=== PATIENT | male | born 1975 | race Caucasian/White ===

== ENCOUNTER 2022-01-02 08:43 | Outpatient (CLI) | payer OTHER, SELFPAY ==
[2022-01-02 13:59] LABS: Chloride* 104 mmol/L (96-114); Potassium* 4.1 mmol/L (3.6-5.1); Sodium* 141 mmol/L (135-149)
[2022-01-02 14:02] LABS: Blood Urea Nitrogen* 12 mg/dL (5-24); Carbon Dioxide* 34 mmol/L (20-32); Cholesterol* 176 mg/dL (90-199); Creatinine* 0.5 mg/dL (0.5-1.5); Estimated Glomerular Filt Rate 127 ml/min; Glucose* 96 mg/dL (60-115)
[2022-01-02 14:03] LABS: Calcium* 9.3 mg/dL (8.4-10.6); HDL Cholesterol* 53 mg/dL (>=40); LDL Cholesterol Calculated 107 mg/dL (<100); Triglycerides* 82 mg/dL (40-149)
== END 2022-01-02 08:44 | disposition home or self-care (01) ==
PROVIDERS: PCP Family Medicine; Visit Provider Family Medicine
DX: Z00.00 Encounter for general adult medical examination without abnormal findings (principal); I10 Essential (primary) hypertension; Z13.6 Encounter for screening for cardiovascular disorders; E66.9 Obesity, unspecified; E55.9 Vitamin D deficiency, unspecified
CPT/HCPCS: 80048; 80061

== ENCOUNTER 2022-04-03 11:20 | Outpatient (CLI) | payer OTHER, SELFPAY | END 2022-04-03 11:21 | disposition home or self-care (01) | PROVIDERS: PCP Family Medicine; Visit Provider Family Medicine | DX: R10.9 Unspecified abdominal pain (principal); R31.9 Hematuria, unspecified | CPT/HCPCS: 87086 ==

== ENCOUNTER 2022-04-03 12:23 | Inpatient (IN) | payer OTHER, SELFPAY ==
[2022-04-03] VITALS (26 sets, daily range): BP systolic 117–158; BP diastolic 78–88; PULSE 73–100; RESP 16–18; TEMP 36.7–36.9; O2SAT 90–98; BMI 46.7; BMI 46.8
[2022-04-03] MEDS: 0.9 % SODIUM CHLORIDE 1000 ml 1,000 ML IV ×2 (13:38→16:12)
[2022-04-03] MEDS: fentaNYL 100 MCG/2 ML inj 50 MCG IVP (13:39)
[2022-04-03] MEDS: ONDANSETRON 2 MG/ML inj 4 MG IVP (13:39)
[2022-04-03 13:50] LABS: Albumin* 3.8 g/dL (3.3-5.0); Chloride* 103 mmol/L (96-114)
--- NOTE | 2022-04-03 13:50 | ED.NURSE ---
Pt O2 sats did drop after fentanyl admin - 85% on RA. Pt was also lying flat and has a hx of BLAKE. Placed on 2L O2 via NC.
[2022-04-03 13:51] LABS: Sodium* 141 mmol/L (135-149)
[2022-04-03 13:53] LABS: Carbon Dioxide* 32 mmol/L (20-32); Creatinine* 0.6 mg/dL (0.5-1.5); Est. Creatinine Clearance* 148.83; Estimated Glomerular Filt Rate 121 ml/min
[2022-04-03 13:54] LABS: Alanine Aminotransferase* 47 U/L (4-50); Alkaline Phosphatase* 60 U/L (40-150); Aspartate Amino Transferase* 30 U/L (12-35); Bilirubin Direct* 0.2 mg/dL (0.0-0.5); Blood Urea Nitrogen* 14 mg/dL (5-24); Calcium* 8.1 mg/dL (8.4-10.6); Glucose* 127 mg/dL (60-115); Total Protein* 6.6 g/dL (6.0-8.3)
--- NOTE | 2022-04-03 14:01 | ED.NURSE ---
Critical lab received: potassium is 2.6. aware.
--- NOTE | 2022-04-03 14:03 | ED_ITS ---
HPI - Abdominal Pain General Chief Complaint: Abdominal Pain Stated Complaint: Abdominal pain Time Seen by Provider: 04/03/22 12:53 History of Present Illness HPI narrative: 46-year-old man here with complaint of abdominal pain. Sharp crampy. Started feeling bloated 2 days ago. Subsequently passed some bloody clot in urine. Had increasing abdominal pain then seen at the [facility] with CT imaging that was remarkable only for diffuse irregular multinodular enlargement of both adrenal glands -indeterminate. Urinalysis at that time looks to have been negative for blood. Total bilirubin was elevated with direct component. Total bilirubin was 1.6. Transaminases were normal. Was recommended for further nonemergent imaging evaluation for this adrenal issue. Yesterday evening did have a temperature to 100.2. Vomited once yesterday late night this rn x ray and then again in clinic doctor's office. Further imaging was done in the form of an abdominal x-ray suggesting partial small bowel obstruction. Sent here for repeat imaging. White count was not elevated. Passing less gas than usual but is passing gas. Today did have a watery stool. Otherwise unsatisfying bowel movement 2 days ago. Notes normally has daily bowel movements. Has never had any abdominal surgeries. Arrives in a good deal of abdominal pain. Is nauseated. Also 2 days ago potassium was 3.1. Related Data Home Medications Medication Instructions Recorded Confirmed bupropion HCl 150 mg tablet,12 hr 150 mg PO BID 01/02/22 04/03/22 sustained-release gabapentin 300 mg capsule 300 mg PO TID 01/02/22 04/03/22 lisinopril 20 1 tab PO DAILY 01/02/22 04/03/22 mg-hydrochlorothiazide 25 mg tablet meloxicam 15 mg tablet 15 mg PO DAILY PRN 01/02/22 04/04/22 metformin 500 mg tablet,extended 1,000 mg PO DAILY 01/02/22 04/04/22 release 24 hr tramadol 50 mg tablet 50 mg PO Q6H PRN 01/02/22 04/03/22 esomeprazole magnesium 20 mg 20 mg PO DAILY 04/04/22 04/04/22 capsule,delayed release pantoprazole 40 mg tablet,delayed 40 mg PO DAILY 04/04/22 04/04/22 release Previous Rx's Medication Instructions Recorded metoclopramide HCl 5 mg tablet 5 mg PO DAILY #10 tabs 04/06/22 (Reglan) Allergies Allergy/AdvReac Type Severity Reaction Status Date / Time No Known Allergies Allergy Unknown Verified 04/03/22 12:35 Review of Systems Status of ROS Reports: 6 or more systems reviewed and unremarkable except as noted in History and below [facility] Medical History (Updated 04/11/22 @ 00:01 by ) Chronic low back pain Gastroesophageal reflux disease Onychomycosis Osteoarthritis of right hip Vitamin D deficiency Surgical History History of arthroscopy of left knee S/P hip arthroscopy Status post nasal septoplasty Status post tonsillectomy and adenoidectomy Status post uvulopalatopharyngoplasty Family History Other Diabetes Social History Narrative: He lives in [place] with his , Francis, and his 10-year-old daughter. He works for the [employer] in [place]. He does not smoke. He drinks 2 or 3 beers about once a week. He does not use recreational drugs. Smoking Status: Never smoker Do you use any of these nicotine containing products: None Second hand tobacco smoke exposure: No How often do you have a drink containing alcohol: 2-4 times a month Alcohol type: beer How many standard drinks containing alcohol do you have on a typical day: 1 or 2 AUDIT-C Alcohol total score: 2 Non-prescribed substance use: denies use service: Yes Exam Narrative: Exam Narrative: Pleasant. Speaking easily. Breathing easily. Lungs appear to be clear. Oropharynx is sticky. Symmetrical. Cranial nerves 2-12 to be intact. Moving all extremities without difficulty. There is no edema and is well-perfused peripherally and core. Heart is in an elevated rate in a regular rhythm. Abdomen is distended and tympanitic and tense across the upper half of his abdomen. Bowel sounds are normal. There are no peritoneal signs. Pain is not particularly more in the right upper quadrant. Const: Vital Signs, click to edit/add: Vital Signs - 24 hr 04/03/22 12:27 04/03/22 13:28 04/03/22 13:50 Temperature 98.4 F Pulse Rate Pulse Rate [Pulse Oximeter] 97 Respiratory Rate 16 Blood Pressure Blood Pressure [Ri ght Upper Arm] 127/85 Pulse Oximetry 92 90 95 Oxygen Delivery Me thod Room Air Nasal Cannula Oxygen Flow Rate 2 04/03/22 15:13 04/03/22 15:15 04/03/22 15:30 Temperature Pulse Rate 73 74 75 Pulse Rate [Pulse Oximeter] Respiratory Rate Blood Pressure Blood Pressure [Ri ght Upper Arm] Pulse Oximetry 94 94 96 Oxygen Delivery Me thod Oxygen Flow Rate 04/03/22 15:45 04/03/22 16:00 04/03/22 16:02 Temperature Pulse Rate 74 75 77 Pulse Rate [Pulse Oximeter] Respiratory Rate Blood Pressure 149/88 H Blood Pressure [Ri ght Upper Arm] Pulse Oximetry 96 97 96 Oxygen Delivery Me thod Oxygen Flow Rate 04/03/22 16:15 04/03/22 16:30 04/03/22 16:45 Temperature Pulse Rate 75 74 78 Pulse Rate [Pulse Oximeter] Respiratory Rate Blood Pressure Blood Pressure [Ri ght Upper Arm] Pulse Oximetry 93 97 95 Oxygen Delivery Me thod Oxygen Flow Rate 04/03/22 17:00 04/03/22 17:15 04/03/22 17:30 Temperature Pulse Rate 81 87 86 Pulse Rate [Pulse Oximeter] Respiratory Rate Blood Pressure Blood Pressure [Ri ght Upper Arm] Pulse Oximetry 97 96 93 Oxygen Delivery Me thod Oxygen Flow Rate 04/03/22 17:45 04/03/22 18:00 04/03/22 18:15 Temperature Pulse Rate 85 84 86 Pulse Rate [Pulse Oximeter] Respiratory Rate Blood Pressure Blood Pressure [Ri ght Upper Arm] Pulse Oximetry 96 96 96 Oxygen Delivery Me thod Oxygen Flow Rate 04/03/22 18:30 04/03/22 18:43 04/03/22 18:45 Temperature Pulse Rate 86 88 87 Pulse Rate [Pulse Oximeter] Respiratory Rate Blood Pressure 153/79 H Blood Pressure [Ri ght Upper Arm] Pulse Oximetry 98 97 96 Oxygen Delivery Me thod Oxygen Flow Rate 04/03/22 19:00 04/03/22 19:16 Temperature Pulse Rate 100 Pulse Rate [Pulse Oximeter] 88 Respiratory Rate 18 Blood Pressure Blood Pressure [Ri ght Upper Arm] 158/81 H Pulse Oximetry 98 97 Oxygen Delivery Me thod Nasal Cannula Oxygen Flow Rate 2 Documenting provider has reviewed patient's vital signs: yes Course Course Hospital Course: Very pleasant 46-year-old male with history of diabetes, presented to the hospital with abdominal pain, nausea, vomiting. Subsequently diagnosed with SBO, transition point right lower quadrant. General surgery consulted. No previous history of SBO, no abdominal surgeries. Interestingly, patient had to wedge himself through a small door way a few days prior to admission; had a bruise on left abdomen from this. Unclear if this incident was related to SBO. NG tube placed and small-bowel follow-through performed with reassuring results. Patient was able to slowly advance his diet throughout hospital stay, stable for discharge on 04/06. Given no obvious source for obstruction, consider gastroparesis as contributing factor. Patient prescribed prn Reglan upon discharge with close outpatient follow-up and routine colonoscopy screening. Other notable findings during stay that require PCP follow-up: 1. Incidental finding of enlarged adrenal glands bilaterally, outpatient MRI recommended 2. Hematuria prior to admission, resolved. Outpatient follow-up recommended Vital Signs Vital signs: Initial Vital Signs Temperature 98.4 F 04/03/22 12:27 Temperature Source Temporal Artery Scan 04/03/22 12:27 Pulse Rate 97 04/03/22 12:27 Pulse Rhythm 04/03/22 12:27 Pulse Strength 3+ Normal 04/03/22 12:27 Respiratory Rate 16 04/03/22 12:27 Blood Pressure 127/85 04/03/22 12:27 Blood Pressure Mean 99 04/03/22 12:27 Blood Pressure Position Sitting 04/03/22 12:27 Pulse Oximetry 92 04/03/22 12:27 Oxygen Delivery Method 04/03/22 12:27 Vital Signs Temperature 98.4 F 04/03/22 12:27 Pulse Rate 97 04/03/22 12:27 Respiratory Rate 16 04/03/22 12:27 Blood Pressure 127/85 04/03/22 12:27 Pulse Oximetry 92 04/03/22 12:27 Oxygen Delivery Method 04/03/22 12:27 Temperature 98.1 F 04/06/22 10:49 Pulse Rate 100 04/06/22 10:49 Respiratory Rate 18 04/06/22 10:49 Blood Pressure 153/79 H 04/06/22 10:49 Pulse Oximetry 94 04/06/22 07:00 Oxygen Delivery Method 04/06/22 07:00 Oxygen Flow Rate 1 04/05/22 03:00 MDM - Abdominal Pain MDM Narrative Medical decision making narrative: I did review x-rays from this morning as well as CT [facility] and [facility]. X-rays today do show dilated loops of small bowel. IV is established receives a L normal saline and 50 mcg of fentanyl. Does have history of sleep apnea. Did desat following this dosing. On reassessment though is markedly improved seems more relaxed and comfortable. Nausea has resolved as well-did receive Zofran. Potassium has dropped further to 2.6 from 3.1 2 days ago. Magnesium levels normal. There are perhaps some medications that might contribute to hypokalemia though not at this rapidity. This might be related also to the vomiting. CRP is elevated. I think this is more of partial/small-bowel obstruction/ileus. Pain has been controlled. Unclear whether not we have surely controlled nausea and ability to manage oral liquids. I am anticipating conversation with General surgery for further recommendations. Have attempted to hydrate. Has required a few doses of pain medication and antiemetic. Has not been willing to tolerate oral intake. I have not reimaged at this time. I discussed with hospitalist for admission for hydration and bowel rest. Unclear diagnosis admittedly at this time. Hypokalemia think is incidental and not convinced related to bowel issues. Hospitalist requested upon admission we have repeated CT imaging of abdomen and pelvis with IV contrast. Pending formal over-read here. I have reviewed these images. Diffusely dilated loops of small bowel are present. Moderately distended stomach. Medical Records Attestation: I reviewed the patient's medical records. Lab Data Attestation: I reviewed the patient's lab results. Labs: Lab Results 04/03/22 04/03/22 04/03/22 Range/Units 13:28 13:28 13:28 Sodium 141 (135-149) mmol/L Potassium 2.6 L* (3.6-5.1) mmol/L Chloride 103 (96-114) mmol/L Carbon Dioxide 32 (20-32) mmol/L BUN 14 (5-24) mg/dL Creatinine 0.6 (0.5-1.5) mg/dL Estimated Creat Clear 148.83 Estimated GFR 121 ml/min Glucose 127 H (60-115) mg/dL Lactate (0.5-1.9) mmol/L Calcium 8.1 L (8.4-10.6) mg/dL Magnesium 2.3 (1.5-2.6) mg/dL Total Bilirubin 1.0 (0.1-1.5) mg/dL Direct Bilirubin 0.2 (0.0-0.5) mg/dL AST 30 (12-35) U/L ALT 47 (4-50) U/L Alkaline Phosphatase 60 (40-150) U/L C-Reactive Protein 5.0 H (0.5-1.0) mg/dL Total Protein 6.6 (6.0-8.3) g/dL Albumin 3.8 (3.3-5.0) g/dL SARS-CoV-2 (PCR) Negative SARS-CoV-2 (Negative) 04/03/22 Range/Units 19:24 Sodium (135-149) mmol/L Potassium (3.6-5.1) mmol/L Chloride (96-114) mmol/L Carbon Dioxide (20-32) mmol/L BUN (5-24) mg/dL Creatinine (0.5-1.5) mg/dL Estimated Creat Clear Estimated GFR ml/min Glucose (60-115) mg/dL Lactate 0.6 (0.5-1.9) mmol/L Calcium (8.4-10.6) mg/dL Magnesium (1.5-2.6) mg/dL Total Bilirubin (0.1-1.5) mg/dL Direct Bilirubin (0.0-0.5) mg/dL AST (12-35) U/L ALT (4-50) U/L Alkaline Phosphatase (40-150) U/L C-Reactive Protein (0.5-1.0) mg/dL Total Protein (6.0-8.3) g/dL Albumin (3.3-5.0) g/dL SARS-CoV-2 (PCR) (Negative) Discharge Plan Discharge Clinical Impression: Bowel obstruction, Abdominal pain, Hypokalemia Patient Disposition: Admitted As Inpatient Condition: Stable Activity Level: Activity as Tolerated Discharge Diet: Regular
[2022-04-03 14:05] LABS: Potassium* 2.6 mmol/L (3.6-5.1)
[2022-04-03 14:17] LABS: SARS PCR* Negative SARS-CoV-2 (Negative)
[2022-04-03 14:19] LABS: Magnesium* 2.3 mg/dL (1.5-2.6)
[2022-04-03] MEDS: POTASSIUM CHLORIDE 10 MEQ/100 ML PIGGYBACK 100 MEQ IVPB ×5 (15:01→23:50)
--- NOTE | 2022-04-03 15:35 | ED.NURSE ---
Heads up to house sup.
[2022-04-03] MEDS: PROMETHAZINE 25 MG/ML INJ 12.5 MG IVP (16:10)
[2022-04-03] MEDS: KETOROLAC 30 MG/ML inj IVP (17:06)
[2022-04-03] MEDS: diphenhydrAMINE 50 MG/ML inj 25 MG IVP (18:40)
[2022-04-03] MEDS: METOCLOPRAMIDE HCL 10 MG in 0.9 % SODIUM CHLORIDE 100 ml 100 ML 306 MG IVPB (18:41)
--- NOTE | 2022-04-03 19:04 | CRLHL7_ITS ---
For Patients: As a result of the 21st Century Cures Act, medical imaging exams and procedure reports are released immediately into your electronic medical record. You may view this report before your referring provider. If you have questions, please contact your health care provider. Indication: Increasing abdominal pain, blood in urine, concern for small bowel obstruction Technique: CT abdomen and pelvis with Isovue 370, 148 cc IV Please note that all CT scans at this facility use dose modulation, iterative reconstruction, and/or weight-based dosing when appropriate to reduce radiation dose to as low as reasonably achievable. Comparison: None Findings: Bibasilar atelectasis. Normal heart size. No pericardial effusion. Normal liver size and contour. A low-attenuation left hepatic lobe lesion which is too small to characterize. No definitely suspicious hepatic lesions. The hepatic veins and the portal veins appear patent. Gallbladder unremarkable. No biliary dilatation. The adrenal glands are markedly thickened and nodular bilaterally, but particularly the left adrenal gland (series 2, image [id number]). Bilateral peripelvic renal cysts. No hydronephrosis. No suspicious renal lesions. Symmetric enhancement of the kidneys. The spleen and pancreas are unremarkable. Stomach and duodenum are distended although otherwise unremarkable. Normal course and caliber of the abdominal aorta and the IVC. The aortic side branches in the renal veins appear patent. No retroperitoneal, mesenteric, pelvic or inguinal lymphadenopathy. The prostate and bladder are unremarkable within the limitations of this non tailored examination. The colon is relatively decompressed although it does contain some air and stool. The appendix appears normal. No bowel wall thickening. There are numerous loops of dilated small bowel, particularly within the left kleber abdomen. There is somewhat slow smooth tapering of the more distal small bowel in the right kleber abdomen. A candidate transition point would be (series 2, image 109) the right lower quadrant. No pneumatosis. Trace free fluid within the mesentery. No omental or retroperitoneal nodularity. No significant abdominal wall hernia. No acute or aggressive osseous abnormality. Impression: 1. Small-bowel obstruction with transition point in the right lower quadrant. 2. Markedly enlarged and multinodular adrenal glands. Recommend dedicated MRI for further evaluation. Please note that all CT scans at this facility use dose modulation, iterative reconstruction, and/or weight-based dosing when appropriate to reduce radiation dose to as low as reasonably achievable. Dictated by Virgilio Segal MD @ 04/03/2022 8:13:47 PM (Electronically Signed)
[2022-04-03] MEDS: fentaNYL 100 MCG/2 ML inj 25 MCG IVP (19:13)
--- NOTE | 2022-04-03 19:20 | P.IMHP_ITS ---
Hospitalist- H&P: HPI History of Present Illness Date Seen: 04/03/22 Chief complaint: Abdominal pain Narrative: Avery Horne is a 46 year old male admitted through the emergency department with 2 days of abdominal pain. Two days ago, Sunday morning, the patient had onset of hematuria. In the afternoon he started having fever and chills and abdominal pain. He felt quite poorly and went to the [facility] where he was evaluated. He had a noncontrast abdominal CT which was unremarkable except for multinodular enlargement of the adrenal glands and in his kidneys he had bilateral peripelvic renal cysts. No evidence of bowel obstruction at that time. It was recommended that he have a non emergent evaluation of his adrenal glands with CT or MRI. He reports they diagnosed him with having passed a kidney stone as there was no hydronephrosis or kidney stone present on that exam. Laboratory studies were unremarkable at that time. He had 3 red cells per high-power field on his urinalysis. Yesterday he did not feel as ill as he was on Sunday but still had some abdom inal discomfort. He had a loss of appetite and did not eat much yesterday. He awoke at 1:30 a.m. today with increased abdominal pain and then he vomited. He had a small amount of nonbloody diarrhea after that. He has had a small amount of urine today that has been nonbloody. He has been unable to keep anything down today. He reports no previous history of abdominal problems. No previous abdominal surgeries. He was exposed to his daughter last week who had a self-limited gastroenteritis. She had vomiting and diarrhea. Review of Systems Narrative: Prior to the last 2 days he reports he was generally feeling well. He was dealing with his chronic low back and right hip pain. He does have a bruise on his abdomen which he reports came from trying to get in the door of his work and the doorknob pushing it is his abdomen because the door could not be open due to snow blocking the door. This happened 4 days ago and he did not have much abdominal pain associated with it. [facility] Medical History (Updated 04/03/22 @ 19:35 by Rodríguez Recio MD) Chronic low back pain Diabetes 1.5, managed as type 2 Gastroesophageal reflux disease Hypertension Obesity Obstructive sleep apnea treated with continuous positive airway pressure (CPAP) Onychomycosis Osteoarthritis of right hip Vitamin D deficiency Surgical History History of arthroscopy of left knee S/P hip arthroscopy Status post nasal septoplasty Status post tonsillectomy and adenoidectomy Status post uvulopalatopharyngoplasty Family History Other Diabetes Social History (Updated 04/03/22 @ 19:29 by Rodríguez Recio MD) Narrative: He lives in [place] with his , Francis, and his 10-year-old daughter. He works for the [employer] in [place]. He does not smoke. He drinks 2 or 3 beers about once a week. He does not use recreational drugs. Smoking Status: Never smoker Do you use any of these nicotine containing products: None Second hand tobacco smoke exposure: No How often do you have a drink containing alcohol: monthly or less How many standard drinks containing alcohol do you have on a typical day: 1 or 2 AUDIT-C Alcohol total score: 1 Non-prescribed substance use: denies use service: Yes Meds Home Medications and Allergies Home Medications Medication Instructions Recorded Confirmed Type bupropion HCl 150 mg tablet,12 hr 150 mg PO BID 01/02/22 04/03/22 History sustained-release gabapentin 300 mg capsule 300 mg PO TID 01/02/22 04/03/22 History lisinopril 20 1 tab PO DAILY 01/02/22 04/03/22 History mg-hydrochlorothiazide 25 mg tablet meloxicam 15 mg tablet 15 mg PO .Daily as needed PRN 01/02/22 04/03/22 History metformin 500 mg tablet,extended 1,000 mg PO QDAY 01/02/22 04/03/22 History release 24 hr tramadol 50 mg tablet 50 mg PO Q6H PRN 01/02/22 04/03/22 History Home Medication Comments: He reports that he takes a baby aspirin a day. He also reports taking famotidine 40 mg daily. Allergies Allergy/AdvReac Type Severity Reaction Status Date / Time No Known Allergies Allergy Unknown Verified 04/03/22 12:35 Exam Narrative: Exam Narrative: He is alert and appears in mild discomfort lying on the gurney. He is oriented to his circumstances. Is pleasant and cooperative. Head is without trauma. Eyes are normal. Sclerae nonicteric. Oropharynx with small airway. Dry mucous membranes. Neck is supple without mass or adenopathy. Respirations are clear to auscultation. Good air exchange all lung osuna. No wheezing rales rhonchi. Cardiovascular: S1, S2, regular rate and rhythm. No murmur gallop or rub. Abdomen: Bowel sounds are diminished. A rare high-pitched bowel sound is present. Abdomen is distended and protuberant. He has mild diffuse tenderness. External genitalia normal. Extremities with intact pulses and sensation. He moves all 4 extremities well. Good capillary refill. No significant edema. No rash Const: Vital Signs, click to edit/add: Vital Signs - 24 hr 04/03/22 12:27 04/03/22 13:28 04/03/22 13:50 Temperature 98.4 F Pulse Rate Pulse Rate [Pulse Oximeter] 97 Respiratory Rate 16 Blood Pressure Blood Pressure [Ri ght Upper Arm] 127/85 Pulse Oximetry 92 90 95 Oxygen Delivery Me thod Room Air Nasal Cannula Oxygen Flow Rate 2 04/03/22 15:13 04/03/22 15:15 04/03/22 15:30 Temperature Pulse Rate 73 74 75 Pulse Rate [Pulse Oximeter] Respiratory Rate Blood Pressure Blood Pressure [Ri ght Upper Arm] Pulse Oximetry 94 94 96 Oxygen Delivery Me thod Oxygen Flow Rate 04/03/22 15:45 04/03/22 16:00 04/03/22 16:02 Temperature Pulse Rate 74 75 77 Pulse Rate [Pulse Oximeter] Respiratory Rate Blood Pressure 149/88 H Blood Pressure [Ri ght Upper Arm] Pulse Oximetry 96 97 96 Oxygen Delivery Me thod Oxygen Flow Rate 04/03/22 16:15 04/03/22 16:30 04/03/22 16:45 Temperature Pulse Rate 75 74 78 Pulse Rate [Pulse Oximeter] Respiratory Rate Blood Pressure Blood Pressure [Ri ght Upper Arm] Pulse Oximetry 93 97 95 Oxygen Delivery Me thod Oxygen Flow Rate 04/03/22 17:00 04/03/22 17:15 04/03/22 17:30 Temperature Pulse Rate 81 87 86 Pulse Rate [Pulse Oximeter] Respiratory Rate Blood Pressure Blood Pressure [Ri ght Upper Arm] Pulse Oximetry 97 96 93 Oxygen Delivery Me thod Oxygen Flow Rate 04/03/22 17:45 04/03/22 18:00 04/03/22 18:15 Temperature Pulse Rate 85 84 86 Pulse Rate [Pulse Oximeter] Respiratory Rate Blood Pressure Blood Pressure [Ri ght Upper Arm] Pulse Oximetry 96 96 96 Oxygen Delivery Me thod Oxygen Flow Rate 04/03/22 18:30 04/03/22 18:43 04/03/22 18:45 Temperature Pulse Rate 86 88 87 Pulse Rate [Pulse Oximeter] Respiratory Rate Blood Pressure 153/79 H Blood Pressure [Ri ght Upper Arm] Pulse Oximetry 98 97 96 Oxygen Delivery Me thod Oxygen Flow Rate 04/03/22 19:00 04/03/22 19:16 Temperature Pulse Rate 100 Pulse Rate [Pulse Oximeter] 88 Respiratory Rate 18 Blood Pressure Blood Pressure [Ri ght Upper Arm] 158/81 H Pulse Oximetry 98 97 Oxygen Delivery Me thod Nasal Cannula Oxygen Flow Rate 2 Hospitalist - H&P: Result Labs Labs: [facility] 04/03/22 13:28 Sodium 141 Potassium 2.6 L* Chloride 103 Carbon Dioxide 32 BUN 14 Creatinine 0.6 Glucose 127 H Calcium 8.1 L Liver Function 04/03/22 Range/Units 13:28 Total Bilirubin 1.0 (0.1-1.5) mg/dL Direct Bilirubin 0.2 (0.0-0.5) mg/dL AST 30 (12-35) U/L ALT 47 (4-50) U/L Alkaline Phosphatase 60 (40-150) U/L Albumin 3.8 (3.3-5.0) g/dL Assessment and Plan Assessment and plan (1) Ileus: Problem comment: Patient appears to have an ileus for unclear reasons. Additional evaluation is warranted. Obtain CT of the abdomen with contrast. Supportive care. Surgical consult. NPO for now. IV fluids. Status: Acute (2) Adrenal abnormality: Problem comment: Outpatient follow-up imaging. Status: Acute (3) Hematuria: Problem comment: Present 2 days ago now resolved. Significance uncertain. Status: Acute (4) Hypokalemia: Problem comment: Likely due to poor oral intake and vomiting. Replace and follow. Status: Acute Plan Patient be hospitalized for ongoing evaluation and management of his apparent abdominal ileus. Total time spent today is 80 minutes, 50 minutes in coordination of care and discussing with patient other providers ongoing evaluation management of abdominal pain and ileus
[2022-04-03 19:28] LABS: Lactate* 0.6 mmol/L (0.5-1.9)
[2022-04-03] MEDS: LACTATED RINGERS 1000 ML 1,000 ML 150 ML IV (22:08)
--- NOTE | 2022-04-03 22:48 | CRLHL7_ITS ---
For Patients: As a result of the Century Cures Act, medical imaging exams and procedure reports are released immediately into your electronic medical record. You may view this report before your referring provider. If you have questions, please contact your health care provider. INDICATION: NG tube placement. TECHNIQUE: Chest 1 view(s) COMPARISON: Chest radiograph dated 07/02/2018. FINDINGS/IMPRESSION: Limited study secondary to underpenetration. Image time stamped 11:45 p.m. shows the nasogastric tube coursing into the abdomen, tip likely projects over the stomach. However, on the 2nd image time stamped at 11:47 p.m., the tip of the nasogastric tube is not confidently identified. Repeat abdominal radiograph is recommended. Heart size is upper limits of normal. Streaky opacities in the lung bases, likely reflective of atelectasis. Dictated by Muna Cummings MD @ 04/04/2022 12:03:26 AM (Electronically Signed)
--- NOTE | 2022-04-03 23:07 | PC.NURSE ---
Shift [id number]- Patient arrives to floor at approximately 2000. He is up ad rajendra. He initially states pain and nausea are well-controlled. These increase tonight prior to NG placement. Once NG in place, patient states relief from both. 1L out within 15 minutes of placement. IV infiltrated while potassium running. New IV initiated.
[2022-04-04] MEDS: POTASSIUM CHLORIDE 10 MEQ/100 ML PIGGYBACK 100 MEQ IVPB ×4 (00:50→04:34)
[2022-04-04 03:00] VITALS: BP 125/77; PULSE 91; RESP 18; TEMP 36.6; O2SAT 92
[2022-04-04] MEDS: LACTATED RINGERS 1000 ML 1,000 ML 150 ML IV ×3 (04:37→18:18)
--- NOTE | 2022-04-04 06:20 | PC.NURSE ---
Shift note: NG is patent and draining, pt tolerating placement with no complains, Gastroccult pH 3. Denies pain, bowel sounds hypoactive. Pt ambulates independently, with no c/o nausea
[2022-04-04 07:07] LABS: Lactate* 0.7 mmol/L (0.5-1.9)
[2022-04-04 07:08] LABS: Basophils Absolute Auto 0.02 K/uL (0.00-0.30); Basophils Percent Auto 0.3 % (0.0-3.0); Eosinophils Absolute Auto 0.02 K/uL (0.00-0.50); Eosinophils Percent Auto 0.3 % (0.0-7.0); Hematocrit 40.4 % (37.0-53.0); Hemoglobin* 13.5 gm/dL (13.5-17.5); Immature Granulocytes Abs Auto 0.02 K/uL (0.00-0.30); Immature Granulocytes Pct Auto 0.3 %; Lymphocytes Percent Auto 16.4 % (20-44); Mean Corpuscular HGB Conc 33 gm/dL (32-36); Mean Corpuscular Hemoglobin 29 pg (26-34); Mean Corpuscular Volume 86 fL (80-100); Monocytes Percent Auto 11.2 % (0.0-11.0); Neutrophils Absolute Auto 4.92 K/uL (1.7-7.0); Neutrophils Percent Auto 71.5 % (42.0-72.0); Platelet Count* 216 K/uL (140-440); RDW Coefficient of Variation % 13.2 % (11.5-15.5); White Blood Count* 6.88 K/uL (4.50-11.00)
[2022-04-04 07:20] LABS: Slide Review Reflex No
[2022-04-04 07:28] LABS: Chloride* 107 mmol/L (96-114)
[2022-04-04 07:29] LABS: Potassium* 3.1 mmol/L (3.6-5.1); Sodium* 143 mmol/L (135-149)
[2022-04-04 07:31] LABS: Creatinine* 0.5 mg/dL (0.5-1.5); Estimated Glomerular Filt Rate 127 ml/min
[2022-04-04 07:32] LABS: Blood Urea Nitrogen* 14 mg/dL (5-24); Carbon Dioxide* 33 mmol/L (20-32)
[2022-04-04 07:33] LABS: Calcium* 7.6 mg/dL (8.4-10.6); Glucose* 107 mg/dL (60-115)
[2022-04-04 07:35] LABS: C Reactive Protein* 4.2 mg/dL (0.5-1.0)
--- NOTE | 2022-04-04 07:37 | P.IMPN_ITS ---
Progress Note: A&P Assessment and plan (1) Bowel obstruction: Problem details: - transition point right lower quadrant - currently NPO with NG tube in place - upper GI with small bowel follow through today - appreciate input from General Surgery team - no history of bowel obstructions in the past, no previous abdominal surgeries - colonoscopy approximately 10 years ago, per patient (diverticulosis, no other findings) Status: Acute (2) Adrenal abnormality: Problem details: - per admission CT scan: Markedly enlarged and multinodular adrenal glands. Recommend dedicated MRI for further evaluation - patient aware of findings, recommend outpatient follow-up imaging Status: Acute (3) Hematuria: Problem details: - noted 2 days prior to admission, resolved. Unclear significance, outpatient f/u Status: Acute (4) Hypokalemia: Problem details: - Likely due to poor oral intake and vomiting (no history of this on chart review) - Replace and follow. Status: Acute (5) Diabetes 1.5, managed as type 2: Problem details: - Dx 2021, [id number] - Accu-Cheks and SSI Status: Chronic Plan - per above - Lovenox for ppx Subjective Date Seen: 04/04/22 Interval history: No acute events overnight. Patient feels better this morning, no concerns for hospitalist team. He is tolerating NG-tube. Exam Narrative: Exam Narrative: GEN: Alert and oriented, nontoxic in appearance HEENT: EOMIs bilaterally, no scleral icterus CV: RRR, No concerning murmurs, rubs, or gallops R: LCTA bilaterally without concerning wheezing, air movement adequate Abdomen: Soft without significant distention, tolerates palpation. Hypoactive bowel sounds Ext: wwp, no concerning edema Skin: No concerning skin lesions or rashes on exposed skin Neuro: No focal deficits, no resting tremor Psych: Appropriate Const: Vital Signs, click to edit/add: Vital Signs - 24 hr 04/03/22 12:27 04/03/22 13:28 04/03/22 13:50 Temperature 98.4 F Pulse Rate Pulse Rate [Pulse Oximeter] 97 Respiratory Rate 16 Blood Pressure Blood Pressure [Le ft Arm] Blood Pressure [Ri ght Upper Arm] 127/85 Pulse Oximetry 92 90 95 Oxygen Delivery Me thod Room Air Nasal Cannula Oxygen Flow Rate 2 04/03/22 15:13 04/03/22 15:15 04/03/22 15:30 Temperature Pulse Rate 73 74 75 Pulse Rate [Pulse Oximeter] Respiratory Rate Blood Pressure Blood Pressure [Le ft Arm] Blood Pressure [Ri ght Upper Arm] Pulse Oximetry 94 94 96 Oxygen Delivery Me thod Oxygen Flow Rate 04/03/22 15:45 04/03/22 16:00 04/03/22 16:02 Temperature Pulse Rate 74 75 77 Pulse Rate [Pulse Oximeter] Respiratory Rate Blood Pressure 149/88 H Blood Pressure [Le ft Arm] Blood Pressure [Ri ght Upper Arm] Pulse Oximetry 96 97 96 Oxygen Delivery Me thod Oxygen Flow Rate 04/03/22 16:15 04/03/22 16:30 04/03/22 16:45 Temperature Pulse Rate 75 74 78 Pulse Rate [Pulse Oximeter] Respiratory Rate Blood Pressure Blood Pressure [Le ft Arm] Blood Pressure [Ri ght Upper Arm] Pulse Oximetry 93 97 95 Oxygen Delivery Me thod Oxygen Flow Rate 04/03/22 17:00 04/03/22 17:15 04/03/22 17:30 Temperature Pulse Rate 81 87 86 Pulse Rate [Pulse Oximeter] Respiratory Rate Blood Pressure Blood Pressure [Le ft Arm] Blood Pressure [Ri ght Upper Arm] Pulse Oximetry 97 96 93 Oxygen Delivery Me thod Oxygen Flow Rate 04/03/22 17:45 04/03/22 18:00 04/03/22 18:15 Temperature Pulse Rate 85 84 86 Pulse Rate [Pulse Oximeter] Respiratory Rate Blood Pressure Blood Pressure [Le ft Arm] Blood Pressure [Ri ght Upper Arm] Pulse Oximetry 96 96 96 Oxygen Delivery Me thod Oxygen Flow Rate 04/03/22 18:30 04/03/22 18:43 04/03/22 18:45 Temperature Pulse Rate 86 88 87 Pulse Rate [Pulse Oximeter] Respiratory Rate Blood Pressure 153/79 H Blood Pressure [Le ft Arm] Blood Pressure [Ri ght Upper Arm] Pulse Oximetry 98 97 96 Oxygen Delivery Me thod Oxygen Flow Rate 04/03/22 19:00 04/03/22 19:16 04/03/22 20:18 Temperature Pulse Rate 100 Pulse Rate [Pulse Oximeter] 88 80 Respiratory Rate 18 18 Blood Pressure Blood Pressure [Le ft Arm] 137/80 Blood Pressure [Ri ght Upper Arm] 158/81 H Pulse Oximetry 98 97 90 Oxygen Delivery Me thod Nasal Cannula Room Air Oxygen Flow Rate 2 04/03/22 20:31 04/03/22 23:00 04/03/22 23:00 Temperature 98.3 F 98.1 F Pulse Rate Pulse Rate [Pulse Oximeter] 79 79 Respiratory Rate 18 18 Blood Pressure Blood Pressure [Le ft Arm] 117/78 Blood Pressure [Ri ght Upper Arm] Pulse Oximetry 92 Oxygen Delivery Me thod Nasal Cannula Oxygen Flow Rate 1 04/04/22 03:00 Temperature 98 F Pulse Rate Pulse Rate [Pulse Oximeter] 91 Respiratory Rate 18 Blood Pressure Blood Pressure [Le ft Arm] 125/77 Blood Pressure [Ri ght Upper Arm] Pulse Oximetry 92 Oxygen Delivery Me thod Nasal Cannula Oxygen Flow Rate 1 Labs Labs: Laboratory Results - last 24 hr 04/03/22 04/03/22 04/03/22 13:28 13:28 13:28 WBC RBC Hgb Hct MCV MCH MCHC RDW Coeff of Radu Plt Count Neut % (Auto) Lymph % (Auto) [place] % (Auto) Eos % (Auto) Baso % (Auto) Neut # (Auto) Lymph # (Auto) [place] # (Auto) Eos # (Auto) Baso # (Auto) Sodium 141 Potassium 2.6 L* Chloride 103 Carbon Dioxide 32 BUN 14 Creatinine 0.6 Estimated Creat Clear 148.83 Estimated GFR 121 Glucose 127 H Lactate Calcium 8.1 L Magnesium 2.3 Total Bilirubin 1.0 Direct Bilirubin 0.2 AST 30 ALT 47 Alkaline Phosphatase 60 C-Reactive Protein 5.0 H Total Protein 6.6 Albumin 3.8 SARS-CoV-2 (PCR) Negative SARS-CoV-2 04/03/22 04/04/22 04/04/22 19:24 06:36 06:36 WBC 6.88 RBC 4.70 Hgb 13.5 Hct 40.4 MCV 86 MCH 29 MCHC 33 RDW Coeff of Radu 13.2 Plt Count 216 Neut % (Auto) 71.5 Lymph % (Auto) 16.4 L [place] % (Auto) 11.2 H Eos % (Auto) 0.3 Baso % (Auto) 0.3 Neut # (Auto) 4.92 Lymph # (Auto) 1.10 [place] # (Auto) 0.80 Eos # (Auto) 0.02 Baso # (Auto) 0.02 Sodium Potassium Chloride Carbon Dioxide BUN Creatinine Estimated Creat Clear Estimated GFR Glucose Lactate 0.6 0.7 Calcium Magnesium Total Bilirubin Direct Bilirubin AST ALT Alkaline Phosphatase C-Reactive Protein Total Protein Albumin SARS-CoV-2 (PCR)
[2022-04-04 08:00] VITALS: BP 139/82; PULSE 83; RESP 16; TEMP 36.7; O2SAT 91
[2022-04-04] MEDS: PANTOPRAZOLE SODIUM 40 MG INJ IVP (09:21)
[2022-04-04] MEDS: SODIUM CHLORIDE 0.9 % (FLUSH) 10 ML SYRINGE 5 ML IVF (09:22)
--- NOTE | 2022-04-04 09:30 | CRLHL7_ITS ---
For Patients: As a result of the Century Cures Act, medical imaging exams and procedure reports are released immediately into your electronic medical record. You may view this report before your referring provider. If you have questions, please contact your health care provider. INDICATION: Small-bowel obstruction. Gastrografin challenge. TECHNIQUE: Limited small-bowel follow-through. FINDINGS: 200 cc of water-soluble Gastrografin administered orally. Imaging performed at 1 hour and 2 hours. FINDINGS: Enteric tube with its tip in the distal stomach. Dilated small bowel loops. At 1 hour contrast is in the mid ileum. At 2 hours contrast opacifies the terminal ileum and also is in the right hemicolon. Incidental note is made of contrast in the genitourinary tract from yesterday`s contrast-enhanced CT. IMPRESSION: Mildly dilated small bowel loops. No ashley obstruction. Contrast is seen in the right hemicolon and terminal ileum within 2 hours. Today`s study indicates a resolving small bowel obstruction particularly when compared to yesterday`s CT. Dictated by Félix Story MD @ 04/04/2022 11:16:54 AM (Electronically Signed)
[2022-04-04 11:00] VITALS: BP 147/81; PULSE 81; RESP 16; TEMP 36.9; O2SAT 94
[2022-04-04] MEDS: POTASSIUM CHLORIDE 10 MEQ/100 ML PIGGYBACK 60 MEQ IVPB ×4 (12:01→16:55)
[2022-04-04 15:00] VITALS: BP 153/86; PULSE 82; RESP 16; TEMP 36.8; O2SAT 95
--- NOTE | 2022-04-04 15:18 | P.GSCN_ITS ---
History of Present Illness Consult details Date Seen: 04/04/22 Consult date: 04/04/22 Narrative: 46-year-old male was admitted to the hospital with small-bowel obstruction and I was asked by Dr. Recio to see him in consultation. Patient states that last Sunday he went to emergency room because of hematuria. Patient went to [place] and was thought to have kidney stones. He stated that he had pain in the right side of his back when the doctor tapped on that side. At that same time he did feel bloated in epigastrium but did not describe that as pain. Sunday night he woke up to go to work and did not feel well. He vomited. Continued to have several other episodes of vomiting on Sunday. He also started to have more epigastric abdominal pain and bloating. Patient continued to pass gas since Sunday. He had a small loose ?diarrhea? stool yesterday. Patient states that his daughter had gastrointestinal illness and was seen in clinic 1 week ago for that. I reviewed patient's laboratory and imaging findings. In the emergency room patient was found to have hypokalemia with potassium of 2.6. His WBC was normal with slight left shift. His CRP was elevated at 5. His liver function tests were normal. An abdominal CT was obtained that showed dilated loops of bowel with a possible transition point in the right lower quadrant as read by Radiology. I reviewed the CT scan personally. Patient was admitted to the hospital for observation. An NG tube was placed that relieved patient's bloating and helped with his symptoms. Patient continues to pass gas. Review of Systems Narrative: General: no fevers HENT: no problems swallowing CV: no shortness of breath Resp: no cough GI: See above Skin: no new rashes Musculoskeletal: + chronic back issues Neuro: no muscle weakness Psyche: no depression, no anxiety PFSH PFSH Medical History Gastroesophageal reflux disease Onychomycosis Osteoarthritis of right hip Surgical History History of arthroscopy of left knee S/P hip arthroscopy Status post nasal septoplasty Status post tonsillectomy and adenoidectomy Status post uvulopalatopharyngoplasty Family History Other Diabetes Social History Narrative: He lives in [place] with his , Francis, and his 10-year-old daughter. He works for the [employer] in [place]. He does not smoke. He drinks 2 or 3 beers about once a week. He does not use recreational drugs. Smoking Status: Never smoker Do you use any of these nicotine containing products: None Second hand tobacco smoke exposure: No How often do you have a drink containing alcohol: 2-4 times a month Alcohol type: beer How many standard drinks containing alcohol do you have on a typical day: 1 or 2 AUDIT-C Alcohol total score: 2 Non-prescribed substance use: denies use service: Yes Meds Home Medications and Allergies Home Medications Medication Instructions Recorded Confirmed Type bupropion HCl 150 mg tablet,12 hr 150 mg PO BID 01/02/22 04/03/22 History sustained-release gabapentin 300 mg capsule 300 mg PO TID 01/02/22 04/03/22 History lisinopril 20 1 tab PO DAILY 01/02/22 04/03/22 History mg-hydrochlorothiazide 25 mg tablet meloxicam 15 mg tablet 15 mg PO DAILY PRN 01/02/22 04/04/22 History metformin 500 mg tablet,extended 1,000 mg PO DAILY 01/02/22 04/04/22 History release 24 hr tramadol 50 mg tablet 50 mg PO Q6H PRN 01/02/22 04/03/22 History esomeprazole magnesium 20 mg 20 mg PO DAILY 04/04/22 04/04/22 History capsule,delayed release pantoprazole 40 mg tablet,delayed 40 mg PO DAILY 04/04/22 04/04/22 History release Allergies Allergy/AdvReac Type Severity Reaction Status Date / Time No Known Allergies Allergy Unknown Verified 04/03/22 12:35 Exam Narrative: Exam Narrative: General appearance: Alert, cooperative, and in no distress Pulmonary: Chest symmetric, lungs clear bilaterally Cardiovascular Heart: Regular rate and rhythm, S1, S2, no murmurs/rubs/gallops Gastrointestinal Abdominal: soft, not distended, not tender to percussion, minimally tender to palpation in epigastrium. Skin: Normal skin color, texture, and turgor. No rashes or lesions. Psychiatric: Alert, cooperative, normal affect. Const: Vital Signs, click to edit/add: Vital Signs - 24 hr 04/03/22 15:30 04/03/22 15:45 04/03/22 16:00 Temperature Pulse Rate 75 74 75 Pulse Rate [Pulse Oximeter] Respiratory Rate Blood Pressure Blood Pressure [Le ft Arm] Blood Pressure [Ri ght Arm] Blood Pressure [Ri ght Upper Arm] Pulse Oximetry 96 96 97 Oxygen Delivery Me thod Oxygen Flow Rate 04/03/22 16:02 04/03/22 16:15 04/03/22 16:30 Temperature Pulse Rate 77 75 74 Pulse Rate [Pulse Oximeter] Respiratory Rate Blood Pressure 149/88 H Blood Pressure [Le ft Arm] Blood Pressure [Ri ght Arm] Blood Pressure [Ri ght Upper Arm] Pulse Oximetry 96 93 97 Oxygen Delivery Me thod Oxygen Flow Rate 04/03/22 16:45 04/03/22 17:00 04/03/22 17:15 Temperature Pulse Rate 78 81 87 Pulse Rate [Pulse Oximeter] Respiratory Rate Blood Pressure Blood Pressure [Le ft Arm] Blood Pressure [Ri ght Arm] Blood Pressure [Ri ght Upper Arm] Pulse Oximetry 95 97 96 Oxygen Delivery Me thod Oxygen Flow Rate 04/03/22 17:30 04/03/22 17:45 04/03/22 18:00 Temperature Pulse Rate 86 85 84 Pulse Rate [Pulse Oximeter] Respiratory Rate Blood Pressure Blood Pressure [Le ft Arm] Blood Pressure [Ri ght Arm] Blood Pressure [Ri ght Upper Arm] Pulse Oximetry 93 96 96 Oxygen Delivery Me thod Oxygen Flow Rate 04/03/22 18:15 04/03/22 18:30 04/03/22 18:43 Temperature Pulse Rate 86 86 88 Pulse Rate [Pulse Oximeter] Respiratory Rate Blood Pressure 153/79 H Blood Pressure [Le ft Arm] Blood Pressure [Ri ght Arm] Blood Pressure [Ri ght Upper Arm] Pulse Oximetry 96 98 97 Oxygen Delivery Me thod Oxygen Flow Rate 04/03/22 18:45 04/03/22 19:00 04/03/22 19:16 Temperature Pulse Rate 87 100 Pulse Rate [Pulse Oximeter] 88 Respiratory Rate 18 Blood Pressure Blood Pressure [Le ft Arm] Blood Pressure [Ri ght Arm] Blood Pressure [Ri ght Upper Arm] 158/81 H Pulse Oximetry 96 98 97 Oxygen Delivery Me thod Nasal Cannula Oxygen Flow Rate 2 04/03/22 20:18 04/03/22 20:31 04/03/22 23:00 Temperature 98.3 F Pulse Rate Pulse Rate [Pulse Oximeter] 80 79 Respiratory Rate 18 18 Blood Pressure Blood Pressure [Le ft Arm] 137/80 Blood Pressure [Ri ght Arm] Blood Pressure [Ri ght Upper Arm] Pulse Oximetry 90 Oxygen Delivery Me thod Room Air Oxygen Flow Rate 04/03/22 23:00 04/04/22 03:00 04/04/22 08:00 Temperature 98.1 F 98 F 98.1 F Pulse Rate Pulse Rate [Pulse Oximeter] 79 91 83 Respiratory Rate 18 18 16 Blood Pressure Blood Pressure [Le ft Arm] 117/78 125/77 139/82 Blood Pressure [Ri ght Arm] Blood Pressure [Ri ght Upper Arm] Pulse Oximetry 92 92 91 Oxygen Delivery Me thod Nasal Cannula Nasal Cannula Nasal Cannula Oxygen Flow Rate 1 1 1 04/04/22 11:00 Temperature 98.5 F Pulse Rate Pulse Rate [Pulse Oximeter] 81 Respiratory Rate 16 Blood Pressure Blood Pressure [Le ft Arm] Blood Pressure [Ri ght Arm] 147/81 H Blood Pressure [Ri ght Upper Arm] Pulse Oximetry 94 Oxygen Delivery Me thod Nasal Cannula Oxygen Flow Rate 1 Results Labs Labs: Abnormal lab results 04/04/22 04/04/22 Range/Units 06:36 06:36 Lymph % (Auto) 16.4 L (20-44) % [place] % (Auto) 11.2 H (0.0-11.0) % Potassium 3.1 L (3.6-5.1) mmol/L Carbon Dioxide 33 H (20-32) mmol/L Calcium 7.6 L (8.4-10.6) mg/dL C-Reactive Protein 4.2 H (0.5-1.0) mg/dL Diabetes panel 04/04/22 Range/Units 06:36 Sodium 143 (135-149) mmol/L Potassium 3.1 L (3.6-5.1) mmol/L Chloride 107 (96-114) mmol/L Carbon Dioxide 33 H (20-32) mmol/L BUN 14 (5-24) mg/dL Creatinine 0.5 (0.5-1.5) mg/dL Glucose 107 (60-115) mg/dL Calcium 7.6 L (8.4-10.6) mg/dL Calcium panel 04/04/22 Range/Units 06:36 Calcium 7.6 L (8.4-10.6) mg/dL Pituitary panel 04/04/22 Range/Units 06:36 Sodium 143 (135-149) mmol/L Potassium 3.1 L (3.6-5.1) mmol/L Chloride 107 (96-114) mmol/L Carbon Dioxide 33 H (20-32) mmol/L BUN 14 (5-24) mg/dL Creatinine 0.5 (0.5-1.5) mg/dL Glucose 107 (60-115) mg/dL Calcium 7.6 L (8.4-10.6) mg/dL Adrenal panel 04/04/22 Range/Units 06:36 Sodium 143 (135-149) mmol/L Potassium 3.1 L (3.6-5.1) mmol/L Chloride 107 (96-114) mmol/L Carbon Dioxide 33 H (20-32) mmol/L BUN 14 (5-24) mg/dL Creatinine 0.5 (0.5-1.5) mg/dL Glucose 107 (60-115) mg/dL Calcium 7.6 L (8.4-10.6) mg/dL All other labs normal. Assessment and Plan Assessment and plan (1) Bowel obstruction: Problem comment: - transition point right lower quadrant - currently NPO with NG tube in place - upper GI with small bowel follow through today - appreciate input from General Surgery team - no history of bowel obstructions in the past, no previous abdominal surgeries - colonoscopy approximately 10 years ago, per patient (diverticulosis, no other findings) Status: Acute Plan 46-year-old male admitted to the hospital with partial small bowel obstruction versus gastroenteritis. I discussed with the patient his laboratory and imaging findings as well as my clinical findings. Patient had a CT showing dilated loops of bowel concerning for possible obstruction. The CT read also stated that there is possibly a transition point in the right lower quadrant. I discussed with the patient the common causes of small-bowel obstruction including intra-abdominal adhesions and neoplasm. Patient had no prior abdominal surgeries. Patient had upper GI with small-bowel follow-through today that showed emptying of the contrast into the right colon in 2 hours. There were no intraluminal defects noted and no transition point noted. At this time my clinical suspicion for a neoplasm of the small bowel is very low. I think that patient's symptoms could be due to gastroenteritis. He has improved with NG tube and had 4 bowel movements since morning. I would recommend a trial of clear liquid diet. If patient tolerates clears, advance diet as tolerated. Patient also had bilaterally enlarged adrenal glands. This could be further evaluated with MRI as an outpatient.
--- NOTE | 2022-04-04 17:49 | PC.NURSE ---
Pt is alert and oriented, pleasant and cooperative. Pt is ind w/ cares, voiding into hat into toilet without difficulty, has had multiple liquid BMs this afternoon. Pt denies pain, denies nausea. Calm and relaxed, engaging in conversation. VSS, on RA to 1L of O2, pt uses CPAP at BL and was napping intermit this shift so remained on 1L for much for of the shift to maintain >90%. NG tube in L nare has been clamped since 0830am this AM, pt has been tolerating. Pt had SBFT study completed today, pt advanced to clear liquid diet this evening and thus far tolerating without issue. LR continues at 150ml/hr. Pt received four 10mEq bags of K+ for a K+ of 3.1, recheck in AM. Family at bedside on and off this shift, pleasant and supportive. Pt has call light within reach, uses appropriately.
[2022-04-04 19:00] VITALS: BP 134/64; PULSE 77; RESP 16; TEMP 36.8; O2SAT 95
[2022-04-04] MEDS: ENOXAPARIN 40 MG/0.4 ML INJ SUBCUT (21:17)
[2022-04-04 23:00] VITALS: BP 133/68; PULSE 77; RESP 16; TEMP 36.6; O2SAT 94
[2022-04-05] MEDS: LACTATED RINGERS 1000 ML 1,000 ML 150 ML IV (00:42)
[2022-04-05 03:00] VITALS: BP 135/78; PULSE 66; RESP 16; TEMP 36.6; O2SAT 95
--- NOTE | 2022-04-05 06:26 | PC.NURSE ---
Shift note: Pt has been doing very well tonight. Denied pain, SOB, Cough, N/V. Maintained on 1L of oxygen through NC. Ambulate independently in room. NG tube in left nare to about 63cm. Tolerating clear liquid diet well. Pt had 5x liquid BM yesterday according to pt.
[2022-04-05 07:10] LABS: Basophils Absolute Auto 0.03 K/uL (0.00-0.30); Basophils Percent Auto 0.6 % (0.0-3.0); Eosinophils Absolute Auto 0.12 K/uL (0.00-0.50); Eosinophils Percent Auto 2.4 % (0.0-7.0); Hematocrit 39.9 % (37.0-53.0); Hemoglobin* 13.2 gm/dL (13.5-17.5); Immature Granulocytes Abs Auto 0.03 K/uL (0.00-0.30); Immature Granulocytes Pct Auto 0.6 %; Lymphocytes Absolute Auto 1.41 K/uL (0.90-2.90); Lymphocytes Percent Auto 28.3 % (20-44); Mean Corpuscular HGB Conc 33 gm/dL (32-36); Mean Corpuscular Hemoglobin 29 pg (26-34); Mean Corpuscular Volume 86 fL (80-100); Monocytes Percent Auto 11.2 % (0.0-11.0); Neutrophils Absolute Auto 2.84 K/uL (1.7-7.0); Neutrophils Percent Auto 56.9 % (42.0-72.0); Platelet Count* 222 K/uL (140-440); Red Blood Count 4.62 m/uL (4.30-5.90); White Blood Count* 4.99 K/uL (4.50-11.00)
[2022-04-05 07:13] LABS: Slide Review Reflex No
[2022-04-05 07:29] LABS: Albumin* 3.3 g/dL (3.3-5.0); Chloride* 105 mmol/L (96-114)
[2022-04-05 07:30] LABS: Potassium* 3.2 mmol/L (3.6-5.1); Sodium* 141 mmol/L (135-149)
[2022-04-05 07:32] LABS: Alanine Aminotransferase* 38 U/L (4-50); Alkaline Phosphatase* 42 U/L (40-150); Aspartate Amino Transferase* 25 U/L (12-35); Bilirubin Total* 0.9 mg/dL (0.1-1.5); Blood Urea Nitrogen* 9 mg/dL (5-24); Carbon Dioxide* 33 mmol/L (20-32); Creatinine* 0.5 mg/dL (0.5-1.5); Estimated Glomerular Filt Rate 127 ml/min; Total Protein* 5.8 g/dL (6.0-8.3)
[2022-04-05 07:33] LABS: Calcium* 7.9 mg/dL (8.4-10.6); Glucose* 86 mg/dL (60-115)
[2022-04-05 07:35] LABS: C Reactive Protein* 3.9 mg/dL (0.5-1.0)
[2022-04-05 07:40] VITALS: BP 168/90; PULSE 90; RESP 20; TEMP 36.8; O2SAT 92
--- NOTE | 2022-04-05 08:58 | PM.GSPN ---
Subjective Subjective Date Seen: 04/05/22 Interval history: Patient is doing better today. His NG tube was removed yesterday. He tolerated clears. He continues to pass gas and had multiple bowel movements. His abdominal bloating is present but minimal. He denies any nausea vomiting. Exam Narrative: Exam Narrative: Abdomen is soft, not distended, minimal discomfort to palpation in epigastrium but nowhere else. This is slightly improved from yesterday. Const: Vital Signs, click to edit/add: Vital Signs - 24 hr 04/04/22 11:00 04/04/22 15:00 04/04/22 15:00 Temperature 98.5 F 98.2 F Pulse Rate [Pulse Oximeter] 81 82 82 Respiratory Rate 16 16 16 Blood Pressure [Ri ght Arm] 147/81 H 153/86 H Pulse Oximetry 94 95 Oxygen Delivery Me thod Nasal Cannula Room Air Oxygen Flow Rate 1 04/04/22 19:00 04/04/22 23:00 04/05/22 03:00 Temperature 98.2 F 97.9 F 98 F Pulse Rate [Pulse Oximeter] 77 77 66 Respiratory Rate 16 16 16 Blood Pressure [Ri ght Arm] 134/64 133/68 135/78 Pulse Oximetry 95 94 95 Oxygen Delivery Me thod Nasal Cannula Nasal Cannula Nasal Cannula Oxygen Flow Rate 1 1 1 Progress Note: A&P Assessment and plan (1) Abdominal pain: Status: Acute Plan 46-year-old male admitted to the hospital with possible partial small-bowel obstruction versus gastroenteritis. Patient is improving with conservative management. I would recommend advancing his diet as tolerated. Patient will need to have an outpatient follow-up with MRI for his adrenal glands. I discussed with the patient and his that they should continue eating high potassium foods to restore his potassium.
[2022-04-05] MEDS: POTASSIUM BICARB 25 MEQ EFFERVESCENT TAB PO ×3 (09:19→14:31)
[2022-04-05] MEDS: lisinopriL 20 MG TABLET PO (09:19)
[2022-04-05] MEDS: PANTOPRAZOLE SODIUM 40 MG INJ IVP (09:20)
[2022-04-05] MEDS: SODIUM CHLORIDE 0.9 % (FLUSH) 10 ML SYRINGE 5 ML IVF ×2 (09:20→20:47)
[2022-04-05 11:45] VITALS: BP 172/102; PULSE 75; RESP 18; TEMP 36.8; O2SAT 93
[2022-04-05 15:00] VITALS: BP 129/66; PULSE 76; RESP 20; TEMP 36.6; O2SAT 92
--- NOTE | 2022-04-05 15:18 | CRLHL7_ITS ---
For Patients: As a result of the Century Cures Act, medical imaging exams and procedure reports are released immediately into your electronic medical record. You may view this report before your referring provider. If you have questions, please contact your health care provider. Indication: Follow-up bowel obstruction. Technique: Abdomen 4 view. Comparison: April 04, 2022. Findings/Impression: Bowel: Few mildly prominent loops of small bowel in the central abdomen, similar to mildly decreased since prior study. Enteric contrast is seen in the colon and rectum which would argue against high-grade bowel obstruction. Soft tissues: No sign of free air. No sign of soft tissue mass. No suspicious calcifications. Bones: Unremarkable for age. Dictated by Rell Massey MD @ 04/05/2022 5:29:39 PM (Electronically Signed)
--- NOTE | 2022-04-05 15:18 | P.IMPN_ITS ---
Progress Note: A&P Assessment and plan (1) Bowel obstruction: Problem details: - no history of bowel obstructions in the past, no previous abdominal surgeries - colonoscopy approximately 10 years ago, per patient (diverticulosis, no other findings) - transition point right lower quadrant on admission CT - small bowel f/u on 04/04 reassuring, formal radiology read below - d/c NG today, advance to full liquid diet IMPRESSION: Mildly dilated small bowel loops. No ashley obstruction. Contrast is seen in the right hemicolon and terminal ileum within 2 hours. Today's study indicates a resolving small bowel obstruction particularly when compared to yesterday's CT. Status: Acute (2) Hypokalemia: Problem details: - Likely due to poor oral intake and vomiting (no history of this on chart re view) - Replace and follow Status: Acute (3) Hypertension: Problem details: - restarted home Lisinopril 04/05, holding HCTZ given hypokalemia Status: Chronic (4) Diabetes 1.5, managed as type 2: Problem details: - Dx 2021, [id number] - Accu-Cheks and SSI Status: Chronic (5) Adrenal abnormality: Problem details: - per admission CT scan: Markedly enlarged and multinodular adrenal glands. Recommend dedicated MRI for further evaluation - patient aware of findings, recommend outpatient follow-up imaging Status: Acute Plan - anticipated discharge home this afternoon, given removal of NG and diet advancement; unfortunately, patient began having more bloating in the late afternoon. No nausea or vomiting noted - Will repeat abdominal x-ray, slow down p.o. intake, continue hospitalization, reassess in the morning - will need to replace NG tube with any recurrent nausea or vomiting - updated at bedside - Lovenox for prophylaxis Subjective Date Seen: 04/05/22 Interval history: No acute events overnight. NG tube was clamped all night and patient tolerated clear liquids. Passing liquid stool. Exam Narrative: Exam Narrative: GEN: Alert and oriented, nontoxic in appearance HEENT: EOMIs bilaterally, no scleral icterus CV: RRR, No concerning murmurs, rubs, or gallops R: LCTA bilaterally without concerning wheezing, rales, or rhonchi Ab: Soft, mild distension but improved from yesterday, bowel sounds throughout, no tenderness to palpation Ext: wwp, no concerning edema Skin: No concerning skin lesions or rashes on exposed skin Neuro: No focal deficits Psych: Appropriate Const: Vital Signs, click to edit/add: Vital Signs - 24 hr 04/04/22 19:00 04/04/22 23:00 04/05/22 03:00 Temperature 98.2 F 97.9 F 98 F Pulse Rate [Pulse Oximeter] 77 77 66 Respiratory Rate 16 16 16 Blood Pressure [Le ft Arm] Blood Pressure [Ri ght Arm] 134/64 133/68 135/78 Pulse Oximetry 95 94 95 Oxygen Delivery Me thod Nasal Cannula Nasal Cannula Nasal Cannula Oxygen Flow Rate 1 1 1 04/05/22 07:40 04/05/22 11:45 Temperature 98.2 F 98.2 F Pulse Rate [Pulse Oximeter] 90 75 Respiratory Rate 20 18 Blood Pressure [Le ft Arm] 168/90 H 172/102 H Blood Pressure [Ri ght Arm] Pulse Oximetry 92 93 Oxygen Delivery Me thod Room Air Room Air Oxygen Flow Rate Labs Labs: Laboratory Results - last 24 hr 04/05/22 04/05/22 06:34 06:34 WBC 4.99 RBC 4.62 Hgb 13.2 L Hct 39.9 MCV 86 MCH 29 MCHC 33 RDW Coeff of Radu 13.0 Plt Count 222 Neut % (Auto) 56.9 Lymph % (Auto) 28.3 [place] % (Auto) 11.2 H Eos % (Auto) 2.4 Baso % (Auto) 0.6 Neut # (Auto) 2.84 Lymph # (Auto) 1.41 [place] # (Auto) 0.60 Eos # (Auto) 0.12 Baso # (Auto) 0.03 Sodium 141 Potassium 3.2 L Chloride 105 Carbon Dioxide 33 H BUN 9 Creatinine 0.5 Estimated Creat Clear 178.60 Estimated GFR 127 Glucose 86 Calcium 7.9 L Total Bilirubin 0.9 AST 25 ALT 38 Alkaline Phosphatase 42 C-Reactive Protein 3.9 H Total Protein 5.8 L Albumin 3.3
--- NOTE | 2022-04-05 15:56 | P.IMCN_ITS ---
Date of Consult Consult date: 04/05/22 Primary Care Provider: Jacob Zhang MD Consult Narrative Narrative: (Incorrect patient. I did not conduct a consultation on this patient today.) [facility] Medical History (Updated 04/05/22 @ 15:24 by Sari Oliver MD) Chronic low back pain Gastroesophageal reflux disease Onychomycosis Osteoarthritis of right hip Vitamin D deficiency Surgical History History of arthroscopy of left knee S/P hip arthroscopy Status post nasal septoplasty Status post tonsillectomy and adenoidectomy Status post uvulopalatopharyngoplasty Family History Other Diabetes Social History Narrative: He lives in [place] with his , Francis, and his 10-year-old daughter. He works for the [employer] in [place]. He does not smoke. He drinks 2 or 3 beers about once a week. He does not use recreational drugs. Smoking Status: Never smoker Do you use any of these nicotine containing products: None Second hand tobacco smoke exposure: No How often do you have a drink containing alcohol: 2-4 times a month Alcohol type: beer How many standard drinks containing alcohol do you have on a typical day: 1 or 2 AUDIT-C Alcohol total score: 2 Non-prescribed substance use: denies use service: Yes Meds Home Medications and Allergies Home Medications Medication Instructions Recorded Confirmed Type bupropion HCl 150 mg tablet,12 hr 150 mg PO BID 01/02/22 04/03/22 History sustained-release gabapentin 300 mg capsule 300 mg PO TID 01/02/22 04/03/22 History lisinopril 20 1 tab PO DAILY 01/02/22 04/03/22 History mg-hydrochlorothiazide 25 mg tablet meloxicam 15 mg tablet 15 mg PO DAILY PRN 01/02/22 04/04/22 History metformin 500 mg tablet,extended 1,000 mg PO DAILY 01/02/22 04/04/22 History release 24 hr tramadol 50 mg tablet 50 mg PO Q6H PRN 01/02/22 04/03/22 History esomeprazole magnesium 20 mg 20 mg PO DAILY 04/04/22 04/04/22 History capsule,delayed release pantoprazole 40 mg tablet,delayed 40 mg PO DAILY 04/04/22 04/04/22 History release Allergies Allergy/AdvReac Type Severity Reaction Status Date / Time No Known Allergies Allergy Unknown Verified 04/03/22 12:35 Exam Const: Vital Signs, click to edit/add: Vital Signs - 24 hr 04/04/22 19:00 04/04/22 23:00 04/05/22 03:00 Temperature 98.2 F 97.9 F 98 F Pulse Rate [Pulse Oximeter] 77 77 66 Respiratory Rate 16 16 16 Blood Pressure [Le ft Arm] Blood Pressure [Ri ght Arm] 134/64 133/68 135/78 Pulse Oximetry 95 94 95 Oxygen Delivery Me thod Nasal Cannula Nasal Cannula Nasal Cannula Oxygen Flow Rate 1 1 1 04/05/22 07:40 04/05/22 11:45 04/05/22 15:00 Temperature 98.2 F 98.2 F 97.9 F Pulse Rate [Pulse Oximeter] 90 75 76 Respiratory Rate 20 18 20 Blood Pressure [Le ft Arm] 168/90 H 172/102 H 129/66 Blood Pressure [Ri ght Arm] Pulse Oximetry 92 93 92 Oxygen Delivery Me thod Room Air Room Air Room Air Oxygen Flow Rate Labs Labs: Short CBC 04/05/22 Range/Units 06:34 WBC 4.99 (4.50-11.00) K/uL Hgb 13.2 L (13.5-17.5) gm/dL Hct 39.9 (37.0-53.0) % Plt Count 222 (140-440) K/uL BMP 04/05/22 06:34 Sodium 141 Potassium 3.2 L Chloride 105 Carbon Dioxide 33 H BUN 9 Creatinine 0.5 Glucose 86 Calcium 7.9 L Liver Function 04/05/22 Range/Units 06:34 Total Bilirubin 0.9 (0.1-1.5) mg/dL AST 25 (12-35) U/L ALT 38 (4-50) U/L Alkaline Phosphatase 42 (40-150) U/L Albumin 3.3 (3.3-5.0) g/dL
--- NOTE | 2022-04-05 19:23 | PC.NURSE ---
Pt up independently, walking halls throughout day. Bowels hypoactive, passing gas. NG tube fulled, fluids DC'd. Pt states abdominal distention has gone down some. On full liquid diet, ice cream for lunch and then clears remainder of the day.
[2022-04-05 20:05] VITALS: BP 143/83; PULSE 74; RESP 18; TEMP 36.7; O2SAT 93
[2022-04-05] MEDS: ENOXAPARIN 40 MG/0.4 ML INJ SUBCUT (20:46)
--- NOTE | 2022-04-05 23:25 | PC.NURSE ---
Shift [id number]- Patient denies pain or nausea. He is up walking independently. He states this is the best his stomach has felt in a while.
[2022-04-06] VITALS: PULSE 74; RESP 18
[2022-04-06 00:03] VITALS: BP 112/78; PULSE 81; RESP 18; TEMP 36.8; O2SAT 94
[2022-04-06 03:04] VITALS: BP 162/106; RESP 18; TEMP 36.7; O2SAT 97
--- NOTE | 2022-04-06 05:45 | PC.NURSE ---
19-07: Pt rested well, ambulated halls twice, passing flatulance, denies any pain/nausea/distention this whole shift, tolerating liquids, bp elevated w/o symptoms other vss on ra.
[2022-04-06 07:00] VITALS: BP 148/79; PULSE 79; RESP 18; TEMP 36.7; O2SAT 94
[2022-04-06 07:05] LABS: Basophils Absolute Auto 0.02 K/uL (0.00-0.30); Basophils Percent Auto 0.4 % (0.0-3.0); Eosinophils Absolute Auto 0.12 K/uL (0.00-0.50); Eosinophils Percent Auto 2.4 % (0.0-7.0); Hematocrit 40.2 % (37.0-53.0); Hemoglobin* 13.8 gm/dL (13.5-17.5); Immature Granulocytes Abs Auto 0.08 K/uL (0.00-0.30); Immature Granulocytes Pct Auto 1.6 %; Lymphocytes Absolute Auto 1.54 K/uL (0.90-2.90); Lymphocytes Percent Auto 30.5 % (20-44); Mean Corpuscular HGB Conc 34 gm/dL (32-36); Mean Corpuscular Hemoglobin 29 pg (26-34); Mean Corpuscular Volume 84 fL (80-100); Monocytes Percent Auto 8.3 % (0.0-11.0); Neutrophils Absolute Auto 2.87 K/uL (1.7-7.0); Neutrophils Percent Auto 56.8 % (42.0-72.0); Platelet Count* 244 K/uL (140-440); RDW Coefficient of Variation % 12.6 % (11.5-15.5); Red Blood Count 4.81 m/uL (4.30-5.90); White Blood Count* 5.05 K/uL (4.50-11.00)
[2022-04-06 07:07] LABS: Slide Review Reflex No
[2022-04-06 07:18] LABS: Chloride* 104 mmol/L (96-114); Potassium* 3.3 mmol/L (3.6-5.1); Sodium* 138 mmol/L (135-149)
[2022-04-06 07:20] LABS: Creatinine* 0.4 mg/dL (0.5-1.5); Est. Creatinine Clearance* 223.25; Estimated Glomerular Filt Rate 136 ml/min
[2022-04-06 07:21] LABS: Blood Urea Nitrogen* 5 mg/dL (5-24); Carbon Dioxide* 26 mmol/L (20-32); Glucose* 92 mg/dL (60-115)
[2022-04-06 07:22] LABS: Calcium* 8.2 mg/dL (8.4-10.6)
[2022-04-06 07:24] LABS: C Reactive Protein* 2.2 mg/dL (0.5-1.0)
[2022-04-06] MEDS: PANTOPRAZOLE SODIUM 40 MG INJ IVP (09:09)
[2022-04-06] MEDS: SODIUM CHLORIDE 0.9 % (FLUSH) 10 ML SYRINGE 5 ML IVF (09:09)
[2022-04-06] MEDS: lisinopriL 20 MG TABLET PO (09:09)
[2022-04-06] MEDS: POTASSIUM CHLORIDE 10 MEQ CAPSULE ER 20 MEQ PO (09:16)
--- NOTE | 2022-04-06 10:47 | PM.DS1 ---
DS: Providers Provider Date Seen: 04/06/22 Date of admission: 04/03/22 21:39 Primary care physician: Jacob Zhang MD Admitting Clinician: Rodríguez Recio MD Attending Physician on discharge: Rodríguez Recio MD DS: Diagnosis Discharge Diagnosis (1) Bowel obstruction: Status: Acute Problem details: - no history of bowel obstructions in the past, no previous abdominal surgeries - colonoscopy approximately 10 years ago, per patient (diverticulosis, no other findings) - transition point right lower quadrant on admission CT - small bowel f/u on 04/04 reassuring, ? Gastroparesis contributing to symptoms - patient was able to advance diet and discharged home on hospital day 2 (2) Hypokalemia: Status: Acute Problem details: - Likely due to poor oral intake and vomiting (no history of this on chart review) - improved throughout stay, expect continued normalization with p.o. intake (3) Hematuria: Status: Acute Problem details: - noted 2 days prior to admission, resolved. Unclear significance, outpatient f/u (4) Adrenal abnormality: Status: Acute Problem details: - per admission CT scan: Markedly enlarged and multinodular adrenal glands. Recommend dedicated MRI for further evaluation - patient aware of findings, recommend outpatient follow-up imaging (5) Diabetes 1.5, managed as type 2: Status: Chronic Problem details: - Dx 2021, [id number] - Accu-Cheks and SSI (6) Hypertension: Status: Chronic Problem details: - restarted home Lisinopril 04/05, held HCTZ given hypokalemia - upon discharge, restarting both hydrochlorothiazide and lisinopril as patient is tolerating po intake (7) Obstructive sleep apnea treated with continuous positive airway pressure (CPAP): Status: Chronic DS: Summary Hospital Course Hospital Course: Very pleasant 46-year-old male with history of diabetes, presented to the hospital with abdominal pain, nausea, vomiting. Subsequently diagnosed with SBO, transition point right lower quadrant. General surgery consulted. No previous history of SBO, no abdominal surgeries. Interestingly, patient had to wedge himself through a small door way a few days prior to admission; had a bruise on left abdomen from this. Unclear if this incident was related to SBO. NG tube placed and small-bowel follow-through performed with reassuring results. Patient was able to slowly advance his diet throughout hospital stay, stable for discharge on 04/06. Given no obvious source for obstruction, consider gastroparesis as contributing factor. Patient prescribed prn Reglan upon discharge with close outpatient follow-up and routine colonoscopy screening. Other notable findings during stay that require PCP follow-up: 1. Incidental finding of enlarged adrenal glands bilaterally, outpatient MRI recommended 2. Hematuria prior to admission, resolved. Outpatient follow-up recommended Status at Discharge Functional status at discharge: independent ambulation Overall status at discharge: patient is back to baseline Time Spent with Patient Time attestation: Total time spent providing and/or coordinating discharge services: Time spent: Greater than 30 minutes Specific discharge activities: Care coordination, patient Education, medication reconciliation Exam Narrative: Exam Narrative: GEN: Alert and oriented, speaking in full sentences HEENT: EOMIs bilaterally, no scleral icterus CV: RRR, No concerning murmurs, rubs, or gallops R: LCTA bilaterally without concerning wheezing, rales, or rhonchi Abdomen: Protuberant, bowel sounds present throughout, no concerning distension or tenderness to palpation Ext: wwp, no concerning edema Skin: No concerning skin lesions or rashes on exposed skin Neuro: No focal deficits, no resting tremor, gait normal Psych: Appropriate Const: Vital Signs, click to edit/add: Vital Signs - 24 hr 04/05/22 11:45 04/05/22 15:00 04/05/22 20:05 Temperature 98.2 F 97.9 F 98.1 F Pulse Rate [Pulse Oximeter] 75 76 74 Respiratory Rate 18 20 18 Blood Pressure [Le ft Arm] 172/102 H 129/66 Blood Pressure [Ri ght Arm] 143/83 H Pulse Oximetry 93 92 93 Oxygen Delivery Me thod Room Air Room Air Room Air 04/06/22 00:00 04/06/22 00:03 04/06/22 03:04 Temperature 98.2 F 98.1 F Pulse Rate [Pulse Oximeter] 74 81 Respiratory Rate 18 18 18 Blood Pressure [Le ft Arm] Blood Pressure [Ri ght Arm] 112/78 162/106 H Pulse Oximetry 94 97 Oxygen Delivery Me thod Room Air Room Air 04/06/22 07:00 04/06/22 07:00 Temperature 98.1 F Pulse Rate [Pulse Oximeter] 79 79 Respiratory Rate 18 18 Blood Pressure [Le ft Arm] Blood Pressure [Ri ght Arm] 148/79 H Pulse Oximetry 94 Oxygen Delivery Me thod Room Air DS: Data Data Completed and Pending Labs on day of discharge: Labs from last 24 hours 04/06/22 04/06/22 06:42 06:42 WBC 5.05 RBC 4.81 Hgb 13.8 Hct 40.2 MCV 84 MCH 29 MCHC 34 RDW Coeff of Radu 12.6 Plt Count 244 Neut % (Auto) 56.8 Lymph % (Auto) 30.5 [place] % (Auto) 8.3 Eos % (Auto) 2.4 Baso % (Auto) 0.4 Neut # (Auto) 2.87 Lymph # (Auto) 1.54 [place] # (Auto) 0.40 Eos # (Auto) 0.12 Baso # (Auto) 0.02 Sodium 138 Potassium 3.3 L Chloride 104 Carbon Dioxide 26 BUN 5 Creatinine 0.4 L Estimated Creat Clear 223.25 Estimated GFR 136 Glucose 92 Calcium 8.2 L C-Reactive Protein 2.2 H Preliminary micro results at discharge 04/03/22 19:24 Blood Culture - Preliminary Blood NO GROWTH AFTER 48 HOURS Discharge Plan Discharge Disposition: Home, Self-Care Date of Admission: 04/03/22 21:39 Attending Provider on Discharge: Sari Oliver Consulting Providers: Helga Johnson Primary Care Provider: Jacob Zhang Condition: Stable Anticipated Discharge Date/Time: 04/06/22 11:00 Discharge Medications: New metoclopramide HCl [Reglan] 5 mg tablet 5 mg PO DAILY Qty: 10 0RF Rx Instructions: 1 tab up to Q8H prn nausea Continued lisinopril-hydrochlorothiazide 20-25 mg tablet 1 tab PO DAILY gabapentin 300 mg capsule 300 mg PO TID bupropion HCl 150 mg tablet sustained-release 12 hr 150 mg PO BID metformin 500 mg tablet extended release 24 hr 1,000 mg PO DAILY tramadol 50 mg tablet 50 mg PO Q6H PRN meloxicam 15 mg tablet 15 mg PO DAILY PRN pantoprazole 40 mg tablet,delayed release (DR/EC) 40 mg PO DAILY esomeprazole magnesium 20 mg capsule,delayed release(DR/EC) 20 mg PO DAILY Discharge Orders: Discharge Order (Routine); Ordered 04/06/22 Ordered By: Sari Oliver Patient Education: Metoclopramide (By mouth), Bowel Obstruction (DC) Additional Instructions: Continue bland diet for the next few days. If your nausea or bloating returns, you can try the new medication (Reglan, sent to [facility]) - but need to return to emergency room if you have vomiting. See Dr. Zhang in follow-up and to discuss an MRI of your adrenal glands. Activity Level: Activity as Tolerated Discharge Diet: Regular Follow Up Appointments: Jacob Zhang MD [Primary Care Provider] - 04/14/22 2:15 am (7-10 days for hospital discharge follow-up) Forms: [employer] Info Instructions
[2022-04-06 10:49] VITALS: BP 153/79; PULSE 100; RESP 18; TEMP 36.7
--- NOTE | 2022-04-06 12:05 | PC.NURSE ---
Discharge: Pt. alert and oriented x4, Denies N, V, SOB. Pt. tolerating a reg diet. Bowel sounds active, pt. voiding and passing gas well. Pt. ambulates independently in room and hallway, tolerated activity well. Pt. Discharged today at 1155, ambulated to spouse waiting in car. Pt's IV removed from left forearm intact. Pt.'s belonging sheet signed and Discharge instructions sheet signed. Pt. verbalized understanding of discharge instructions and no further questions needed.
== END 2022-04-06 11:55 | disposition home or self-care (01) | DRG 389 ==
LOC: ED 13:16 → MEDSURG 19:45
PROVIDERS: Family Medicine; Admitting Provider Family Medicine; Emergency Provider Family Medicine; PCP Family Medicine; Visit Provider Family Medicine
DX: K56.600 Partial intestinal obstruction, unspecified as to cause (principal); Z68.42 Body mass index [BMI] 45.0-49.9, adult; E87.6 Hypokalemia; E13.9 Other specified diabetes mellitus without complications; G47.33 Obstructive sleep apnea (adult) (pediatric); Z99.89 Dependence on other enabling machines and devices; I10 Essential (primary) hypertension; E27.8 Other specified disorders of adrenal gland; K21.9 Gastro-esophageal reflux disease without esophagitis; E66.9 Obesity, unspecified; R31.9 Hematuria, unspecified; M54.50 Low back pain, unspecified; G89.29 Other chronic pain; Z79.84 Long term (current) use of oral hypoglycemic drugs
CPT/HCPCS: 36415; 71045; 74018; 74177; 80048; 80053; 80076; 82962; 83605; 83735; 84132; 85025; 86140; 87040; 87635; 94761; 99284; 99285; A9270; C9113; J1200; J1650; J1885; J2405; J2550; J2765; J3010; J3480; J7030; J7120; Q9967

== ENCOUNTER 2022-04-27 13:58 | Outpatient (CLI) | payer OTHER, SELFPAY ==
--- NOTE | 2022-04-27 14:30 | CRLHL7_ITS ---
For Patients: As a result of the Cures Act, medical imaging exams and procedure reports are released immediately into your electronic medical record. You may view this report before your referring provider. If you have questions, please contact your health care provider. INDICATION: Adrenal gland abnormality TECHNIQUE: Multiplanar multisequence MRI the abdomen without and with 15 cc Dotarem IV contrast. COMPARISON: CT 04/03/2022 FINDINGS: Liver: Small cyst in the left hepatic lobe. No suspicious mass. Mild hepatic steatosis. Gallbladder/biliary tree: Unremarkable. No gallstones. No biliary dilatation. Spleen: Unremarkable. Pancreas: Unremarkable. Normal T1 signal and enhancement. No ductal dilation. Adrenal glands: Nodular enlargement of bilateral adrenal glands which demonstrate loss of signal on out of phase imaging compatible with lipid rich adenomas. Kidneys: Bilateral parapelvic cysts. No hydronephrosis. No suspicious lesions. Bowel: Colonic diverticulosis without evidence of acute diverticulitis. No obstruction. Lymph nodes: No lymphadenopathy. Vasculature: Unremarkable. Lower chest: Unremarkable. Bones and soft tissues: Unremarkable. No suspicious lesions. IMPRESSION: 1. Nodular enlargement of bilateral adrenal glands compatible with lipid rich adenomas. No suspicious lesions. Dictated by Ayush Ashby MD @ 05/02/2022 11:15:54 AM (Electronically Signed)
== END 2022-04-27 13:59 | disposition home or self-care (01) ==
LOC: MRI 13:59
PROVIDERS: PCP Family Medicine; Visit Provider Family Medicine
DX: E27.9 Disorder of adrenal gland, unspecified (principal); R59.0 Localized enlarged lymph nodes
CPT/HCPCS: 74183; A9575

== ENCOUNTER 2022-05-22 12:00 | Outpatient (CLI) | payer OTHER, SELFPAY | END 2022-05-22 12:01 | disposition home or self-care (01) | LOC: OP CLINIC 12:01 | PROVIDERS: PCP Family Medicine; Visit Provider Surgery | DX: Z12.11 Encounter for screening for malignant neoplasm of colon (principal); Z83.71 Family history of colonic polyps | CPT/HCPCS: 45378; J2250; J3010 ==

== ENCOUNTER 2023-01-02 11:38 | Observation (INO) | payer OTHER, SELFPAY ==
[2023-01-02 11:51] VITALS: BP 142/89; PULSE 92; RESP 18; TEMP 36.8; O2SAT 93; BMI 45.6
--- NOTE | 2023-01-02 14:05 | ED_ITS ---
HPI - Abdominal Pain General Time Seen by Provider: 14:06 <Isis Nettles Last Filed: 01/02/23 16:30> Date Seen: 01/02/23 <Isis Mina Filed: 01/02/23 16:30> Chief Complaint: Abdominal Pain <Isis Nettles Last Filed: 01/02/23 16:30> Stated Complaint: Abdominal pain, bloating <Isis Nettles Last Filed: 01/02/23 16:30> Time Seen by Provider: 01/02/23 13:52 <Isis Nettles Last Filed: 01/02/23 16:30> Source: patient <Isis Mina Filed: 01/02/23 16:30> Mode of arrival: ambulatory <Isis Mina Filed: 01/02/23 16:30> Limitations: no limitations <Isis Mina Filed: 01/02/23 16:30> History of Present Illness HPI narrative: Patient presents with ongoing diffuse abdominal pain beginning last evening at 1:00 AM with associated nausea and 3 episodes of emesis. Prior to the pain onset, patients abdomen began to feel firm and bloated around 5:00 PM. He describes his abdomen as feeling like a balloon. Last bowel movement was yesterday afternoon and patient has not been passing gas. Patient describes the pain as waxing and waning and notes it increases from a 6/10 to an 8/10. Patient states the pain feels similar to when he was evaluated last March and they did a full workup with colonoscopy and endoscopy and did not find any significant findings. Patient has mild relief lying on his right side and denies any aggravating factors. He is unable to eat or drink anything at this time due to his nausea. Denies any previous abdominal surgeries. Pertinent past medical history of GERD, hypertension, and DM. Of note, is at home with upper respiratory infection. No recent travel. Patient admits to drinking socially on the weekends. Denies any tobacco use. No known history of Crohn's or ulcerative colitis. No allergies. <Isis Mina Filed: 01/02/23 16:30> Related Data Home Medications: Home Medications Medication Instructions Recorded Confirmed bupropion HCl 150 mg tablet,12 hr 150 mg PO BID 01/02/22 01/02/23 sustained-release gabapentin 300 mg capsule 300 mg PO TID 01/02/22 01/02/23 meloxicam 15 mg tablet 15 mg PO DAILY PRN 01/02/22 01/02/23 metformin 500 mg tablet,extended 1,000 mg PO DAILY 01/02/22 04/04/22 release 24 hr tramadol 50 mg tablet 50 mg PO Q6H PRN 01/02/22 01/02/23 esomeprazole magnesium 20 mg 20 mg PO DAILY 04/04/22 04/04/22 capsule,delayed release pantoprazole 40 mg tablet,delayed 40 mg PO DAILY 04/04/22 01/02/23 release amlodipine 5 mg tablet 5 mg PO DAILY 01/02/23 01/02/23 rosuvastatin 20 mg tablet 20 mg PO DAILY 01/02/23 01/02/23 Previous Rx's Medication Instructions Recorded metoclopramide HCl 5 mg tablet 5 mg PO DAILY #10 tabs 04/06/22 (Reglan) lisinopril 40 mg tablet 40 mg PO QDAY #90 tabs 04/18/22 <[facility] [employer] Filed: 01/02/23 16:30> Allergies/Adverse Reactions: Allergies Allergy/AdvReac Type Severity Reaction Status Date / Time No Known Allergies Allergy Unknown Verified 04/03/22 12:35 <[facility] Filed: 01/02/23 16:30> Review of Systems Status of ROS Reports: 10 or more systems reviewed and unremarkable except as noted in History and below <[facility] Filed: 01/02/23 16:30> Const Denies: fever, chills or fatigue <[facility] Filed: 01/02/23 16:30> ENMT Denies: throat pain, throat swelling or difficulty swallowing <[facility] Filed: 01/02/23 16:30> Cardio Reports: edema (B/L ); Denies: chest pain, palpitations, shortness of breath with exertion or shortness of breath when lying down <[facility] Filed: 01/02/23 16:30> Resp Denies: shortness of breath <[facility] [employer] Filed: 01/02/23 16:30> GI Reports: abdominal pain, nausea, vomiting (3 episodes) and bloating; Denies: heartburn, diarrhea, constipation, belching, excessive passing of gas, difficulty swallowing, change in bowel habits, painful bowel movements or blood in stool <Isis Gall - Last Filed: 01/02/23 16:30> Denies: painful urination, urinary frequency, urinary urgency or blood in urine <Isis Gall - Last Filed: 01/02/23 16:30> Integ/Breast Denies: rash <Isis Gall - Last Filed: 01/02/23 16:30> Neuro Denies: headache <Isis Gall - Last Filed: 01/02/23 16:30> Endo Denies: fatigue <Isis Gall - Last Filed: 01/02/23 16:30> Allergy/Immuno Denies: throat swelling <Isis Gall - Last Filed: 01/02/23 16:30> [facility] Medical History: Medical History (Updated 01/02/23 @ 18:32 by Ayush Higginbotham DO) Abdominal pain ?R10.9 - Unspecified abdominal pain (ICD-10) Onychomycosis ?B35.1 - Tinea unguium (ICD-10) <Isis Gall - Last Filed: 01/02/23 16:30> Surgical History: Surgical History S/P hip arthroscopy ?Z98.890 - Other specified postprocedural states (ICD-10) Status post uvulopalatopharyngoplasty ?Z98.890 - Other specified postprocedural states (ICD-10) Status post tonsillectomy and adenoidectomy ?Z90.89 - Acquired absence of other organs (ICD-10) Status post nasal septoplasty ?Z98.890 - Other specified postprocedural states (ICD-10) History of arthroscopy of left knee ?Z98.890 - Other specified postprocedural states (ICD-10) <Isis Gall - Last Filed: 01/02/23 16:30> Family History: Family History Other Diabetes <Isis Gall - Last Filed: 01/02/23 16:30> Social History: Social History Narrative: He lives in [place] with his , Francis, and his 10-year-old daughter. He works for the [employer] in [place]. He does not smoke. He drinks 2 or 3 beers about once a week. He does not use recreational drugs. Smoking Status: Never smoker Do you use any of these nicotine containing products: None Second hand tobacco smoke exposure: No How often do you have a drink containing alcohol: 2-4 times a month Alcohol type: beer How many standard drinks containing alcohol do you have on a typical day: 1 or 2 AUDIT-C Alcohol total score: 2 Non-prescribed substance use: denies use service: Yes <Isis Griffin - Last Filed: 01/02/23 16:30> Exam Const: Vital Signs, click to edit/add: Vital Signs - 24 hr 01/02/23 11:51 01/02/23 17:03 Temperature 98.3 F Pulse Rate 79 Pulse Rate [Right Pulse Oximeter] 92 Respiratory Rate 18 16 Blood Pressure 136/85 Blood Pressure [Ri ght Upper Arm] 142/89 H Pulse Oximetry 93 94 Oxygen Delivery Me thod Room Air <Isis Griffin - Last Filed: 01/02/23 16:30> Vital Signs, click to edit/add: Vital Signs - 24 hr 01/02/23 11:51 01/02/23 17:03 Temperature 98.3 F Pulse Rate 79 Pulse Rate [Right Pulse Oximeter] 92 Respiratory Rate 18 16 Blood Pressure 136/85 Blood Pressure [Ri ght Upper Arm] 142/89 H Pulse Oximetry 93 94 Oxygen Delivery Me thod Room Air <Ayush Higginbotham DO - Last Filed: 01/02/23 18:46> Documenting provider has reviewed patient's vital signs: yes <Isis Nettles Last Filed: 01/02/23 16:30> Common normals: no apparent distress, oriented x3, no limitations, alert and well nourished <Isis Griffin - Last Filed: 01/02/23 16:30> Nutritional appearance: obese <Isis Griffin - Last Filed: 01/02/23 16:30> HENMT: Common normals: normocephalic, head/scalp atraumatic, hearing grossly normal bilaterally, external ears normal, external nose normal, nasal mucous membranes and turbinates normal, moist oral mucous membranes, oropharynx normal, dentition normal and gingiva normal <[facility] Filed: 01/02/23 16:30> Head and scalp: normocephalic and atraumatic <[facility] Filed: 01/02/23 16:30> Nose: external nose normal and nasal mucous membranes and turbinates normal <[facility] Filed: 01/02/23 16:30> External ear: external ears normal <[facility] Filed: 01/02/23 16:30> Eye: Common normals: PERRL, EOMs intact bilaterally, conjunctivae normal and no scleral icterus <[facility] Filed: 01/02/23 16:30> Conjunctiva: conjunctiva(e) normal <[facility] Filed: 01/02/23 16:30> Pupil: PERRL <[facility] Filed: 01/02/23 16:30> Neck & C-Spine: Common normals: full ROM, no lymphadenopathy, supple, no JVD, thyroid normal and no carotid bruits <[facility] Filed: 01/02/23 16:30> Thyroid: thyroid normal <[facility] Filed: 01/02/23 16:30> Lymph: Lymphatic: no lymphadenopathy noted <[facility] Filed: 01/02/23 16:30> Chest: Common normals: inspection of chest normal and palpation of chest normal <[facility] Filed: 01/02/23 16:30> Resp: Common normals: normal respiratory effort, no retractions, no use of accessory muscles, clear to auscultation bilaterally and percussion normal <[facility] Filed: 01/02/23 16:30> Auscultation: clear to auscultation bilaterally <[facility] Filed: 01/02/23 16:30> Percussion: percussion normal <[facility] Filed: 01/02/23 16:30> Cardio: Common normals: no JVD, regular rate, regular rhythm, S1 normal heart sound, S2 normal heart sound, no gallops, no clicks, no murmurs, no rub and peripheral pulses 2+ throughout <[facility] - Last Filed: 01/02/23 16:30> Rate: regular rate <[facility] - Last Filed: 01/02/23 16:30> Rhythm: regular rhythm <[facility] - Last Filed: 01/02/23 16:30> Heart sounds: S1 normal and S2 normal <[facility] - Last Filed: 01/02/23 16:30> Peripheral pulses: pulses 2+ throughout <[facility] - Last Filed: 01/02/23 16:30> GI: Common normals: soft to palpation <[facility] - Last Filed: 01/02/23 16:30> Inspection: normal to inspection and abdominal distension <[facility] - Last Filed: 01/02/23 16:30> Auscultation: normoactive bowel sounds <[facility] - Last Filed: 01/02/23 16:30> Palpation: soft and firm; non-tender, no guarding, not rigid, no hepatosplenomegaly and no hernia <[facility] - Last Filed: 01/02/23 16:30> : Common normals: no CVA tenderness <[facility] - Last Filed: 01/02/23 16:30> Bladder/kidney exam: no CVA tenderness <[facility] - Filed: 01/02/23 16:30> Back & Pelvis: Common normals: no CVA tenderness <[facility] - Last Filed: 01/02/23 16:30> Extremity: Common normals: normal to inspection, full ROM and normal capillary refill <[facility] - Last Filed: 01/02/23 16:30> General: edema (2+ pitting B/L lower extremities) <[facility] - Last Filed: 01/02/23 16:30> Neuro: Common normals: oriented x3 <[facility] - Last Filed: 01/02/23 16:30> Sensorium/orientation: alert <[facility] - Last Filed: 01/02/23 16:30> Skin: Common normals: no rashes or lesions noted <Isis Griffin - Last Filed: 01/02/23 16:30> General skin exam: no rashes or lesions noted <Isis Griffin - Last Filed: 01/02/23 16:30> Course Reevaluation(s) Time of Reevaluation #1: 14:00 <Isis Griffin - Last Filed: 01/02/23 16:30> Reevaluation #1: Patient seen and evaluated by LINDA Campos. <Isis Griffin - Last Filed: 01/02/23 16:30> Vital Signs Vital signs: Initial Vital Signs Temperature 98.3 F 01/02/23 11:51 Temperature Source Temporal Artery Scan 01/02/23 11:51 Pulse Rate 92 01/02/23 11:51 Respiratory Rate 18 01/02/23 11:51 Blood Pressure 142/89 H 01/02/23 11:51 Blood Pressure Mean 106 H 01/02/23 11:51 Blood Pressure Position Sitting 01/02/23 11:51 Pulse Oximetry 93 01/02/23 11:51 Oxygen Delivery Method Room Air 01/02/23 11:51 Vital Signs Temperature 98.3 F 01/02/23 11:51 Pulse Rate 92 01/02/23 11:51 Respiratory Rate 18 01/02/23 11:51 Blood Pressure 142/89 H 01/02/23 11:51 Pulse Oximetry 93 01/02/23 11:51 Oxygen Delivery Method Room Air 01/02/23 11:51 Temperature 98.3 F 01/02/23 11:51 Pulse Rate 79 01/02/23 17:03 Respiratory Rate 16 01/02/23 17:03 Blood Pressure 136/85 01/02/23 17:03 Pulse Oximetry 94 01/02/23 17:03 Oxygen Delivery Method Room Air 01/02/23 11:51 <Isis Griffin - Last Filed: 01/02/23 16:30> Initial Vital Signs Temperature 98.3 F 01/02/23 11:51 Temperature Source Temporal Artery Scan 01/02/23 11:51 Pulse Rate 92 01/02/23 11:51 Respiratory Rate 18 01/02/23 11:51 Blood Pressure 142/89 H 01/02/23 11:51 Blood Pressure Mean 106 H 01/02/23 11:51 Blood Pressure Position Sitting 01/02/23 11:51 Pulse Oximetry 93 01/02/23 11:51 Oxygen Delivery Method Room Air 01/02/23 11:51 Vital Signs Temperature 98.3 F 01/02/23 11:51 Pulse Rate 92 01/02/23 11:51 Respiratory Rate 18 01/02/23 11:51 Blood Pressure 142/89 H 01/02/23 11:51 Pulse Oximetry 93 01/02/23 11:51 Oxygen Delivery Method Room Air 01/02/23 11:51 Temperature 98.3 F 01/02/23 11:51 Pulse Rate 79 01/02/23 17:03 Respiratory Rate 16 01/02/23 17:03 Blood Pressure 136/85 01/02/23 17:03 Pulse Oximetry 94 01/02/23 17:03 Oxygen Delivery Method Room Air 01/02/23 11:51 <Ayush Higginbotham DO - Last Filed: 01/02/23 18:46> Medications Administered Medications: Discontinued Medications Generic Name Dose Route Start Last Admin Trade Name Freq PRN Reason Stop Dose Admin Lactated Ringer's 1,000 mls @ 1,000 mls/hr 01/02/23 14:19 01/02/23 16:50 Lactated Ringers 1000 Ml IV 01/02/23 15:18 Infused .Q1H ONE Infusion Ketorolac Tromethamine 15 mg 01/02/23 14:19 01/02/23 14:37 Ketorolac 15 Mg/Ml Inj IVP 01/02/23 14:20 15 mg ONCE ONE Administration Ondansetron HCl 4 mg 01/02/23 14:19 01/02/23 14:37 Ondansetron 2 Mg/Ml Inj IVP 01/02/23 14:20 4 mg ONCE ONE Administration <Isis Griffin - Last Filed: 01/02/23 16:30> Discontinued Medications Generic Name Dose Route Start Last Admin Trade Name Freq PRN Reason Stop Dose Admin Lactated Ringer's 1,000 mls @ 1,000 mls/hr 01/02/23 14:19 01/02/23 16:50 Lactated Ringers 1000 Ml IV 01/02/23 15:18 Infused .Q1H ONE Infusion Ketorolac Tromethamine 15 mg 01/02/23 14:19 01/02/23 14:37 Ketorolac 15 Mg/Ml Inj IVP 01/02/23 14:20 15 mg ONCE ONE Administration Ondansetron HCl 4 mg 01/02/23 14:19 01/02/23 14:37 Ondansetron 2 Mg/Ml Inj IVP 01/02/23 14:20 4 mg ONCE ONE Administration <Ayush Higginbotham, DO - Last Filed: 01/02/23 18:46> MDM - Abdominal Pain MDM Narrative Medical decision making narrative: Patient is a 47-year-old male with a pertinent past medical history of GERD, hypertension, and diabetes mellitus, who presents today with ongoing waxing and waning diffuse abdominal pain beginning last night at 1:00 a.m. with associated nausea and 3 episodes of emesis. Prior to his onset of pain, patient was feeling bloated. Patient has not taken anything for his pain due to a decreased appetite. His pain feels similar to an episode of abdominal pain last March where he was fully worked up with a colonoscopy and endoscopy, with no significant findings. No previous abdominal surgeries. Denies any constipation, hematuria, hematuria, or hematochezia. On exam, patient is afebrile, obese, and in no acute distress. Patient is hypertensive with a blood pressure 142/89 all other vital signs are stable. Heart and lung physical exam were unremarkable. Patient has very mild abdominal tenderness to palpation in all four quadrants with no rebound tenderness or guarding. Negative Garcia's, negative McBurney's, negative Rovsing's. No hepatosplenomegaly palpated, but patient has a large body habitus limiting this exam. Normoactive bowel sounds and patient's last bowel movement was last night at 8:00 p.m. but will obtain CT abdomen to rule that out along with other differentials including constipation, appendicitis, pancreatitis, diverticulitis, or nephrolithiasis, cholecystitis, gastritis. It is possible the patient's abdominal pain is an exacerbation of his GERD. Daughter is sick at home with an upper respiratory infection, it is possible the patient's symptoms are due to gastroenteritis caused by a virus. Will obtain CMP, Lipase, UA, and CBC to rule out anemia, electrolyte abnormalities, or any urinary tract infections. Ordered a troponin to rule out any cardiac events. IV placed and patient started on 1L of lactated Ringers, given Zofran and Ketorolac for nausea and pain relief. CBC remarkable for elevated neutrophils and low lymphocytes, suspicious for an infection, otherwise within normal limits. Normal lipase, low suspicion for pancreatitis at this time. Mildly elevated total bilirubin. Troponin negative, low suspicion for myocardial infarction. CT abdomen shows moderate air-filled loops consistent with a small bowel obstruction. <Isis Griffin - Last Filed: 01/02/23 16:30> Patient is a 47-year-old male with a pertinent past medical history of GERD, hypertension, and diabetes mellitus, who presents today with ongoing waxing and waning diffuse abdominal pain beginning last night at 1:00 a.m. with associated nausea and 3 episodes of emesis. Prior to his onset of pain, patient was feeling bloated. Patient has not taken anything for his pain due to a decreased appetite. His pain feels similar to an episode of abdominal pain last March where he was fully worked up with a colonoscopy and endoscopy, with no significant findings. No previous abdominal surgeries. Denies any consti pation, hematuria, hematuria, or hematochezia. On exam, patient is afebrile, obese, and in no acute distress. Patient is hypertensive with a blood pressure 142/89 all other vital signs are stable. Heart and lung physical exam were unremarkable. Patient has very mild abdominal tenderness to palpation in all four quadrants with no rebound tenderness or guarding. Negative Garcia's, negative McBurney's, negative Rovsing's. No hepatosplenomegaly palpated, but patient has a large body habitus limiting this exam. Normoactive bowel sounds and patient's last bowel movement was last night at 8:00 p.m. but will obtain CT abdomen to rule that out along with other differentials including constipation, appendicitis, pancreatitis, diverticulitis, or nephrolithiasis, cholecystitis, gastritis. It is possible the patient's abdominal pain is an exacerbation of his GERD. Daughter is sick at home with an upper respiratory infection, it is possible the patient's symptoms are due to gastroenteritis caused by a virus. Will obtain CMP, Lipase, UA, and CBC to rule out anemia, electrolyte abnormalities, or any urinary tract infections. Ordered a troponin to rule out any cardiac events. IV placed and patient started on 1L of lactated Ringers, given Zofran and Ketorolac for nausea and pain relief. CBC remarkable for elevated neutrophils and low lymphocytes, suspicious for an infection, otherwise within normal limits. Normal lipase, low suspicion for pancreatitis at this time. Mildly elevated total bilirubin. Troponin negative, low suspicion for myocardial infarction. CT abdomen shows moderate air-filled loops consistent with a small bowel obstruction. I spoke to Dr. Dickinson about this insert is agreeable this could be an SBO. He did have a history of it. Patient will be admitted to the hospitalist service. <Ayush Higginbotham DO - Last Filed: 01/02/23 18:46> Differential Diagnosis Differential diagnosis: Likely abdominal pain, acute appendicitis, calculus of kidney, constipation, diverticulitis, gastroenteritis, pancreatitis and small bowel obstruction <Isis Griffin - Last Filed: 01/02/23 16:30> Medical Records Attestation: I reviewed the patient's medical records. <Isisfercho Griffin - Last Filed: 01/02/23 16:30> Lab Data Attestation: I reviewed the patient's lab results. <Isisfercho Griffin - Last Filed: 01/02/23 16:30> Labs: Lab Results 01/02/23 01/02/23 Range/Units 14:30 15:30 WBC 10.66 (4.50-11.00) K/uL RBC 5.60 (4.30-5.90) m/uL Hgb 15.9 (13.5-17.5) gm/dL Hct 47.4 (37.0-53.0) % MCV 85 (80-100) fL MCH 28 (26-34) pg MCHC 34 (32-36) gm/dL RDW Coeff of Radu 12.8 (11.5-15.5) % Plt Count 272 (140-440) K/uL Neut % (Auto) 75.9 H (42.0-72.0) % Lymph % (Auto) 16.8 L (20-44) % [place] % (Auto) 6.1 (0.0-11.0) % Eos % (Auto) 0.8 (0.0-7.0) % Baso % (Auto) 0.1 (0.0-3.0) % Neut # (Auto) 8.10 H (1.7-7.0) K/uL Lymph # (Auto) 1.80 (0.90-2.90) K/uL [place] # (Auto) 0.70 (0.00-0.90) K/UL Eos # (Auto) 0.08 (0.00-0.50) K/uL Baso # (Auto) 0.01 (0.00-0.30) K/uL Abs Immat Gran (auto) 0.03 (0.00-0.30) K/uL Imm/Tot Granulo (auto) 0.3 % Sodium 141 (135-149) mmol/L Potassium 3.5 L (3.6-5.1) mmol/L Chloride 103 (96-114) mmol/L Carbon Dioxide 29 (20-32) mmol/L Anion Gap 9 (7-15) mEq/L BUN 11 (5-24) mg/dL Creatinine 0.5 (0.5-1.5) mg/dL Estimated Creat Clear 176.70 Estimated GFR 127 ml/min Glucose 103 (60-115) mg/dL Calcium 9.3 (8.4-10.6) mg/dL Total Bilirubin 1.7 H (0.1-1.5) mg/dL AST 31 (12-35) U/L ALT 40 (4-50) U/L Alkaline Phosphatase 58 (40-150) U/L Troponin I < 0.01 L (0.01-0.04) ng/mL Total Protein 7.5 (6.0-8.3) g/dL Albumin 4.7 (3.3-5.0) g/dL Lipase 30 (23-300) U/L Urine Color Yellow (Yellow) Urine Appearance Clear (Clear) Urine pH 6.0 (5.0-8.5) Ur Specific [place] 1.015 (1.000-1.030) Urine Protein Negative (Negative) Urine Glucose (UA) Negative (Negative) Urine Ketones 2+ A (Negative) Urine Blood Negative (Negative) Urine Nitrite Negative (Negative) Urine Bilirubin Negative (Negative) Urine Urobilinogen 0.2 (0.2-1.0) Ur Leukocyte Esterase Negative (Negative) Urine RBC 0-2 (0-2) Urine WBC 0-2 (0-5) Ur Squamous Epith Cells Few (None-Few) Urine Bacteria Few A (None) Urine Mucus Moderate A (None) <Isis Griffin - Last Filed: 01/02/23 16:30> Lab Results 01/02/23 01/02/23 Range/Units 14:30 15:30 WBC 10.66 (4.50-11.00) K/uL RBC 5.60 (4.30-5.90) m/uL Hgb 15.9 (13.5-17.5) gm/dL Hct 47.4 (37.0-53.0) % MCV 85 (80-100) fL MCH 28 (26-34) pg MCHC 34 (32-36) gm/dL RDW Coeff of Radu 12.8 (11.5-15.5) % Plt Count 272 (140-440) K/uL Neut % (Auto) 75.9 H (42.0-72.0) % Lymph % (Auto) 16.8 L (20-44) % [place] % (Auto) 6.1 (0.0-11.0) % Eos % (Auto) 0.8 (0.0-7.0) % Baso % (Auto) 0.1 (0.0-3.0) % Neut # (Auto) 8.10 H (1.7-7.0) K/uL Lymph # (Auto) 1.80 (0.90-2.90) K/uL [place] # (Auto) 0.70 (0.00-0.90) K/UL Eos # (Auto) 0.08 (0.00-0.50) K/uL Baso # (Auto) 0.01 (0.00-0.30) K/uL Abs Immat Gran (auto) 0.03 (0.00-0.30) K/uL Imm/Tot Granulo (auto) 0.3 % Sodium 141 (135-149) mmol/L Potassium 3.5 L (3.6-5.1) mmol/L Chloride 103 (96-114) mmol/L Carbon Dioxide 29 (20-32) mmol/L Anion Gap 9 (7-15) mEq/L BUN 11 (5-24) mg/dL Creatinine 0.5 (0.5-1.5) mg/dL Estimated Creat Clear 176.70 Estimated GFR 127 ml/min Glucose 103 (60-115) mg/dL Calcium 9.3 (8.4-10.6) mg/dL Total Bilirubin 1.7 H (0.1-1.5) mg/dL AST 31 (12-35) U/L ALT 40 (4-50) U/L Alkaline Phosphatase 58 (40-150) U/L Troponin I < 0.01 L (0.01-0.04) ng/mL Total Protein 7.5 (6.0-8.3) g/dL Albumin 4.7 (3.3-5.0) g/dL Lipase 30 (23-300) U/L Urine Color Yellow (Yellow) Urine Appearance Clear (Clear) Urine pH 6.0 (5.0-8.5) Ur Specific [place] 1.015 (1.000-1.030) Urine Protein Negative (Negative) Urine Glucose (UA) Negative (Negative) Urine Ketones 2+ A (Negative) Urine Blood Negative (Negative) Urine Nitrite Negative (Negative) Urine Bilirubin Negative (Negative) Urine Urobilinogen 0.2 (0.2-1.0) Ur Leukocyte Esterase Negative (Negative) Urine RBC 0-2 (0-2) Urine WBC 0-2 (0-5) Ur Squamous Epith Cells Few (None-Few) Urine Bacteria Few A (None) Urine Mucus Moderate A (None) <DO Yoon Hernandez Last Filed: 01/02/23 18:46> Imaging Data CT scan abdomen pelvis: Radiologist's impression: Moderately dilated air-filled loops of bowel throughout the abdomen, with air-fluid levels. Suspected transition point seen within the right lower quadrant. Findings concerning for developing small bowel obstruction. Please note that all CT scans at this facility use dose modulation, iterative reconstruction, and/or weight-based dosing when appropriate to reduce radiation dose to as low as reasonably achievable. Dictated by Geo Kennedy MD @ 01/02/2023 3:57:15 PM <DO Yoon Hernandez Last Filed: 01/02/23 18:46> Discharge Plan Discharge Clinical Impression: SBO (small bowel obstruction) <Isis Mina Filed: 01/02/23 16:30> Patient Disposition: Admitted As Observation <Isis Mina Filed: 01/02/23 16:30> Condition: Stable <Isis Mina Filed: 01/02/23 16:30>
--- NOTE | 2023-01-02 14:19 | CRLHL7_ITS ---
For Patients: As a result of the Century Cures Act, medical imaging exams and procedure reports are released immediately into your electronic medical record. You may view this report before your referring provider. If you have questions, please contact your health care provider. INDICATION: DIFFUSE ABD PAIN TECHNIQUE: CT abdomen and pelvis with 147 cc Isovue 370 IV contrast. COMPARISON: CT abdomen pelvis April 03, 2022. MRI adrenal gland 05/02/2022. FINDINGS: The liver is normal in size, shape and attenuation. Gallbladder and biliary tree are normal. The and pancreas are within normal limits. Bilateral parapelvic renal cysts are again noted. No hydronephrosis. Decompressed bladder. Markedly enlarged multi nodular adrenal glands are again noted. These appears a characterized on adrenal MRI as lipid rich adenomas. Moderately dilated air-filled loops of bowel throughout the abdomen, with air-fluid levels. Suspected transition point seen within the right lower quadrant series 2, image 110. Findings concerning for developing small bowel obstruction. No evidence of pneumatosis or portal venous gas. No significant free fluid and no free air. Pelvic organs are unremarkable. The lower chest is unremarkable. Mild multilevel degenerative spondylosis without acute fracture or aggressive osseous lesion. IMPRESSION: Moderately dilated air-filled loops of bowel throughout the abdomen, with air-fluid levels. Suspected transition point seen within the right lower quadrant. Findings concerning for developing small bowel obstruction. Please note that all CT scans at this facility use dose modulation, iterative reconstruction, and/or weight-based dosing when appropriate to reduce radiation dose to as low as reasonably achievable. Dictated by Geo Kennedy MD @ 01/02/2023 3:57:15 PM (Electronically Signed)
[2023-01-02] MEDS: KETOROLAC 15 MG/ML inj IVP (14:37)
[2023-01-02] MEDS: ONDANSETRON 2 MG/ML inj 4 MG IVP (14:37)
[2023-01-02] MEDS: LACTATED RINGERS 1000 ML 1,000 ML IV (14:38)
[2023-01-02 14:45] LABS: Basophils Absolute Auto 0.01 K/uL (0.00-0.30); Basophils Percent Auto 0.1 % (0.0-3.0); Eosinophils Absolute Auto 0.08 K/uL (0.00-0.50); Eosinophils Percent Auto 0.8 % (0.0-7.0); Hematocrit 47.4 % (37.0-53.0); Hemoglobin* 15.9 gm/dL (13.5-17.5); Immature Granulocytes Abs Auto 0.03 K/uL (0.00-0.30); Immature Granulocytes Pct Auto 0.3 %; Lymphocytes Percent Auto 16.8 % (20-44); Mean Corpuscular HGB Conc 34 gm/dL (32-36); Mean Corpuscular Hemoglobin 28 pg (26-34); Mean Corpuscular Volume 85 fL (80-100); Monocytes Percent Auto 6.1 % (0.0-11.0); Neutrophils Percent Auto 75.9 % (42.0-72.0); Platelet Count* 272 K/uL (140-440); RDW Coefficient of Variation % 12.8 % (11.5-15.5); White Blood Count* 10.66 K/uL (4.50-11.00)
[2023-01-02 14:46] LABS: Slide Review Reflex No
[2023-01-02 15:00] LABS: Albumin* 4.7 g/dL (3.3-5.0)
[2023-01-02 15:01] LABS: Chloride* 103 mmol/L (96-114); Potassium* 3.5 mmol/L (3.6-5.1); Sodium* 141 mmol/L (135-149)
[2023-01-02 15:03] LABS: Alkaline Phosphatase* 58 U/L (40-150); Anion Gap 9 mEq/L (7-15); Aspartate Amino Transferase* 31 U/L (12-35); Bilirubin Total* 1.7 mg/dL (0.1-1.5); Blood Urea Nitrogen* 11 mg/dL (5-24); Carbon Dioxide* 29 mmol/L (20-32); Creatinine* 0.5 mg/dL (0.5-1.5); Estimated Glomerular Filt Rate 127 ml/min; Total Protein* 7.5 g/dL (6.0-8.3)
[2023-01-02 15:04] LABS: Alanine Aminotransferase* 40 U/L (4-50); Calcium* 9.3 mg/dL (8.4-10.6); Glucose* 103 mg/dL (60-115); Lipase* 30 U/L (23-300)
[2023-01-02 15:23] LABS: Troponin I* < 0.01 ng/mL (0.01-0.04)
[2023-01-02 15:42] LABS: Appearance Urine Clear (Clear); Bilirubin Urine Negative (Negative); Blood Urine Negative (Negative); Color Urine Yellow (Yellow); Glucose Urine Negative (Negative); Ketones Urine 2+ (Negative); Leukocyte Esterase Urine Negative (Negative); Nitrite Urine Negative (Negative); Protein Urine Negative (Negative); Specific Gravity Urine 1.015 (1.000-1.030); Urobilinogen Urine 0.2 (0.2-1.0)
[2023-01-02 15:57] LABS: Bacteria Urine Few; Mucus Urine Moderate; RBC Urine 0-2 (0-2); Squamous Epithelial Cell Urine Few (None-Few); WBC Urine 0-2 (0-5)
[2023-01-02 17:03] VITALS: BP 136/85; PULSE 79; RESP 16; O2SAT 94
--- NOTE | 2023-01-02 17:16 | ED.NURSE ---
patient is waiting and up to the bathroom via ambulatory. rates pain at 4-5/10 scale.
--- NOTE | 2023-01-02 18:15 | PM.GSCN ---
History of Present Illness Consult details Date Seen: 01/02/23 Consult date: 01/02/23 Narrative: The patient is a 47 year-old male Who presented to the emergency department today with abdominal pain and vomiting. The pain began abruptly at 1:00 a.m. and was in his epigastrium. It was constant. He had nausea and 3 episodes of emesis. He states that his abdomen Was firm and distended but since coming to the ER he has had 2 large watery bowel movements. His significant other states that his abdominal distention appears much better. He did have a bowel movement yesterday Which was normal. his discomfort is now it is 3 but previously it was 8/10. He states that this feels similar to when he was seen last March. No previous abdominal surgeries. He was admitted back in March of this year with what appeared to be a small bowel obstruction. This was after being treated for kidney stones. He was having bloating and epigastric discomfort as well as vomiting. Throughout this he had loose stools. He was seen by Dr. Johnson and was also noted to be hypokalemic. CT scan showed dilated loops of bowel with possible transition point in the right lower quadrant. An NG tube was placed and the patient was admitted to the hospital. He had a Gastrografin challenge which showed contrast going to the colon. Throughout this he was continuing to pass gas and having bowel movements. He was discharged home and underwent upper GI endoscopy and colonoscopy in May. He was found have esophagitis and gastritis. Colonoscopy was normal. He also underwent an abdomen MRI for enlarged adrenal glands. This did not show any other pathology. [facility] Medical History (Updated 01/02/23 @ 18:32 by Ayush Higginbotham DO) Abdominal pain ?R10.9 - Unspecified abdominal pain (ICD-10) Onychomycosis ?B35.1 - Tinea unguium (ICD-10) Surgical History S/P hip arthroscopy ?Z98.890 - Other specified postprocedural states (ICD-10) Status post uvulopalatopharyngoplasty ?Z98.890 - Other specified postprocedural states (ICD-10) Status post tonsillectomy and adenoidectomy ?Z90.89 - Acquired absence of other organs (ICD-10) Status post nasal septoplasty ?Z98.890 - Other specified postprocedural states (ICD-10) History of arthroscopy of left knee ?Z98.890 - Other specified postprocedural states (ICD-10) Family History Other Diabetes Social History Narrative: He lives in [place] with his , Francis, and his 10-year-old daughter. He works for the [employer] in [place]. He does not smoke. He drinks 2 or 3 beers about once a week. He does not use recreational drugs. Smoking Status: Never smoker Do you use any of these nicotine containing products: None Second hand tobacco smoke exposure: No How often do you have a drink containing alcohol: 2-4 times a month Alcohol type: beer How many standard drinks containing alcohol do you have on a typical day: 1 or 2 AUDIT-C Alcohol total score: 2 Non-prescribed substance use: denies use service: Yes Meds Home Medications and Allergies Home Medications Medication Instructions Recorded Confirmed Type bupropion HCl 150 mg tablet,12 hr 150 mg PO BID 01/02/22 01/02/23 History sustained-release gabapentin 300 mg capsule 300 mg PO TID 01/02/22 01/02/23 History meloxicam 15 mg tablet 15 mg PO DAILY PRN 01/02/22 01/02/23 History metformin 500 mg tablet,extended 1,000 mg PO DAILY 01/02/22 04/04/22 History release 24 hr tramadol 50 mg tablet 50 mg PO Q6H PRN 01/02/22 01/02/23 History esomeprazole magnesium 20 mg 20 mg PO DAILY 04/04/22 04/04/22 History capsule,delayed release pantoprazole 40 mg tablet,delayed 40 mg PO DAILY 04/04/22 01/02/23 History release amlodipine 5 mg tablet 5 mg PO DAILY 01/02/23 01/02/23 History rosuvastatin 20 mg tablet 20 mg PO DAILY 01/02/23 01/02/23 History Allergies Allergy/AdvReac Type Severity Reaction Status Date / Time No Known Allergies Allergy Unknown Verified 04/03/22 12:35 Exam Narrative: Exam Narrative: General appearance: Alert, cooperative, and in no distress Eyes: PERRLA, eye lids clear, and sclera white HENT Head: Normocephalic Ears: External ears normal Pulmonary: Breathing nonlabored on room air Cardiovascular Heart: Regular rate Extremities: warm and well perfused Gastrointestinal Abdominal: protuberant. No scars. Nontender to palpation Diffusely. Musculoskeletal: Extremities: Upper: Both upper extremities have normal joint range of motion and intact strength. Lower: Both lower extremities have normal joint range of motion and intact strength. Skin: Normal skin color, texture, and turgor. Neurologic: No focal deficits Psychiatric: Alert, oriented, cooperative, normal affect. Const: Vital Signs, click to edit/add: Vital Signs - 24 hr 01/02/23 11:51 01/02/23 17:03 Temperature 98.3 F Pulse Rate 79 Pulse Rate [Right Pulse Oximeter] 92 Respiratory Rate 18 16 Blood Pressure 136/85 Blood Pressure [Ri ght Upper Arm] 142/89 H Pulse Oximetry 93 94 Oxygen Delivery Me thod Room Air Results Labs Labs: Abnormal lab results 01/02/23 01/02/23 Range/Units 14:30 15:30 Neut % (Auto) 75.9 H (42.0-72.0) % Lymph % (Auto) 16.8 L (20-44) % Neut # (Auto) 8.10 H (1.7-7.0) K/uL Potassium 3.5 L (3.6-5.1) mmol/L Total Bilirubin 1.7 H (0.1-1.5) mg/dL Troponin I < 0.01 L (0.01-0.04) ng/mL Urine Ketones 2+ A (Negative) Urine Bacteria Few A (None) Urine Mucus Moderate A (None) Diabetes panel 01/02/23 Range/Units 14:30 Sodium 141 (135-149) mmol/L Potassium 3.5 L (3.6-5.1) mmol/L Chloride 103 (96-114) mmol/L Carbon Dioxide 29 (20-32) mmol/L BUN 11 (5-24) mg/dL Creatinine 0.5 (0.5-1.5) mg/dL Glucose 103 (60-115) mg/dL Calcium 9.3 (8.4-10.6) mg/dL AST 31 (12-35) U/L ALT 40 (4-50) U/L Alkaline Phosphatase 58 (40-150) U/L Total Protein 7.5 (6.0-8.3) g/dL Albumin 4.7 (3.3-5.0) g/dL Calcium panel 01/02/23 Range/Units 14:30 Calcium 9.3 (8.4-10.6) mg/dL Albumin 4.7 (3.3-5.0) g/dL Pituitary panel 01/02/23 Range/Units 14:30 Sodium 141 (135-149) mmol/L Potassium 3.5 L (3.6-5.1) mmol/L Chloride 103 (96-114) mmol/L Carbon Dioxide 29 (20-32) mmol/L BUN 11 (5-24) mg/dL Creatinine 0.5 (0.5-1.5) mg/dL Glucose 103 (60-115) mg/dL Calcium 9.3 (8.4-10.6) mg/dL Adrenal panel 01/02/23 Range/Units 14:30 Sodium 141 (135-149) mmol/L Potassium 3.5 L (3.6-5.1) mmol/L Chloride 103 (96-114) mmol/L Carbon Dioxide 29 (20-32) mmol/L BUN 11 (5-24) mg/dL Creatinine 0.5 (0.5-1.5) mg/dL Glucose 103 (60-115) mg/dL Calcium 9.3 (8.4-10.6) mg/dL Total Bilirubin 1.7 H (0.1-1.5) mg/dL AST 31 (12-35) U/L ALT 40 (4-50) U/L Alkaline Phosphatase 58 (40-150) U/L Total Protein 7.5 (6.0-8.3) g/dL Albumin 4.7 (3.3-5.0) g/dL Labs are remarkable for white count of 10.6 with a slight left shift. He is mildly hypokalemic with a potassium of 3.5. He has an indirect hyperbilirubinemia. Imaging Abdomen CT scan report/results: report reviewed and image reviewed Additional studies: MRI of the abdomen from 04/27/2022: IMPRESSION: 1. Nodular enlargement of bilateral adrenal glands compatible with lipid rich adenomas. No suspicious lesions. Dictated by Ayush Ashby MD @ 05/02/2022 11:15:[address] of the abdomen pelvis done 01/02/2023: IMPRESSION: Moderately dilated air-filled loops of bowel throughout the abdomen, with air-fluid levels. Suspected transition point seen within the right lower quadrant. Findings concerning for developing small bowel obstruction. Please note that all CT scans at this facility use dose modulation, iterative reconstruction, and/or weight-based dosing when appropriate to reduce radiation dose to as low as reasonably achievable. Dictated by Geo Kennedy MD @ 01/02/2023 3:57:[address] scan of the abdomen pelvis from 04/03/2022: Impression: 1. Small-bowel obstruction with transition point in the right lower quadrant. 2. Markedly enlarged and multinodular adrenal glands. Recommend dedicated MRI for further evaluation. Please note that all CT scans at this facility use dose modulation, iterative reconstruction, and/or weight-based dosing when appropriate to reduce radiation dose to as low as reasonably achievable. Dictated by Virgilio Segal MD @ 04/03/2022 8:13:47 PM Assessment and Plan Assessment and plan (1) Diabetes 1.5, managed as type 2: Problem comment: - Dx 2021, [id number] - Accu-Cheks and SSI Status: Chronic (2) Hypertension: Problem comment: - restarted home Lisinopril 04/05, held HCTZ given hypokalemia - upon discharge, restarting both hydrochlorothiazide and lisinopril as patient is tolerating po intake Status: Chronic (3) Obstructive sleep apnea treated with continuous positive airway pressure (CPAP): Status: Chronic (4) Gastroesophageal reflux disease: Status: Chronic (5) Obesity: Status: Chronic (6) Hypokalemia: Problem comment: - Likely due to poor oral intake and vomiting (no history of this on chart review) - improved throughout stay, expect continued normalization with p.o. intake Status: Resolved (7) Bowel obstruction: Problem comment: - no history of bowel obstructions in the past, no previous abdominal surgeries - colonoscopy approximately 10 years ago, per patient (diverticulosis, no other findings) - transition point right lower quadrant on admission CT - small bowel f/u on 04/04 reassuring, ? Gastroparesis contributing to symptoms - patient was able to advance diet and discharged home on hospital day 2 Status: Resolved Plan The patient is a 47-year-old male with abdominal pain and CT findings concerning for small bowel obstruction though clinically this appears to have resolved. He has no history of prior abdominal surgeries and this is his 2nd possible bowel obstruction in the last year. He has even had an MRI of his abdomen which fails to show a mass. Most likely cause is still adhesions possibly congenital or from prior inflammation versus gastroenteritis. We will plan on observation this evening though consideration must be had for exploration given that this is his 2nd episode. He is high risk for wound complication given his medical comorbidities and therefore I would like to avoid surgery if possible, though if this is truly his second SBO would benefit from laparoscopy. -if emesis worsens, will need NG tube - will discuss with radiologist in the morning whether not small-bowel follow-through would be helpful.
--- NOTE | 2023-01-02 18:33 | ED.NURSE ---
given report to Alyx Aleman to resume care on M/S via wc. plan to admit to room 261.
[2023-01-02 19:00] VITALS: BP 153/97; PULSE 80; RESP 18; TEMP 36.7; O2SAT 95; BMI 44.6
--- NOTE | 2023-01-02 19:30 | P.IMHP_ITS ---
Hospitalist- H&P: HPI History of Present Illness Time Seen by Provider: 19:30 Date Seen: 01/02/23 Chief complaint: Abdominal pain, bloating Narrative: Avery Horne is a 47 year old male with no h/o abdominal surgery who was in his usual state of health when he ate dinner last night around 6pm. He felt bloated afterward. Woke up at 1:30 with mid abdominal pain and nausea. Had emesis twice. He still feels bloated and with abdominal pain. Denies fever or chills. Denies hematemasis or melena/hematechezia. In the last hour and a half he is started to feel less bloated and is having diarrhea. He has no history of abdominal surgery he recalls being in the hospital for a few days at the age of 5 but he has no idea why and he knows he did not have surgery during that time. His father does not know why you was in the hospital at the age of 5 and his mother is . He had a partial small-bowel obstruction within the past year and afterward had an EGD and colonoscopy with no findings to explain why he had it. Review of Systems Status of ROS: Reports: 10 or more systems reviewed and unremarkable except as noted in History and below [facility] Medical History (Updated 01/02/23 @ 21:12 by Marni Rayo MD) Adrenal abnormality ?E27.9 - Disorder of adrenal gland, unspecified (ICD-10) Hypertension ?I10 - Essential (primary) hypertension (ICD-10) Diabetes 1.5, managed as type 2 ?E13.9 - Other specified diabetes mellitus without complications (ICD-10) Onychomycosis ?B35.1 - Tinea unguium (ICD-10) Surgical History S/P hip arthroscopy ?Z98.890 - Other specified postprocedural states (ICD-10) Status post uvulopalatopharyngoplasty ?Z98.890 - Other specified postprocedural states (ICD-10) Status post tonsillectomy and adenoidectomy ?Z90.89 - Acquired absence of other organs (ICD-10) Status post nasal septoplasty ?Z98.890 - Other specified postprocedural states (ICD-10) History of arthroscopy of left knee ?Z98.890 - Other specified postprocedural states (ICD-10) Family History Other Diabetes Social History (Updated 01/02/23 @ 21:04 by Marni Rayo MD) Narrative: He lives in [place] with his , Francis, and his 10-year-old daughter. He works for the [employer] in [place]. 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 He does not smoke. He drinks 2 or 3 beers about once a week. He does not use recreational drugs. What is your current living situation?: I presently have a place to live Problems where you live: no known problems Problems where you live details: N/A In the past 12 months, utilities in danger of being shut off: no In past 12 months, lack of transportation kept you from medical appts, meetings, work, or getting things needed for daily living: no In the past 12 mos, have been you worried that your food would run out before you had money to buy more?: never true In the past 12 mos, the food you bought just didn't last and you didn't have money to buy more?: never true Highest level of school completed/degree received: Bachelor's degree Smoking Status: Never smoker Do you use any of these nicotine containing products: None Second hand tobacco smoke exposure: No How often do you have a drink containing alcohol: 2-3 times a week Alcohol type: beer How many standard drinks containing alcohol do you have on a typical day: 1 or 2 AUDIT-C Alcohol total score: 3 Non-prescribed substance use: denies use Caffeine: Yes How often does anyone, including family, friends and others, physically hurt you : never How often does anyone, including family, friends and others, insult or talk down to you: never How often does anyone, including family, friends and others, threaten you with harm: never How often does anyone, including family, friends and others, scream or curse at you: never service: Yes Meds Home Medications and Allergies Home Medications Medication Instructions Recorded Confirmed Type bupropion HCl 150 mg tablet,12 hr 150 mg PO BID 01/02/22 01/02/23 History sustained-release gabapentin 300 mg capsule 300 mg PO TID 01/02/22 01/02/23 History meloxicam 15 mg tablet 15 mg PO DAILY 01/02/22 01/02/23 History tramadol 50 mg tablet 50 mg PO Q6H PRN 01/02/22 01/02/23 History amlodipine 5 mg tablet 5 mg PO DAILY 01/02/23 01/02/23 History rabeprazole 20 mg tablet,delayed 20 mg PO DAILY 01/02/23 01/02/23 History release rosuvastatin 20 mg tablet 20 mg PO DAILY 01/02/23 01/02/23 History semaglutide 0.25 mg or 0.5 mg (2 0.5 mg subcut QWEEK 01/02/23 01/02/23 History mg/3 mL) subcutaneous pen injector (Ozempic) Allergies Allergy/AdvReac Type Severity Reaction Status Date / Time No Known Allergies Allergy Unknown Verified 04/03/22 12:35 Exam Narrative: Exam Narrative: General: No acute distress. Awake alert oriented x3. Obese. HEENT: Normocephalic atraumatic, pupils equally round and reactive to light and accommodation. Oropharynx clear. Mucous membranes are moist. No JVD. Cardiovascular: Regular rate and rhythm. No murmurs, gallops, or rubs. Chest: No increased work of breathing. Clear to auscultation bilaterally. No crackles or wheezes. Abdomen: Bowel sounds hypoactive. Soft, mildly distended, mildly tender to palpation in the right upper quadrant, Garcia sign is negative. No hepatosplenomegaly or masses. Extremities: No edema, no cyanosis or clubbing. Skin: No jaundice, no pallor, no rashes. Const: Vital Signs, click to edit/add: Vital Signs - 24 hr 01/02/23 11:51 01/02/23 17:03 Temperature 98.3 F Pulse Rate 79 Pulse Rate [Right Pulse Oximeter] 92 Respiratory Rate 18 16 Blood Pressure 136/85 Blood Pressure [Ri ght Upper Arm] 142/89 H Pulse Oximetry 93 94 Oxygen Delivery Me thod Room Air Hospitalist - H&P: Result Labs Labs: Short CBC 01/02/23 Range/Units 14:30 WBC 10.66 (4.50-11.00) K/uL Hgb 15.9 (13.5-17.5) gm/dL Hct 47.4 (37.0-53.0) % Plt Count 272 (140-440) K/uL BMP 01/02/23 14:30 Sodium 141 Potassium 3.5 L Chloride 103 Carbon Dioxide 29 BUN 11 Creatinine 0.5 Glucose 103 Calcium 9.3 Cardiac Enzymes 01/02/23 Range/Units 14:30 Troponin I < 0.01 L (0.01-0.04) ng/mL Liver Function 01/02/23 Range/Units 14:30 Total Bilirubin 1.7 H (0.1-1.5) mg/dL AST 31 (12-35) U/L ALT 40 (4-50) U/L Alkaline Phosphatase 58 (40-150) U/L Albumin 4.7 (3.3-5.0) g/dL Urine 01/02/23 Range/Units 15:30 Urine Color Yellow (Yellow) Urine Appearance Clear (Clear) Urine pH 6.0 (5.0-8.5) Ur Specific [place] 1.015 (1.000-1.030) Urine Protein Negative (Negative) Urine Glucose (UA) Negative (Negative) Ordering Physician: Ayush Higginbotham D.O. Date of Service: 01/02/23 Procedure(s): CT abdomen pelvis w con Accession Number(s): [id number] cc: Ayush Higginbotham D.O.; Jacob Zhang M.D.~ For Patients: As a result of the Century Cures Act, medical imaging exams and procedure reports are released immediately into your electronic medical record. You may view this report before your referring provider. If you have questions, please contact your health care provider. INDICATION: DIFFUSE ABD PAIN TECHNIQUE: CT abdomen and pelvis with 147 cc Isovue 370 IV contrast. COMPARISON: CT abdomen pelvis April 03, 2022. MRI adrenal gland 05/02/2022. FINDINGS: The liver is normal in size, shape and attenuation. Gallbladder and biliary tree are normal. The and pancreas are within normal limits. Bilateral parapelvic renal cysts are again noted. No hydronephrosis. Decompressed bladder. Markedly enlarged multi nodular adrenal glands are again noted. These appears a characterized on adrenal MRI as lipid rich adenomas. Moderately dilated air-filled loops of bowel throughout the abdomen, with air-fluid levels. Suspected transition point seen within the right lower quadrant series 2, image 110. Findings concerning for developing small bowel obstruction. No evidence of pneumatosis or portal venous gas. No significant free fluid and no free air. Pelvic organs are unremarkable. The lower chest is unremarkable. Mild multilevel degenerative spondylosis without acute fracture or aggressive osseous lesion. IMPRESSION: Moderately dilated air-filled loops of bowel throughout the abdomen, with air-fluid levels. Suspected transition point seen within the right lower quadrant. Findings concerning for developing small bowel obstruction. Please note that all CT scans at this facility use dose modulation, iterative reconstruction, and/or weight-based dosing when appropriate to reduce radiation dose to as low as reasonably achievable. Dictated by Geo Kennedy MD @ 01/02/2023 3:57:15 PM (Electronically Signed) Assessment and Plan Assessment and plan (1) SBO (small bowel obstruction): Problem comment: - no previous abdominal surgeries - Partial SBO Mar of this year. Colonoscopy in May was unremarkable and EGD in July found gastritis. - appreciate general surgery recommendations. Will keep patient NPO and on IV fluids overnight. Monitor blood glucose and if needed will add D5. Status: Acute (2) Diabetes 1.5, managed as type 2: Problem comment: - Dx 2021, [id number] - as above while NPO. Status: Chronic (3) Hypertension: Problem comment: Continue home medications Status: Chronic (4) Obstructive sleep apnea treated with continuous positive airway pressure (CPAP): Status: Chronic (5) Obesity: Status: Chronic
[2023-01-02] MEDS: buPROPion HCL SR 150 MG TAB PO (21:48)
[2023-01-02] MEDS: SODIUM CHLORIDE 0.9 % (FLUSH) 10 ML SYRINGE 5 ML IVF (21:48)
[2023-01-02] MEDS: GABAPENTIN 300 MG CAPSULE PO (21:48)
[2023-01-02] MEDS: lisinopriL 20 MG TABLET 40 MG PO (21:51)
[2023-01-02] MEDS: LACTATED RINGERS 1000 ML 1,000 ML 125 ML IV (21:52)
[2023-01-02 23:00] VITALS: BP 122/65; PULSE 61; PULSE 80; RESP 16; RESP 18; TEMP 36.4; O2SAT 92; O2SAT 95
[2023-01-03 03:00] VITALS: BP 102/71; PULSE 69; RESP 18; TEMP 36.5; O2SAT 96
[2023-01-03] MEDS: LACTATED RINGERS 1000 ML 1,000 ML 125 ML IV (05:40)
--- NOTE | 2023-01-03 05:55 | PC.NURSE ---
Patient A&O, afebrile & VSS overnight. Up ad rajendra independently in his room. Reported x2 loose bowel movements & passing gas. Denies any N/V. Denies any abdominal tenderness on palpation. Bowel sounds active in upper quads and hypo in lower quads. Maintained on RA overnight. No PRN's given. LR infusing @ 125 mL/hr out of left AC. NPO overnight in preparation for small bowel follow through test today. Blood sugars: 99 > 85 > 89; no insulin given.
[2023-01-03 06:36] LABS: Basophils Absolute Auto 0.03 K/uL (0.00-0.30); Basophils Percent Auto 0.5 % (0.0-3.0); Eosinophils Absolute Auto 0.14 K/uL (0.00-0.50); Eosinophils Percent Auto 2.4 % (0.0-7.0); Hemoglobin* 13.9 gm/dL (13.5-17.5); Immature Granulocytes Abs Auto 0.04 K/uL (0.00-0.30); Immature Granulocytes Pct Auto 0.7 %; Lymphocytes Absolute Auto 1.49 K/uL (0.90-2.90); Lymphocytes Percent Auto 25.6 % (20-44); Mean Corpuscular HGB Conc 33 gm/dL (32-36); Mean Corpuscular Hemoglobin 29 pg (26-34); Mean Corpuscular Volume 87 fL (80-100); Monocytes Percent Auto 6.5 % (0.0-11.0); Neutrophils Absolute Auto 3.74 K/uL (1.7-7.0); Neutrophils Percent Auto 64.3 % (42.0-72.0); Platelet Count* 214 K/uL (140-440); Red Blood Count 4.85 m/uL (4.30-5.90); White Blood Count* 5.82 K/uL (4.50-11.00)
[2023-01-03 06:59] LABS: Chloride* 104 mmol/L (96-114); Sodium* 143 mmol/L (135-149)
[2023-01-03 07:00] LABS: Potassium* 3.5 mmol/L (3.6-5.1)
[2023-01-03 07:02] LABS: Creatinine* 0.6 mg/dL (0.5-1.5); Est. Creatinine Clearance* 147.25; Estimated Glomerular Filt Rate 120 ml/min
[2023-01-03 07:03] LABS: Anion Gap 7 mEq/L (7-15); Blood Urea Nitrogen* 12 mg/dL (5-24); Calcium* 8.6 mg/dL (8.4-10.6); Carbon Dioxide* 32 mmol/L (20-32); Glucose* 95 mg/dL (60-115)
[2023-01-03 07:06] LABS: Slide Review Reflex No
[2023-01-03 07:30] VITALS: BP 142/94; PULSE 66; RESP 16; RESP 18; TEMP 36.8; O2SAT 96
--- NOTE | 2023-01-03 08:00 | CRLHL7_ITS ---
For Patients: As a result of the Century Cures Act, medical imaging exams and procedure reports are released immediately into your electronic medical record. You may view this report before your referring provider. If you have questions, please contact your health care provider. INDICATION: Follow up small bowel obstruction. The patient has not had a history of surgery to the abdomen or pelvis. Questionable focal thickening of the small bowel loop in the right lower quadrant and or a transition point within a right lower quadrant small bowel loop suggestive on CT January 02, 2023. TECHNIQUE : Water-soluble small-bowel follow-through. COMPARISON : Correlation is made with yesterday`s abdominal pelvic CT January 02, 2023. FINDINGS: Resolution of the previously described small bowel obstruction. No gastric dilatation. There are no dilated small bowel loops today. Normal small bowel transit time of 45-60 minutes at most. Spot images the right lower quadrant demonstrated normal appearing terminal ileum. Small bowel motility was identified at real-time fluoroscopic imaging. No transition point identified. These findings were discussed briefly with the patient. 56 seconds fluoroscopy time utilized. IMPRESSION: 1. Resolution of the previously described small bowel obstruction. 2. Normal-appearing terminal ileum. 3. Normal small bowel transit time. Dictated by Félix Story MD @ 01/03/2023 11:58:48 AM (Electronically Signed)
[2023-01-03] MEDS: GABAPENTIN 300 MG CAPSULE PO (08:37)
[2023-01-03] MEDS: OMEPRAZOLE 20 MG CAPSULE DR PO (08:38)
[2023-01-03] MEDS: AMLODIPINE 5 MG TABLET PO (08:38)
[2023-01-03] MEDS: buPROPion HCL SR 150 MG TAB PO (08:38)
--- NOTE | 2023-01-03 10:34 | P.IMPN_ITS ---
Progress Note: A&P Assessment and plan (1) SBO (small bowel obstruction): Problem details: - no previous abdominal surgeries - Partial SBO March 2022; Colonoscopy May 2022 unremarkable and EGD July 2022 + for gastritis - notably on Ozempic, initiated summer, possibly contributing to symptoms - appreciate general surgery recommendations, SBFU today, may be able to advance diet pending results Status: Acute (2) Diabetes 1.5, managed as type 2: Problem details: - Dx 2021, [id number] - BG 80s-90s Status: Chronic (3) Hypertension: Problem details: - age appropriate control, continue home medications Status: Chronic (4) Obstructive sleep apnea treated with continuous positive airway pressure (CPAP): Status: Chronic (5) Obesity: Status: Chronic Plan - per above - possible diet advancement pending results of SBFU Subjective Date Seen: 01/03/23 Interval history: Avery is feeling better today. He had 2 episodes of diarrhea after admission, no flatus or stool this morning. VSS, labs reassuring with the exception of mild hypokalemia. Stomach feels softer and he has less pain. He has tolerated sips of water with his pills. Has a SBFU scheduled today. Exam Narrative: Exam Narrative: GEN: Alert and oriented, nontoxic in appearance HEENT: EOMIs bilaterally, no scleral icterus CV: RRR, No concerning murmurs R: LCTA bilaterally without concerning wheezing, rales, or rhonchi Abdomen: Soft, mild distension, tolerates palpation. Hypoactive bowel sounds noted Ext: wwp, no concerning edema Skin: No concerning skin lesions or rashes on exposed skin Neuro: Nonfocal Psych: Appropriate Const: Vital Signs, click to edit/add: Vital Signs - 24 hr 01/02/23 11:51 01/02/23 17:03 01/02/23 19:00 Temperature 98.3 F 98.1 F Pulse Rate 79 Pulse Rate [Left P ulse Oximeter] 80 Pulse Rate [Right Pulse Oximeter] 92 Respiratory Rate 18 16 18 Blood Pressure 136/85 Blood Pressure [Ri ght Arm] 153/97 H Blood Pressure [Ri ght Upper Arm] 142/89 H Pulse Oximetry 93 94 95 Oxygen Delivery Me thod Room Air Room Air 01/02/23 19:00 01/02/23 23:00 01/02/23 23:00 Temperature Pulse Rate Pulse Rate [Left P ulse Oximeter] 80 Pulse Rate [Right Pulse Oximeter] Respiratory Rate 18 18 18 Blood Pressure Blood Pressure [Ri ght Arm] Blood Pressure [Ri ght Upper Arm] Pulse Oximetry 95 95 Oxygen Delivery Me thod Room Air Room Air 01/02/23 23:00 01/03/23 03:00 Temperature 97.6 F 97.7 F Pulse Rate Pulse Rate [Left P ulse Oximeter] 61 69 Pulse Rate [Right Pulse Oximeter] Respiratory Rate 16 18 Blood Pressure Blood Pressure [Ri ght Arm] 122/65 102/71 Blood Pressure [Ri ght Upper Arm] Pulse Oximetry 92 96 Oxygen Delivery Me thod Room Air Room Air Labs Labs: Laboratory Results - last 24 hr 01/02/23 01/02/23 01/03/23 14:30 15:30 05:33 WBC 10.66 5.82 RBC 5.60 4.85 Hgb 15.9 13.9 Hct 47.4 42.0 MCV 85 87 MCH 28 29 MCHC 34 33 RDW Coeff of Radu 12.8 13.0 Plt Count 272 214 Neut % (Auto) 75.9 H 64.3 Lymph % (Auto) 16.8 L 25.6 Angelina % (Auto) 6.1 6.5 Eos % (Auto) 0.8 2.4 Baso % (Auto) 0.1 0.5 Neut # (Auto) 8.10 H 3.74 Lymph # (Auto) 1.80 1.49 [place] # (Auto) 0.70 0.40 Eos # (Auto) 0.08 0.14 Baso # (Auto) 0.01 0.03 Abs Immat Gran (auto) 0.03 0.04 Imm/Tot Granulo (auto) 0.3 0.7 Sodium 141 143 Potassium 3.5 L 3.5 L Chloride 103 104 Carbon Dioxide 29 32 Anion Gap 9 7 BUN 11 12 Creatinine 0.5 0.6 Estimated Creat Clear 176.70 147.25 Estimated GFR 127 120 Glucose 103 95 Calcium 9.3 8.6 Total Bilirubin 1.7 H AST 31 ALT 40 Alkaline Phosphatase 58 Troponin I < 0.01 L Total Protein 7.5 Albumin 4.7 Lipase 30 Urine Color Yellow Urine Appearance Clear Urine pH 6.0 Ur Specific [place] 1.015 Urine Protein Negative Urine Glucose (UA) Negative Urine Ketones 2+ A Urine Blood Negative Urine Nitrite Negative Urine Bilirubin Negative Urine Urobilinogen 0.2 Ur Leukocyte Esterase Negative Urine RBC 0-2 Urine WBC 0-2 Ur Squamous Epith Cells Few Urine Bacteria Few A Urine Mucus Moderate A
[2023-01-03 11:00] VITALS: BP 117/98; PULSE 73; RESP 16; TEMP 36.7; O2SAT 97
[2023-01-03] MEDS: POTASSIUM CHLORIDE 10 MEQ CAPSULE ER 40 MEQ PO (11:29)
--- NOTE | 2023-01-03 13:27 | PM.GSPN ---
Subjective Subjective Date Seen: 01/03/23 Interval history: Small-bowel follow-through scheduled today. This showed no sign of obstruction and appropriate transit through the small bowel into the colon. The patient has no further pain. He tolerated clear liquids. Exam Narrative: Exam Narrative: General: No acute distress Abdomen: soft, nontender. Const: Vital Signs, click to edit/add: Vital Signs - 24 hr 01/02/23 17:03 01/02/23 19:00 01/02/23 19:00 Temperature 98.1 F Pulse Rate 79 Pulse Rate [Left P ulse Oximeter] 80 Respiratory Rate 16 18 18 Blood Pressure 136/85 Blood Pressure [Ri ght Arm] 153/97 H Pulse Oximetry 94 95 95 Oxygen Delivery Me thod Room Air Room Air 01/02/23 23:00 01/02/23 23:00 01/02/23 23:00 Temperature 97.6 F Pulse Rate Pulse Rate [Left P ulse Oximeter] 80 61 Respiratory Rate 18 18 16 Blood Pressure Blood Pressure [Ri ght Arm] 122/65 Pulse Oximetry 95 92 Oxygen Delivery Me thod Room Air Room Air 01/03/23 03:00 01/03/23 07:30 01/03/23 07:30 Temperature 97.7 F 98.2 F Pulse Rate Pulse Rate [Left P ulse Oximeter] 69 66 Respiratory Rate 18 16 18 Blood Pressure Blood Pressure [Ri ght Arm] 102/71 142/94 H Pulse Oximetry 96 96 96 Oxygen Delivery Me thod Room Air Room Air Room Air Labs/Imaging Imaging Imaging: Small-bowel follow-through done today: IMPRESSION: 1. Resolution of the previously described small bowel obstruction. 2. Normal-appearing terminal ileum. 3. Normal small bowel transit time. Dictated by Félix Story MD @ 01/03/2023 11:58:48 AM Progress Note: A&P Assessment and plan (1) Diabetes 1.5, managed as type 2: Problem details: - Dx 2021, [id number] - BG 80s-90s Status: Chronic (2) SBO (small bowel obstruction): Problem details: - no previous abdominal surgeries - Partial SBO March 2022; Colonoscopy May 2022 unremarkable and EGD July 2022 + for gastritis - notably on Ozempic, initiated summer, possibly contributing to symptoms - appreciate general surgery recommendations, SBFU today, may be able to advance diet pending results Status: Acute (3) Abdominal pain: Status: Acute (4) Obstructive sleep apnea treated with continuous positive airway pressure (CPAP): Status: Chronic (5) Obesity: Status: Chronic Plan the patient is a 47-year-old male who was admitted with possible small bowel obstruction, which would be his 2nd de Maryam small bowel obstruction which has resolved. I reviewed his imaging carefully with the radiologist today. There are no masses noted though If there was a small intraluminal tumor that was acting as a lead point, that could cause obstruction, though 1 would expect that to be visible after 10 months. Certainly people who have not had surgery can still have benign intra-abdominal adhesions either from prior inflammatory processes or even from which could cause obstruction. Discussed with the patient that now that he is improved I think he should discharge home and follow up with me in clinic. At that time we can discuss the benefits of laparoscopic exploration as well as risks of surgery. Of note, he is also on Ozempic which certainly can cause nausea vomiting and D laid GI transit, however his 1st episode in March occurred prior to him starting that medication to the seems less likely. Regardless, we will plan for him to follow up with me and we will have discussion of elective exploration
--- NOTE | 2023-01-03 13:49 | PM.DS1 ---
DS: Providers Provider Date Seen: 01/03/23 Date of admission: 01/02/23 18:35 Primary care physician: Jacob Zhang MD Admitting Clinician: Marni Rayo MD Consults: Dr. Dickinson of General Surgery Attending Physician on discharge: Sari Oliver MD Date of Discharge: 01/03/23 DS: Diagnosis Discharge Diagnosis (1) SBO (small bowel obstruction): Status: Acute Problem details: - Partial SBO vs ileus March 2022; Colonoscopy May 2022 unremarkable and EGD July 2022 + for gastritis - no previous abdominal surgeries - notably on Ozempic, initiated summer, possibly contributing to symptoms (will f/u with PCP to discuss [facility] plan for this) - General surgery followed during stay - reassuring SBFU on hospital day 1 with resolution of symptoms, patient felt comfortable discharging home with PCP/General Surgery f/u (2) Diabetes 1.5, managed as type 2: Status: Chronic Problem details: - Dx 2021, [id number] - BG 80s-90s during stay (3) Abdominal pain: Status: Acute Problem details: - resolved hospital day 1 DS: Summary Hospital Course Hospital Course: 47 yo male presented to the hospital with abdominal pain; ED imaging concerning for SBO. Notable findings above. Improved on hospital day 1, reassuring small bowel follow through. Discharged home with PCP and General Surgery f/u. Status at Discharge Functional status at discharge: independent ambulation Overall status at discharge: patient is progressing back to baseline Time Spent with Patient Time attestation: Total time spent providing and/or coordinating discharge services: Time spent: Greater than 30 minutes Specific discharge activities: Discussion of plan of care with General Surgery, patient education Exam Narrative: Exam Narrative: GEN: Alert and oriented, nontoxic in appearance HEENT: EOMIs bilaterally, no scleral icterus CV: RRR, No concerning murmurs R: LCTA bilaterally without concerning wheezing, rales, or rhonchi Abdomen: Soft, mild distension, tolerates palpation. Hypoactive bowel sounds noted throughout Ext: wwp, no concerning edema Skin: No concerning skin lesions or rashes on exposed skin Neuro: Nonfocal Psych: Appropriate Const: Vital Signs, click to edit/add: Vital Signs - 24 hr 01/02/23 17:03 01/02/23 19:00 01/02/23 19:00 Temperature 98.1 F Pulse Rate 79 Pulse Rate [Left P ulse Oximeter] 80 Respiratory Rate 16 18 18 Blood Pressure 136/85 Blood Pressure [Ri ght Arm] 153/97 H Pulse Oximetry 94 95 95 Oxygen Delivery Me thod Room Air Room Air 01/02/23 23:00 01/02/23 23:00 01/02/23 23:00 Temperature 97.6 F Pulse Rate Pulse Rate [Left P ulse Oximeter] 80 61 Respiratory Rate 18 18 16 Blood Pressure Blood Pressure [Ri ght Arm] 122/65 Pulse Oximetry 95 92 Oxygen Delivery Me thod Room Air Room Air 01/03/23 03:00 01/03/23 07:30 01/03/23 07:30 Temperature 97.7 F 98.2 F Pulse Rate Pulse Rate [Left P ulse Oximeter] 69 66 Respiratory Rate 18 16 18 Blood Pressure Blood Pressure [Ri ght Arm] 102/71 142/94 H Pulse Oximetry 96 96 96 Oxygen Delivery Me thod Room Air Room Air Room Air DS: Data Data Completed and Pending Completed studies during hospitalization: Procedures Drainage of Stomach with Drainage Device, Via Natural or Artificial Opening (04/03/22) Labs on day of discharge: Labs from last 24 hours 01/03/23 01/02/23 01/02/23 05:33 15:30 14:30 WBC 5.82 10.66 RBC 4.85 5.60 Hgb 13.9 15.9 Hct 42.0 47.4 MCV 87 85 MCH 29 28 MCHC 33 34 RDW Coeff of Radu 13.0 12.8 Plt Count 214 272 Neut % (Auto) 64.3 75.9 H Lymph % (Auto) 25.6 16.8 L [place] % (Auto) 6.5 6.1 Eos % (Auto) 2.4 0.8 Baso % (Auto) 0.5 0.1 Neut # (Auto) 3.74 8.10 H Lymph # (Auto) 1.49 1.80 [place] # (Auto) 0.40 0.70 Eos # (Auto) 0.14 0.08 Baso # (Auto) 0.03 0.01 Abs Immat Gran (auto) 0.04 0.03 Imm/Tot Granulo (auto) 0.7 0.3 Sodium 143 141 Potassium 3.5 L 3.5 L Chloride 104 103 Carbon Dioxide 32 29 Anion Gap 7 9 BUN 12 11 Creatinine 0.6 0.5 Estimated Creat Clear 147.25 176.70 Estimated GFR 120 127 Glucose 95 103 Calcium 8.6 9.3 Total Bilirubin 1.7 H AST 31 ALT 40 Alkaline Phosphatase 58 Troponin I < 0.01 L Total Protein 7.5 Albumin 4.7 Lipase 30 Urine Color Yellow Urine Appearance Clear Urine pH 6.0 Ur Specific [place] 1.015 Urine Protein Negative Urine Glucose (UA) Negative Urine Ketones 2+ A Urine Blood Negative Urine Nitrite Negative Urine Bilirubin Negative Urine Urobilinogen 0.2 Ur Leukocyte Esterase Negative Urine RBC 0-2 Urine WBC 0-2 Ur Squamous Epith Cells Few Urine Bacteria Few A Urine Mucus Moderate A Preliminary micro results at discharge 01/02/23 Unknown Urine Culture - Preliminary Urine,Clean Catch No growth. Discharge Plan Discharge Disposition: Home, Self-Care Date of Admission: 01/02/23 18:35 Attending Provider on Discharge: Sari Oliver Consulting Providers: Claudia Dickinson Primary Care Provider: Jacob Zhang Condition: Stable Anticipated Discharge Date/Time: 01/03/23 13:44 Discharge Medications: Continued gabapentin 300 mg capsule 300 mg PO TID bupropion HCl 150 mg tablet sustained-release 12 hr 150 mg PO BID tramadol 50 mg tablet 50 mg PO Q6H PRN meloxicam 15 mg tablet 15 mg PO DAILY rosuvastatin 20 mg tablet 20 mg PO DAILY amlodipine 5 mg tablet 5 mg PO DAILY rabeprazole 20 mg tablet,delayed release (DR/EC) 20 mg PO DAILY lisinopril 40 mg tablet 40 mg PO QDAY Qty: 90 3RF Held Ozempic 0.25 mg or 0.5 mg (2 mg/3 mL) pen injector 0.5 mg subcut QWEEK Hold Instructions: Resume on 01/14/23. hold until f/u with Dr. Zhang to discuss side effects/risks Discharge Orders: Discharge Order (Routine); Ordered 01/03/23 Ordered By: Sari Oliver Additional Instructions: Hold Ozempic until f/u with Dr. Zhang. [place] diet until gut feels 100% back to normal. Activity Level: Activity as Tolerated Discharge Diet: Low Fiber Diet Detail: advance as tolerated Follow Up Appointments: Claudia Dickinson MD [Staff Physician] - (3-4 jennifer weeks for hospital d/c followup) Jacob Zhang MD [Primary Care Provider] - (7-10 days for hospital d/c followup) Forms: MyHealth Info Instructions
--- NOTE | 2023-01-03 15:36 | PC.NURSE ---
BG levels 93 and 90 for this patient on day shift, no SS insulin required. NPO for bowel follow through and meds given with small sip of H20. Potassium 40 mEq PO new order administered for potassium level of 3.[address] Oliver. IV to SL after exam completed and pt advanced to CL diet w/o increased abdominal pain. Surgical consult with Alok. SL discontinued. Pt verbalized understanding of d/c diagnosis, home meds, f/up appts and sx to report urgently to MD. Ambulatory d/c at 1532 pm with personal belongings and family member as transportation.
== END 2023-01-03 15:32 | disposition home or self-care (01) ==
LOC: ED 18:32 → MEDSURG 18:36
PROVIDERS: Admitting Provider Family Medicine; Emergency Provider Student in an Organized Health Care Education/Training Program; PCP Family Medicine; Visit Provider Family Medicine
DX: K56.609 Unspecified intestinal obstruction, unspecified as to partial versus complete obstruction (principal); D72.828 Other elevated white blood cell count; E80.7 Disorder of bilirubin metabolism, unspecified; D72.810 Lymphocytopenia; E87.6 Hypokalemia; E27.9 Disorder of adrenal gland, unspecified; K21.9 Gastro-esophageal reflux disease without esophagitis; I10 Essential (primary) hypertension; E13.9 Other specified diabetes mellitus without complications; G47.33 Obstructive sleep apnea (adult) (pediatric); R60.0 Localized edema; E66.9 Obesity, unspecified; Z68.41 Body mass index [BMI] 40.0-44.9, adult; R10.9 Unspecified abdominal pain; Z99.89 Dependence on other enabling machines and devices; R11.10 Vomiting, unspecified; R14.0 Abdominal distension (gaseous); R11.0 Nausea; Z87.19 Personal history of other diseases of the digestive system; Z98.890 Other specified postprocedural states; Z90.89 Acquired absence of other organs; Z87.442 Personal history of urinary calculi
CPT/HCPCS: 36415; 74177; 74250; 80048; 80053; 81001; 82962; 83690; 84484; 85025; 87086; 96361; 96374; 96375; 99283; 99285; A9270; G0378; J1885; J2405; J7120; Q9967; S0106

== ENCOUNTER 2023-01-30 09:19 | Outpatient (CLI) | payer OTHER, SELFPAY | END 2023-01-30 09:20 | disposition home or self-care (01) | LOC: NFLDREF 09:22 | PROVIDERS: PCP Family Medicine; Visit Provider Surgery | DX: R11.10 Vomiting, unspecified (principal) | CPT/HCPCS: 80048 ==

== ENCOUNTER 2023-01-30 11:46 | Inpatient (IN) | payer OTHER, SELFPAY ==
--- NOTE | 2023-01-30 10:00 | CRLHL7_ITS ---
For Patients: As a result of the Century Cures Act, medical imaging exams and procedure reports are released immediately into your electronic medical record. You may view this report before your referring provider. If you have questions, please contact your health care provider. INDICATION: Vomiting TECHNIQUE: CT abdomen and pelvis acquired with 143 cc Isovue 370 IV contrast. COMPARISON: CT abdomen/pelvis on January 02, 2023 FINDINGS: Lower chest: Unremarkable. Liver: Unremarkable. Normal in size and attenuation. No suspicious masses. Stable left hepatic cyst. Gallbladder and bile ducts: Unremarkable. No stones or inflammation. No biliary dilatation. Pancreas: Unremarkable. No mass or inflammation. Spleen: Unremarkable. Normal in size. No masses. Adrenal glands: Enlarged multi nodular adrenal glands are again noted. Kidneys: Bilateral parapelvic renal cysts are again noted. No suspicious masses, stones, or hydronephrosis. GI tract: There is redemonstration of moderately dilated air and fluid-filled loops of bowel within the abdomen with abrupt focal narrowing in caliber seen in the lower abdomen just to the left of midline (series number 2, image [id number]). Vasculature: Abdominal aorta is normal in caliber. Mesenteric arteries are patent. Lymph nodes: No lymphadenopathy. Peritoneum/Abdominal Wall: Unremarkable. No sign of mass or infiltration. No free air or significant free fluid. Pelvis: Unremarkable. Bones: Mild multilevel degenerative spondylosis without acute fracture or aggressive osseous lesion. IMPRESSION: Redemonstration of moderately dilated air-filled loops of bowel throughout the abdomen, with air-fluid levels and abrupt focal narrowing in bowel caliber seen in the lower abdomen just to the left of midline (series number 2, image [id number]), which may represent a transition point causing a partial small bowel obstruction. Please note that all CT scans at this facility use dose modulation, iterative reconstruction, and/or weight-based dosing when appropriate to reduce radiation dose to as low as reasonably achievable. Dictated by Alejandro Cabral MD @ 01/30/2023 12:00:50 PM (Electronically Signed)
--- NOTE | 2023-01-30 11:50 | W.PM.H&PU ---
History & Physical Update History & Physical Update H&P Reviewed and patient assessed: No changes noted
[2023-01-30 11:56] VITALS: BP 142/108; PULSE 74; RESP 16; TEMP 36.4; O2SAT 94; BMI 43.8
[2023-01-30 12:06] VITALS: RESP 16; O2SAT 94
--- NOTE | 2023-01-30 12:20 | PM.IMHP1 ---
Hospitalist- H&P: HPI History of Present Illness Date Seen: 01/30/23 Chief complaint: R11.10 - Vomiting, unspecified Narrative: ADMISSION HISTORY AND PHYSICAL - HOSPITALIST Chief Complaint: Vomiting, abdominal pain HPI: 47-year-old with a medical history significant for morbid obesity, BLAKE, type 2 diabetic, anxiety/depression, chronic pain (gabapentin, not chronic opioids. Hip and back) who presents to the general surgery clinic with abdominal distension, crampy pain, vomiting. He said his symptoms began abruptly this morning. He had a normal day yesterday. This is his 3rd lifetime occurrence since March of 2022 with the similar symptoms. Both times he has been admitted to the [facility] for small bowel obstruction management. He has no history of abdominal surgery. He has no recent fever or travel. He has had no sick contacts. He takes Ozempic for his type 2 diabetes. Last dose was yesterday, 01/29/2023. His appointment this morning in general surgery clinic was, ironically, for elective laparoscopy secondary to these 2 previous occurrences of de Maryam small-bowel obstructions. Dr. Dickinson, general surgery, ask the hospital medicine team to admit in preparation for a abdominal laparoscopy and likely laparotomy secondary to his acute onset of his 3rd small-bowel obstruction. We will Co managed with general surgery especially given his history of type 2 diabetes, chronic pain, morbid obesity, BLAKE. CODE STATUS: FULL CODE EMERGENCY CONTACT PLAN: Primary Contact? Michelle Horne? ?Rel to [facility]? [phone]?Home Phone? I've updated the PFSH, medications and allergies in the Expanse tabs. INVESTIGATIONS: LABS/MICRO/ECG/IMAGING HYPERTENSIVE UPON ARRIVAL TO THE FLOOR. On room air satting 96%. Afebrile. Normal pulse. CBC reflects a normal white blood cell count, normal hemoglobin, normal platelet count. Mild hypokalemia noted on his BMP. Normal renal function. Last A1c was 5.8 in April of [address]22. CT abdomen pelvis done this morning: Redemonstration of moderately dilated air-filled loops of bowel throughout the abdomen, with air-fluid levels and abrupt focal narrowing in bowel caliber seen in the lower abdomen just to the left of midline (series number 2, image [id number]), which may represent a transition point causing a partial small bowel obstruction. REVIEW OF SYSTEMS: 12-point ROS completed with patient and negative unless otherwise stated in HPI or below. PHYSICAL EXAM: CONSTITUTIONAL: Conversive, good historian. A/O. Knows setting and context. Looks fairly comfortable. VITAL SIGNS: see record. HEENT: Normocephalic, atraumatic. PERRL, EOMI, conjunctivae pink, no scleral icterus. Ears and nose externally normal. Pharynx normal. NECK: No JVD. No carotid bruit, no thyromegaly, no adenopathy. CHEST: Clear to auscultation bilaterally HEART: S1 and S2 normal. No harsh murmurs. Edema trace. ABDOMEN: Obese, bowel sounds x4 quadrants, generally tender. MUSCULOSKELETAL: No gross joint deformity or swelling. NEURO: Cranial nerves intact. Grossly intact. No asymmetric findings. SKIN: No rashes, petechiae, concerning changes PSYCHIATRIC: Euthymic. ADMIT TO MEDSURG - likely headed to the OR tomorrow, 01/31/2023 FLOOR CARE DVT: SCDs, Lovenox after surgery GI: IV PPI, NG tube, continue PPI while not eating. Time spent: Today I spent 75 minutes seeing the patient, discussing the patient with ER staff, reviewing Expanse and EPIC notes/diagnostics, discussing the care plan with our care time that includes social work, PT/OT, pharmacy, RT, senior care and documenting my impressions and plan in the medical record. [facility] Medical History (Updated 01/30/23 @ 12:36 by Swetha Aguayo MD) Hyperlipidemia ?E78.5 - Hyperlipidemia, unspecified (ICD-10) Gastroesophageal reflux disease ?K21.9 - Gastro-esophageal reflux disease without esophagitis (ICD-10) Chronic low back pain ?M54.50 - Low back pain, unspecified (ICD-10) ?G89.29 - Other chronic pain (ICD-10) Morbid obesity ?E66.01 - Morbid (severe) obesity due to excess calories (ICD-10) History of small bowel obstruction ?Z87.19 - Personal history of other diseases of the digestive system (ICD-10) Adrenal abnormality ?E27.9 - Disorder of adrenal gland, unspecified (ICD-10) Osteoarthritis of right hip ?M16.11 - Unilateral primary osteoarthritis, right hip (ICD-10) Diabetes 1.5, managed as type 2 ?E13.9 - Other specified diabetes mellitus without complications (ICD-10) Vitamin D deficiency ?E55.9 - Vitamin D deficiency, unspecified (ICD-10) Obstructive sleep apnea treated with continuous positive airway pressure (CPAP) ?G47.33 - Obstructive sleep apnea (adult) (pediatric) (ICD-10) ?Z99.89 - Dependence on other enabling machines and devices (ICD-10) Hypertension ?I10 - Essential (primary) hypertension (ICD-10) Abdominal pain ?R10.9 - Unspecified abdominal pain (ICD-10) Onychomycosis ?B35.1 - Tinea unguium (ICD-10) Surgical History S/P hip arthroscopy ?Z98.890 - Other specified postprocedural states (ICD-10) Status post uvulopalatopharyngoplasty ?Z98.890 - Other specified postprocedural states (ICD-10) Status post tonsillectomy and adenoidectomy ?Z90.89 - Acquired absence of other organs (ICD-10) Status post nasal septoplasty ?Z98.890 - Other specified postprocedural states (ICD-10) History of arthroscopy of left knee ?Z98.890 - Other specified postprocedural states (ICD-10) Family History Other Diabetes Social History Narrative: He lives in [place] with his , Francis, and his 10-year-old daughter. He works for the [employer] in [place]. 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 He does not smoke. He drinks 2 or 3 beers about once a week. He does not use recreational drugs. What is your current living situation?: I presently have a place to live Problems where you live: no known problems Problems where you live details: N/A In the past 12 months, utilities in danger of being shut off: no In past 12 months, lack of transportation kept you from medical appts, meetings, work, or getting things needed for daily living: no In the past 12 mos, have been you worried that your food would run out before you had money to buy more?: never true In the past 12 mos, the food you bought just didn't last and you didn't have money to buy more?: never true Highest level of school completed/degree received: Bachelor's degree Smoking Status: Never smoker Do you use any of these nicotine containing products: None Second hand tobacco smoke exposure: No How often do you have a drink containing alcohol: 2-3 times a week Alcohol type: beer How many standard drinks containing alcohol do you have on a typical day: 1 or 2 AUDIT-C Alcohol total score: 3 Non-prescribed substance use: denies use Caffeine: Yes How often does anyone, including family, friends and others, physically hurt you: never How often does anyone, including family, friends and others, insult or talk down to you: never How often does anyone, including family, friends and others, threaten you with harm: never How often does anyone, including family, friends and others, scream or curse at you: never service: Yes Meds Home Medications and Allergies Home Medications Medication Instructions Recorded Confirmed Type bupropion HCl 150 mg tablet,12 hr 150 mg PO BID 01/02/22 01/30/23 History sustained-release gabapentin 300 mg capsule 300 mg PO TID 01/02/22 01/30/23 History meloxicam 15 mg tablet 15 mg PO DAILY 01/02/22 01/30/23 History tramadol 50 mg tablet 50 mg PO Q6H PRN 01/02/22 01/30/23 History amlodipine 5 mg tablet 5 mg PO DAILY 01/02/23 01/30/23 History rabeprazole 20 mg tablet,delayed 20 mg PO DAILY 01/02/23 01/30/23 History release rosuvastatin 20 mg tablet 20 mg PO DAILY 01/02/23 01/30/23 History semaglutide 0.25 mg or 0.5 mg (2 0.5 mg subcut QWEEK 01/02/23 01/30/23 History mg/3 mL) subcutaneous pen injector (Ozempic) Allergies Allergy/AdvReac Type Severity Reaction Status Date / Time No Known Allergies Allergy Unknown Verified 01/30/23 09:08 Assessment and Plan Assessment and plan (1) Small bowel obstruction: Problem comment: -3rd de Maryam presentation this year. May be likely to congenital malrotation. -general surgery is planning laparoscopy/laparotomy 01/31 -NG tube for decompression -fluids, antiemetics, pain meds, anxiolytics p.r.n. -Accu-Cheks and sliding scale p.r.n. Status: Acute (2) Diabetes 1.5, managed as type 2: Problem comment: - Dx 2021. Previously on metformin. -started Ozempic in August of 2022. A1c pending, previously very well managed. -Accu-Cheks and sliding scale insulin in the perioperative timeframe. Status: Acute (3) Obstructive sleep apnea treated with continuous positive airway pressure (CPAP): Problem comment: Home CPAP use. will bring this in later today. Status: Acute (4) Anxiety and depression: Problem comment: -hold p.o. meds currently. Will restart Wellbutrin, when taking p.o.. Status: Acute (5) Hypertension: Problem comment: IV metoprolol scheduled with hold parameters while he is NPO and hypertensive. Status: Acute (6) Morbid obesity: Status: Acute (7) Hyperlipidemia: Problem comment: -we will continue Crestor once taking p.o. Status: Acute (8) Chronic low back pain: Problem comment: -can restart gabapentin, meloxicam, tramadol once he is taking p.o. Status: Acute (9) Gastroesophageal reflux disease: Problem comment: -IV PPI ordered. Restart oral PPI when taking p.o.. Status: Acute
[2023-01-30] MEDS: LORazepam 0.5 MG TABLET PO ×2 (12:33→21:52)
[2023-01-30] MEDS: LACTATED RINGERS 1000 ML 1,000 ML IV (12:37)
[2023-01-30] MEDS: METOPROLOL TARTRATE 1 MG/ML inj 5 MG IVP ×2 (12:37→18:07)
[2023-01-30] MEDS: PANTOPRAZOLE SODIUM 40 MG INJ IVP (12:37)
--- NOTE | 2023-01-30 12:47 | CRLHL7_ITS ---
For Patients: As a result of the Century Cures Act, medical imaging exams and procedure reports are released immediately into your electronic medical record. You may view this report before your referring provider. If you have questions, please contact your health care provider. Indication: Check NG placement Comparison: None available. Technique: Single AP view chest Findings: There is demonstration of a nasogastric tube with the tip likely within the mid esophagus, recommend continued advancement into the gastric lumen. There is no focal consolidation, effusion, or pneumothorax. The cardiac silhouette is mildly prominent. The bony thorax is grossly intact. Impression: Nasogastric tube within the mid esophagus, recommend advancement to the gastric lumen. Dictated by Anirudh Dave MD @ 01/30/2023 2:24:44 PM (Electronically Signed)
[2023-01-30 13:08] LABS: Albumin* 4.6 g/dL (3.3-5.0)
[2023-01-30 13:11] LABS: Alkaline Phosphatase* 62 U/L (40-150); Aspartate Amino Transferase* 26 U/L (12-35); Bilirubin Total* 1.2 mg/dL (0.1-1.5); Lipase* 32 U/L (23-300); Total Protein* 7.1 g/dL (6.0-8.3)
[2023-01-30 13:12] LABS: Alanine Aminotransferase* 42 U/L (4-50)
[2023-01-30 13:26] LABS: Hemoglobin A1C* 5.1 % (0-5.6)
[2023-01-30 13:28] LABS: Troponin I* < 0.01 ng/mL (0.01-0.04)
[2023-01-30] MEDS: POTASSIUM CHLORIDE 10 MEQ/100 ML PIGGYBACK 100 MEQ IVPB ×2 (13:50→15:13)
[2023-01-30 14:12] LABS: C Reactive Protein* 1.2 mg/dL (0.5-1.0)
[2023-01-30 15:00] VITALS: BP 156/108; PULSE 76; RESP 16; TEMP 36.8; O2SAT 95
[2023-01-30] MEDS: LACTATED RINGERS 1000 ML 1,000 ML 125 ML IV (17:11)
--- NOTE | 2023-01-30 17:50 | PC.NURSE ---
Pt alert and oriented. Pt up independent in room. Pt had complaints of pain ranging from 1-2. Pt pleasant and cooperative. NG placed shortly after admission and is marked at 49. Pt is NPO.?Dr. Dickinson consulting and Pt to go to surgery 01/31/23. ?
[2023-01-30 18:05] VITALS: BP 164/101; PULSE 77; RESP 18; TEMP 36.9; O2SAT 94
[2023-01-30] MEDS: SODIUM CHLORIDE 0.9 % (FLUSH) 10 ML SYRINGE 5 ML IVF (20:26)
[2023-01-30 20:39] VITALS: BP 162/97; PULSE 70; RESP 18; TEMP 36.6; O2SAT 93
[2023-01-30 22:40] VITALS: BP 154/97; PULSE 78; RESP 18; TEMP 36.8; O2SAT 92
[2023-01-31] VITALS (22 sets, daily range): BP systolic 92–158; BP diastolic 57–105; PULSE 63–81; RESP 12–16; TEMP 36.1–37.3; O2SAT 91–96
[2023-01-31] MEDS: METOPROLOL TARTRATE 1 MG/ML inj 5 MG IVP ×2 (00:28→05:55)
[2023-01-31] MEDS: LACTATED RINGERS 1000 ML 1,000 ML 125 ML IV ×4 (00:28→22:48)
[2023-01-31 06:57] LABS: HCO3 VBG 27 mmol/L (21-28); PCO2 VBG 41 mmHG (40-50); pH VBG 7.433 (7.32-7.43)
--- NOTE | 2023-01-31 07:02 | PC.NURSE ---
: pleasant and cooperative. Indep, Calls appropriately to disconnect NG from suction.?750mL brown NG output this shift. No c/o abd pain or nausea. Bowel tones active. Pt states he hasn?t been passing gas.
[2023-01-31 07:33] LABS: INR 1.05 (0.91-1.10); Prothrombin Time 14.4 Seconds
[2023-01-31 07:43] LABS: Chloride* 104 mmol/L (96-114); Potassium* 3.3 mmol/L (3.6-5.1); Sodium* 138 mmol/L (135-149)
[2023-01-31 07:46] LABS: Creatinine* 0.4 mg/dL (0.5-1.5); Est. Creatinine Clearance* 220.88; Estimated Glomerular Filt Rate 135 ml/min
[2023-01-31 07:47] LABS: Anion Gap 9 mEq/L (7-15); Blood Urea Nitrogen* 8 mg/dL (5-24); Calcium* 8.6 mg/dL (8.4-10.6); Carbon Dioxide* 25 mmol/L (20-32); Glucose* 86 mg/dL (60-115); Magnesium* 1.8 mg/dL (1.5-2.6)
[2023-01-31 07:49] LABS: C Reactive Protein* 1.4 mg/dL (0.5-1.0)
--- NOTE | 2023-01-31 09:05 | CRLHL7_ITS ---
For Patients: As a result of the Century Cures Act, medical imaging exams and procedure reports are released immediately into your electronic medical record. You may view this report before your referring provider. If you have questions, please contact your health care provider. Indication: Evaluate NG tube Technique: Abdomen one view Comparison: 01/30/2023 IMPRESSION: NG tube is in the stomach. The side hole is at the GE junction. Dictated by Alexander Davis MD @ 01/31/2023 10:59:58 AM (Electronically Signed)
[2023-01-31] MEDS: LORazepam 0.5 MG TABLET PO (09:11)
[2023-01-31] MEDS: SODIUM CHLORIDE 0.9 % (FLUSH) 10 ML SYRINGE 5 ML IVF (09:13)
[2023-01-31] MEDS: POTASSIUM CHLORIDE 10 MEQ/100 ML PIGGYBACK 100 MEQ IVPB (09:15)
--- NOTE | 2023-01-31 11:33 | PM.IMPN1 ---
Progress Note: A&P Assessment and plan (1) Small bowel obstruction: Problem details: -3rd de Maryam presentation this year. May be likely to congenital malrotation. -general surgery is planning laparoscopy/laparotomy 01/31 -NG tube for decompression -fluids, antiemetics, pain meds, anxiolytics p.r.n. -Accu-Cheks and sliding scale p.r.n. Status: Acute (2) Diabetes 1.5, managed as type 2: Problem details: - Dx 2021. Previously on metformin. -started Ozempic in August of 2022. A1c 5.1 -Accu-Cheks and sliding scale insulin in the perioperative timeframe. Status: Acute (3) Obstructive sleep apnea treated with continuous positive airway pressure (CPAP): Problem details: Home CPAP use. will bring this in later today. Status: Acute (4) Anxiety and depression: Problem details: -hold p.o. meds currently. Will restart Wellbutrin, when taking p.o.. Status: Acute (5) Hypertension: Problem details: IV metoprolol scheduled with hold parameters while he is NPO and hypertensive. Status: Acute (6) Morbid obesity: Status: Acute (7) Hyperlipidemia: Problem details: -we will continue Crestor once taking p.o. Status: Acute (8) Chronic low back pain: Problem details: -can restart gabapentin, meloxicam, tramadol once he is taking p.o. Status: Acute (9) Gastroesophageal reflux disease: Problem details: -IV PPI ordered. Restart oral PPI when taking p.o.. Status: Acute Subjective Date Seen: 01/31/23 Interval history: Daily Progress Note - Hospital Medicine #: 2 CC: SBO - headed to the OR today OVERNIGHT UPDATES FROM STAFF & MED, LAB, IMAGING UPDATES Patient did well overnight. NG tube draining, mild to moderate discomfort. Not passing flatus. Pain is much improved. Vitals reviewed, continues to be hypertensive but less so Blood glucose less than 100 INR 1 PH normal, no CO2 retention Hypokalemia, still low despite IV repletion. 3.3 this morning. Normal renal function. Magnesium normal. CRP 1.2-1.4 EKG and chest x-ray reviewed Objective: Vitals: see above Abdomen: less tender. less distended. Lungs: Clear. Cardiac: S1S2. Disposition/Potential discharge - Likely to return to previous living situation. Today I spent 50minutes seeing the patient, reviewing Expanse and EPIC notes/diagnostics, discussing the care plan with our care time that includes social work, PT/OT, pharmacy, RT, long term and documenting my impressions and plan in the medical record. Exam Const: Vital Signs, click to edit/add: Vital Signs - 24 hr 01/30/23 11:56 01/30/23 12:06 01/30/23 15:00 Temperature 97.6 F 98.2 F Pulse Rate [Pulse Oximeter] 74 76 Respiratory Rate 16 16 16 Blood Pressure [Le ft Arm] 142/108 H 156/108 H Blood Pressure [Ri ght Arm] Pulse Oximetry 94 94 95 Oxygen Delivery Me thod Room Air Room Air Room Air 01/30/23 18:05 01/30/23 20:39 01/30/23 22:40 Temperature 98.4 F 98 F 98.3 F Pulse Rate [Pulse Oximeter] 77 70 78 Respiratory Rate 18 18 18 Blood Pressure [Le ft Arm] 164/101 H 162/97 H 154/97 H Blood Pressure [Ri ght Arm] Pulse Oximetry 94 93 92 Oxygen Delivery Me thod Room Air Room Air Room Air 01/31/23 03:25 01/31/23 08:36 Temperature 97.7 F 99.1 F Pulse Rate [Pulse Oximeter] 71 79 Respiratory Rate 16 16 Blood Pressure [Le ft Arm] 153/97 H Blood Pressure [Ri ght Arm] 158/105 H Pulse Oximetry 92 94 Oxygen Delivery Me thod Room Air Room Air Labs Labs: Laboratory Results - last 24 hr 01/30/23 01/30/23 01/31/23 12:36 13:42 06:02 INR 1.05 VBG pH 7.433 H VBG pCO2 41 VBG pO2 70.0 H VBG HCO3 27 Sodium 138 Potassium 3.3 L Chloride 104 Carbon Dioxide 25 Anion Gap 9 BUN 8 Creatinine 0.4 L Estimated Creat Clear 220.88 Estimated GFR 135 Glucose 86 Hemoglobin A1c 5.1 Calcium 8.6 Magnesium 1.8 Total Bilirubin 1.2 Direct Bilirubin 0.0 AST 26 ALT 42 Alkaline Phosphatase 62 Troponin I < 0.01 L C-Reactive Protein 1.2 H 1.4 H Total Protein 7.1 Albumin 4.6 Lipase 32 Lab Acknowledgement Test Added
[2023-01-31] MEDS: PIPERACILLIN/TAZOBACTAM 3.375 GM INJ IVPB (11:49)
[2023-01-31] MEDS: LACTATED RINGERS 1000 ML 1,000 ML 100 ML IV (12:00)
--- NOTE | 2023-01-31 13:24 | P.GSOP_ITS ---
Operative Note Date of procedure: 01/31/23 Pre-op diagnosis: Recurrent de Maryam small bowel obstruction Post-op diagnosis: Same Type of Procedure: Exploratory laparoscopy converted to laparotomy Indications: The patient is a 47-year-old male who back in March of last year presented to the hospital with what appeared to be a small bowel obstruction. This resolved with NG decompression and Gastrografin challenge. As an outpatient he underwent upper endoscopy as well as colonoscopy. This showed only gastritis. Unfortunately it recurred again approximately 1 month ago. Again this resolved with conservative management after approximately 1 day. He underwent a small- bowel follow-through which did not show any sign of obstruction or narrowing. He was discharged home with instructions to follow-up in clinic. On his scheduled follow-up to discuss elective laparoscopic exploration, he presented with the same symptoms, again nausea vomiting and upper abdominal pain. CT scan showed dilated loops of proximal small bowel with a transition point in the right lower quadrant. This is similar to prior studies. Because of this, it was felt he should undergo exploration. I also reviewed images with the radiologist again. It appeared as though his duodenum may not cross midline and therefore there was some concern for partial malrotation as a cause. The patient was given an NG tube to decompress his GI tract and plans were made for laparoscopy, possible laparotomy and bowel resection Procedure Description: After discussing the risks and benefits of the procedure, the patient signed informed consent.? The operative site was marked and the patient was brought to the operating room and placed on the operating table in supine position.? Care was taken to pad the patient's pressure points.?? The patient was then intubated by anesthesia.?? The operative site was then prepped and draped in the usual sterile fashion.? A time-out was then performed. Enter into the abdomen was gained via Visiport technique in the left upper quadrant. The abdomen was then insufflated and surveyed for signs of injury. There were none. Additional ports were placed just above the umbilicus as well as in the left lower quadrant. The patient was placed in Trendelenburg with right side up. I moved the small bowel into the mid abdomen and identified the terminal ileum at its junction with the cecum. I then, using soft graspers began to run the small bowel proximally. The distal small bowel appeared to be somewhat adherent in the pelvis, however I was able to grasp and pull this into view. There were no adhesions noted on it. There did not appear to be any adhesion in the pelvis. I then ran the small bowel proximally all the way to the ligament of Treitz. The ligament Treitz did appear to be left of midline in the usual location. Noted was a large amount of creeping fat on the small bowel throughout its length. There was no sign of inflammation on the mesentery. No other sign of mesenteric congestion suggesting obstruction. There was a segment of dilated ileum which was approximately 50 cm proximal to the ileocecal valve. There was an abrupt transition here to more narrowed bowel. This was mildly dilated and there was another transition noted approximately 20 cm proximal. This was palpated and appeared to be soft. The mesentery and bowel all appeared healthy without any sign of recent obstruction. The appendix was visualized. This appeared normal. I did not visualize any adhesions between the bowel and the abdominal wall, between the omentum and the abdominal wall, or in the pelvis. There were no interloop adhesions. Feeling confident that there were no additional adhesions and that the bowel was freed from external causes of obstruction, I then elected to make a small incision to palpate the area of bowel which appeared narrowed. An incision was made just above and including the umbilicus. Dissection was taken down into the subcutaneous fat using cautery. The fascia was incised and the peritoneal cavity was entered. A GelPort was placed. I then grasped the small bowel and ran the proximally as well as distally. Again there did not appear to be any signs of adhesion or injection indicating recent obstruction. I encountered the area of dilatation with proximal and distal narrowing that was noted laparoscopically. This area the bowel was soft. There was no intraluminal stricture. There were no nodules. At the more narrowed-appearing area, the lumen was widely patent, it was just more contracted down then the dilated portion. This was evident both proximally and distally to the dilated area. This seemed consistent with localized volvulus or closed loop obstruction, though again there was no injection or erythema of the bowel wall itself. Having explored the small bowel thoroughly to ensure no adhesions between the bowel or between the omentum and the bowel and the abdominal wall and that there were no palpable nodules or masses causing obstruction, I then elected to close. The midline incision was closed with looped 0 Maxon in a running fashion. The skin was then closed with 3-0 Vicryl dermal suture and 4-0 Monocryl running subcuticular suture. The port sites were then closed with 4-0 Monocryl suture. Sterile dressings were then applied. ? The patient was then woken and transported to the recovery area in stable condition. ? The patient tolerated the procedure well. Findings: No obvious adhesions noted in the abdomen. Loop of dilated small bowel that is currently on obstructed, which may have represented internal hernia. Creeping fat noted on the majority of the small bowel Anesthesia: GETA Surgeon: Claudia Dickinson MD Estimated blood loss (mL): 5 Condition: stable Disposition: PACU
--- NOTE | 2023-01-31 13:24 | SUR.OPER ---
NG removed post procedure per vice president consulting services
--- NOTE | 2023-01-31 13:30 | SUR.OPER ---
TAP blocks completed post procedure
--- NOTE | 2023-01-31 13:52 | W.PM.NB ---
Nerve Block Nerve Block Time Seen by Provider: 13:40 Date Seen: 01/31/23 Type of block requested by surgeon for post-operative analgesia: TAP Side: bilateral Time out performed: Yes Verification of patient name: Yes Verification of date of : Yes Site marking: site marked Name of person performing procedure: Ankit Continuous monitoring Was continuous monitoring of O2 sat, B/P, indigo vat tender cloth, recorded every 15 minutes?: Yes Procedure Checklist: sterile prep, needles and gloves Ultrasound guided. Images saved: Yes Medications given in 5ml increments after negative aspiration: Marcaine %: 0.25 mL: 30 Needle gauge: 20 and Exparel mL: 10 Patient tolerated procedure well: Yes Additional comments: Needle noted between internal oblique and transversus abdominus. Local spread visualized Block Charges Block Charge (with Pro Fee): TAP Bilateral Use of Ultrasound Machine for Block: Yes- US Guidance/pain block
--- NOTE | 2023-01-31 13:53 | W.ANESCHARGE ---
Anesthesia Charges Start Date/Time Anesthesia Start Date: 01/31/23 Anesthesia Start Time: 11:41 Stop Date/Time Anesthesia Stop Date: 01/31/23 Anesthesia Stop Time: 13:50
--- NOTE | 2023-01-31 13:53 | W.ANESCHARGE ---
Anesthesia Charges Start Date/Time Anesthesia Start Date: 01/31/23 Anesthesia Start Time: 11:41 Stop Date/Time Anesthesia Stop Date: 01/31/23 Anesthesia Stop Time: 13:50
[2023-01-31] MEDS: ENOXAPARIN 40 MG/0.4 ML INJ SUBCUT (17:11)
[2023-01-31] MEDS: HYDROmorphone 0.5 mg/0.5 ml inj IVP ×2 (17:12→21:42)
--- NOTE | 2023-01-31 19:47 | PC.NURSE ---
Shift note [id number]: Pt alert & oriented x 4 upon assessment though requests to sleep since returning from surgery at approximately 1430. Abdominal pain since surgery has been treated with PRN Dilaudid. Dressings to abdomen noted to be C/D/I upon inspection. Pt declined supper when approached by staff. SCDs and bilateral PAM stockings worn. VSS and pt afebrile since returning from surgery. LS clear to all lobes bilaterally & bowel sounds active x 4. Pt has been denying nausea when asked. IV LR running per current order in place.
[2023-02-01] MEDS: HYDROmorphone 0.5 mg/0.5 ml inj IVP ×5 (02:31→21:55)
[2023-02-01 03:00] VITALS: BP 126/83; PULSE 88; RESP 20; TEMP 36.6; O2SAT 93
[2023-02-01 06:40] LABS: Hematocrit 40.3 % (37.0-53.0); Hemoglobin* 13.5 gm/dL (13.5-17.5); Mean Corpuscular HGB Conc 34 gm/dL (32-36); Mean Corpuscular Hemoglobin 29 pg (26-34); Mean Corpuscular Volume 87 fL (80-100); Platelet Count* 240 K/uL (140-440); Red Blood Count 4.65 m/uL (4.30-5.90); White Blood Count* 10.77 K/uL (4.50-11.00)
[2023-02-01 06:58] LABS: Slide Review Reflex No
[2023-02-01] MEDS: LACTATED RINGERS 1000 ML 1,000 ML 125 ML IV ×2 (06:58→16:48)
[2023-02-01 07:00] VITALS: BP 126/77; PULSE 89; RESP 20; TEMP 36.6; O2SAT 90
[2023-02-01 07:13] LABS: Chloride* 104 mmol/L (96-114)
[2023-02-01 07:14] LABS: Potassium* 3.4 mmol/L (3.6-5.1); Sodium* 138 mmol/L (135-149)
--- NOTE | 2023-02-01 07:14 | PC.NURSE ---
End of shift [id number] - Pt fatigued, oriented, and cooperative during shift. Up to bathroom with standby assistance. Continent of bowel, tolerating clear liquids. Pt reported increased pain with movement in abdomen rated as 7/10. Medication given per MAR with verbalized improvement. RN notified during handoff that pt preferred to sleep during shift for surgical recovery. VSS, afebrile, pt tolerating 1.5L of O2 to maintain saturation at 90% and above per MD order.?Pt observed to sleep, appears to be resting comfortably at end of shift.
[2023-02-01 07:16] LABS: Creatinine* 0.6 mg/dL (0.5-1.5); Est. Creatinine Clearance* 147.25; Estimated Glomerular Filt Rate 120 ml/min
[2023-02-01 07:17] LABS: Anion Gap 7 mEq/L (7-15); Blood Urea Nitrogen* 11 mg/dL (5-24); Calcium* 8.4 mg/dL (8.4-10.6); Carbon Dioxide* 27 mmol/L (20-32); Glucose* 93 mg/dL (60-115)
[2023-02-01] MEDS: HYDROCODONE-ACETAMIN 5-325 MG 1 TAB PO ×3 (09:00→19:45)
[2023-02-01] MEDS: SODIUM CHLORIDE 0.9 % (FLUSH) 10 ML SYRINGE 5 ML IVF (09:04)
[2023-02-01 11:00] VITALS: BP 131/78; PULSE 93; RESP 20; TEMP 36.6; O2SAT 93
--- NOTE | 2023-02-01 11:06 | PM.IMPN1 ---
Progress Note: A&P Assessment and plan (1) Small bowel obstruction: Problem details: -3rd de Maryam presentation this year. -laparotomy, 01/31/2023. Likely adhesion causing -NG out, tolerating clears, ambulate, awaiting bowel function Status: Acute (2) Diabetes 1.5, managed as type 2: Problem details: - Dx 2021. Previously on metformin. -started Ozempic in August of 2022. A1c 5.1 -Accu-Cheks and sliding scale insulin in the perioperative timeframe. Status: Acute (3) Obstructive sleep apnea treated with continuous positive airway pressure (CPAP): Problem details: Home CPAP use. will bring this in later today. Status: Acute (4) Anxiety and depression: Problem details: -hold p.o. meds currently. Will restart Wellbutrin, when taking p.o.. Status: Acute (5) Hypertension: Problem details: IV metoprolol scheduled with hold parameters while he is NPO and hypertensive. Status: Acute (6) Morbid obesity: Status: Acute (7) Hyperlipidemia: Problem details: -we will continue Crestor once taking p.o. Status: Acute (8) Chronic low back pain: Problem details: -can restart gabapentin, meloxicam, tramadol once he is taking p.o. Status: Acute (9) Gastroesophageal reflux disease: Problem details: -IV PPI ordered. Restart oral PPI when taking p.o.. Status: Acute Subjective Date Seen: 02/01/23 Interval history: Daily Progress Note - Hospital Medicine Day #: 2 Post OP Day# 1 Exploratory laparoscopy converted to laparotomy CC: SBO OVERNIGHT UPDATES FROM STAFF & MED, LAB, IMAGING UPDATES Patient slept well. pain well managed. tolerating clears. NG out. no flatus yet. Vitals reviewed - BP normal WBC normal. Hgb down to 13.5 from 15.1 potassium 3.4 Objective: Vitals: see above Abdomen: appropriately tender. good bowel sounds. Lungs: Clear. Cardiac: S1S2. Disposition/Potential discharge - Likely to return to previous living situation. Today I spent 50minutes seeing the patient, reviewing Expanse and EPIC notes/diagnostics, discussing the care plan with our care time that includes social work, PT/OT, pharmacy, RT, long term and documenting my impressions and plan in the medical record. Exam Const: Vital Signs, click to edit/add: Vital Signs - 24 hr 01/31/23 13:50 01/31/23 13:55 01/31/23 14:00 Temperature 97.5 F L Pulse Rate 66 65 66 Pulse Rate [Pulse Oximeter] Respiratory Rate 12 12 12 Blood Pressure 105/62 102/63 103/63 Blood Pressure [Ri ght Arm] Pulse Oximetry 91 91 92 Oxygen Delivery Me thod Nasal Cannula Nasal Cannula Nasal Cannula Oxygen Flow Rate 5 5 5 01/31/23 14:05 01/31/23 14:10 01/31/23 14:15 Temperature Pulse Rate 69 63 72 Pulse Rate [Pulse Oximeter] Respiratory Rate 12 12 12 Blood Pressure 101/61 97/66 92/61 Blood Pressure [Ri ght Arm] Pulse Oximetry 94 95 93 Oxygen Delivery Me thod Nasal Cannula Nasal Cannula Nasal Cannula Oxygen Flow Rate 4 4 4 01/31/23 14:20 01/31/23 14:30 01/31/23 14:45 Temperature 97.4 F L 97.1 F L 97.1 F L Pulse Rate 69 75 Pulse Rate [Pulse Oximeter] 66 Respiratory Rate 12 16 16 Blood Pressure 93/57 L Blood Pressure [Ri ght Arm] 95/61 99/60 Pulse Oximetry 96 96 Oxygen Delivery Me thod Nasal Cannula Nasal Cannula Nasal Cannula Oxygen Flow Rate 3 3 3 01/31/23 15:00 01/31/23 15:00 01/31/23 15:00 Temperature 97.1 F L 97.1 F L Pulse Rate Pulse Rate [Pulse Oximeter] 68 68 77 Respiratory Rate 16 16 16 Blood Pressure Blood Pressure [Ri ght Arm] 108/65 108/65 Pulse Oximetry 95 95 Oxygen Delivery Me thod Nasal Cannula Nasal Cannula Oxygen Flow Rate 2 2 01/31/23 15:15 01/31/23 15:30 01/31/23 15:31 Temperature 97.0 F L 97.0 F L 97.0 F L Pulse Rate Pulse Rate [Pulse Oximeter] 69 69 69 Respiratory Rate 16 16 16 Blood Pressure Blood Pressure [Ri ght Arm] 103/69 116/71 103/69 Pulse Oximetry 93 95 93 Oxygen Delivery Me thod Nasal Cannula Nasal Cannula Nasal Cannula Oxygen Flow Rate 2 2 2 01/31/23 16:00 01/31/23 16:30 01/31/23 17:30 Temperature 97.0 F L 98.0 F 98.0 F Pulse Rate Pulse Rate [Pulse Oximeter] 77 75 75 Respiratory Rate 16 16 16 Blood Pressure Blood Pressure [[facility]] 108/71 108/74 124/71 Pulse Oximetry 93 92 92 Oxygen Delivery Me thod Nasal Cannula Nasal Cannula Nasal Cannula Oxygen Flow Rate 2 2 2 01/31/23 18:30 01/31/23 19:30 01/31/23 22:00 Temperature 97.8 F 98.6 F 98.2 F Pulse Rate Pulse Rate [Pulse Oximeter] 77 81 Respiratory Rate 16 16 Blood Pressure Blood Pressure [[facility]] 117/73 115/70 111/75 Pulse Oximetry 94 96 Oxygen Delivery Me thod Nasal Cannula Nasal Cannula Nasal Cannula Oxygen Flow Rate 2 2 2 02/01/23 03:00 02/01/23 07:00 02/01/23 07:00 Temperature 97.9 F 97.8 F Pulse Rate Pulse Rate [Pulse Oximeter] 88 89 89 Respiratory Rate 20 20 20 Blood Pressure Blood Pressure [[facility]] 126/83 126/77 Pulse Oximetry 93 90 Oxygen Delivery Me thod Nasal Cannula Nasal Cannula Oxygen Flow Rate 1 1 Labs Labs: Laboratory Results - last 24 hr 02/01/23 05:48 WBC 10.77 RBC 4.65 Hgb 13.5 Hct 40.3 MCV 87 MCH 29 MCHC 34 Plt Count 240 Sodium 138 Potassium 3.4 L Chloride 104 Carbon Dioxide 27 Anion Gap 7 BUN 11 Creatinine 0.6 Estimated Creat Clear 147.25 Estimated GFR 120 Glucose 93 Calcium 8.4
[2023-02-01] MEDS: ENOXAPARIN 40 MG/0.4 ML INJ SUBCUT (15:09)
[2023-02-01 15:15] VITALS: BP 142/88; PULSE 73; RESP 16; TEMP 36.8; O2SAT 94
--- NOTE | 2023-02-01 15:46 | PC.NURSE ---
patient alert and oriented. tolerating clear liquid. passing gas towards end of shift. PRN dilauded and norco administered w/relief. patient encouraged to ambulate hallways. lap sites and midline incision c/D/I
--- NOTE | 2023-02-01 16:16 | PM.GSPN ---
Subjective Subjective Date Seen: 02/01/23 Interval history: Patient is doing well postoperatively. He does have abdominal pain but that is controlled with pain medication. It is mostly located around the incision. Patient denies any nausea vomiting. He tolerated some clears. He is not passing gas. He ambulated. He urinated. Exam Narrative: Exam Narrative: Abdomen: Obese, nondistended, not tender to palpation in the right or left mid abdomen, no peritoneal signs per Const: Vital Signs, click to edit/add: Vital Signs - 24 hr 01/31/23 16:30 01/31/23 17:30 01/31/23 18:30 Temperature 98.0 F 98.0 F 97.8 F Pulse Rate [Pulse Oximeter] 75 75 77 Respiratory Rate 16 16 16 Blood Pressure [Ri ght Arm] 108/74 124/71 117/73 Pulse Oximetry 92 92 94 Oxygen Delivery Me thod Nasal Cannula Nasal Cannula Nasal Cannula Oxygen Flow Rate 2 2 2 01/31/23 19:30 01/31/23 22:00 02/01/23 03:00 Temperature 98.6 F 98.2 F 97.9 F Pulse Rate [Pulse Oximeter] 81 88 Respiratory Rate 16 20 Blood Pressure [Ri ght Arm] 115/70 111/75 126/83 Pulse Oximetry 96 93 Oxygen Delivery Me thod Nasal Cannula Nasal Cannula Nasal Cannula Oxygen Flow Rate 2 2 1 02/01/23 07:00 02/01/23 07:00 02/01/23 11:00 Temperature 97.8 F 97.9 F Pulse Rate [Pulse Oximeter] 89 89 93 Respiratory Rate 20 20 20 Blood Pressure [Ri ght Arm] 126/77 131/78 Pulse Oximetry 90 93 Oxygen Delivery Me thod Nasal Cannula Room Air Oxygen Flow Rate 1 02/01/23 15:15 02/01/23 15:15 Temperature 98.2 F Pulse Rate [Pulse Oximeter] 73 73 Respiratory Rate 16 16 Blood Pressure [Ri ght Arm] 142/88 H Pulse Oximetry 94 Oxygen Delivery Me thod Room Air Oxygen Flow Rate Progress Note: A&P Assessment and plan (1) S/P exploratory laparotomy: Status: Acute Plan 47-year-old male s/p exploratory laparotomy POD 1. Patient is recovering well from his surgery yesterday. Will continue with clear liquid diet until he starts passing gas.
[2023-02-01 19:00] VITALS: BP 154/105; PULSE 77; RESP 16; TEMP 36.8; O2SAT 95
--- NOTE | 2023-02-01 19:18 | PC.NURSE ---
End of Shift: Patient pleasant and cooperative. Patient vitally stable, lungs clear, BS WNL, IV running LR at 75. Patient rates pain at most 5-6/10, 2 tabs of norco and 0.5 of dilauded given once. Patient up walking the halls. Patient reported passing gas. Patient tolerating clear liquid diet. Patient midline incision and lap sites x2, C/D/I.
[2023-02-01] MEDS: SENNOSIDES/DOCUSATE TABLET 1 TAB PO (19:45)
[2023-02-02] MEDS: HYDROmorphone 0.5 mg/0.5 ml inj IVP ×4 (02:04→22:05)
[2023-02-02] MEDS: SODIUM CHLORIDE 0.9 % (FLUSH) 10 ML SYRINGE 5 ML IVF ×2 (02:04→22:06)
[2023-02-02 03:00] VITALS: BP 140/85; PULSE 77; RESP 18; TEMP 36.6; O2SAT 95
[2023-02-02] MEDS: LACTATED RINGERS 1000 ML 1,000 ML 125 ML IV ×3 (05:38→18:20)
[2023-02-02 06:51] LABS: Chloride* 104 mmol/L (96-114)
[2023-02-02 06:52] LABS: Potassium* 3.4 mmol/L (3.6-5.1); Sodium* 136 mmol/L (135-149)
[2023-02-02 06:54] LABS: Carbon Dioxide* 29 mmol/L (20-32); Creatinine* 0.5 mg/dL (0.5-1.5); Estimated Glomerular Filt Rate 127 ml/min
[2023-02-02 06:55] LABS: Anion Gap 3 mEq/L (7-15); Blood Urea Nitrogen* 6 mg/dL (5-24); Calcium* 8.5 mg/dL (8.4-10.6); Glucose* 97 mg/dL (60-115)
--- NOTE | 2023-02-02 07:55 | PC.NURSE ---
End of shift - Pt alert, oriented, cooperative. VSS, afebrile, tolerating RA. Pt up walking in halls and up independently in room to bathroom. Pt reported pain as 5-6/10 with movement, medication with interventions per MAR with verbalized improvement. Pt tolerating clear diet, fluids. Pt reported passing flatus 02/01/2023, no report of BM. Pt observed to sleep, appears to be resting comfortably at end of shift.
[2023-02-02] MEDS: HYDROCODONE-ACETAMIN 5-325 MG 1 TAB PO ×3 (08:55→22:04)
[2023-02-02 09:01] VITALS: BP 177/109; PULSE 83; RESP 18; TEMP 36.9; O2SAT 93
--- NOTE | 2023-02-02 10:39 | PM.GSPN ---
Subjective Subjective Date Seen: 02/02/23 Interval history: Avery is doing well today. No concerns. Passing some gas. No nausea. Tolerating clears. Pain is controlled. Exam Narrative: Exam Narrative: General: No acute distress Respiratory: Breathing is nonlabored Abdomen: Protuberant. He does have ecchymosis at the inferior left aspect of his midline incision. Otherwise no erythema. Appropriately tender for the postop state. Hypoactive bowel sounds Const: Vital Signs, click to edit/add: Vital Signs - 24 hr 02/01/23 11:00 02/01/23 15:15 02/01/23 15:15 Temperature 97.9 F 98.2 F Pulse Rate [Pulse Oximeter] 93 73 73 Respiratory Rate 20 16 16 Blood Pressure [Ri ght Arm] 131/78 142/88 H Pulse Oximetry 93 94 Oxygen Delivery Me thod Room Air Room Air Oxygen Flow Rate 02/01/23 19:00 02/02/23 03:00 02/02/23 09:01 Temperature 98.2 F 98 F 98.4 F Pulse Rate [Pulse Oximeter] 77 77 83 Respiratory Rate 16 18 18 Blood Pressure [Ri ght Arm] 154/105 H 140/85 H 177/109 H Pulse Oximetry 95 95 93 Oxygen Delivery Me thod Nasal Cannula Room Air Room Air Oxygen Flow Rate 1 Labs/Imaging Labs Labs: Potassium today is 3.4 P Progress Note: A&P Assessment and plan (1) S/P exploratory laparotomy: Status: Acute (2) Diabetes 1.5, managed as type 2: Problem details: - Dx 2021. Previously on metformin. -started Ozempic in August of 2022. A1c 5.1 -Accu-Cheks and sliding scale insulin in the perioperative timeframe. Status: Acute (3) Obstructive sleep apnea treated with continuous positive airway pressure (CPAP): Problem details: Home CPAP use. will bring this in later today. Status: Acute (4) Hypertension: Problem details: IV metoprolol scheduled with hold parameters while he is NPO and hypertensive. Status: Acute (5) Small bowel obstruction: Problem details: -3rd de Maryam presentation this year. -laparotomy, 01/31/2023. Likely adhesion causing -NG out, tolerating clears, ambulate, awaiting bowel function Status: Acute Plan The patient is a 47-year-old male who is status post exploratory laparoscopy converted to laparotomy for bowel obstruction. He is doing well. Would hold off on advancing his diet for now since his bowel sounds are hypoactive. -clear liquid diet for now -potassium ordered for potassium of 3.4 -encourage IS and ambulation -for continue Lovenox for DVT prophylaxis
[2023-02-02 11:00] VITALS: BP 150/94; PULSE 75; RESP 18; TEMP 36.8; O2SAT 93
[2023-02-02] MEDS: POTASSIUM BICARB 25 MEQ EFFERVESCENT TAB PO (12:48)
[2023-02-02 15:00] VITALS: BP 185/80; PULSE 73; RESP 18; TEMP 36.6; O2SAT 94
--- NOTE | 2023-02-02 15:57 | PM.IMPN1 ---
Progress Note: A&P Assessment and plan (1) S/P exploratory laparotomy: Problem details: Recovering well Status: Acute (2) Diabetes 1.5, managed as type 2: Problem details: - Dx 2021. Previously on metformin. -started Ozempic in August of 2022. A1c 5.1 -Accu-Cheks and sliding scale insulin in the perioperative timeframe. Status: Acute (3) Obstructive sleep apnea treated with continuous positive airway pressure (CPAP): Problem details: Home CPAP use. will bring this in later today. Status: Acute (4) Hypertension: Problem details: IV metoprolol scheduled with hold parameters while he is NPO and hypertensive. Status: Acute (5) Small bowel obstruction: Problem details: -laparotomy, 01/31/2023. uncertain cause of bowel obstruction. Conservative approach for now Status: Acute (6) Hypokalemia: Problem details: replace Status: Resolved Plan continue in hospital pending return of antegrade bowel function and advancing diet. Time Spent With Patient Total time spent: total time spent today is 25 minutes, 15 minutes in coordination of care and discussing with patient and other providers management of small bowel obstruction Subjective Date Seen: 02/02/23 Interval history: 47-year-old male seen day 2 following laparoscopic surgery for small-bowel obstruction. Surgery performed by Dr. Dickinson. No definite site of an obstruction was identified. Patient is taking in clear liquids. He is passing gas but has not had a bowel movement. Overall feeling better today. Exam Narrative: Exam Narrative: He is alert and appears in no distress. Respirations are clear to auscultation. Cardiovascular: S1, S2, regular rate and rhythm abdomen: Bowel sounds are present abdomen is soft. He has mild mid abdominal tenderness. Moderate bruising around the umbilicus and below. No significant erythema or drainage from his surgical wounds. Const: Vital Signs, click to edit/add: Vital Signs - 24 hr 02/01/23 19:00 02/02/23 03:00 02/02/23 09:01 Temperature 98.2 F 98 F 98.4 F Pulse Rate [Pulse Oximeter] 77 77 83 Respiratory Rate 16 18 18 Blood Pressure [Ri ght Arm] 154/105 H 140/85 H 177/109 H Pulse Oximetry 95 95 93 Oxygen Delivery Me thod Nasal Cannula Room Air Room Air Oxygen Flow Rate 1 02/02/23 11:00 Temperature 98.2 F Pulse Rate [Pulse Oximeter] 75 Respiratory Rate 18 Blood Pressure [Ri ght Arm] 150/94 H Pulse Oximetry 93 Oxygen Delivery Me thod Room Air Oxygen Flow Rate Documenting provider has reviewed patient's vital signs: yes Labs Labs: Laboratory Results - last 24 hr 02/02/23 06:28 Sodium 136 Potassium 3.4 L Chloride 104 Carbon Dioxide 29 Anion Gap 3 L BUN 6 Creatinine 0.5 Estimated Creat Clear 176.70 Estimated GFR 127 Glucose 97 Calcium 8.5
[2023-02-02] MEDS: ENOXAPARIN 40 MG/0.4 ML INJ SUBCUT (16:08)
--- NOTE | 2023-02-02 19:02 | PC.NURSE ---
shift note: pt up in [facility] amb x6. Pt medicated for 6/ abd pain x2 with relief. Pt abd is distended but soft. bruising at lt side & below incision site on abd. vertical midline incision to abd Open to air with no drainage. lap site x2 intact & open to air. BS active x4. pt denies nausea. pt tolerating clrs. pt passing flatus. IV patent. pt showered. No BM
[2023-02-02 21:40] VITALS: BP 156/98; PULSE 80; RESP 18; TEMP 36.6; O2SAT 94
[2023-02-03] MEDS: LACTATED RINGERS 1000 ML 1,000 ML 125 ML IV (01:36)
[2023-02-03 04:46] VITALS: BP 169/99; PULSE 78; TEMP 36.4; O2SAT 91
--- NOTE | 2023-02-03 05:39 | PC.NURSE ---
[id number] Pt slept all night, did not require any pain medications during night. no BM, continues to pass gas, hypoactive bowel sounds. tolerating clears, no N/V during the night. bruising noted to lower abdomen. lap sites and incision intact, no drainage.
[2023-02-03 05:44] LABS: Chloride* 104 mmol/L (96-114); Potassium* 3.4 mmol/L (3.6-5.1); Sodium* 139 mmol/L (135-149)
[2023-02-03 05:46] LABS: Creatinine* 0.4 mg/dL (0.5-1.5); Est. Creatinine Clearance* 220.88; Estimated Glomerular Filt Rate 135 ml/min
[2023-02-03 05:47] LABS: Anion Gap 5 mEq/L (7-15); Blood Urea Nitrogen* 4 mg/dL (5-24); Calcium* 8.6 mg/dL (8.4-10.6); Carbon Dioxide* 30 mmol/L (20-32); Glucose* 88 mg/dL (60-115)
--- NOTE | 2023-02-03 06:38 | PM.GSPN ---
Subjective Subjective Date Seen: 02/03/23 Interval history: Patient was admitted to the hospital with small-bowel obstruction. Patient had no previous history of intra-abdominal surgery and had multiple recurrent episodes of small-bowel obstruction. He was taken to the operating room for exploratory laparotomy. No definite cause of his small-bowel obstruction was seen. Patient recovered well postoperatively. He was tolerating diet, ambulating, urinating. His pain was controlled with oral pain medication. Exam Narrative: Exam Narrative: Abdomen is soft, obese, surgical incisions are covered with Steri-Strips, just inferior and to the left of his midline incision there is a brown appearing patch of skin that is consistent with ecchymosis. There are no signs of expanding hematoma. Patient's abdomen is tender to palpation superior to his midline incision but not tender anywhere else. There are no peritoneal signs. Const: Vital Signs, click to edit/add: Vital Signs - 24 hr 02/02/23 09:01 02/02/23 11:00 02/02/23 15:00 Temperature 98.4 F 98.2 F 98 F Pulse Rate [Pulse Oximeter] 83 75 73 Respiratory Rate 18 18 18 Blood Pressure [Ri ght Arm] 177/109 H 150/94 H 185/80 H Pulse Oximetry 93 93 94 Oxygen Delivery Me thod Room Air Room Air Room Air 02/02/23 15:00 02/02/23 21:40 02/03/23 04:46 Temperature 97.8 F 97.5 F L Pulse Rate [Pulse Oximeter] 73 80 78 Respiratory Rate 18 18 Blood Pressure [Ri ght Arm] 156/98 H 169/99 H Pulse Oximetry 94 91 Oxygen Delivery Me thod Room Air Room Air Progress Note: A&P Assessment and plan (1) S/P exploratory laparotomy: Problem details: Recovering well Status: Acute
[2023-02-03 08:36] VITALS: BP 162/90; PULSE 82; RESP 18; TEMP 36.5; O2SAT 95
[2023-02-03 11:00] VITALS: BP 167/102; PULSE 72; RESP 18; TEMP 36.5; O2SAT 96
[2023-02-03] MEDS: HYDROCODONE-ACETAMIN 5-325 MG 1 TAB PO (11:24)
[2023-02-03 15:00] VITALS: BP 152/95; PULSE 76; RESP 18; TEMP 36.8; O2SAT 94
[2023-02-03] MEDS: ENOXAPARIN 40 MG/0.4 ML INJ SUBCUT (16:35)
--- NOTE | 2023-02-03 18:38 | PC.NURSE ---
shift note: IV dc'd intact. reviewed dc instructions and copies sent with pt. belongings sent with pt.
--- NOTE | 2023-02-12 12:06 | PM.DS1 ---
DS: Providers Provider Date Seen: 02/03/23 Date of admission: 01/30/23 11:46 Primary care physician: Jacob Zhang MD Admitting Clinician: Swetha Aguayo MD Attending Physician on discharge: Helga Johnson MD Date of Discharge: 02/03/23 DS: Diagnosis Discharge Diagnosis (1) S/P exploratory laparotomy: Status: Acute Problem details: Recovering well DS: Summary Hospital Course Hospital Course: 47-year-old male was admitted to the hospital with recurrent small-bowel obstruction. Patient underwent exploratory laparotomy with no clear evidence of the cause for his small-bowel obstruction. Postoperatively, patient was slowly advanced to regular diet and tolerated well. Patient was discharged home on p.o. pain medication. Time Spent with Patient Time attestation: Total time spent providing and/or coordinating discharge services: DS: Data Data Completed and Pending Completed studies during hospitalization: Procedures Drainage of Stomach with Drainage Device, Via Natural or Artificial Opening (01/30/23) Inspection of Peritoneal Cavity, Open Approach (01/30/23) Introduction of Other Gas into Respiratory Tract, Via Natural or Artificial Opening (01/30/23) Discharge Plan Discharge Disposition: Home, Self-Care Date of Admission: 01/30/23 11:46 Consulting Providers: Claudia Dickinson; Helga Johnson; Rodríguez Recio Primary Care Provider: Jacob Zhang Condition: Improved Anticipated Discharge Date/Time: 02/03/23 18:36 Discharge Medications: New hydrocodone-acetaminophen 5-325 mg Tablet 1 - 2 tab PO Q6H PRN (Reason: Pain) Qty: 20 0RF Continued gabapentin 300 mg capsule 300 mg PO TID bupropion HCl 150 mg tablet sustained-release 12 hr 150 mg PO BID tramadol 50 mg tablet 50 mg PO Q6H PRN meloxicam 15 mg tablet 15 mg PO DAILY rosuvastatin [Crestor] 5 mg tablet 5 mg PO DAILY lisinopril 40 mg tablet 40 mg PO DAILY amlodipine 5 mg tablet 5 mg PO DAILY Ozempic 0.25 mg or 0.5 mg (2 mg/3 mL) pen injector 0.5 mg subcut QWEEK Hold Instructions: Resume on 01/14/23. hold until f/u with Dr. Zhang to discuss side effects/risks rabeprazole 20 mg tablet,delayed release (DR/EC) 20 mg PO DAILY Discharge Orders: Discharge Order (Routine); Ordered 02/03/23 Ordered By: Helga Johnson Patient Education: Hydrocodone/Acetaminophen (By mouth), Bowel Obstruction (DC), Exploratory Laparoscopy (DC) Additional Instructions: Pain control: You were prescribed a pain medication. This medication contains acetaminophen (Tylenol). If you are taking your prescribed pain pills 4 times daily, do not take additional acetaminophen. Do not take your home tramadol at the same time as the prescribed pain medication. As your pain improves, you can try taking acetaminophen instead of the prescribed pain pill. It is ok to take Ibuprofen or Naproxen (per directions on packaging). This medication helps with inflammation and swelling. Take an [id number] stool softener while you are taking prescribed pain medications to help alleviate constipation. I recommend Senna and/or Colace. Take as directed on package. If you have not had a bowel movement in 3 days, try taking Miralax as directed on the package. All of these are available over the counter. Follow-up Follow up with Dr. Dickinson in 2-3 weeks Please call if you are experiencing severe pain, nausea, vomiting, difficulty urinating, fever or have not had bowel movement in 4 days after surgery. Activity Level: No strenuous activity Activity Detail: No lifting more than 20 lb for 4 weeks Discharge Diet: Diabetic Follow Up Appointments: Claudia Dickinson MD [Staff Physician] - 02/20/23 9:15 am ([facility] for follow-up.) Jacob Zhang MD [Primary Care Provider] - Forms: [employer] Info Instructions
== END 2023-02-03 18:45 | disposition home or self-care (01) | DRG 357 ==
LOC: MEDSURG 11:47
PROVIDERS: Family Medicine; Admitting Provider Family Medicine; PCP Family Medicine; Visit Provider Surgery
PROC: 0DTH4ZZ Resection of Cecum, Percutaneous Endoscopic Approach (ICD-10-PCS; CPT 44204; principal; 2023-01-31 10:50)
DX: K56.609 Unspecified intestinal obstruction, unspecified as to partial versus complete obstruction (principal); Z68.41 Body mass index [BMI] 40.0-44.9, adult; Z79.85 Long-term (current) use of injectable non-insulin antidiabetic drugs; G89.18 Other acute postprocedural pain; F41.8 Other specified anxiety disorders; Z53.31 Laparoscopic surgical procedure converted to open procedure; E66.01 Morbid (severe) obesity due to excess calories
CPT/HCPCS: 00790; 00840; 36415; 64488; 71045; 74018; 74177; 76942; 80048; 80076; 82803; 82962; 83036; 83690; 83735; 84484; 85027; 85610; 86140; A9270; C9113; C9290; J0330; J0665; J1100; J1170; J1630; J1650; J1885; J2405; J2543; J2704; J3010; J3475; J3480; J3490; J7120; Q9967

== ENCOUNTER 2023-02-19 14:30 | Outpatient (CLI) | payer OTHER, SELFPAY ==
--- OUTSIDE RECORDS SUMMARY | 2023-02-19 14:41 | XMS_ITS | Encounter Summary ---
Author Name [facility] Organization [facility] Address [address] [place] [address] Support Name Relationship Address Phone KELYTREVER LITO Next of Kin [address] [place] [address] [place] Emergency Contact [address] [address] Selected Encounter This section includes the information on record at [place] for the Encounter. Date/Time Encounter Type Encounter Description Reason Provider Source Apr 01, 2022 05:34 PM EMERGENCY DEPT VISIT [facility] EMERGENCY DEPT ICD-10-CM R31.0 Gross hematuria MADIHA ALBERTO E Encounter Template Text not used by [place] Assessments - Encounter Diagnoses This section includes the primary and secondary diagnoses documented for the Encounter. Date/Time Primary/Secondary Diagnosis Diagnosis Name Provider Source Apr 01, 2022 09:50 PM PRIMARY Gross hematuria MADIHA ALBERTO [facility] Plan of Treatment: Future Appointments (+ 6 months) and Future Tests (+/- 45 days) The Plan of Treatment section includes future care activities for the patient from all [place] treatmentfacilities. This section includes future appointments and future orders which are active, pending or scheduled. Future Appointments This section includes appointments that were scheduled to occur 6 months from the date of the Encounter, up to a maximum of 20 appointments. The data comes from all [place] treatment facilities. Appointment Date/Time Appointment Type Appointme nt Facility Name Jul 27, 2022 07:00 AM AMBULATORY - NONE [facility] Jul 27, 2022 08:00 AM AMBULATORY - MEDIC[facility] Sep 07, 2022 08:15 AM [facility] - NONE [place] [facility] Lab Results: +/- 30 days of the encounter This section includes the Chemistry and Hematology Lab Results on record with [place] for the patient. Radiology Reports and Pathology Reports are provided separately, in subsequent sections. Lab Results This section contains the Chemistry/Hematology Results that were resulted 30 days before or 30 daysafter the date of the Encounter. Date/Time Source Result Type Result - Unit Interpretation Reference Range Comment Apr 01, 2022 05:45 PM [facility] EXTRA BLUE TUBE Specimen Type: PLASMA No comment entered. Ordering Provider: HARI ALBERTO Report Released Date/Time: Apr 01, 2022 06:36 PM Reporting Lab: [facility] [id number] Performing Lab: [facility] [id number] EXTRA BLUE TUBE RECEIVED Apr 01, 2022 05:45 PM [facility] COMPREHENSIVE METABOLIC PANEL+MG Specimen Type: PLASMA No comment entered. Ordering Provider: HARI ALBERTO Report Released Date/Time: Apr 01, 2022 06:06 PM Reporting Lab: [facility] [id number] Performing Lab: [facility] [id number] CREATININE 0.6 L 0.7-1.2 UREA NITROGEN 13 8-26 GLUCOSE 102 H 70-100 SODIUM 141 136-145 POTASSIUM 3.1 L 3.5-5.1 CHLORIDE 102 98-107 CO2 30 H 22-29 CALCIUM 9.2 8.4-10.2 PROTEIN,TOTAL 7.1 6.0-8.3 ALBUMIN 4.3 3.5-5.2 BILIRUBIN, TOTAL 1.6 H 0.2-1.2 MAGNESIUM 1.8 1.6-2.6 ANION GAP 9 5-15 ALKALINE PHOSPHATASE 60 40-150 ALT/SGPT 40 <55 AST/SGOT 24 <34 CREAT EGFR(CKD-EPI) >90 >60 DIR. BILIRUBIN 0.5 <0.5 Apr 01, 2022 05:45 PM [facility] CBC & DIFF Specimen Type: BLOOD Comment: Automated Differential Performed Ordering Provider: HARI ALBERTO Report Released Date/Time: Apr 01, 2022 06:06 PM Reporting Lab: [facility] [id number] Performing Lab: [facility] [phone] WBC 8.91 4.0-11.0 RBC 5.39 4.6-6.2 HGB 15.5 13.5-17.9 HCT 45.9 41-54 MCV 85.2 80-100 MCH 28.8 27-33 MCHC 33.8 32.0-37.5 PLT 235 150-400 MPV 10.4 7.4-10.4 NEUT 84.9 LYMPHS 8.0 MONO 5.1 EOSINO 1.1 BASO 0.3 RDW 13.3 11.5-14.5 ABS LYMPH 0.71 L 1.0-4.0 ABS MONO 0.45 0.1-1.0 ABS NEUT 7.57 2.0-7.7 ABS EOS 0.10 0-0.5 ABS BASO 0.03 0-0.2 IG(META,MYELO,P RO) 0.6 ABS IMMATURE GRAN 0.05 0-0.1 Apr 01, 2022 05:45 PM [facility] EXTRA GOLD GEL TUBE Specimen Type: SERUM No comment entered. Ordering Provider: HARI ALBERTO Report Released Date/Time: Apr 01, 2022 06:36 PM Reporting Lab: [facility] [phone] Performing Lab: [facility] [phone] EXTRA GOLD GEL TUBE RECEIVED Apr 01, 2022 05:45 PM [facility] PROCALCITONIN Specimen Type: PLASMA Comment: Automated Differential Performed Ordering Provider: HARI ALBERTO Report Released Date/Time: Apr 01, 2022 07:20 PM Reporting Lab: [facility] [id number] Performing Lab: [facility] [phone] PROCALCITONIN 0.13 H <0.09 Apr 01, 2022 05:45 PM [facility] LIPASE Specimen Type: PLASMA Comment: Automated Differential Performed Ordering Provider: HARI ALBERTO Report Released Date/Time: Apr 01, 2022 07:20 PM Reporting Lab: [facility] [phone] Performing Lab: [facility] [address] LIPASE 9 <60 Apr 01, 2022 05:42 PM [facility] URINALYSIS Specimen Type: URINE No comment entered. Ordering Provider: LUIS ALBERTO ALBA Report Released Date/Time: Apr 01, 2022 05:38 PM Reporting Lab: [facility] [address] Performing Lab: [facility] [phone] URINE COLOR YELLOW SPECIFIC GRAVITY 1.030 1.003-1.03 5 URINE BILIRUBIN NEGATIVE See_ Commen t URINE KETONES NEGATIVE See_Co mmen t URINE GLUCOSE NEGATIVE See_Co mmen t URINE PROTEIN 30 See_Co mmen t URINE PH 8.0 5.0-8.0 URINE WBC/HPF <1 0-7 URINE BACTERIA NONE SEEN URINE RBC/HPF 3 0-3 APPEARANCE CLEAR SQUAMOUS EPITHELIAL 1 URINE BLOOD NEGATIVE See_Comm en t URINE NITRITE NEGATIVE See_Co mmen t LEUKOCYTE ESTERASE NEGATIVE See_Commen t Vital Signs: All taken on the encounter date This section contains inpatient and outpatient Vital Signs collected on the date of the Encounter. Date/Time Temperature Pulse Blood Pressure Respiratory Rate SP02 Pain Height Weight Body Mass Index Source Apr 01, 2022 05:35 PM 98 F 86 /min 162/89 mm[Hg] 17 /min 93 % 6 [facility] Social History: Smoking Status (Most current) and Tobacco Use (All prior to encounter date) This section includes the most current, and the historical, smoking and tobacco- related health factors from the [place] facility where the Encounter took place. Current Smoking Status This section includes the most current smoking, or tobacco-related health factor, from the [place] facility where the Encounter took place. Date/Time Current Smoking Status Comment Chace sesay Jul 07, 2021 01:30 PM VA-TOBACCO NEVER USED [facility] Tobacco Use History This section includes a history of the smoking, or tobacco-related health factors, that were collected on or before the date of the Encounter. The data comes from the [place] facility where the Encounter took place. Date/Time Smoking Status/Tobacco Use Comment Ligia oleary Jul 22, 2020 11:30 AM VA-TOBACCO NEVER USED [facility] May 13, 2018 10:59 AM VA-TOBACCO NEVER USED [facility] Sep 15, 2016 09:06 AM LIFETIME NON-TOBACCO USER [facility] Oct 20, 2015 08:49 AM LIFETIME NON-TOBACCO USER [facility] Jan 12, 2015 08:44 AM LIFETIME NON-TOBACCO USER [facility] Radiology Reports: +/- 30 days of the encounter Radiology Reports For cases when an order for radiology services may have been completed prior to the date of the Encounter, the report list includes the Radiology Reports that were completed up to 30 days before dateof the Encounter. For cases when an order for radiology services may have been completed after the date of the Encounter, the report list also includes the Radiology Reports that were completed up to30 days after date of the Encounter. The data comes from all [place] treatment facilities. Date/Time Radiology Report Provider Source Apr 01, 2022 08:00 PM US RENAL (P): MARC EDGE [id number] -[id number] M Exm Date: APR 01, 2022@20:00 Req Phys: SANDRITA ALBERTO Loc: [facility] WALK-IN (Re Img Loc: Ultrasound Imaging Service: Unknown (Case [id number] COMPLETE) US RETROPERITONEAL RENAL (US Detailed) CPT:28765 Reason for Study: right flank pain Clinical History: [place] IS NOT under investigation for COVID-19 or is COVID-19 negative right flank pain Responsible provider name and phone number to notify for critical findings if other than user placing the order and pager listed below: User placing orders pager: [phone] LAST CREATININE 0.6 L (04/01/22) Report Status: Verified Date Reported: APR 01, 2022 Date Verified: APR 01, 2022 Chief Medical Technologist E-Sig: Report: Indication: right flank pain Comparison (available for review on the [facility] NTP Volusion system at time of study interpretation): 04/01/2022 Technique: Study (including selection of protocol, image acquisition, and any postprocessing) was performed under direction and supervision of the local radiologist at the local [place] facility. Images were then submitted to the [facility] National Teleradiology Program (NTP) for interpretation. Multiple longitudinal and transverse sonographic images of the kidneys were obtained. Doppler was applied as indicated. Findings: The right kidney measures approximately 14.4 cm. 2.5 x 2.7 x 1.8 cm interpolar cyst. There is no evidence of hydronephrosis. There is no perinephric fluid seen. The left kidney measures approximately 13.4 cm. No focal renal lesion is identified. There is no evidence of hydronephrosis. There is no perinephric fluid seen. Impression: No hydronephrosis or nephrolithiasis seen in the bilateral kidneys. READING PHYSICIAN: Dustin North M.D. -[id number] 04/01/2022 19:30 [facility] National Teleradiology Program [phone] (For Medical Practitioner Use Only) Attention Patients / Veterans: If you have questions or concerns about these test results, please contact your ordering provider or primary care team. Primary Interpreting Staff: RADIOLOGY,OUTSIDE SERVICE, Staff Physician / RADIOLOGY,OUTSIDE SERVICE [facility] Apr 01, 2022 06:[address] RENAL COLIC PRO TOCOL (P): MARC EDGE [id number] -[id number] M Exm Date: APR 01, 2022@18:07 Req Phys: SANDRTIA ALBERTO Pat Loc: [facility] WALK-IN (Re Img Loc: CT IMAGING Service: Unknown (Case [id number] COMPLETE) CT (AP) ABDOMEN/PELVIS W/O CONTRA(CT Detailed) CPT:68595 Reason for Study: r flank pain // hematuria Clinical History: [place] IS NOT under investigation for COVID-19 or is COVID-19 negative Defer to radiologist for final CT protocol. Please enter pertinent clinical history on the next page. Responsible provider name and phone number to notify for critical findings if other than user placing the order and pager listed below: User placing orders pager: [phone] LAST 3: Collection DT Specimen Test Name Result Units Ref Range 07/07/2021 12:38 PLASMA CREATININE 0.7 mg/dL 0.7 - 1.2 07/22/2020 10:24 PLASMA CREATININE 0.6 L mg/dL 0.7 - 1.2 02/02/2020 08:56 PLASMA CREATININE 0.5 L mg/dL 0.7 - 1.2 07/07/2021 12:38 PLASMA CREAT EGFR(CKD-EP >90 Ref: >=60 07/22/2020 10:24 PLASMA ESTIMATED GFR(eGF >60 Ref: >=60 02/02/2020 08:56 PLASMA ESTIMATED GFR(eGF >60 Ref: >=60 Allergies: ([place] only) Patient has answered NKA To see allergies from all [place] locations click Reports tab>Remote Data>All Available Sites>Clinical Reports>Allergies. Report Status: Verified Date Reported: APR 01, 2022 Date Verified: APR 01, 2022 Chief Medical Technologist E-Sig: Report: CT (AP) ABDOMEN/PELVIS W/O CONTRAST [PRINTSET] HISTORY: R Flank Pain // Hematuria COMPARISON: None. TECHNIQUE: CT of the abdomen and pelvis with multiplanar reformats was performed at the local [place] facility. images were received by the [place] National Teleradiology Program (NTP) for interpretation. RADIATION DOSE (mGy*cm): 1185 IV CONTRAST: Not administered. FINDINGS: Evaluation of solid organs is limited in the absence of intravenous contrast. Lower Chest: Minimal bibasilar subsegmental atelectasis. No pleural effusion. Liver: Small hypodensity in the superior left hepatic lobe measuring up to 12 Hounsfield units, likely hepatic cyst. Gallbladder/Biliary Tract: Unremarkable. Distal Esophagus, Stomach and Duodenum: Unremarkable. Spleen: Splenomegaly measuring up to 15.9 cm. Pancreas: Unremarkable. Adrenal Glands: Diffuse irregular multinodular enlargement of the bilateral adrenal glands measuring between 15-25 Hounsfield units, indeterminate. Kidneys: Multiple likely prominent bilateral peripelvic renal cysts. No calcified renal stones. No hydronephrosis. Ureters: Normal in caliber. No ureterolithiasis. Urinary Bladder: No calcified bladder stones. Reproductive Organs: Unremarkable. Bowel: No evidence of bowel obstruction or inflammation. Normal appendix. Mild colonic diverticulosis without evidence of acute diverticulitis. Peritoneum/Retroperitoneum : No free air. Vessels: No significant atherosclerotic calcification. Normal caliber of the abdominal aorta. Lymph Nodes: Unremarkable. Abdominal/Pelvic Wall: Subcutaneous edema along the bilateral lateral abdominal wall superficial subcutaneous soft tissues. Bones: Mild degenerative change of the lower lumbar spine with prominent intervertebral disc space height loss and vacuum disc phenomenon. Impression: 1. No acute abnormality in the abdomen or pelvis. No calcified renal, ureteral, or bladder stones. 2. Diffuse irregular multinodular enlargement of the bilateral adrenal glands, indeterminate in density by noncontrast CT. Recommend further evaluation with nonemergent CT/MRI adrenal mass protocol. 3. Splenomegaly. READING PHYSICIAN: David Soto MD -[id number] 04/01/2022 17:12 [facility] National Teleradiology Program [phone] (For Medical Practitioner Use Only) Attention Patients / Veterans: If you have questions or concerns about these test results, please contact your ordering provider or primary care team. Primary Interpreting Staff: RADIOLOGY,OUTSIDE SERVICE, Staff Physician / RADIOLOGY,OUTSIDE SERVICE [facility] Pathology Reports: +/- 30 days of the encounter Pathology Reports For cases when an order for pathology services may have been completed prior to the date of the Encounter, the report list includes the Pathology Reports that were completed up to 30 days before dateof the Encounter. For cases when an order for pathology services may have been completed after the date of the Encounter, the report list also includes the Pathology Reports that were completed up to30 days after date of the Encounter. The data comes from all [facility] facilities. Date/Time Pathology Report Provider Source Apr 01, 2022 06:40 PM LR MICROBIOLOGY RE PORT: Reporting Lab: [facility] [CLIA# [id number]] [place] [address] Accession [UID]: [id number] [[id number]] Received: Apr 01, 2022@19:18 Collection sample: BLOOD Collection date: Apr 01, 2022 18:40 Provider: SANDRITA ALBERTO Comment on specimen: LAC, RECEIVED 2 BLOOD CULTURE BOTTLES Test(s) ordered: CULTURE & SUSCEPTIBILITY...... completed: Apr 07, 2022 * BACTERIOLOGY FINAL REPORT => Apr 07, 2022 10:09 TECH CODE: [id number] CULTURE RESULTS: NO GROWTH 5 DAYS Bacteriology Remark(s): THIS REPORT IS FINAL =--=--=--=--=--=--=--=--=--=--=--=- -=--=--=--=--=--=--=--=--=--=--=--= --=--=-- Performing Laboratory: Bacteriology Report Performed By: [facility] [CLIA# [id number]] [place] [address] [facility] Apr 01, 2022 06:40 PM LR MICROBIOLOGY RE PORT: Reporting Lab: [facility] [CLIA# [id number]] [place] [address] Accession [UID]: [id number] [[id number]] Received: Apr 01, 2022@19:18 Collection sample: BLOOD Collection date: Apr 01, 2022 18:40 Provider: SANDRITA ALBERTO Comment on specimen: RAC, RECEIVED 2 BLOOD CULTURE BOTTLES Test(s) ordered: CULTURE & SUSCEPTIBILITY...... completed: Apr 07, 2022 * BACTERIOLOGY FINAL REPORT => Apr 07, 2022 10:09 TECH CODE: [id number] CULTURE RESULTS: NO GROWTH 5 DAYS Bacteriology Remark(s): THIS REPORT IS FINAL =--=--=--=--=--=--=--=--=--=--=--=- -=--=--=--=--=--=--=--=--=--=--=--= --=--=-- Performing Laboratory: Bacteriology Report Performed By: [facility] [CLIA# [id number]] [place] [address] [facility] Apr 01, 2022 05:48 PM LR MICROBIOLOGY RE PORT: Reporting Lab: [facility] [CLIA# [id number]] [place] [address] Accession [UID]: [id number] [[id number]] Received: Apr 01, 2022@17:48 Collection sample: URINE Collection date: Apr 01, 2022 17:48 Provider: LUIS ALBERTO ALBA Comment on specimen: RECEIVED IN STERILE CUP Test(s) ordered: CULTURE & SUSCEPTIBILITY...... completed: Apr 03, 2022 * BACTERIOLOGY FINAL REPORT => Apr 03, 2022 08:20 TECH CODE: [id number] CULTURE RESULTS: LESS THAN 10,000 CFU/ML Bacteriology Remark(s): THIS REPORT IS FINAL =--=--=--=--=--=--=--=--=--=--=--=- -=--=--=--=--=--=--=--=--=--=--=--= --=--=-- Performing Laboratory: Bacteriology Report Performed By: [facility] [CLIA# [id number]] [place] [address] [facility] Encounter Notes: All associated encounter notes This section contains the clinical notes associated to the Encounter. Date/Time Encounter Note(s) Provider Source Apr 01, 2022 09:49 PM NURSING EMERGENCY DEPT NOTE: LOCAL TITLE: EMERGENCY DEPT NURSING NOTE STANDARD TITLE: NURSING EMERGENCY DEPT NOTE DATE OF NOTE: APR 01, 2022@21:49 ENTRY DATE: APR 01, 2022@21:49:56 AUTHOR: MYRTLE LOPEZ EXP COSIGNER: URGENCY: STATUS: COMPLETED Emergency Department Discharge Education Personal Protective Equipment (PPE): Patient was in mask on arrival, RN used PPE during every encounter with the patient, MD/PA/ADMINISTRATIVE COURT JUSTICE used PPE during every encounter with the patient The patient was given education on the following: Hematuria EDUCATION/TEACH BACK: [facility] discharge instructions have been reviewed with Patient AND had an opportunity to ask questions, has verbalized understanding, have received a copy of the [facility] instructions EDUCATIONAL LEVEL OF UNDERSTANDING: Patient was ready and receptive to education. BARRIERS TO LEARNING: No barriers identified Accompanied by: Self Mode of Transportation: Drive self EXIT ADDITIONAL EDUCATION GIVE: Discharged to: Home IV dcd cath tip intact. /shankar/ MYRTLE LOPEZ RN REGISTERED NURSE Signed: 04/01/2022 21:50 MYRTLE LOPEZ [facility] Apr 01, 2022 09:44 PM ACCOUNTING OF DISCLOSURES NOTE: LOCAL TITLE: STATE PRESCRIPTION DRUG MONITORING PROGRAM STANDARD TITLE: ACCOUNTING OF DISCLOSURES NOTE DATE OF NOTE: APR 01, 2022@21:44:48 ENTRY DATE: APR 01, 2022@21:44:48 AUTHOR: SANDRITA ALBERTO EXP COSIGNER: URGENCY: STATUS: COMPLETED This PDMP query was submitted by Sandrita Alberto MD. The clinical justification for this PDMP query is to review controlled substances prescribed outside of the [facility], and any additional information that may become available, as an important component of standard clinical care, and in accordance with [facility] policy. Patient information was shared with the PDMP [place]. No prescription(s) for controlled substances outside the [facility] were found in the last 90 days. /shankar/ SANDRITA ALBERTO MD [employer] Signed: 04/01/2022 21:45 SANDRITA ALBERTO [facility] Apr 01, 2022 09:36 PM EMERGENCY DEPT EDUCATION NOTE: LOCAL TITLE: EMERGENCY DEPT DISCHARGE INSTRUCTIONS STANDARD TITLE: EMERGENCY DEPT EDUCATION NOTE DATE OF NOTE: APR 01, 2022@21:36:50 ENTRY DATE: APR 01, 2022@21:36:50 AUTHOR: SANDRITA ALBERTO EXP COSIGNER: URGENCY: STATUS: COMPLETED DISCHARGE INSTRUCTIONS IMPORTANT: We examined and treated you today on an emergency basis only. This was not a substitute for, or an effort to provide, comprehensive medical care. In most cases, you must let your healthcare provider check you again. Tell your healthcare provider about any new or lasting problems. We cannot recognize and treat all injuries or illnesses in one Emergency Department visit. After you leave, you should follow the instructions below. You were treated today by Sandrita Alberto MD. Special Information This Information Is About Your Follow Up Care We recommend that you follow up with your Primary Care Team to have an appointment within the next 1 - 2 weeks. Call to arrange this appointment. If you are not feeling better and improving as discussed or if you have any questions please contact your Primary Care Provider. Future Appointments [none] This Information Is About Your Illness and Diagnosis HEMATURIA (Blood in the urine) Hematuria is blood in the urine. Blood in the urine may be visible, making your urine red or pink, or it may only be seen in the lab under a microscope. What causes hematuria? -bladder infection -kidney infection -strenuous exercise -kidney or bladder stones -tumors in the kidneys or bladder -problems with your blood that make you prone to bleeding What are the signs and symptoms of hematuria? -red urine -pink urine -You may have blood in your urine with no signs or symptoms. Hematuria may be accompanied by pain or burning with urination, pain in your back or side, fever, or nausea and vomiting. How does my health care provider know what is causing my hematuria? -urine tests -blood tests -kidney x-rays -cystoscopy (looking inside the bladder with a tiny camera on the end of a soft small tube) How will my hematuria be treated? Treatment will depend on what is causing your hematuria. -You may not need any treatment. -You may receive antibiotics if you have an infection. -You may need surgery if you have stones or a tumor. Please follow these instructions: -Keep all follow-up appointments. -Take medications ordered for you as instructed. -Watch your urine for signs of more bleeding. -Drink plenty of water (at least 8 glasses a day), unless otherwise instructed by your health care provider. -If you are taking antibiotics, keep taking them until they are gone, even if you feel fine and the hematuria clears up. Contact your health care provider as soon as possible if you have any of the following: -more blood in your urine. -pain or burning when you urinate. -pain in your back or side. -nausea or vomiting. -chills. -fever. -difficulty passing your urine. -any other problems or concerns. IMPORTANT MEDICATION INFORMATION -Your medication list includes any medications that were recently prescribed but not filled by the Pharmacy (PENDING Medicines). -Included are any known ACTIVE Medicines. Please review this list to make sure it is accurate, if this list does not match the current medications you are taking please follow-up with your Primary Care Team to have your Medication List reviewed. Pending Medications [none] Active Medications BUPROPION HCL 150MG 12HR SA TAB TAKE ONE TABLET BY MOUTH TWICE A DAY FOR MOOD GABAPENTIN 300MG CAP TAKE ONE CAPSULE BY MOUTH THREE TIMES A DAY FOR PAIN AND NUMBNESS HCTZ 25/LISINOPRIL 20MG TAB TAKE 1 TABLET BY MOUTH EVERY DAY MELOXICAM 15MG TAB TAKE ONE TABLET BY MOUTH EVERY DAY NEEDED *TAKE WITH FOOD*USED FOR PAIN RELIEF METFORMIN HCL 500MG 24HR SA TAB TAKE TWO TABLETS BY MOUTH EVERY DAY PANTOPRAZOLE NA 40MG EC TAB TAKE ONE TABLET BY MOUTH EVERY DAY FOR HEARTBURN Medications Medications in the last 90 days TRAMADOL HCL 50MG TAB TAKE ONE TABLET BY MOUTH EVERY DAY NEEDED FOR PAIN Discontinued Medications Medications discontinued in the last 90 days BUPROPION HCL 150MG 12HR SA TAB TAKE ONE TABLET BY MOUTH TWICE A DAY FOR MOOD OMEPRAZOLE 20MG EC CAP TAKE ONE CAPSULE BY MOUTH EVERY DAY ON AN EMPTY STOMACH, AT LEAST 30 MINUTES PRIOR TO A MEAL YOU ARE THE MOST IMPORTANT FACTOR IN YOUR RECOVERY. Follow the above instructions carefully. Take your medicines as prescribed. If you do not understand any of your medicines, please ask questions. If you have any outstanding tests from the emergency department, please contact your provider to review them in the next 3-5 days. If you have new symptoms, feel worse, or are not getting better as discussed, call to discuss your health questions and arrange for follow-up care, or return to the Emergency Room IF YOU ARE EXPERIENCING A MEDICAL EMERGENCY CALL 911 OR GO TO THE NEAREST EMERGENCY ROOM /es/ SANDRITA ALBERTO MD [employer] Signed: 04/01/2022 21:36 SANDRITA ALBERTO [facility] Apr 01, 2022 06:15 PM NURSING EMERGENCY DEPT NOTE: LOCAL TITLE: EMERGENCY DEPT NURSING NOTE STANDARD TITLE: NURSING EMERGENCY DEPT NOTE DATE OF NOTE: APR 01, 2022@18:15 ENTRY DATE: APR 01, 2022@18:15:06 AUTHOR: INDIO MILLER EXP COSIGNER: URGENCY: STATUS: COMPLETED Nursing Focused Assessment: CHIEF COMPLAINT: R flank pain, fever/chills, hematuria Allergies/ADR:Patient has answered NKA Additional allergies not listed: None Vital Signs * Blood Pressure: 162/89 (04/01/2022 17:35) Heart Rate: 86 (04/01/2022 17:35) Respirations: 17 (04/01/2022 17:35) Temperature: 98 F [36.7 C] (04/01/2022 17:35) Pain: 6 (04/01/2022 17:35) Weight: 318.4 lb [144.42 kg] (07/07/2021 13:19) O2 Sats: 93% (04/01/2022 17:35) Tobacco use: No Alcohol use: Yes What type of alcohol are you using: How often are you drinking alcohol: socially Any drugs besides what is prescribed or over the counter: No ABUSE/NEGLECT: No evidence of abuse/neglect REVIEW OF SYSTEM-FOCUSED ASSESSMENT Gastrointestinal: Pain: Onset: few days Duration: Quality: sharp Location: Pain with palpation: INTERVENTIONS: Patient changed into gown: Oriented to room and bed controls Call light within reach of patient or family/friend Bed in low position and locked Family/friend at bedside /shankar/ INDIO MILLER, RN, BSN REGISTERED NURSE Signed: 04/01/2022 18:28 INDIO MILLER [facility] Apr 01, 2022 05:53 PM PHYSICIAN EMERGENCY DEPT NOTE: LOCAL TITLE: EMERGENCY DEPT NOTE STANDARD TITLE: PHYSICIAN EMERGENCY DEPT NOTE DATE OF NOTE: APR 01, 2022@17:53 ENTRY DATE: APR 01, 2022@17:53:11 AUTHOR: SANDRITA ALBERTO COSIGNER: URGENCY: STATUS: COMPLETED Nurse's note reviewed as available. CC: R flank pain HPI: MARC EDGE is a 46 yo MALE presents w c/o right flank pain, chills, and hematuria for one day. He reports that the pain started suddenly and is a sharp, stabbing pain that radiates to his lower abdomen. The patient rates the pain as 8 out of 10 in severity. He also reports having chills, nausea, and general malaise. The patient has noticed blood in his urine this morning on two occasions. He also had some burning on urination. He has no prior history of kidney stones. The patient denies any recent trauma to the flank or back. ROS: in addition, Comprehensive ROS o/w negative for pertinent acute symptoms. PMH: Active problems - Computerized Problem List is the source for the followin. Hip pain 2. Hypertension 3. Gastroesophageal reflux disease 4. Chronic pain 5. Obstructive sleep apnea 6. Morbid obesity 7. Prediabetes Allergies: Patient has answered NKA Allergies, SH, medications reviewed in CPRS Active Outpatient Medications (excluding Supplies): Outpatient Medications Status 1) BUPROPION HCL 150MG 12HR SA TAB TAKE ONE TABLET BY ACTIVE MOUTH TWICE A DAY FOR MOOD 2) GABAPENTIN 300MG CAP TAKE ONE CAPSULE BY MOUTH THREE ACTIVE TIMES A DAY FOR PAIN AND NUMBNESS 3) HCTZ 25/LISINOPRIL 20MG TAB TAKE 1 TABLET BY MOUTH ACTIVE EVERY DAY 4) MELOXICAM 15MG TAB TAKE ONE TABLET BY MOUTH EVERY DAY ACTIVE NEEDED *TAKE WITH FOOD*USED FOR PAIN RELIEF 5) METFORMIN HCL 500MG 24HR SA TAB TAKE TWO TABLETS BY ACTIVE MOUTH EVERY DAY 6) PANTOPRAZOLE NA 40MG EC TAB TAKE ONE TABLET BY MOUTH ACTIVE EVERY DAY FOR HEARTBURN Exam Temp : 98 F [36.7 C] (04/01/2022 17:35) P : 86 (04/01/2022 17:35) RR : 17 (04/01/2022 17:35) B/P : 162/89 (04/01/2022 17:35) Wt : 318.4 lb [144.42 kg] (07/07/2021 13:19) Pain : 6 (04/01/2022 17:35) Pulse Ox: 93% (04/01/2022 17:35) Gen: alert, conversant, NAD Neck: Supple CV: RRR, no M/R/G Pulm: CTAB. Good symmetric air exchange. GI: S/NT/ND Back: Positive CVA tenderness. Neuro: A&O appropriate, no gross acute focal deficit Extremities: no edema, no gross deformities Relevant diagnostic studies reviewed in CPRS. ED Course/MDM/ASSESSMENT/PLAN: MARC EDGE is a 46 yo MALE presents w c/o right flank pain, chills, and hematuria for one day. Interestingly, patient's urine did not show any signs of infection or or blood. His CBC also did not show any acute findings. CMP showed mildly elevated T bili at 1.6 and mild hypokalemia at 3.1. Lipase was normal. Blood cultures were collected. CT abdomen pelvis did not show any acute findings to suggest patient's symptoms. US of the kidney showed - No hydronephrosis or nephrolithiasis seen in the bilateral kidneys. Patient remained hemodynamically stable throughout his emergency room stay. #. Hematuria -Likely secondary to passed kidney stone. -No residual stones in his kidneys. -Patients was discharged home in stable condition. -Return instructions were given to the patient -Patient to follow-up with PCP in 1 to 2 weeks. Edu: was informed of available results, impression, plan of care - verbalized understanding/agreement. /shankar/ SANDRITA ALBERTO MD [employer] Signed: 04/01/2022 21:41 Receipt Acknowledged By: * AWAITING SIGNATURE * ONEYDA DOLL ABDISAMAD M [facility] Apr 01, 2022 05:36 PM NURSING EMERGENCY DEPT TRIAGE NOTE: LOCAL TITLE: EMERGENCY DEPARTMENT NURSING TRIAGE NOTE STANDARD TITLE: NURSING EMERGENCY DEPT TRIAGE NOTE DATE OF NOTE: APR 01, 2022@17:36 ENTRY DATE: APR 01, 2022@17:36:43 AUTHOR: JORDIN RAMEY COSIGNER: URGENCY: STATUS: COMPLETED Emergency Department/Urgent Care Center Triage Patient age:46 Sex: MALE On arrival patient was: AMBULATORY Patient phone number: Allergies: Patient has answered NKA Subjective/Chief Complaint: R flank pain, hematuria Objective: Patient reports having two episodes of hematuria, chills, and now R flank pain The patient is not a fall risk. Vital Signs * Blood Pressure: 162/89 (04/01/2022 17:35) Heart Rate: 86 (04/01/2022 17:35) Respirations: 17 (04/01/2022 17:35) Temperature: 98 F [36.7 C] (04/01/2022 17:35) Pain: 6 (04/01/2022 17:35) Weight: 318.4 lb [144.42 kg] (07/07/2021 13:19) O2 Sats: 93% (04/01/2022 17:35) PAIN INTENSITY: (Patient rates the pain. 0 = no pain; 10 = worst pain) Is your pain new with this visit? (acute or chronic) Current Pain rating score: 6 (04/01/2022 17:35) Pain score at worst: 7 Pain score at best: 6 Location of pain: R flank Description of pain: sharp Duration: today Aggravating factors: none Alleviating factors: none Emergency Severity Index (FREDA) level Level 3 Current Medications: Active Outpatient Medications (including Supplies): Active Outpatient Medications Status 1) BUPROPION HCL 150MG 12HR SA TAB TAKE ONE TABLET BY ACTIVE MOUTH TWICE A DAY FOR MOOD 2) GABAPENTIN 300MG CAP TAKE ONE CAPSULE BY MOUTH THREE ACTIVE TIMES A DAY FOR PAIN AND NUMBNESS 3) HCTZ 25/LISINOPRIL 20MG TAB TAKE 1 TABLET BY MOUTH ACTIVE EVERY DAY 4) MELOXICAM 15MG TAB TAKE ONE TABLET BY MOUTH EVERY DAY ACTIVE NEEDED *TAKE WITH FOOD*USED FOR PAIN RELIEF 5) METFORMIN HCL 500MG 24HR SA TAB TAKE TWO TABLETS BY ACTIVE MOUTH EVERY DAY 6) PANTOPRAZOLE NA 40MG EC TAB TAKE ONE TABLET BY MOUTH ACTIVE EVERY DAY FOR HEARTBURN Current Problems: Hip pain ([facility] [id number]) Hypertension ([facility] [id number]) Gastroesophageal reflux disease ([facility] 235Chronic pain ([facility] [id number]) Obstructive sleep apnea ([facility] [id number]) Morbid obesity ([facility] [id number]) Prediabetes ([facility] [id number]) Identification of Seniors at Risk (ISAR):* Defer screen age Coronavirus Disease 2019 (COVID-19) Screen The patient was asked if in the last 14 days they have had new onset of any COVID-19 symptoms. They report the following: No symptoms Within the past 14 days, the patient reports no exposure to someone with a febrile/respiratory illness or someone with a known or suspected case of COVID-19 (within 6 feet for > 15 minutes). Result: Screen is negative. Result: Screen is negative. Suicide Screen: [place] Suicide Severity Rating Scale (C-SSRS) screener 1. Over the past month, have you wished you were or wished you could go to sleep and not wake up? No 2. Over the past month, have you had any actual thoughts of killing yourself? No 3. Over the past month, have you been thinking about how you might do this? Response not required due to responses to other questions. 4. Over the past month, have you had these thoughts and had some intention of acting on them? Response not required due to responses to other questions. 5. Over the past month, have you started to work out or worked out the details of how to kill yourself? Response not required due to responses to other questions. 6. If yes, at any time in the past month did you intend to carry out this plan? Response not required due to responses to other questions. 7. In your lifetime, have you ever done anything, started to do anything, or prepared to do anything to end your life (for example, collected pills, obtained a gun, gave away valuables, went to the roof but didn't jump)? No 8. If YES, was this within the past 3 months? Response not required due to responses to other questions. /shankar/ RAQUEL ArboledaN, RN REGISTERED NURSE Signed: 04/01/2022 17:38 JORDIN RAMYE [facility]
--- OUTSIDE RECORDS SUMMARY | 2023-02-19 14:41 | XMS_ITS | Encounter Summary ---
Author Name [employer] [facility] Organization [facility] Address [address] [place] [address] Support Name Relationship Address Phone KELYTREVER LITO Next of Kin [address] [address] TRE[place] ED[place] Emergency Contact [address] [address] Selected Encounter This section includes the information on record at NH for the Encounter. Date/Time Encounter Type Encounter Description Reason Provider Source Mar 24, 2022 09:39 AM Outpatient Encounter PRIMARY CARE/MEDICINE JARED LARSEN Encounter Template Text not used by NH Plan of Treatment: Future Appointments (+ 6 months) and Future Tests (+/- 45 days) The Plan of Treatment section includes future care activities for the patient from all NH treatmentfacilities. This section includes future appointments and future orders which are active, pending or scheduled. Future Appointments This section includes appointments that were scheduled to occur 6 months from the date of the Encounter, up to a maximum of 20 appointments. The data comes from all NH treatment facilities. Appointment Date/Time Appointment Type Appointme nt Facility Name Apr 01, 2022 05:34 PM AMBULATORY - MEDICINE [facility] Jul 27, 2022 07:00 AM AMBULATORY - NONE [facility] Jul 27, 2022 08:00 AM AMBULATORY - MEDICINE [facility] Sep 07, 2022 08:15 AM AMBULATORY - NONE [facility] Lab Results: +/- 30 days of the encounter This section includes the Chemistry and Hematology Lab Results on record with NH for the patient. Radiology Reports and Pathology Reports are provided separately, in subsequent sections. Lab Results This section contains the Chemistry/Hematology Results that were resulted 30 days before or 30 daysafter the date of the Encounter. Date/Time Source Result Type Result - Unit Interpretation Reference Range Comment Apr 01, 2022 05:45 PM [facility] EXTRA BLUE TUBE Specimen Type: PLASMA No comment entered. Ordering Provider: HARI CROCKETT Report Released Date/Time: Apr 01, 2022 06:36 PM Reporting Lab: [facility] [address] Performing Lab: [facility] [address] EXTRA BLUE TUBE RECEIVED Apr 01, 2022 05:45 PM [facility] EXTRA GOLD GEL TUBE Specimen Type: SERUM No comment entered. Ordering Provider: HARI CROCKETT Report Released Date/Time: Apr 01, 2022 06:36 PM Reporting Lab: [facility] [address] Performing Lab: [facility] [address] EXTRA GOLD GEL TUBE RECEIVED Apr 01, 2022 05:45 PM [facility] COMPREHENSIVE METABOLIC PANEL+MG Specimen Type: PLASMA No comment entered. Ordering Provider: HARI CROCKETT Report Released Date/Time: Apr 01, 2022 06:06 PM Reporting Lab: [facility] [address] Performing Lab: [facility] [address] CREATININE 0.6 L 0.7-1.2 UREA NITROGEN 13 [...] 0.5 <0.5 Apr 01, 2022 05:45 PM [facility] LIPASE Specimen Type: PLASMA Comment: Automated Differential Performed Ordering Provider: HARI CROCKETT Report Released Date/Time: Apr 01, 2022 07:20 PM Reporting Lab: [facility] [address] Performing Lab: [facility] [address] LIPASE 9 <60 Apr 01, 2022 05:45 PM [facility] PROCALCITONIN Specimen Type: PLASMA Comment: Automated Differential Performed Ordering Provider: HARI CROCKETT Report Released Date/Time: Apr 01, 2022 07:20 PM Reporting Lab: [facility] [address] Performing Lab: [facility] [address] PROCALCITONIN 0.13 H <0.09 Apr 01, 2022 05:45 PM [facility] CBC & DIFF Specimen Type: BLOOD Comment: Automated Differential Performed Ordering Provider: HARI CROCKETT Report Released Date/Time: Apr 01, 2022 06:06 PM Reporting Lab: [facility] [address] Performing Lab: [facility] [address] WBC 8.91 4.0-11.0 RBC 5.39 4.6-6.2 HGB [...] IMMATURE GRAN 0.05 0-0.1 Apr 01, 2022 05:42 PM [facility] URINALYSIS Specimen Type: URINE No comment entered. Ordering Provider: LUIS ALBERTO ALBA Report Released Date/Time: Apr 01, 2022 05:38 PM Reporting Lab: [facility] [address] Performing Lab: [facility] [address] [facility] [address] URINE COLOR YELLOW SPECIFIC GRAVITY 1.030 1.003-1.03 5 URINE BILIRUBIN NEGATIVE NEGATIVE URINE KETONES NEGATIVE NEGATIVE URINE GLUCOSE NEGATIVE <30 URINE PROTEIN 30 <20 URINE PH 8.0 5.0-8.0 URINE WBC/HPF <1 0-7 URINE BACTERIA NONE SEEN URINE RBC/HPF 3 0-3 APPEARANCE CLEAR SQUAMOUS EPITHELIAL 1 URINE BLOOD NEGATIVE NEGATIVE URINE NITRITE NEGATIVE NEGATIVE LEUKOCYTE ESTERASE NEGATIVE NEGATIVE Social History: Smoking Status (Most current) and Tobacco Use (All prior to encounter date) This section includes the most current, and the historical, smoking and tobacco- related health factors from the [facility] where the Encounter took place. Current Smoking Status This section includes the most current smoking, or tobacco-related health factor, from the NH facility where the Encounter took place. Date/Time Current Smoking Status Comment Facil ity Jul 07, 2021 01:30 PM VA-TOBACCO NEVER USED [facility] Tobacco Use History This section includes a history of the smoking, or tobacco-related health factors, that were collected on or before the date of the Encounter. The data comes from the NH facility where the Encounter took place. Date/Time Smoking Status/Tobacco Use Comment F acility Jul 22, 2020 11:30 AM VA-TOBACCO NEVER USED [facility] May 13, 2018 10:59 AM NH-TOBACCO NEVER USED [facility] Sep 15, 2016 09:06 AM LIFETIME NON-TOBACCO USER [facility] Oct 20, 2015 08:49 AM LIFETIME NON-TOBACCO USER [facility] Jan 12, 2015 08:44 AM LIFETIME NON-TOBACCO USER [facility] Radiology Reports: +/- 30 days of [...] the Encounter. The data comes from all [facility] facilities. Date/Time Radiology Report Provider Source Apr 01, 2022 08:00 PM US RENAL (P): MARC EDGE [id number] -1975 M Exm Date: APR 01, 2022@20:00 Req Phys: SANDRITA CROCKETT Pat Loc: [facility] EMERGENCY DEPT WALK-IN ([facility] Loc: Ultrasound Imaging Service: Unknown (Case [id number] COMPLETE) US RETROPERITONEAL RENAL (US Detailed) CPT:05097 Reason for Study: right flank pain Clinical History: [place] IS NOT under investigation for COVID-19 or is COVID-19 negative right flank pain Responsible provider name and phone number to notify for critical findings if other than user placing the order and pager listed below: User placing orders pager: [phone] LAST CREATININE 0.6 L (04/01/22) Report Status: Verified Date Reported: APR 01, 2022 Date Verified: APR 01, 2022 Deburrer Strip E-Sig: Report: Indication: right flank pain Comparison (available for review on the [facility] Jammcard system at time of study interpretation): 04/01/2022 Technique: Study (including selection of protocol, image acquisition, and any postprocessing) was performed under direction and supervision of the local radiologist at the local NH facility. Images were then submitted to the [facility] National Teleradiology Program (NTP) for [...] bilateral kidneys. READING PHYSICIAN: Dustin North M.D. -[id number] 04/01/2022 19:30 [facility] National Teleradiology Program [phone] (For Medical Practitioner Use Only) Attention Patients / Veterans: If you have questions or concerns about these test results, please contact your ordering provider or primary care team. Primary Interpreting Staff: RADIOLOGY,OUTSIDE SERVICE, Staff Physician / RADIOLOGY,OUTSIDE SERVICE [facility] Apr 01, 2022 06:[address] RENAL COLIC PRO TOCOL (P): MARC EDGE [id number] -1975 M Exm Date: APR 01, 2022@18:07 Req Phys: CROCKETTSANDRITA PRADHAN Loc: [facility] EMERGENCY DEPT WALK-IN ([facility] Loc: CT IMAGING Service: Unknown (Case [id number] COMPLETE) CT (AP) ABDOMEN/PELVIS W/O CONTRA(CT Detailed) CPT:43248 Reason for Study: r flank pain // hematuria Clinical History: IS NOT under investigation for COVID-19 or is COVID-19 negative Defer to radiologist for final CT protocol. Please enter pertinent clinical history on the next page. Responsible provider name and phone number to notify for critical findings if other than user placing the order and pager listed below: User placing orders pager: [phone] LAST 3: Collection DT Specimen Test Name [...] PLASMA ESTIMATED GFR(eGF >60 Ref: >=60 Allergies: (Hugo only) Patient has answered NKA To see allergies from all NH locations click Reports tab>Remote Data>All Available Sites>Clinical Reports>Allergies. Report Status: Verified Date Reported: APR 01, 2022 Date Verified: APR 01, 2022 Deburrer Strip E-Sig: Report: CT (AP) ABDOMEN/PELVIS W/O CONTRAST [PRINTSET] HISTORY: R Flank Pain // Hematuria COMPARISON: None. TECHNIQUE: CT of the abdomen and pelvis with multiplanar reformats was performed at the local NH facility. images were received by the [facility] National Teleradiology Program (NTP) for interpretation. RADIATION [...] 3. Splenomegaly. READING PHYSICIAN: David Soto MD -[id number] 04/01/2022 17:12 [facility] National Teleradiology Program [phone] (For Medical Practitioner Use Only) Attention Patients / Veterans: If you have questions or concerns about these test results, please contact your ordering provider or primary care team. Primary Interpreting Staff: RADIOLOGY,OUTSIDE SERVICE, Staff Physician / RADIOLOGY,OUTSIDE SERVICE [facility] Pathology Reports: +/- 30 days of [...] the Encounter. The data comes from all NH treatment facilities. Date/Time Pathology Report Provider Source Apr 01, 2022 06:40 PM LR MICROBIOLOGY RE PORT: Reporting Lab: [facility] [CLIA# [id number]] [place] [address] Accession [UID]: [id number] [[id number]] Received: Apr 01, 2022@19:18 Collection sample: BLOOD Collection date: Apr 01, 2022 18:40 Provider: SANDRITA CROCKETT Comment on specimen: LAC, RECEIVED 2 BLOOD CULTURE BOTTLES Test(s) ordered: CULTURE & SUSCEPTIBILITY...... completed: Apr 07, 2022 * BACTERIOLOGY FINAL REPORT => Apr 07, 2022 10:09 TECH CODE: [id number] CULTURE RESULTS: NO GROWTH 5 DAYS Bacteriology Remark(s): THIS REPORT IS FINAL =--=--=--=--=--=--=--=--=--=--=--=- -=--=--=--=--=--=--=--=--=--=--=--= --=--=-- Performing Laboratory: Bacteriology Report Performed By: [facility] [CLIA# [id number]] [place] [address] [facility] Apr 01, 2022 06:40 PM LR MICROBIOLOGY RE PORT: Reporting Lab: [facility] [CLIA# [id number]] [place] [address] Accession [UID]: [id number] [[id number]] Received: Apr 01, 2022@19:18 Collection sample: BLOOD Collection date: Apr 01, 2022 18:40 Provider: SANDRITA CROCKETT Comment on specimen: RAC, RECEIVED 2 BLOOD CULTURE BOTTLES Test(s) ordered: CULTURE & SUSCEPTIBILITY...... completed: Apr 07, 2022 * BACTERIOLOGY FINAL REPORT => Apr 07, 2022 10:09 TECH CODE: [id number] CULTURE RESULTS: NO GROWTH 5 DAYS Bacteriology Remark(s): THIS REPORT IS FINAL =--=--=--=--=--=--=--=--=--=--=--=- -=--=--=--=--=--=--=--=--=--=--=--= --=--=-- Performing Laboratory: Bacteriology Report Performed By: [facility] [CLIA# [id number]] [place] [address] [facility] Apr 01, 2022 05:48 PM LR MICROBIOLOGY RE PORT: Reporting Lab: [facility] [CLIA# [id number]] [place] [address] Accession [UID]: [id number] [[id number]] Received: Apr 01, 2022@17:48 Collection sample: URINE Collection date: Apr 01, 2022 17:48 Provider: LUIS ALBERTO ALBA Comment on specimen: RECEIVED IN STERILE CUP Test(s) ordered: CULTURE & SUSCEPTIBILITY...... completed: Apr 03, 2022 * BACTERIOLOGY FINAL REPORT => Apr 03, 2022 08:20 TECH CODE: [id number] CULTURE RESULTS: LESS THAN 10,000 CFU/ML Bacteriology Remark(s): THIS REPORT IS FINAL =--=--=--=--=--=--=--=--=--=--=--=- -=--=--=--=--=--=--=--=--=--=--=--= --=--=-- Performing Laboratory: Bacteriology Report Performed By: [facility] [CLIA# [id number]] [place] [address] [facility] Encounter Notes: All associated encounter notes This section contains the clinical notes associated to the Encounter. Date/Time Encounter Note(s) Provider Source Mar 24, 2022 09:39 AM PRIMARY CARE SECUR E MESSAGING: LOCAL TITLE: PRIMARY CARE SECURE MESSAGING STANDARD TITLE: PRIMARY CARE SECURE MESSAGING DATE OF NOTE: MAR 24, 2022@09:39 ENTRY DATE: MAR 24, 2022@08:39:54 AUTHOR: JARED LARSEN EXP COSIGNER: URGENCY: STATUS: COMPLETED PRIMARY CARE SECURE MESSAGING Has ADDENDA ------Original Message - Sent: 03/24/2022 07:49 AM ET From: MARC EDGE To: JOSHUA Primary [facility] Provider (Stan) Subject: Medication:Replacement of RX#[id number] Attachments: _2022___[id number].p df (232.02 KB) I was prescribed a different medication for my heart burn, Pantoprazole 40 MG, RX [id number]. Can I please have this prescribed through the NH, I have attached a picture of the label off of the prescription bottle. This medication replaces RX#[id number]. Thank you /shankar/ JARED LARSEN RN REGISTERED NURSE Signed: 03/24/2022 08:39 Receipt Acknowledged By: 03/24/2022 09:08 /shankar/ GWEN TIJERINA APRN NURSE PRACTITIONER 03/24/2022 ADDENDUM STATUS: COMPLETED Discontinued omeprazole and ordered pantoprazole. /shankar/ GWEN TIJERINA APRN NURSE PRACTITIONER Signed: 03/24/2022 09:09 JARED LARSEN [facility]
--- OUTSIDE RECORDS SUMMARY | 2023-02-19 14:41 | XMS_ITS | Continuity of Care Document ---
Author Name [facility] Organization [facility] Care Team Providers Care Shop Estimator Name Role Phone [facility] Unavailable Unavailable Problems Combined list of problems from Department of Defense and Veterans Affairs facilities. It does not include entries that were removed or entered in error. Problem Status Onset Date Problem Type Date of Resolution Comments Source Chronic pain Active Condition [facility] Diabetes mellitus Active Condition [place] [facility] Gastroesophageal reflux disease Active [facility] Hip pain Active Condition [facility] Hypertension Active Condition [facility] Morbid obesity Active Condition [facility] Obstructive sleep apnea Active Condition [facility] bursitis hip Active Condition DoD visit for: physical medical evaluation board (MEB) Active Condition DoD arthralgia pelvis / hip / femur Active Condition DoD TMJ pain Active Condition DoD Serum Enzyme Levels - ALT (SGPT) Elevated Active Condition DoD ulceration of intestine small Inactive Condition DoD hemorrhoids internal Active Condition DoD colonic diverticulosis Active Condition DoD visit for: ears / hearing exam Active Condition DoD red blood in bowel movement (hematochezia) Inactive Condition DoD bright red blood per rectum Inactive Condition DoD diarrhea Active Condition DoD vitamin D deficiency Active Condition DoD joint pain, localized in the right shoulder Active Condition DoD hypertension systemic Active Condition DoD eustachian tube dysfunction both ears Active Condition DoD Raynaud's phenomenon Active Condition DoD ringing in the ears (tinnitus) Active Condition DoD shoulder strain biceps tendon right Inactive Condition DoD postlaminectomy syndrome lumbar Active Condition DoD Dietary Counseling Pertaining To Specific Condition Active Condition DoD lumbar disc degeneration L4 - L5 Active Condition 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 Condition DoD phase of life or life circumstance problem Active Condition DoD prehypertension Active Condition DoD earache Inactive Condition DoD obesity endogenous Active Condition DoD visit for: issue medical certificate fitness Inactive Condition DoD sciatica Active Condition DoD lumbar radiculopathy L4 Active Condition DoD esophageal reflux Active Condition DoD Patient Training And Self-Care Skills Active Condition DoD fatigue Active Condition DoD pain in the thigh Active Condition DoD joint pain, localized in the hip Active Condition DoD hydrocele of male genital organs Active Condition DoD routine ophthalmological exam Inactive Condition DoD visit for: screening exam malignant neoplasm testis Inactive Condition DoD visit for: administrative purpose Inactive Condition DoD lower back pain Active Condition DoD Body Mass Index Inactive Condition DoD otitis media both ears Active Condition DoD astigmatism Active Condition DoD visit for: examination of subpopulation Active Condition DoD muscle weakness Active Condition DoD ankle strain Inactive Condition DoD eustachian tube dysfunction Active Condition DoD otitis media acute Inactive Condition Do D ankle sprain right Inactive Condition Do D joint pain, localized in the knee Active Condition DoD Patient Education Active Condition DoD Aftercare Following Surgery Of Respiratory System Inactive Condition DoD nonorganic sleep apnea obstructive Active Condition DoD Other Physical Therapy Active Condition DoD snoring Active Condition DoD intervertebral disc degeneration - lumbar Active Condition DoD Alexandrea posterior derangement syndrome Active Condition DoD Blood Pressure Isolated Elevated Active Condition DoD spinal stenosis lumbar Active Condition DoD lumbar spondylosis Active Condition DoD herniated intervertebral disc lumbar Active Condition DoD visit for: services physical Active Condition DoD lumbar radiculopathy Active Condition DoD herniated intervertebral disc Active Condition DoD numbness (hypesthesia) Active Condition DoD dermatophytosis onychomycosis toenails Active Condition discussed treatment options with patient; elects oral antifungals at this time; special request submitted through [facility] 1 for lamasil 250mg po qd for 12 weeks #84 0refills; pt instructed to avoid etoh/tylenol while using medications; will get lfts at 1 ,2,3 months DoD Laboratory Studies Active Condition R N INSTRUCTED PT TO CALL MEDICAL RECORDS FOR RELEASE OF CONSENT R/T PAPERWORK REQUEST. ALSO, RN CONSULTED W/ PCM. RN DIRECTED TO INFORM PT TO KEEP SCHEDULED APPT ON 07/17/07 AND DISCUSSED LAB RESULTS W/ PCM. FUTURE APPOINTMENTS FOR AVERY EDGE F RAJNI MELVINI/DYLLAN SORTO [id number] ROUT/5 PENDING DoD dermatophytosis tinea pedis Active Condition Pt has signifcant athlets foot as weel as a sever case of nail fungus. Labs are pending-- due to time restraints-- pt is to f/u in 3 weeks to address other concerns. [facility] Preventive Medicine Established Patient Checkup Adult 18-39 Years Active Condition Pt request semen anal as part of wifes infert workup. Pt to f/u in 3 weeks. [facility] visit for: administrative purpose Inactive Condition RN INSTRUCTED PT TO COME IN 15-MIN EARLY FOR SCHEDULED APPT AND CHECK-IN AT THE ROBOTICS TECHNICIAN. PT VERBALIZED UNDERSTANDING OF GIVEN INFO AND AGREED W/ PLAN OF CARE. PT HAS NO FURTHER RELATED CONCERN AT THIS TIME.FUTURE APPOINTMENTS FOR AVERY EDGE TYPE/DURCLINIC/ DIV PROVIDER DATE/TIME DTL CODES STATUS========= =======[facility] EVELINA FLOR GLORIA/STAR ROMERO [id number] /15 PENDING DoD Guidance: Concerns About Unsafe Sexual Practices Active Condition DoD Guidance: Concerns About Tobacco Use Inactive Condition DoD Guidance: Concerns About Alcohol Use Inactive Condition DoD obesity Active Condition DoD Patient Education Dietary Active Condition DoD sebaceous cyst Active Condition Home care reviewed. Pt to f/u in 1 week for removal of sutures. DoD shortness of breath Active Condition with burning sensation DoD visit for: occupational health / fitness exam Active Condition DoD refractive error - myopia Active Condition DoD refractive error - hypermetropia Active Condition DoD astigmatism regular Active Condition released new srx. pt ed on findings, change, adaptation. uv protection DoD lumbago Active Condition myofascial pain secondary to strain/sprain [facility] Diagnosis: ICD-10-CM I10 Essential (primary) hypertension Active Diagnosis [facility] Diagnosis: ICD-10-CM K21.9 Gastro-esophageal reflux disease without esophagitis Active Diagnosis [facility] Diagnosis: ICD-10-CM E11.9 Type 2 diabetes mellitus without complications Active Diagnosis [facility] Diagnosis: ICD-10-CM R31.0 Gross hematuria Active Diagnosis [facility] Medications Combined list of outpatient medications from Department of Defense and Veterans Affairs facilities.Medications provided include 1) outpatient medications from the last 15 months, and 2) patient-reported medications. Medication Details Route Status Patient Instructions Prescription Expires Prescription Number Last Dispense Date Ordering Provider Order Date Source ACETAMINOPH EN 500MG TAB TAKE TWO TABLETS BY MOUTH TWICE A DAY NEEDED FOR PAIN ORALLY ACTIVE 07/28/2023 [id number] BERTHA MORA 2022 [facility] AMLODIPINE BESYLATE 5MG TAB TAKE ONE TABLET BY MOUTH EVERY DAY FOR BLOOD PRESSURE ORALLY ACTIVE 09/08/2023 [id number] 3 KATE BURROWS 2022 [facility] BUPROPION HCL 150MG 12HR TAB,SA TAKE ONE TABLET BY MOUTH TWICE A DAY FOR MOOD ORALLY ACTIVE 07/28/2023 [id number] 3 BERTHA MORA 2022 [facility] BUPROPION HCL 150MG 12HR TAB,SA TAKE ONE TABLET BY MOUTH TWICE A DAY FOR MOOD ORALLY DISCONT INUED 03/25/2023 [id number] 3 SALMA TIJERINA 2022 [facility] BUPROPION HCL 150MG 12HR TAB,SA TAKE ONE TABLET BY MOUTH TWICE A DAY FOR MOOD ORALLY DISCONT INUED 07/08/2022 [id number] SARA ALEGRE 2021 [facility] GABAPENTIN 300MG CAP TAKE ONE CAPSULE BY MOUTH THREE TIMES A DAY FOR PAIN AND NUMBNESS ORALLY ACTIVE 07/28/2023 [id number] 3 BERTHA MORA 2022 [facility] GABAPENTIN 300MG CAP TAKE ONE CAPSULE BY MOUTH THREE TIMES A DAY FOR PAIN AND NUMBNESS ORALLY DISCONT INUED 06/14/2022 [id number] 2 SARA ALEGRE 2021 [facility] HYDROCHLORO THIAZIDE 25MG/LISINO PRIL 20MG TAB TAKE 1 TABLET BY MOUTH EVERY DAY ORALLY DISCONT INUED 06/14/2022 [id number] 3 SARA ALEGRE 2021 [facility] HYDROCODONE -ACETAMINOP HEN (HYDROCODON E/ACETAMINO PHEN), 5MG-325MG, TABLET, ORAL, MALLINCKROD T PH, 500 ea. BOTTLE Active [id number] 2022 [facility] LISINOPRIL 40MG TAB TAKE ONE TABLET BY MOUTH EVERY DAY FOR BLOOD PRESSURE ORALLY ACTIVE 07/28/2023 [id number] 3 MORGANBERTHA RAMOS 2022 [facility] MELOXICAM 15MG TAB TAKE ONE TABLET BY MOUTH EVERY DAY NEEDED *TAKE WITH FOOD*USE D FOR PAIN RELIEF ORALLY ACTIVE 07/28/2023 [id number] 3 MORGANBERTHA RICHARD 2022 [place] [facility] MELOXICAM 15MG TAB TAKE ONE TABLET BY MOUTH EVERY DAY NEEDED *TAKE WITH FOOD*USE D FOR PAIN RELIEF ORALLY DISCONT INUED 06/14/2022 [id number] 3 SARA ALEGRE 2021 [facility] METFORMIN HCL 500MG 24HR TAB,SA TAKE TWO TABLETS BY MOUTH EVERY DAY ORALLY DISCONT INUED 10/02/2022 [id number] 3 SARA ALEGRE 2022 [facility] METFORMIN HCL 500MG 24HR TAB,SA TAKE TWO TABLETS BY MOUTH EVERY DAY ORALLY DISCONT INUED 07/08/2022 [id number] SARA ALEGRE 2021 [facility] NON [facility] MED NOT LISTED [facility] USE MOUTH EVERY MORNING ORALLY ACTIVE DO MARCELL MCINTOSH 2022 [facility] OMEPRAZOLE 20MG CAP,EC TAKE ONE CAPSULE BY MOUTH EVERY DAY ON AN EMPTY STOMACH, AT LEAST 30 MINUTES PRIOR TO A MEAL ORALLY DISCONT INUED 06/14/2022 [id number] SARA ALEGRE 2021 [facility] PANTOPRAZOL E NA 40MG TAB,EC TAKE ONE TABLET BY MOUTH EVERY DAY FOR HEARTBUR N ORALLY DISCONT INUED 10/21/2023 [id number] DO MARCELL MCINTOSH 2022 [facility] PANTOPRAZOL E NA 40MG TAB,EC TAKE ONE TABLET BY MOUTH EVERY DAY FOR HEARTBUR N ORALLY DISCONT INUED 07/28/2023 [id number] 3 MORGAN BERTHAANTIONETTE RAMOS 2022 [facility] PANTOPRAZOL E NA 40MG TAB,EC TAKE ONE TABLET BY MOUTH EVERY DAY FOR HEARTBUR N ORALLY DISCONT INUED 03/25/2023 [id number] 3 SALMA TIJERINA 2022 [facility] RABEPRAZOLE NA 20MG TAB,EC TAKE ONE TABLET BY MOUTH EVERY DAY FOR STOMACH ACID ORALLY ACTIVE 11/10/2023 [id number] 3 DO MARCELL MCINTOSH 2022 [facility] ROSUVASTATI N CA 5MG TAB TAKE ONE TABLET BY MOUTH EVERY DAY FOR CHOLESTE ROL (STARTED 07/27/22) ORALLY ACTIVE 07/28/2023 [id number] 3 [facility] 2022 [facility] SEMAGLUTIDE 0.25MG/0.37 5ML INJ,SOLN,PE N,3ML INJECT 0.5MG UNDER THE SKIN EVERY WEEK FOR DIABETES *REPLACE S METFORMI N SUBCUT ANEOUS ACTIVE 07/28/2023 [id number] 3 [facility] 2022 [facility] SEMAGLUTIDE 0.25MG/0.37 5ML INJ,SOLN,PE N,3ML INJECT 0.25MG UNDER THE SKIN EVERY WEEK FOR 4 WEEKS, THEN INJECT 0.5MG EVERY WEEK FOR DIABETES *REPLACE S METFORMI N SUBCUT ANEOUS DISCONT INUED 07/28/2023 [id number] [facility] 2022 [facility] TRAMADOL HCL 50MG TAB TAKE ONE TABLET BY MOUTH EVERY DAY FOR PAIN ORALLY 01/27/2023 [id number] 3 BRONX BERTHA RAMOS 2022 [facility] Allergies, Adverse Reactions, Alerts Combined list of allergies from Department of Defense and Veterans Affairs facilities. It does not include entries that were removed or entered in error. Substance Category Reaction Severity Reaction type Status Date Reported Comments Source No Known Allergies Drug allergy (disorder) active 11/22/2012 DoD Immunizations Combined list of available immunizations from the Department of Defense and Veterans Affairs facilities. Immunization Series Date Given Administered By Site Reaction Lot Number CVX Code Drug Lock And Dam Operator Status Comments Source INFLUENZA, INJECTABLE, QUADRIVALENT, PRESERVATIVE FREE 2022 150 complet ed [facility] PNEUMOCOCCAL POLYSACCHARID E PPV23 2021 33 complet ed [facility] Influenza, injectable, Madin Beverly Canine Kidney, quadrivalent with preservative 1 2020 Unknown, Provider [id number] [employer] (SEQ) complet ed Influenza , injectabl e, Madin Moline Canine Kidney, quadrival ent with preservat misty DoD INFLUENZA, UNSPECIFIED FORMULATION 2020 88 complet ed [facility] COVID-19 (MODERNA), MRNA, LNP-S, PF, 100 MCG/0.5 ML DOSE 2 2020 207 complet ed [facility] TDAP 2020 115 complet ed [facility] COVID-19 (MODERNA), MRNA, LNP-S, PF, 100 MCG/0.5 ML DOSE 1 2020 207 complet ed [facility] INFLUENZA, INJECTABLE, QUADRIVALENT, PRESERVATIVE FREE 2019 150 complet ed [facility] INFLUENZA, UNSPECIFIED FORMULATION 2019 88 complet ed [facility] influenza, injectable, quadrivalent, preservative free 2019 [place], () Not Given influenza , injectabl e, quadrival ent, preservat misty free DoD INFLUENZA, INJECTABLE, QUADRIVALENT, PRESERVATIVE FREE 2017 150 complet ed [facility] Administe red by: [facility]ician (NPI=Not Provided) . Partner 83 Lot#: [id number] Mfr: [employer] [facility] INFLUENZA, INJECTABLE, MDCK, PRESERVATIVE FREE, QUADRIVALENT 2016 171 complet ed Partner: Carly . Administe red by: [facility] Clinician (NPI=Not Provided) . Partner 83 Lot#: [id number] Mfr: [employer] [facility] INFLUENZA, SEASONAL, INJECTABLE, PRESERVATIVE FREE 2015 140 complet ed [facility] TDAP 2015 115 complet ed [employer]axo quintanilla martins,324 27, [facility] INFLUENZA, SEASONAL, INJECTABLE, PRESERVATIVE FREE 2014 140 complet ed [facility] influenza, live, intranasal, quadrivalent 1 2012 [id number] [employer] (MED) complet ed influenza , live, intranasa l, quadrival ent DoD influenza virus vaccine, live, attenuated, for intranasal use 17 2011 [id number] 111 [employer] (MED) complet ed influenza virus vaccine, live, attenuate d, for intranasa l use DoD anthrax vaccine 7 2011 [id number] [employer] [place] ([facility]) complet ed anthrax vaccine DoD typhoid Vi capsular polysaccharid e vaccine 1 2011 [id number] Sanofi Pasteur (PMC) complet ed typhoid Vi capsular polysacch aride vaccine DoD tetanus toxoid, reduced diphtheria toxoid, and acellular pertu is vaccine, adsorbed 1 2011 [id number] 115 [facility] (B) complet ed tetanus toxoid, reduced diphtheri a toxoid, and acellular pertussis vaccine, adsorbed DoD Influenza, seasonal, injectable 0 2010 [id number] 141 Sanofi Pasteur (PMC) complet ed Influenza , seasonal, injectabl e DoD anthrax vaccine 6 2009 [id number] [employer] [place] ([facility]) complet ed anthrax vaccine DoD influenza virus vaccine, live, attenuated, for intranasal use 1 2009 [id number] 111 [employer] (MED) complet ed influenza virus vaccine, live, attenuate d, for intranasa l use DoD Novel influenza-H1N 1-09, injectable 1 2009 [id number] Sanofi Pasteur ([facility]MC) complet ed Novel influenza -A7N2-59, injectabl e DoD anthrax vaccine 5 2008 [id number] [employer] [place] ([facility]) complet ed anthrax vaccine DoD typhoid Vi capsular polysaccharid e vaccine 1 2008 [id number] [employer] (AVB) complet ed typhoid Vi capsular polysacch aride vaccine DoD influenza virus vaccine, live, attenuated, for intranasal use 1 2008 [id number] 111 [employer] (MED) complet ed influenza virus vaccine, live, attenuate d, for intranasa l use DoD influenza virus vaccine, split virus (incl. purified surface antigen)-reti red CODE 1 2007 [id number] [employer] (SKB) complet ed influenza virus vaccine, split virus (incl. purified surface antigen)- retired CODE DoD influenza virus vaccine, split virus (incl. purified surface antigen)-reti red CODE 1 2006 [id number] 15 Sanofi Pasteur ([facility]) complet ed influenza virus vaccine, split virus (incl. purified surface antigen)- retired CODE DoD anthrax vaccine 5 2006 [id number] [employer] [place] ([facility]) complet ed anthrax vaccine DoD influenza virus vaccine, split virus (incl. purified surface antigen)-reti red CODE 1 2005 [id number] 15 Sanofi Pasteur ([facility]) complet ed influenza virus vaccine, split virus (incl. purified surface antigen)- retired CODE DoD varicella virus vaccine 0 2005 21 () Not Given varicella virus vaccine DoD tuberculin skin test; purified protein derivative solution, intradermal 1 2005 Unknown, Provider [id number] Sanofi Pasteur ([facility]) complet ed tuberculi n skin test; purified protein derivativ e solution, intraderm al DoD typhoid vaccine, parenteral, other than acetone-kille d, dried 1 2005 [id number] Sanofi Pasteur ([facility]) complet ed typhoid vaccine, parentera l, other than acetone-k illed, dried DoD hepatitis B vaccine, adult dosage 3 2005 [id number] 43 Merck (MSD) complet ed hepatitis B vaccine, adult dosage DoD hepatitis B vaccine, adult dosage 2 2005 [id number] 43 Merck (MSD) complet ed hepatitis B vaccine, adult dosage DoD influenza virus vaccine, split virus (incl. purified surface antigen)-reti red CODE 1 2004 [id number] 15 Sanofi Pasteur ([facility]) complet ed influenza virus vaccine, split virus (incl. purified surface antigen)- retired CODE DoD influenza virus vaccine, whole virus 1 2004 Unknown, Provider [id number] 16 Sanofi Pasteur ([facility]) complet ed influenza virus vaccine, whole virus DoD anthrax vaccine 4 2004 [id number] [facility] ([facility]) complet ed anthrax vaccine DoD hepatitis B vaccine, adult dosage 1 2004 [id number] 43 Merck (MSD) complet ed hepatitis B vaccine, adult dosage DoD tuberculin skin test; purified protein derivative solution, intradermal 1 2004 Unknown, Provider [id number] Other (OT) complet ed tuberculi n skin test; purified protein derivativ e solution, intraderm al DoD influenza virus vaccine, whole virus 0 2003 [id number] 16 Sanofi Pasteur ([facility]) complet ed influenza virus vaccine, whole virus DoD anthrax vaccine 3 2003 [id number] [facility] ([facility]) complet ed anthrax vaccine DoD anthrax vaccine 2 2003 [id number] [facility] ([facility]) complet ed anthrax vaccine DoD tetanus and diphtheria toxoids, adsorbed, preservative free, for adult use (2 Lf of tetanus toxoid and 2 Lf of diphtheria toxoid) 0 2003 [id number] Sanofi Pasteur ([facility]) complet ed tetanus and diphtheri a toxoids, adsorbed, preservat misty free, for adult use (2 Lf of tetanus toxoid and 2 Lf of diphtheri a toxoid) DoD anthrax vaccine 1 2003 [id number] 24 [facility] ([facility]) complet ed anthrax vaccine DoD typhoid vaccine, parenteral, other than acetone-kille d, dried 0 2003 [id number] 41 Sanofi Pasteur ([facility]) complet ed typhoid vaccine, parentera l, other than acetone-k illed, dried DoD vaccinia (smallpox) vaccine 0 2003 [id number] 75 Paul-Ellen ([facility]) complet ed vaccinia (smallpox ) vaccine DoD influenza virus vaccine, whole virus 0 2002 [id number] 16 Sanofi Pasteur ([facility]) complet ed influenza virus vaccine, whole virus DoD influenza virus vaccine, whole virus 0 2001 [id number] 16 Sanofi Pasteur ([facility]) complet ed influenza virus vaccine, whole virus [facility] tuberculin skin test; purified protein derivative solution, intradermal 1 2001 Unknown, Provider [id number] Sanofi Pasteur ([facility]) complet ed tuberculi n skin test; purified protein derivativ e solution, intraderm al DoD typhoid Vi capsular polysaccharid e vaccine 0 2001 [id number] 101 [facility] ([facility]) complet ed typhoid Vi capsular polysacch aride vaccine DoD influenza virus vaccine, whole virus 0 2000 [id number] 16 [facility] ([facility]) complet ed influenza virus vaccine, whole virus DoD tuberculin skin test; purified protein derivative solution, intradermal 1 2000 Unknown, Provider [id number] [facility] ([facility]) complet ed tuberculi n skin test; purified protein derivativ e solution, intraderm al DoD influenza virus vaccine, whole virus 0 1999 [id number] 16 [employer] ([facility]) complet ed influenza virus vaccine, whole virus DoD meningococcal polysaccharid e vaccine (MPSV4) 0 1999 32 () complet ed meningoco ccal polysacch aride vaccine (MPSV4) DoD typhoid vaccine, parenteral, other than acetone-kille d, dried 0 1999 [id number] 41 [facility] complet ed typhoid vaccine, parentera l, other than acetone-k illed, dried DoD tuberculin skin test; purified protein derivative solution, intradermal 1 1999 Unknown, Provider 96 () complet ed tuberculi n skin test; purified protein derivativ e solution, intraderm al DoD influenza virus vaccine, whole virus 0 [id number] 16 Joset (CON) complet ed influenza virus vaccine, whole virus DoD influenza virus vaccine, whole virus 0 [id number] 16 [employer] ([facility]) complet ed influenza virus vaccine, whole virus DoD hepatitis A vaccine, adult dosage 2 1997 [id number] Merck (MSD) complet ed hepatitis A vaccine, adult dosage DoD influenza virus vaccine, whole virus 0 [id number] 16 [place] (Inactive) ([place]) complet ed influenza virus vaccine, whole virus DoD hepatitis A vaccine, adult dosage 1 [id number] [employer] (Inactive) ([place]) complet ed hepatitis A vaccine, adult dosage DoD influenza virus vaccine, whole virus 0 1994 16 () complet ed influenza virus vaccine, whole virus DoD typhoid vaccine, live, oral 0 1993 25 () complet ed typhoid vaccine, live, oral DoD yellow fever vaccine 0 1993 37 () complet ed yellow fever vaccine DoD typhoid vaccine, parenteral, other than acetone-kille d, dried 0 1993 41 () complet ed typhoid vaccine, parentera l, other than acetone-k illed, dried DoD trivalent poliovirus vaccine, live, oral 0 1993 02 () complet ed trivalent polioviru s vaccine, live, oral DoD measles, mumps and rubella virus vaccine 0 1993 03 () complet ed measles, mumps and rubella virus vaccine DoD tetanus and diphtheria toxoids, adsorbed, preservative free, for adult use (2 Lf of tetanus toxoid and 2 Lf of diphtheria toxoid) 0 1993 09 () complet ed tetanus and diphtheri a toxoids, adsorbed, preservat misty free, for adult use (2 Lf of tetanus toxoid and 2 Lf of diphtheri a toxoid) DoD meningococcal polysaccharid e vaccine (MPSV4) 0 1993 32 () complet ed meningoco ccal polysacch aride vaccine (MPSV4) DoD Results Combined list of recent chemistry, hematology and other laboratory results from Department of Defense and Veterans Affairs, ranging from 15 months to all on record, depending upon the facility. Order Name Results Value Reference Range Date Interpretation Specimen Comments Source POTASSIU M POTASSIUM [MOLES/VOL UME] IN SERUM OR PLASMA 3.6 3.5 - 5.1 07/27 Specimen Type: PLASMA No comment entered. Ordering Provider: ADY ALEGRE Report Released Date/Time: Jul 07, 2021 04:26 PM Reporting Lab: [facility] [address] Performing Lab: [facility] [address] [place] [facility] CREATINI NE(INCLU JAMES EGFR) CREATININE [MASS/VOLU ME] IN SERUM OR PLASMA 0.5 0.7 - 1.2 07/27 L Specimen Type: PLASMA No comment entered. Ordering Provider: ADY ALEGRE Report Released Date/Time: Jul 07, 2021 04:26 PM Reporting Lab: [facility] [address] Performing Lab: [facility] [address] [place] [facility] CREATINI NE(INCLU JAMES EGFR) GLOMERULAR FILTRATION RATE/1.73 SQ M.PREDICTE D [VOLUME RATE/AREA] IN SERUM, PLASMA OR BLOOD BY CREATININE -BASED FORMULA (CKD-EPI 2020) >90 07/27 Specimen Type: PLASMA No comment entered. Ordering Provider: ADY ALEGRE Report Released Date/Time: Jul 07, 2021 04:26 PM Reporting Lab: [facility] [address] Performing Lab: [facility] [address] [place] [facility] SODIUM SODIUM [MOLES/VOL UME] IN SERUM OR PLASMA 140 136 - 145 07/27 Specimen Type: PLASMA No comment entered. Ordering Provider: ADY ALEGRE Report Released Date/Time: Jul 07, 2021 04:26 PM Reporting Lab: [facility] [address] Performing Lab: [facility] [address] [place] [facility] HEMOGLOB IN A1C HEMOGLOBIN A1C/HEMOGL OBIN.TOTAL IN BLOOD 5.2 4.0 - 6.0 07/27 Specimen Type: BLOOD Comment: Values obtained from A1C measurement s can vary. For typical A1C assays, a reported value of 7.0 could actually be between 6.7 and 7.3 if measured by a reference method. A reported value of 9.0 could actually be between 8.7 and 9.3. Ref: http://www. ngsp.org/[place] Pdata.asp Ordering Provider: ADY ALEGRE Report Released Date/Time: Jul 07, 2021 04:26 PM Reporting Lab: [facility] [address] Performing Lab: [facility] [address] [place] [facility] CBC LEUKOCYTES [#/VOLUME] IN BLOOD BY AUTOMATED COUNT 7.34 4.0 - 11.0 07/27 Specimen Type: BLOOD No comment entered. Ordering Provider: ADY ALEGRE Report Released Date/Time: Jul 07, 2021 04:26 PM Reporting Lab: [facility] [address] Performing Lab: [facility] [address] [place] [facility] CBC ERYTHROCYT ES [#/VOLUME] IN BLOOD BY AUTOMATED COUNT 5.11 4.6 - 6.2 07/27 Specimen Type: BLOOD No comment entered. Ordering Provider: ADY ALEGRE Report Released Date/Time: Jul 07, 2021 04:26 PM Reporting Lab: [facility] [address] Performing Lab: [facility] [address] [place] [facility] CBC HEMOGLOBIN [MASS/VOLU ME] IN BLOOD 14.7 13.5 - 17.9 07/27 Specimen Type: BLOOD No comment entered. Ordering Provider: ADY ALEGRE Report Released Date/Time: Jul 07, 2021 04:26 PM Reporting Lab: [facility] [address] Performing Lab: [facility] [address] [place] [facility] CBC HEMATOCRIT [VOLUME FRACTION] OF BLOOD BY AUTOMATED COUNT 42.9 41 - 54 07/27 Specimen Type: BLOOD No comment entered. Ordering Provider: ADY ALEGRE Report Released Date/Time: Jul 07, 2021 04:26 PM Reporting Lab: [facility] [address] Performing Lab: [facility] [address] [place] [facility] CBC MCV [ENTITIC VOLUME] BY AUTOMATED COUNT 84.0 80 - 100 07/27 Specimen Type: BLOOD No comment entered. Ordering Provider: ADY ALEGRE Report Released Date/Time: Jul 07, 2021 04:26 PM Reporting Lab: [facility] [address] Performing Lab: [facility] [address] [place] [facility] CBC MCH [ENTITIC MASS] BY AUTOMATED COUNT 28.8 27 - 33 07/27 Specimen Type: BLOOD No comment entered. Ordering Provider: ADY ALEGRE Report Released Date/Time: Jul 07, 2021 04:26 PM Reporting Lab: [facility] [address] Performing Lab: [facility] [address] [place] [facility] CBC MCHC [MASS/VOLU ME] BY AUTOMATED COUNT 34.3 32.0 - 37.5 07/27 Specimen Type: BLOOD No comment entered. Ordering Provider: ADY ALEGRE Report Released Date/Time: Jul 07, 2021 04:26 PM Reporting Lab: [facility] [address] Performing Lab: [facility] [address] [place] [facility] CBC PLATELETS [#/VOLUME] IN BLOOD BY AUTOMATED COUNT 232 150 - 400 07/27 Specimen Type: BLOOD No comment entered. Ordering Provider: ADY ALEGRE Report Released Date/Time: Jul 07, 2021 04:26 PM Reporting Lab: [facility] [address] Performing Lab: [facility] [address] [place] [facility] CBC PLATELET MEAN VOLUME [ENTITIC VOLUME] IN BLOOD BY AUTOMATED COUNT 10.4 7.4 - 10.4 07/27 Specimen Type: BLOOD No comment entered. Ordering Provider: ADY ALEGRE Report Released Date/Time: Jul 07, 2021 04:26 PM Reporting Lab: [facility] [address] Performing Lab: [facility] [address] [place] [facility] CBC ERYTHROCYT E DISTRIBUTI ON WIDTH [RATIO] BY AUTOMATED COUNT 13.0 11.5 - 14.5 07/27 Specimen Type: BLOOD No comment entered. Ordering Provider: ADY ALEGRE Report Released Date/Time: Jul 07, 2021 04:26 PM Reporting Lab: [facility] [address] Performing Lab: [facility] [address] [place] [facility] LIPID PANEL,NO N-FASTIN G CHOLESTERO L [MASS/VOLU ME] IN SERUM OR PLASMA 161 07/27 Specimen Type: PLASMA No comment entered. Ordering Provider: ADY ALEGRE Report Released Date/Time: Jul 07, 2021 04:26 PM Reporting Lab: [facility] [address] Performing Lab: [facility] [address] [place] [facility] LIPID PANEL,NO N-FASTIN G CHOLESTERO L IN HDL [MASS/VOLU ME] IN SERUM OR PLASMA 42 07/27 Specimen Type: PLASMA No comment entered. Ordering Provider: ADY ALEGRE Report Released Date/Time: Jul 07, 2021 04:26 PM Reporting Lab: [place] [address] Performing Lab: [place] [address] [place] [facility] LIPID PANEL,NO N-FASTIN G CHOLESTERO L IN LDL [MASS/VOLU ME] IN SERUM OR PLASMA BY CALCULATIO N 100 07/27 H Specimen Type: PLASMA No comment entered. Ordering Provider: ADY ALEGRE Report Released Date/Time: Jul 07, 2021 04:26 PM Reporting Lab: [place] [address] Performing Lab: [place] [address] [place] [facility] LIPID PANEL,NO N-FASTIN G CHOLESTERO L IN VLDL [MASS/VOLU ME] IN SERUM OR PLASMA BY CALCULATIO N 19 07/27 Specimen Type: PLASMA No comment entered. Ordering Provider: ADY ALEGRE Report Released Date/Time: Jul 07, 2021 04:26 PM Reporting Lab: [facility] [address] Performing Lab: [facility] [address] [place] [facility] LIPID PANEL,NO N-FASTIN G CHOLESTERO L NON HDL [MASS/VOLU ME] IN SERUM OR PLASMA 119 07/27 Specimen Type: PLASMA No comment entered. Ordering Provider: ADY ALEGRE Report Released Date/Time: Jul 07, 2021 04:26 PM Reporting Lab: [facility] [address] Performing Lab: [facility] [address] [place] [facility] LIPID PANEL,NO N-FASTIN G TRIGLYCERI DE [MASS/VOLU ME] IN SERUM OR PLASMA 96 07/27 Specimen Type: PLASMA No comment entered. Ordering Provider: ADY ALEGRE Report Released Date/Time: Jul 07, 2021 04:26 PM Reporting Lab: [facility] [address] Performing Lab: [facility] [address] [place] [facility] EXTRA BLUE TUBE EXTRA BLUE TUBE RECEIVED 04/01 Specimen Type: PLASMA No comment entered. Ordering Provider: VIRGINIA CROCKETT Report Released Date/Time: Apr 01, 2022 06:36 PM Reporting Lab: [facility] [address] Performing Lab: [facility] [address] [place] [facility] COMPREHE NSIVE METABOLI C PANEL+MG CREATININE [MASS/VOLU ME] IN SERUM OR PLASMA 0.6 0.7 - 1.2 04/01 L Specimen Type: PLASMA No comment entered. Ordering Provider: VIRGINIA CROCKETT Report Released Date/Time: Apr 01, 2022 06:06 PM Reporting Lab: [facility] [address] Performing Lab: [facility] [address] [place] [facility] COMPREHE NSIVE METABOLI C PANEL+MG UREA NITROGEN [MASS/VOLU ME] IN SERUM OR PLASMA 13 8 - 26 04/01 Specimen Type: PLASMA No comment entered. Ordering Provider: VIRGINIA CROCKETT Report Released Date/Time: Apr 01, 2022 06:06 PM Reporting Lab: [facility] [address] Performing Lab: [facility] [address] [place] [facility] COMPREHE NSIVE METABOLI C PANEL+MG GLUCOSE [MASS/VOLU ME] IN SERUM OR PLASMA 102 70 - 100 04/01 H Specimen Type: PLASMA No comment entered. Ordering Provider: VIRGINIA CROCKETT Report Released Date/Time: Apr 01, 2022 06:06 PM Reporting Lab: [facility] [address] Performing Lab: [facility] [address] [place] [facility] COMPREHE NSIVE METABOLI C PANEL+MG SODIUM [MOLES/VOL UME] IN SERUM OR PLASMA 141 136 - 145 04/01 Specimen Type: PLASMA No comment entered. Ordering Provider: VIRGINIA CROCKETT Report Released Date/Time: Apr 01, 2022 06:06 PM Reporting Lab: [facility] [address] Performing Lab: [facility] [address] [place] [facility] COMPREHE NSIVE METABOLI C PANEL+MG POTASSIUM [MOLES/VOL UME] IN SERUM OR PLASMA 3.1 3.5 - 5.1 04/01 L Specimen Type: PLASMA No comment entered. Ordering Provider: VIRGINIA CROCKETT Report Released Date/Time: Apr 01, 2022 06:06 PM Reporting Lab: [facility] [address] Performing Lab: [facility] [address] [place] [facility] COMPREHE NSIVE METABOLI C PANEL+MG CHLORIDE [MOLES/VOL UME] IN SERUM OR PLASMA 102 98 - 107 04/01 Specimen Type: PLASMA No comment entered. Ordering Provider: VIRGINIA CROCKETT Report Released Date/Time: Apr 01, 2022 06:06 PM Reporting Lab: [facility] [address] Performing Lab: [facility] [address] [place] [facility] COMPREHE NSIVE METABOLI C PANEL+MG CARBON DIOXIDE, TOTAL [MOLES/VOL UME] IN SERUM OR PLASMA 30 22 - 29 04/01 H Specimen Type: PLASMA No comment entered. Ordering Provider: VIRGINIA CROCKETT Report Released Date/Time: Apr 01, 2022 06:06 PM Reporting Lab: [facility] [address] Performing Lab: [facility] [address] [place] [facility] COMPREHE NSIVE METABOLI C PANEL+MG CALCIUM [MASS/VOLU ME] IN SERUM OR PLASMA 9.2 8.4 - 10.2 04/01 Specimen Type: PLASMA No comment entered. Ordering Provider: VIRGINIA CROCKETT Report Released Date/Time: Apr 01, 2022 06:06 PM Reporting Lab: [facility] [address] Performing Lab: [facility] [address] [place] [facility] COMPREHE NSIVE METABOLI C PANEL+MG PROTEIN [MASS/VOLU ME] IN SERUM OR PLASMA 7.1 6.0 - 8.3 04/01 Specimen Type: PLASMA No comment entered. Ordering Provider: VIRGINIA CROCKETT Report Released Date/Time: Apr 01, 2022 06:06 PM Reporting Lab: [address] Performing Lab: [place] [address] [facility] IS [facility] COMPREHE NSIVE METABOLI C PANEL+MG ALBUMIN [MASS/VOLU ME] IN SERUM OR PLASMA 4.3 3.5 - 5.2 04/01 Specimen Type: PLASMA No comment entered. Ordering Provider: VIRGINIA CROCKETT Report Released Date/Time: Apr 01, 2022 06:06 PM Reporting Lab: [place] [address] Performing Lab: [place] [address] [facility] IS [facility] COMPREHE NSIVE METABOLI C PANEL+MG BILIRUBIN. TOTAL [MASS/VOLU ME] IN SERUM OR PLASMA 1.6 0.2 - 1.2 04/01 H Specimen Type: PLASMA No comment entered. Ordering Provider: VIRGINIA CROCKETT Report Released Date/Time: Apr 01, 2022 06:06 PM Reporting Lab: [place] [address] Performing Lab: [place] [address] [facility] IS [facility] COMPREHE NSIVE METABOLI C PANEL+MG MAGNESIUM [MASS/VOLU ME] IN SERUM OR PLASMA 1.8 1.6 - 2.6 04/01 Specimen Type: PLASMA No comment entered. Ordering Provider: VIRGINIA CROCKETT Report Released Date/Time: Apr 01, 2022 06:06 PM Reporting Lab: [facility] [address] Performing Lab: [place] [address] [facility] COMPREHE NSIVE METABOLI C PANEL+MG ANION GAP IN SERUM OR PLASMA 9 5 - 15 04/01 Specimen Type: PLASMA No comment entered. Ordering Provider: VIRGINIA CROCKETT Report Released Date/Time: Apr 01, 2022 06:06 PM Reporting Lab: [facility] [address] Performing Lab: [facility] [address] [place] [facility] COMPREHE NSIVE METABOLI C PANEL+MG ALKALINE PHOSPHATAS E [ENZYMATIC ACTIVITY/V OLUME] IN SERUM OR PLASMA 60 40 - 150 04/01 Specimen Type: PLASMA No comment entered. Ordering Provider: VIRGINIA CROCKETT Report Released Date/Time: Apr 01, 2022 06:06 PM Reporting Lab: [facility] [address] Performing Lab: [facility] [address] [place] [facility] COMPREHE NSIVE METABOLI C PANEL+MG ALANINE AMINOTRANS FERASE [ENZYMATIC ACTIVITY/V OLUME] IN SERUM OR PLASMA 40 <55 - 55 04/01 Specimen Type: PLASMA No comment entered. Ordering Provider: VIRGINIA CROCKETT Report Released Date/Time: Apr 01, 2022 06:06 PM Reporting Lab: [facility] [address] Performing Lab: [facility] [address] [place] [facility] COMPREHE NSIVE METABOLI C PANEL+MG ASPARTATE AMINOTRANS FERASE [ENZYMATIC ACTIVITY/V OLUME] IN SERUM OR PLASMA 24 <34 - 34 04/01 Specimen Type: PLASMA No comment entered. Ordering Provider: VIRGINIA CROCKETT Report Released Date/Time: Apr 01, 2022 06:06 PM Reporting Lab: [facility] [address] Performing Lab: [facility] [address] [place] [facility] COMPREHE NSIVE METABOLI C PANEL+MG GLOMERULAR FILTRATION RATE/1.73 SQ M.PREDICTE D [VOLUME RATE/AREA] IN SERUM, PLASMA OR BLOOD BY CREATININE -BASED FORMULA (CKD-EPI) >90 60 04/01 Specimen Type: PLASMA No comment entered. Ordering Provider: VIRGINIA CROCKETT Report Released Date/Time: Apr 01, 2022 06:06 PM Reporting Lab: [facility] [address] Performing Lab: [facility] [address] [place] [facility] COMPREHE NSIVE METABOLI C PANEL+MG BILIRUBIN. DIRECT [MASS/VOLU ME] IN SERUM OR PLASMA 0.5 <0.5 - 0.5 04/01 Specimen Type: PLASMA No comment entered. Ordering Provider: VIRGINIA CROCKETT Report Released Date/Time: Apr 01, 2022 06:06 PM Reporting Lab: [facility] [address] Performing Lab: [facility] [address] [facility] & DIFF LEUKOCYTES [#/VOLUME] IN BLOOD BY AUTOMATED COUNT 8.91 4.0 - 11.0 04/01 Specimen Type: BLOOD Comment: Automated Differentia l Performed Ordering Provider: VIRGINIA CROCKETT Report Released Date/Time: Apr 01, 2022 06:06 PM Reporting Lab: [facility] [address] Performing Lab: [facility] [address] [facility] CBC & DIFF ERYTHROCYT ES [#/VOLUME] IN BLOOD BY AUTOMATED COUNT 5.39 4.6 - 6.2 04/01 Specimen Type: BLOOD Comment: Automated Differentia l Performed Ordering Provider: VIRGINIA CROCKETT Report Released Date/Time: Apr 01, 2022 06:06 PM Reporting Lab: [facility] [address] Performing Lab: [facility] [address] [facility] CBC & DIFF HEMOGLOBIN [MASS/VOLU ME] IN BLOOD 15.5 13.5 - 17.9 04/01 Specimen Type: BLOOD Comment: Automated Differentia l Performed Ordering Provider: VIRGINIA CROCKETT Report Released Date/Time: Apr 01, 2022 06:06 PM Reporting Lab: [facility] [address] Performing Lab: [facility] [address] [facility] CBC & DIFF HEMATOCRIT [VOLUME FRACTION] OF BLOOD BY AUTOMATED COUNT 45.9 41 - 54 04/01 Specimen Type: BLOOD Comment: Automated Differentia l Performed Ordering Provider: VIRGINIA CROCKETT Report Released Date/Time: Apr 01, 2022 06:06 PM Reporting Lab: [facility] [address] Performing Lab: [facility] [address] [place] [facility] CBC & DIFF MCV [ENTITIC VOLUME] BY AUTOMATED COUNT 85.2 80 - 100 04/01 Specimen Type: BLOOD Comment: Automated Differentia l Performed Ordering Provider: VIRGINIA CROCKETT Report Released Date/Time: Apr 01, 2022 06:06 PM Reporting Lab: [facility] [address] Performing Lab: [facility] [address] [place] [facility] CBC & DIFF MCH [ENTITIC MASS] BY AUTOMATED COUNT 28.8 27 - 33 04/01 Specimen Type: BLOOD Comment: Automated Differentia l Performed Ordering Provider: VIRGINIA CROCKETT Report Released Date/Time: Apr 01, 2022 06:06 PM Reporting Lab: [facility] [address] Performing Lab: [facility] [address] [place] [facility] CBC & DIFF MCHC [MASS/VOLU ME] BY AUTOMATED COUNT 33.8 32.0 - 37.5 04/01 Specimen Type: BLOOD Comment: Automated Differentia l Performed Ordering Provider: VIRGINIA CROCKETT Report Released Date/Time: Apr 01, 2022 06:06 PM Reporting Lab: [facility] [address] Performing Lab: [facility] [address] [place] [facility] CBC & DIFF PLATELETS [#/VOLUME] IN BLOOD BY AUTOMATED COUNT 235 150 - 400 04/01 Specimen Type: BLOOD Comment: Automated Differentia l Performed Ordering Provider: VIRGINIA CROCKETT Report Released Date/Time: Apr 01, 2022 06:06 PM Reporting Lab: [facility] [address] Performing Lab: [facility] [address] [place] [facility] CBC & DIFF PLATELET MEAN VOLUME [ENTITIC VOLUME] IN BLOOD BY AUTOMATED COUNT 10.4 7.4 - 10.4 04/01 Specimen Type: BLOOD Comment: Automated Differentia l Performed Ordering Provider: VIRGINIA CROCKETT Report Released Date/Time: Apr 01, 2022 06:06 PM Reporting Lab: [facility] [address] Performing Lab: [facility] [address] [place] [facility] CBC & DIFF NEUTROPHIL S/100 LEUKOCYTES IN BLOOD BY MANUAL COUNT 84.9 04/01 Specimen Type: BLOOD Comment: Automated Differentia l Performed Ordering Provider: VIRGINIA CROCKETT Report Released Date/Time: Apr 01, 2022 06:06 PM Reporting Lab: [facility] [address] Performing Lab: [facility] [address] [place] [facility] CBC & DIFF LYMPHOCYTE S/100 LEUKOCYTES IN BLOOD BY MANUAL COUNT 8.0 04/01 Specimen Type: BLOOD Comment: Automated Differentia l Performed Ordering Provider: VIRGINIA CROCKETT Report Released Date/Time: Apr 01, 2022 06:06 PM Reporting Lab: [facility] [address] Performing Lab: [facility] [address] [place] [facility] CBC & DIFF MONOCYTES/ 100 LEUKOCYTES IN BLOOD BY AUTOMATED COUNT 5.1 04/01 Specimen Type: BLOOD Comment: Automated Differentia l Performed Ordering Provider: VIRGINIA CROCKETT Report Released Date/Time: Apr 01, 2022 06:06 PM Reporting Lab: [facility] [address] Performing Lab: [facility] [address] [place] [facility] CBC & DIFF EOSINOPHIL S/100 LEUKOCYTES IN BLOOD BY AUTOMATED COUNT 1.1 04/01 Specimen Type: BLOOD Comment: Automated Differentia l Performed Ordering Provider: VIRGINIA CROCKETT Report Released Date/Time: Apr 01, 2022 06:06 PM Reporting Lab: [facility] [address] Performing Lab: [facility] [address] [place] [facility] CBC & DIFF BASOPHILS/ 100 LEUKOCYTES IN BLOOD BY MANUAL COUNT 0.3 04/01 Specimen Type: BLOOD Comment: Automated Differentia l Performed Ordering Provider: VIRGINIA CROCKETT Report Released Date/Time: Apr 01, 2022 06:06 PM Reporting Lab: [facility] [address] Performing Lab: [facility] [address] [place] [facility] CBC & DIFF ERYTHROCYT E DISTRIBUTI ON WIDTH [RATIO] BY AUTOMATED COUNT 13.3 11.5 - 14.5 04/01 Specimen Type: BLOOD Comment: Automated Differentia l Performed Ordering Provider: VIRGINIA CROCKETT Report Released Date/Time: Apr 01, 2022 06:06 PM Reporting Lab: [facility] [address] Performing Lab: [facility] [address] [facility] IS [facility] CBC & DIFF LYMPHOCYTE S [#/VOLUME] IN BLOOD BY AUTOMATED COUNT 0.71 1.0 - 4.0 04/01 L Specimen Type: BLOOD Comment: Automated Differentia l Performed Ordering Provider: VIRGINIA CROCKETT Report Released Date/Time: Apr 01, 2022 06:06 PM Reporting Lab: [facility] [address] Performing Lab: [facility] [address] [facility] IS [facility] CBC & DIFF MONOCYTES [#/VOLUME] IN BLOOD BY AUTOMATED COUNT 0.45 0.1 - 1.0 04/01 Specimen Type: BLOOD Comment: Automated Differentia l Performed Ordering Provider: VIRGINIA CROCKETT Report Released Date/Time: Apr 01, 2022 06:06 PM Reporting Lab: [facility] [address] Performing Lab: [facility] [address] [place] [facility] CBC & DIFF NEUTROPHIL S [#/VOLUME] IN BLOOD BY AUTOMATED COUNT 7.57 2.0 - 7.7 04/01 Specimen Type: BLOOD Comment: Automated Differentia l Performed Ordering Provider: VIRGINIA CROCKETT Report Released Date/Time: Apr 01, 2022 06:06 PM Reporting Lab: [facility] [address] Performing Lab: [facility] [address] [facility] CBC & DIFF EOSINOPHIL S [#/VOLUME] IN BLOOD BY AUTOMATED COUNT 0.10 0 - 0.5 04/01 Specimen Type: BLOOD Comment: Automated Differentia l Performed Ordering Provider: VIRGINIA CROCKETT Report Released Date/Time: Apr 01, 2022 06:06 PM Reporting Lab: [facility] [address] Performing Lab: [facility] [address] [facility] CBC & DIFF BASOPHILS [#/VOLUME] IN BLOOD BY AUTOMATED COUNT 0.03 0 - 0.2 04/01 Specimen Type: BLOOD Comment: Automated Differentia l Performed Ordering Provider: VIRGINIA CROCKETT Report Released Date/Time: Apr 01, 2022 06:06 PM Reporting Lab: [facility] [address] Performing Lab: [facility] [address] [facility] CBC & DIFF IG(META,MY ESTEFANY,PRO) 0.6 04/01 Specimen Type: BLOOD Comment: Automated Differentia l Performed Ordering Provider: VIRGINIA CROCKETT Report Released Date/Time: Apr 01, 2022 06:06 PM Reporting Lab: [facility] [address] Performing Lab: [facility] [id number] [place] [address] CBC & DIFF IMMATURE GRANULOCYT ES [PRESENCE] IN BLOOD BY AUTOMATED COUNT 0.05 0 - 0.1 04/01 Specimen Type: BLOOD Comment: Automated Differentia l Performed Ordering Provider: VIRGINIA CROCKETT Report Released Date/Time: Apr 01, 2022 06:06 PM Reporting Lab: [facility] [address] Performing Lab: [facility] [id number] [place] [address] EXTRA GOLD GEL TUBE EXTRA GOLD GEL TUBE RECEIVED 04/01 Specimen Type: SERUM No comment entered. Ordering Provider: VIRGINIA CROCKETT Report Released Date/Time: Apr 01, 2022 06:36 PM Reporting Lab: [facility] [address] Performing Lab: [facility] [id number] [facility] Vital Signs Combined list of inpatient and outpatient Vital Signs from Department of Defense and Veterans Affairs, ranging from 12 months to all on record, depending upon the facility. Vital Sign Value Date Comments Source SYSTOLIC BLOOD PRESSURE 162 07/27/2022 07:51:31 [facility] DIASTOLIC BLOOD PRESSURE 98 07/27/2022 07:51:31 [facility] PULSE OXIMETRY 96% 07/27/2022 07:51:31 M [place] [facility] WEIGHT 307 07/27/2022 07:51:31 [facility] [place] [facility] BMI 47kg/m2 07/27/2022 07:51:31 [facility] [place] [facility] PAIN 4 07/27/2022 07:51:31 [place] [facility] HEIGHT 68 07/27/2022 07:51:31 [facility] [place] [facility] TEMPERATURE 98.2 07/27/2022 07:51:31 [place] [facility] PULSE 60 07/27/2022 07:51:31 [facility] [place] [facility] RESPIRATION 18 07/27/2022 07:51:31 [place] [facility] SYSTOLIC BLOOD PRESSURE 162 04/01/2022 17:35:42 [facility] DIASTOLIC BLOOD PRESSURE 89 04/01/2022 17:35:42 [facility] PULSE OXIMETRY 93% 04/01/2022 17:35:42 [place] [facility] PAIN 6 04/01/2022 17:35:42 [facility] [place] [facility] TEMPERATURE 98 04/01/2022 17:35:42 [place] [facility] PULSE 86 04/01/2022 17:35:42 [facility] [place] [facility] RESPIRATION 17 04/01/2022 17:35:42 [place] [facility] Encounters Combined list of: 1) Encounters from Department of Veterans Affairs facilities going back up to thelast 18 months. 2) Encounters from the Department of Defense facilities going back up to 280 months. Location Location Details Encounter Type Encounter Number Reason For Visit Attending Provider ADM Date DC Date Status Disposition Source [facility](N [facility] Element B-1) OUTPATIENT [id number] exacerb ation of lbp/sci TRISTAN Lambert T 08/18 Released w/o Limitations [facility] [facility] Element B-1) [employer] [facility]N Optometry ) OUTPATIENT [id number] routine DEMARCO PYLE 08/22 Released w/o Limitations [facility] Optomet ry) JOSÉ EDWARDSOD-P YONG[facility]EK( [facility]) OUTPATIENT [id number] NEW SPEC RX TRISTAN MARTINEZ 10/11 Released w/o Limitations [facility] [place]IOLAG[place] -PYONGT AEK([facility]) [employer]([facility] Medicine [facility]) OUTPATIENT [id number] audiogr ROSA M Guajardo 01/19 Released w/o Limitations [employer]( light Medicin e Clinic) [employer]([facility] ) OUTPATIENT [id number] LUNG CONCERN S MANJIT GOLDSTEIN 03/20 Released w/o Limitations [employer]( [facility] [place] [employer]([facility] ) OUTPATIENT [id number] Cyst removal from head OMAR PEREZ 04/11 Released w/o Limitations [employer]( [facility] [place] [employer]([facility] ) OUTPATIENT [id number] CYST REMOVAL OMAR PEREZ 04/12 Released w/o Limitations [employer]( [facility] [place] [employer]([facility] ) TELE CONSULT [id number] Tissue results OMAR PEREZ 05/16 [employer]( [facility] [place]) [employer]([facility] rition [facility]) OUTPATIENT [id number] hlp EARL KUNZ 09/12 Released w/o Limitations [employer](N utritio n Clinic) [employer]([facility]) OUTPATIENT [id number] pha FLORI DIAMOND 09/18 Released w/o Limitations [employer]( [facility] [place]) [employer]([facility] Medicine [facility]) OUTPATIENT [id number] Audiogr am KVNG MILLER 09/18 Released w/o Limitations [employer](F light Medicin e Clinic) [employer](Opt ometry Clinic) OUTPATIENT [id number] ree w/ glasses NICOLAS HOLM 10/22 Released w/o Limitations [employer](O ptometr y Clinic) [employer]([facility]) OUTPATIENT [id number] Pre deploym ent OMAR LIGHT 12/19 Released w/o Limitations [employer]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) [employer]([facility]) OUTPATIENT [id number] Post Deploym ent CARMITA FISCHER 06/20 Released w/o Limitations [employer]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) [employer]([facility] ) OUTPATIENT [id number] Fertili ty check and phenter min OMAR PEREZ 06/23 Released w/o Limitations [employer]([facility] [place]) [employer]([facility] ) TELE CONSULT [id number] lab results ANNI TRIPLETT P 06/25 [employer]( [facility] [place]) [employer]([facility] ) OUTPATIENT [id number] F/U Athlete 's foot DEANDRADEMARCO 07/16 Released w/o Limitations [employer]([facility] [place]) [employer](Nut rition Clinic) OUTPATIENT [id number] swp 2 CONSUELO CHAN P 07/16 Released w/o Limitations [employer](N utritio n Clinic) [employer](Nut rition Clinic) OUTPATIENT [id number] swp 3,4 CONSUELO CHAN P 07/30 Released w/o Limitations [employer](N utritio n Clinic) [employer]([facility] ) TELE CONSULT [id number] appt ANNI TRIPLETT P 08/11 [employer]([facility] [place]) [employer]([facility] ) OUTPATIENT [id number] BILAT LOWER EXTREMI TIES W/ ABEL MABRY 08/20 Released w/o Limitations [employer]( [facility] [place]) [employer]([facility] ) OUTPATIENT [id number] Right elbow pain ABEL NEFF R 10/13 Released w/o Limitations [employer]( [facility] [place]) [employer] OUTPATIENT [id number] inital renetta CASTELLON MEET Phyllis 10/15 Released w/o Limitations [employer](P ain Clinic) [employer]([facility] ) TELE CONSULT [id number] request ing profile DENZEL MENDOZA 10/16 [employer]( [facility] [place]) [employer](Opt ometry Clinic) OUTPATIENT [id number] Annual exam/ne w glasses NICOLAS HOLM 10/17 Released w/o Limitations [employer](O ptometr y Clinic) [employer](Rii ght Medicine Clinic) OUTPATIENT [id number] [facility] ANGELA KVNG Brenda 11/04 Released w/o Limitations [employer]( light Medicin e Clinic) [employer]([facility] [place]) OUTPATIENT [id number] RYAN MCKINNON 11/12 Released w/o Limitations [employer]( [facility] [place]) [employer] OUTPATIENT [id number] back pain TRISTAN RUTLEDGE 11/19 Released w/o Limitations [employer](P ain Clinic) [employer]([facility] ) TELE CONSULT [id number] Profile extensi on, PT request ANNI TRIPLETT 11/20 [employer]( [facility] [place] [employer]([facility] ) OUTPATIENT [id number] PROFILE DEVIN LAW 11/26 Released w/o Limitations [employer](F [facility] [place]) [employer](Phy sical Therapy) OUTPATIENT [id number] SPINAL STENOSI S 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 UGALDE 12/09 Released w/o Limitations [employer](P hysical Therapy ) [employer]) OUTPATIENT [id number] marquis renteria TRISTAN RUTLEDGE 12/17 Released w/o Limitations [employer](P ain Clinic) [employer](Phy sical Therapy) OUTPATIENT [id number] KISHOR UGALDE 12/23 Released w/o Limitations [employer](P hysical Therapy ) [employer]([facility]) OUTPATIENT [id number] NAYELI REVIEW ERICK CAMARA 12/23 Released w/o Limitations [employer]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) [employer](Phy sical Therapy) OUTPATIENT [id number] KISHOR UGALDE 01/05 Released w/o Limitations [employer](P hysical Therapy ) [employer]([facility]) OUTPATIENT [id number] NAYELI REVIEW ALYSON GRIGGS 01/14 Released w/o Limitations [employer]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) [employer]([facility] ) TELE CONSULT [id number] pain clinic has closed - enter referra l [facility] ANNI TRIPLETT 01/22 [employer]([facility] [place]) [employer]([facility] ) OUTPATIENT [id number] SNORING CONCERN MEGAN HANLEY 02/11 Released w/o Limitations [employer](F [facility] [place]) [employer](Phy sical Therapy) OUTPATIENT [id number] WALESKA SOMMER 02/17 Released w/o Limitations [employer](P hysical Therapy ) [employer]([facility]) OUTPATIENT [id number] NAYELI REVIEW ALYSON GRIGGS 02/17 Released w/o Limitations [employer]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) [employer](Phy sical Therapy) OUTPATIENT [id number] TAMMIE CARTER 02/19 Released w/o Limitations [employer](P hysical Therapy ) [employer](Phy sical Therapy) OUTPATIENT [id number] TAMMIE CARTER 02/25 Released w/o Limitations [employer](P hysical Therapy ) [employer](Phy sical Therapy) OUTPATIENT [id number] TAMMIE CARTER 02/27 Released w/o Limitations [employer](P hysical Therapy ) [employer](Phy sical Therapy) OUTPATIENT [id number] TAMMIE CARTER 03/02 Released w/o Limitations [employer](P hysical Therapy ) [employer](Phy sical Therapy) OUTPATIENT [id number] TAMMIE CARTER 03/04 Released w/o Limitations [employer](P hysical Therapy ) [employer](Phy sical Therapy) OUTPATIENT [id number] TAMMIE CARTER 03/06 Released w/o Limitations [employer](P hysical Therapy ) [employer](Phy sical Therapy) OUTPATIENT [id number] TAMMIE CARTER 03/09 Released w/o Limitations [employer](P hysical Therapy ) [employer](Phy sical Therapy) OUTPATIENT [id number] TAMMIE CARTER 03/11 Released w/o Limitations [employer](P hysical Therapy ) [employer](Phy sical Therapy) OUTPATIENT [id number] TAMMIE CARTER 03/13 Released w/o Limitations [employer](P hysical Therapy ) [employer](Phy sical Therapy) OUTPATIENT [id number] TAMMIE CARTER 03/16 Released w/o Limitations [employer](P hysical Therapy ) [employer]([facility] [place] ) TELE CONSULT [id number] ANNI Maza 03/19 [employer]([facility] [place]) [employer](Phy sical Therapy) OUTPATIENT [id number] TAMMIE CARTER 03/20 Released w/o Limitations [employer](P hysical Therapy ) [employer](Phy sical Therapy) OUTPATIENT [id number] KISHOR UGALDE 03/24 Released w/o Limitations [employer](P hysical Therapy ) [employer](Phy sical Therapy) OUTPATIENT [id number] DEBORA QUINTANILLA 03/27 Released w/o Limitations [employer](P hysical Therapy ) [employer](Phy sical Therapy) OUTPATIENT [id number] FAMILIA NOE 03/30 Released w/o Limitations [employer](P hysical Therapy ) [employer](Chi ropractic Clinic) OUTPATIENT [id number] MANAV JACKSON 03/31 Released w/o Limitations [employer](C hiropra ctic Clinic) [employer](Phy sical Therapy) OUTPATIENT [id number] WALESKA SOMMER 04/01 Released w/o Limitations [employer](P hysical Therapy ) [employer](Chi ropractic Clinic) OUTPATIENT [id number] MANAV JACSKON 04/03 Released w/o Limitations [employer](C hiropra ctic Clinic) [employer](Phy sical Therapy) OUTPATIENT [id number] ALICE PEOPLES 04/03 Released w/o Limitations [employer](P hysical Therapy ) [employer](Phy sical Therapy) OUTPATIENT [id number] JACE PENN 04/06 Released w/o Limitations [employer](P hysical Therapy ) [employer](Chi ropractic Clinic) OUTPATIENT [id number] MANAV JACKSON 04/06 Released w/o Limitations [employer](C hiropra ctic Clinic) [employer](Phy sical Therapy) OUTPATIENT [id number] ALTON WALLACE 04/08 Released w/o Limitations [employer](P hysical Therapy ) [employer](Chi ropractic Clinic) OUTPATIENT [id number] MANAV JACKSON 04/08 Released w/o Limitations [employer](C hiropra ctic Clinic) [employer](Phy sical Therapy) OUTPATIENT [id number] ALTON WALLACE 04/10 Released w/o Limitations [employer](P hysical Therapy ) [employer](Phy sical Therapy) OUTPATIENT [id number] JACE PENN 04/13 Released w/o Limitations [employer](P hysical Therapy ) [employer](Chi ropractic Clinic) OUTPATIENT [id number] MANAV JACKSON 04/13 Released w/o Limitations [employer](C hiropra ctic Clinic) [employer](Phy sical Therapy) OUTPATIENT [id number] JACE PENN 04/15 Released w/o Limitations [employer](P hysical Therapy ) [employer](Chi ropractic Clinic) OUTPATIENT [id number] MANAV JACKSON 04/15 Released w/o Limitations [employer](C hiropra ctic Clinic) [employer](Phy sical Therapy) OUTPATIENT [id number] JACE PENN 04/17 Released w/o Limitations [employer](P hysical Therapy ) [employer](Phy sical Therapy) OUTPATIENT [id number] JACE PENN 04/20 Released w/o Limitations [employer](P hysical Therapy ) [employer](Chi ropractic Clinic) OUTPATIENT [id number] MANAV JACKSON 04/20 Released w/o Limitations [employer](C hiropra ctic Clinic) [employer](Phy sical Therapy) OUTPATIENT [id number] JACE PENN 04/22 Released w/o Limitations [employer](P hysical Therapy ) [employer](Chi ropractic Clinic) OUTPATIENT [id number] MANAV JACKSON 04/22 Released w/o Limitations [employer](C hiropra ctic Clinic) [employer](Nut rition Clinic) OUTPATIENT [id number] BCIP 1 TATYANA GRAHAM 04/23 Released w/o Limitations [employer](N utritio n Clinic) [employer](Phy sical Therapy) OUTPATIENT [id number] JACE PENN 04/24 Released w/o Limitations [employer](P hysical Therapy ) [employer](Chi ropractic Clinic) OUTPATIENT [id number] MANAV JACKSON 04/24 Released w/o Limitations [employer](C hiropra ctic Clinic) [employer](Nut rition Clinic) OUTPATIENT [id number] [facility] LUNAMARKTATYANA 04/27 Released w/o Limitations [employer](N utritio n Clinic) [employer](Chi ropractic Clinic) OUTPATIENT [id number] MANAV JACKSON 04/27 Released w/o Limitations [employer](C hiropra ctic Clinic) [employer](Phy sical Therapy) OUTPATIENT [id number] ALICE PEOPLES 04/27 Released w/o Limitations [employer](P hysical Therapy ) [employer]([facility]) OUTPATIENT [id number] SLEEP APNEA OBSTRUC TIVE BYRON ASHLEY 04/27 Released w/o Limitations [employer](O torhino laryngo logy Clinic) [employer](Phy sical Therapy) OUTPATIENT [id number] JACE PENN 04/29 Released w/o Limitations [employer](P hysical Therapy ) [employer](Chi ropractic Clinic) OUTPATIENT [id number] MANAV JACKSON 04/29 Released w/o Limitations [employer](C hiropra ctic Clinic) [employer](Phy sical Therapy) OUTPATIENT [id number] JACE PENN 05/01 Released w/o Limitations [employer](P hysical Therapy ) [employer](Chi ropractic Clinic) OUTPATIENT [id number] MANAV JACKSON 05/01 Released w/o Limitations [employer](C hiropra ctic Clinic) [employer](Chi ropractic Clinic) OUTPATIENT [id number] MANAV JACKSON 05/06 Released w/o Limitations [employer](C hiropra ctic Clinic) [employer](Phy sical Therapy) OUTPATIENT [id number] KISHOR UGALDE 05/12 Released w/o Limitations [employer](P hysical Therapy ) [employer](Chi ropractic Clinic) OUTPATIENT [id number] MANAV JACKSON 05/12 Released w/o Limitations [employer](C hiropra ctic Clinic) [employer](Pre Admit Clinic) OUTPATIENT [id number] preop dos 14Apr ENT DARIAN GOLDSTEIN 05/18 Released w/o Limitations [employer](P re Admit Clinic) [employer](Chi ropractic Clinic) OUTPATIENT [id number] MANAV JACKSON 05/18 Released w/o Limitations [employer](C hiropra ctic Clinic) [employer](Chi ropractic Clinic) OUTPATIENT [id number] MANAV JACKSON 05/25 Released w/o Limitations [employer](C hiropra ctic Clinic) [employer](Nut rition Clinic) OUTPATIENT [id number] bcip/cl [address] 05/28 Released w/o Limitations [employer](N utritio n Clinic) [employer](Chi ropractic Clinic) OUTPATIENT [id number] MANAV JACKSON 06/09 Released w/o Limitations [employer](C hiropra ctic Clinic) [employer]([facility]) OUTPATIENT [id number] 3 week post op BYRON ASHLEY 06/15 Released w/o Limitations [employer](O torhino laryngo logy Clinic) [employer](Nut rition Clinic) OUTPATIENT [id number] bcip f/up TATYANA GRAHAM 06/17 Released w/o Limitations [employer](N utritio n Clinic) [employer](Chi ropractic Clinic) OUTPATIENT [id number] MANAV JACKSON 06/23 Released w/o Limitations [employer](C hiropra ctic Clinic) [employer](Chi ropractic Clinic) OUTPATIENT [id number] MANAV JACKSON Y 07/07 Released w/o Limitations [employer](C hiropra ctic Clinic) [employer](Chi ropractic Clinic) OUTPATIENT [id number] MANAV JACKSON Y 07/21 Released w/o Limitations [employer](C hiropra ctic Clinic) [employer](Nut rition Clinic) OUTPATIENT [id number] P [address] 07/27 Released w/o Limitations [employer](N utritio n Clinic) [employer]([facility]) OUTPATIENT [id number] LUDY MEZA 07/27 Released w/o Limitations [employer]([facility]) [employer](Nut rition Clinic) OUTPATIENT [id number] BCIP F/UP TATYANA GRAHAM W 08/03 Released w/o Limitations [employer](N utritio n Clinic) [employer]([facility] ) OUTPATIENT [id number] knee concern MEGAN HANLEY 08/03 Released w/o Limitations [employer]([facility]) [employer](Nut rition Clinic) OUTPATIENT [id number] bcip1 TATYANA GRAHAM W 08/20 Released w/o Limitations [employer](N utritio n Clinic) [employer](Chi ropractic Clinic) OUTPATIENT [id number] MANAV JACKSON Y 08/25 Released w/o Limitations [employer](C hiropra ctic Clinic) [employer](Nut rition Clinic) OUTPATIENT [id number] bcip2 NÉSTOR HART 08/27 Released w/o Limitations [employer](N utritio n Clinic) [employer]([facility] ) TELE CONSULT [id number] Sleep concern AMNAV DE LA GARZA 09/15 [employer]([facility] [place]) [employer]([facility] [place]) OUTPATIENT [id number] DESTINY ROSA 09/16 Released w/o Limitations [employer]([facility] [place]) [employer]([facility] ght Medicine Clinic) OUTPATIENT [id number] Audiogr am JOE MALLORY Micheal 09/17 Released w/o Limitations [employer](F light Medicin e Clinic) [employer]([facility] ) OUTPATIENT [id number] f/u sleep apnea/p cs to [place]/s /p up3 in May. ABEL NEFF 09/23 Released w/o Limitations [employer]([facility] [place] [employer]([facility] rition [facility]) OUTPATIENT [id number] BCIP F/UP CLASS ADAM [address] 09/23 Released w/o Limitations [employer](N utritio n Clinic) [employer](Chi ropractic Clinic) OUTPATIENT [id number] MANAV JACKSON 09/25 Released w/o Limitations [employer](C hiropra ctic Clinic) [employer](Sle ep [facility] [place]) OUTPATIENT [id number] Obstruc tive sleep apnea PATRICK MCDUFFIE LM 09/30 Released w/o Limitations [employer](S leep Disorde rs [place]) [employer](Chi ropractic Clinic) OUTPATIENT [id number] MANAV JACKSON 10/27 Released w/o Limitations [employer](C hiropra ctic Clinic) [employer]([facility]) OUTPATIENT [id number] sleep study results WALE LAMAS 10/27 Released w/o Limitations [employer](N eurolog y Clinic) [employer]([facility] ) OUTPATIENT [id number] overseKODY Lacy 10/27 Released w/o Limitations [employer]([facility] [place]) [employer]([facility] Health Managemen t) OUTPATIENT [id number] [place] LETI Crump L 11/06 Released w/o Limitations [employer]([facility] ent) [employer]([facility] ) TELE CONSULT [id number] F/U ER Possibl e broken ankle PRATIMA SPRING 11/10 [employer]([facility] [place]) [employer]([facility] ) TELE CONSULT [id number] Calling back PCM>ERf /uposs Broken Ankle PRATIMA SPRING 11/11 Referred for Appointment [employer]([facility] [place]) [employer]([facility] ) TELE CONSULT [id number] Req MRI Results (Ankle Concern ) ABEL NEFF R 11/17 [employer]([facility] [place]) [employer](Pod iatry) OUTPATIENT [id number] ankle pain JEANETTE TIMMONS 12/25 Released w/o Limitations [employer](P odiatry ) [employer]([facility] ) TELE CONSULT [id number] Lab orders (Req BRITTNI) PRATIMA SPRING Phyllis 12/25 Referred for Appointment [employer] [employer]([facility]) OUTPATIENT [id number] congest ABEL Antonio 01/19 Released w/o Limitations [employer]([facility]) [employer]([facility]) TELE CONSULT [id number] ACUT (Ear infecti on --Persi sts) Leaves this Wednesd ay LEANDRA MESA 02/01 [employer]([facility]) [employer]([facility]) OUTPATIENT [id number] persist ant bilater al ear pain PAULA REYES 02/02 Released w/o Limitations [employer]([facility]) [employer](War rior Operation al Med A-AD) OUTPATIENT [id number] right ankle pain DIAMOND HENDRIX 03/25 Released w/o Limitations [employer](W arrior Operati onal Med A-AD) [employer]([facility] Operation al Med [facility]) OUTPATIENT [id number] Back pain while running SYDNI FLORES 05/18 Released w/o Limitations [employer](W arrior Operati onal Med A-AD) [employer]([facility] rior Operation al Med [facility]) OUTPATIENT [id number] Back prob. f/u. SYDNI FLORES 06/13 Released w/o Limitations [employer](W arrior Operati onal Med A-AD) [employer]([facility]) OUTPATIENT [id number] eye exam FAMILIA SEE 06/14 Released w/o Limitations [employer]([facility]) [employer](War rior Operation al Med A-AD) OUTPATIENT [id number] earache intermi ttently for days SYDNI FLORES 06/23 Released w/o Limitations [employer](W arrior Operati onal Med A-AD) [employer]([facility] Nutrition al [facility]) OUTPATIENT [id number] MC BALDERRAMA 06/24 Released w/o Limitations [employer](O AB Nutriti onal Medicin e) [facility] [place]( [facility]) OUTPATIENT [id number] faxed referra l from BERTA Uribe V 07/12 Released w/o Limitations [facility]) [employer](War rior Operation al Med A-AD) OUTPATIENT [id number] F/U Back SYDNI FLORES 07/20 Released w/o Limitations [employer](W arrior Operati onal Med A-AD) [employer]([facility]) OUTPATIENT [id number] [facility] KAREEN RAFFIPALLAVI ROSE 10/03 Released w/o Limitations [employer]([facility]) [employer]([facility]) OUTPATIENT [id number] muscle weaknes s JUAN WOODSON 10/03 Released w/o Limitations [employer]([facility] Physica l Therapy ) [employer]([facility]) OUTPATIENT [id number] LISA RAND 10/14 Released w/o Limitations [employer]([facility] AB Physica l Therapy ) [employer]([facility]) OUTPATIENT [id number] RUPAL ROMERO LP 10/15 Released w/o Limitations [employer]([facility] AB Physica l Therapy ) [employer]([facility]) OUTPATIENT [id number] RUPAL ROMERO LP 10/18 Released w/o Limitations [employer]([facility] AB Physica l Therapy ) [employer]([facility]) OUTPATIENT [id number] LISA RAND 10/21 Released w/o Limitations [employer](O AB Physica l Therapy ) [employer]([facility]) OUTPATIENT [id number] RUPAL ROMERO LP 10/26 Released w/o Limitations [employer](O [facility] l [facility] ) [employer]([facility]) OUTPATIENT [id number] RUPAL ROMERO LP 10/28 Released w/o Limitations [employer]([facility] ) [employer]([facility]) OUTPATIENT [id number] JUAN WOODSON 10/29 Released w/o Limitations [employer]([facility] ) [employer](War rior Operation al Med A-AD) OUTPATIENT [id number] Weaknes s in right leg GINGER ORTEGA 11/16 Released w/o Limitations [employer](W arrior Operati onal Med A-AD) [employer] [facility] [employer] al [facility] A-[facility]) OUTPATIENT [id number] f/u last visit JAZIEL BIRD 12/26 Released w/o Limitations [employer](W arrior Operati onal Med A-AD) [employer](For ce Health Managemen t) OUTPATIENT [id number] AWOC CLAUDY MALLORY 03/15 Released w/o Limitations [employer]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) [employer](For Health Managemen t) OUTPATIENT [id number] AWOC CLAUDY MALLORY 03/30 Released w/o Limitations [employer]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) [employer]([facility]) TELE CONSULT [id number] INPR MEGAN MARROQUIN 04/01 Referred for Appointment [employer]([facility] [place] ) [employer]([facility]) OUTPATIENT [id number] Back concern (seen at another [facility]) MANAV CRAFT 04/05 Released w/o Limitations [employer]([facility] [employer] ) [employer]([facility]) TELE CONSULT [id number] REF DEVIN MAR 04/14 Referred for Appointment [employer]([facility] [place] ) [employer]([facility]) TELE CONSULT [id number] REF MANAV CRAFT 04/[employer]([facility] [place] ) [employer]([facility]) OUTPATIENT [id number] F/U Back concern CORBETTGALINA NARVAEZ Itzel 06/13 Released w/o Limitations [employer]([facility] [employer] ) [employer]([facility]) TELE CONSULT [id number] Profile DARIAN WEINSTEIN 06/[employer]([facility] [place] ) [employer]([facility]) TELE CONSULT [id number] rad results DARIAN WEINSTEIN 07/07 [employer]([facility] [employer] ) [employer]([facility]) OUTPATIENT [id number] Testicl e Cocnern DARIAN WEINSTEIN 08/16 Released w/o Limitations [employer]([facility] [employer] ) [employer]([facility]) OUTPATIENT [id number] Routine Eye Exam ( spec) CHANTELL MAHAN 08/16 Released w/o Limitations [employer](O ptometr y Clinic) [employer]([facility]) TELE CONSULT [id number] rad results WEINSTEIN, DARIAN A 08/26 [employer]([facility] [place] ) [employer]([facility]) OUTPATIENT [id number] back concern DARIAN WEINSTEIN 11/01 Released w/o Limitations [employer]([facility] [place] ) [employer]([facility]) OUTPATIENT [id number] day 1 bp check DARIAN WEINSTEIN 11/02 Released w/o Limitations [employer]([facility] [place] ) [employer]([facility]) OUTPATIENT [id number] walk in BP day 2 DARIAN WEINSTEIN 11/03 Released w/o Limitations [employer]([facility] [place]zz ) [employer](Phy sical Therapy) OUTPATIENT [id number] muscle weaknes s DILIA BIRD 11/25 Released w/o Limitations [employer](P hysical Therapy ) [employer]([facility]) OUTPATIENT [id number] flu symptom s DARIAN WEINSTEIN 01/03 Released w/o Limitations [employer] [employer] OUTPATIENT [id number] pha WEI MIX 01/19 Released w/o Limitations [employer]([facility]) [employer]([facility]) OUTPATIENT [id number] f/u lab work DARIAN WEINSTEIN 01/25 Released w/o Limitations [employer]([facility] [place] ) [employer]([facility]) TELE CONSULT [id number] REF BOUTSOMSIGEMMA C 01/31 [employer]([facility] Naral ) [employer]([facility]) OUTPATIENT [id number] leg pain GABRIELA VARGAS 02/21 Released w/o Limitations [employer]([facility] Naral ) [employer]([facility]) TELE CONSULT [id number] PROFILE YOUSIF CLIFTON 03/21 Referred for Appointment [employer]([facility] ) [facility]) OUTPATIENT [id number] Profile Concern GABRIELA VARGAS 04/09 Released with Work/Duty Limitations [facility] ) [facility]) OUTPATIENT [id number] Be Well DARIAN CHANG 05/07 Released w/o Limitations [facility]) [facility]) TELE CONSULT [id number] Notes Entered by: MICHAEL RIOS 06 Jul 2011 1141 ------- ------- ------- ------- -- REF YOUSIF CLIFTON 07/05 [facility]ment [facility] ) [address] [place] [address](Opt ometry Clinic) OUTPATIENT [id number] routine eye exam (spec) CHANTELL MAHAN 07/06 Released w/o Limitations [address] [place] [address](O ptometr y Clinic) [facility]) OUTPATIENT [id number] Pre-Dep loyment LIEN Palma 07/06 Released w/o Limitations [facility] ) [facility]) OUTPATIENT [id number] Chronic Low back pain with radicul opaILIR Le 07/25 Released w/o Limitations [facility] [address] [place] [address]([facility]) TELE CONSULT [id number] Notes Entered by: CHICHO CARIAS 15 Aug 2011 0811 ------- ------- ------- ------- -- PROFILE AALIYAH MOSELEY 08/14 [facility]ointment [facility] ) [facility]) OUTPATIENT [id number] lumbago /profil e /PT test GABRIELA VARGAS 08/15 Released with Work/Duty Limitations [employer]([facility] ) [employer] [facility] [employer]) OUTPATIENT [id number] Notes Entered by: LINUS LEI 21 Aug 2011 1311 ------- ------- ------- ------- -- PRE DEPLOYM ENT AUSTIN CANNON 08/20 Released w/o Limitations [employer]( orce Health Managem ent) [employer]([facility]) TELE CONSULT [id number] Notes Entered by: MICHAEL RIOS 23 Aug 2011 1404 ------- ------- ------- ------- -- PROFILE AALIYAH MOSELEY 08/22 Referred for Appointment [employer]([facility] ) [facility] [employer] [place]([employer] [facility]) OUTPATIENT [id number] Notes Entered by: SYLVESTER LOPEZ 09 Oct 2011 1003 ------- ------- ------- ------- -- DRY CRACKY FEET/ BLISTER JULIETTE LORD 10/08 Released w/o Limitations [facility] [employer] Marni ([employer] [facility]) [employer]([facility]) OUTPATIENT [id number] hip pain LIEN TRUJILLO 03/29 Released w/o Limitations [employer]([facility]) [employer]([facility]) OUTPATIENT [id number] dha GI ZAMARRIPA 03/29 Released w/o Limitations [employer]([facility] n[facility]) [employer](For [employer] Health [employer]agemen t) OUTPATIENT [id number] Notes Entered by: ELSA JACOBS 29 Mar 2012 1147 ------- ------- ------- ------- -- Post Deploym ent ELSA JACOBS 03/29 Released w/o Limitations [employer]( or Health Manage ent) [employer]([facility]) TELE CONSULT [id number] Notes Entered by: LIEN MANE 04 Apr 2012 1009 ------- ------- ------- ------- -- LIEN Vásquez 04/04 [employer]([facility]) [employer]([facility]) OUTPATIENT [id number] Notes Entered by: THONY PINA 15 Apr 2012 0802 ------- ------- ------- ------- -- bp MARCELO Maria 04/15 Released w/o Limitations [employer] [employer]([facility]) TELE CONSULT [id number] Notes Entered by: DOM ORELLANA 17 Apr 2012 1023 ------- ------- ------- ------- -- [place] D-LIEN VÁSQUEZ 04/17 [employer] [employer]([facility] Managemen t) TELE CONSULT [id number] Notes Entered by: LINUS LEI 19 Apr 2012 1422 ------- ------- ------- ------- -- Post deploym ent AUSTIN CANNON 04/19 Referred for Appointment [employer]( or Health Manage ent) [employer]([facility]) TELE CONSULT [id number] Notes Entered by: VASILIY BRUCE 25 Apr 2012 0805 ------- ------- ------- ------- -- PROFILE MARCELO RAMSEY 04/25 [employer]([facility]) [employer]([facility]) TELE CONSULT [id number] Notes Entered by: EMMA GUZMAN 30 Apr 2012 0814 ------- ------- ------- ------- -- JULIETTE SILVA 04/30 Other Not Elsewhere Classified [employer]([facility]) [employer]([facility]) TELE CONSULT [id number] Notes Entered by: LIZBETH BERUMEN 09 May 2012 0747 ------- ------- ------- ------- -- JULIETTE ALVAREZ 05/09 Referred for Appointment [employer]([facility]) [employer]([facility]) OUTPATIENT [id number] Right Hip F/U (XRAY & MRI Results ) MARCELO RAMSEY 05/20 Released with Work/Duty Limitations [employer]([facility]) [employer]([facility]) TELE CONSULT [id number] Notes Entered by: REINA MARKS 21 May 2012 1605 ------- ------- ------- ------- -- 2 LEESA DOSS ON WEB [facility] JULIETTE NICHOLSON 05/22 Other Not Elsewhere Classified [employer]([facility]) [employer]([facility]) OUTPATIENT [id number] Notes Entered by: MIKE QUIGLEY 22 May 2012 0727 ------- ------- ------- ------- -- Walk in BP RUSS SCHUMACHER 05/22 Released w/o Limitations [employer]([facility]) [employer]([facility]) OUTPATIENT [id number] Notes Entered by: JARED SHAIKH 23 May 2012 0732 ------- ------- ------- ------- -- MARCELO Colbert 05/23 Released w/o Limitations [employer]([facility] [employer]([facility]) OUTPATIENT [id number] Notes Entered by: REINA MARKS 23 May 2012 0840 ------- ------- ------- ------- -- PHA WALK IN PAULINE MARKS Brenda 05/23 Released w/o Limitations [employer]([facility]) [employer]([facility] TELE CONSULT [id number] Notes Entered by: VASILIY BRUCE 23 May 2012 1157 ------- ------- ------- ------- -- JULIETTE OLSEN 05/23 Referred for Appointment [employer]([facility]) [employer]([facility] OUTPATIENT [id number] Notes Entered by: THONY PINA 24 May 2012 0730 ------- ------- ------- ------- -- MARCELO Banegas 05/24 Released w/o Limitations [employer]([facility]) [employer]([facility] TELE CONSULT [id number] Notes Entered by: VASILIY BRUCE 27 May 2012 1200 ------- ------- ------- ------- -- LATA ALEJANDRO 05/27 Referred for Appointment [employer]([facility]) [employer]([facility] TELE CONSULT [id number] Notes Entered by: EMMA GUZMAN 03 Jun 2012 0934 ------- ------- ------- ------- -- REF IRENA MONREAL 06/03 Other Not Elsewhere Classified [employer]([facility]) [employer]([facility]) OUTPATIENT [id number] snoring , sleep concern s MARCELO RAMSEY 06/03 Released w/o Limitations [employer]([facility]) [employer](Nut rition [facility]) OUTPATIENT [id number] Obesity , low back pain, request ed SHAMIKA COX 06/10 Released w/o Limitations [employer](N utritio n Clinic) [employer]([facility] [place] OUTPATIENT [id number] Poss Sleep Apnea MAREN MENDOZA 06/14 Released w/o Limitations [employer]([facility] [place]) [employer]([facility] [place]) OUTPATIENT [id number] F/u on Split Night BENTLEY STACY Luciano 06/18 Released w/o Limitations [employer]([facility] [place]) [employer]([facility]) TELE CONSULT [id number] Notes Entered by: LATA BRINK 25 Jun 2012 1602 ------- ------- ------- ------- -- med LATA BRINK 06/26 Referred for Appointment [employer] [employer]([facility]) TELE CONSULT [id number] Notes Entered by: KENDELL AVILA 04 Jul 2012 1134 ------- ------- ------- ------- -- REF CHANTELL SPARKS 07/04 Referred for Appointment [employer]([facility]) [facility] [place]([facility]) OUTPATIENT [id number] eval right HIP JAIMIE from [place] 07/05 Released w/o Limitations [facility] [place] [facility]) [employer]([facility]) OUTPATIENT [id number] post deploym ent DALLINGI Brenda 07/08 Released w/o Limitations [employer]([facility]) [employer](Opt ometry Clinic) OUTPATIENT [id number] 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) BLAS ALONSO 07/18 Released w/o Limitations [employer](O ptometr y Clinic) [employer]([facility]) OUTPATIENT [id number] back concern MARCELO RAMSEY 09/23 Released w/o Limitations [employer] [employer](Nut rition Clinic) OUTPATIENT [id number] f/u Wtloss (my hansen RD) CRISS VAZQUEZ 10/02 Released w/o Limitations [employer](N utritio n Clinic) [employer](Chi ropractic Clinic) OUTPATIENT [id number] LUMBAR DISC DEGENER ATION L4 - L5 MANAV JACKSON 10/11 Released w/o Limitations [employer](C hiropra ctic Clinic) [employer](Chi ropractic Clinic) OUTPATIENT [id number] MANAV JACKSON 10/18 Released w/o Limitations [employer](C hiropra ctic Clinic) [employer]([facility]) OUTPATIENT [id number] shoulde r MARCELO Smith 10/21 Released w/o Limitations [employer]([facility] [employer](Chi ropractic Clinic) OUTPATIENT [id number] MANAV JACKSON 10/25 Released w/o Limitations [employer](C hiropra ctic Clinic) [employer]([facility]) TELE CONSULT [id number] MARCELO RAMSEY 10/25 [employer]([facility]) [employer]([facility]) OUTPATIENT [id number] 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) [employer](Chi ropractic Clinic) OUTPATIENT [id number] MANAV JACKSON 11/01 Released w/o Limitations [employer](C hiropra ctic Clinic) [employer]([facility] ropractic Clinic) OUTPATIENT [id number] MANAV JACKSON 11/08 Released w/o Limitations [employer](C hiropra ctic Clinic) [employer]([facility]) OUTPATIENT [id number] Ear Pain / Pressur e MEET VARGAS 11/22 Released w/o Limitations [employer]([facility]) [employer](Phy sical Therapy) OUTPATIENT [id number] SHOULDE R STRAIN BICEPS TENDON RIGHT CARMENDEBORA Kallie 11/22 Released with Work/Duty Limitations [employer](P hysical Therapy ) [employer](Chi ropractic Clinic) OUTPATIENT [id number] MANAV JACKSON 11/22 Released w/o Limitations [employer](C hiropra ctic Clinic) [employer]([facility]) TELE CONSULT [id number] Notes Entered by: Ramón VARGAS 12 Dec 2012 0800 ------- ------- ------- ------- -- PROVIDE CHANTELL HONG 12/12 Other Not Elsewhere Classified [employer]([facility]) [employer]([facility]) OUTPATIENT [id number] f/u ears MEET VARGAS 12/18 Released w/o Limitations [employer]([facility]) [employer]([facility]) OUTPATIENT [id number] blood in stool MEET VARGAS 12/23 Released w/o Limitations [employer] [employer]([facility] [place] OUTPATIENT [id number] F/U complia BENTLEY Carbajal 12/24 Released w/o Limitations [employer](S [facility] [place]) [employer]([facility] OUTPATIENT [id number] bright red blood per rectum ABHINAV COX T 01/09 Released w/o Limitations [employer](G astroen terolog y Clinic) [employer]([facility]) OUTPATIENT [id number] Right Hip Pain (worse) MEET VARGAS 01/15 Released with Work/Duty Limitations [employer]([facility]) [employer](Aud iology) OUTPATIENT [id number] CLARENCE Terry 01/21 Released w/o Limitations [employer](A udiolog y) [employer] TELE CONSULT [id number] Notes Entered by: Ramón VARGAS F 23 Jan 2013 1901 ------- ------- ------- ------- -- CHELLE SUTTON 01/24 Referred for Appointment [employer] [employer]([facility]) OUTPATIENT [id number] CSP ABHINAV COX T 02/03 Released w/o Limitations [employer](G astroen terolog y Clinic) [employer]([facility] [place]) TELE CONSULT [id number] Notes Entered by: Ramón STACY W 04 Feb 2013 0953 ------- ------- ------- ------- -- MANJIT for BLAKE BENTLEY STACY 02/04 [employer]([facility] [place]) [employer]([facility]) OUTPATIENT [id number] Discuss previou s lab results , talk about thyroid test MEET VARAGS Ligia 02/11 Released w/o Limitations [employer]([facility]) [employer]([facility]) OUTPATIENT [id number] janal sheila pressley/JEANINE Arellano 02/18 Released w/o Limitations [employer](O torhino laryngo logy Clinic) [employer]([facility] [place]) TELE CONSULT [id number] Notes Entered by: GET PERES 18 Feb 2013 1125 ------- ------- ------- ------- -- Request /rebekai keith oliveirai dental orthoti BENTLEY Fontaine 02/18 [employer](S eliecer Disorde [facility] [place]) [employer]([facility] TELE CONSULT [id number] Notes Entered by: KENDELL AVILA 21 Feb 2013 0908 ------- ------- ------- ------- -- PROFILE CHANTELL SPARKS 02/21 Referred for Appointment [employer]([facility]) [employer] OUT[facility] [id number] F/U TO MRI RIGHT HIP JUNE 2012 BYRON BARDALES 02/27 Released w/o Limitations [employer](O rthoped ic Clinic) [employer](Chi ropractic Clinic) OUTPATIENT [id number] MANAV JACKSON 03/10 Released w/o Limitations [employer](C hiropra ctic Clinic) [employer](Ort hopedic [facility]) OUTPATIENT [id number] F/U HIP MRI JUNE 2012 TDJune 2013 RUSSEL LEONG 03/17 Released with Work/Duty Limitations [employer](O rthoped ic Clinic) [employer]([facility] TELE CONSULT [id number] Notes Entered by: DARIAN PIRES 18 Mar 2013 1211 ------- ------- ------- ------- -- MEET BARKER 03/18 [employer]([facility] [employer](Chi ropractic Clinic) OUTPATIENT [id number] MANAV JACKSON 04/03 Released w/o Limitations [employer](C hiropra ctic Clinic) [employer](Chi ropractic Clinic) OUTPATIENT [id number] MANAV JACKSON 04/10 Released w/o Limitations [employer](C hiropra ctic Clinic) [employer]([facility]) OUTPATIENT [id number] 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 04/22 Released w/o Limitations [employer]([facility]) [employer](Chi ropractic Clinic) OUTPATIENT [id number] 4WK RE-EVAL (THERAP Y STARTED [id number] _) MANAV JACKSON 04/24 Released w/o Limitations [employer](C hiropra ctic Clinic) [employer](Chi ropractic Clinic) OUTPATIENT [id number] 4WK F/U MANAV JACKSON 05/22 Released w/o Limitations [employer](C hiropra ctic Clinic) [employer]([facility]) TELE CONSULT [id number] Notes Entered by: ELSA JACOBS 29 May 2013 1043 ------- ------- ------- ------- -- LEESA Rocha ON CHELLE HOYT 05/29 Other Not Elsewhere Classified [employer]([facility]) [employer]([facility]) OUTPATIENT [id number] DHA5 RUSS Skinner 05/29 Released w/o Limitations [employer]([facility]) [employer]([facility]) OUTPATIENT [id number] prevent [facility] assessm rnt ELSA JACOBS 06/03 Released w/o Limitations [employer]([facility]) [employer]([facility]) OUTPATIENT [id number] diarrhe a/stoma ch discomf MARCELO Geiger 06/16 Released w/o Limitations [employer]([facility]) [employer](Opt ometry Clinic) OUTPATIENT [id number] CHANTELL Long 06/18 Released w/o Limitations [employer](O ptometr y Clinic) [employer](Chi ropractic Clinic) OUTPATIENT [id number] 4wk F/U MANAV JACKSON 06/19 Released w/o Limitations [employer](C hiropra ctic Clinic) [employer]([facility]) OUTPATIENT [id number] BP f/u MARCELO RAMSEY 06/23 Released w/o Limitations [employer]([facility]) [employer]([facility]) TELE CONSULT [id number] Notes Entered by: DIRK BUTLER 28 Aug 2013 1339 ------- ------- ------- ------- -- CHELLE HAIR 08/28 Other Not Elsewhere Classified [employer]([facility]) [facility] Outpatient Encounter [id number] 01/02 [facility] Outpatient Encounter [id number] ELISHA LARSEN 03/24 [facility] EMERGENCY DEPT VISIT [facility] [id number] Diagnos is: ICD-10- CM R31.0 Gross hematur ia
AB ELIF CROCKETT 04/01 [facility] Outpatient Encounter [id number] ROB ELAINEANDFLOR G 07/20 [place] [facility] [place] [facility] OFFICE O/P EST HI 40-54 MIN [id number] Diagnos is: ICD-10- CM E11.9 Type 2 diabete s mellitu s without complic ations< br/> Waqas MORA 07/27 [place] [facility] [place] [facility] Outpatient Encounter [id number] Diagnos is: ICD-10- CM I10 Essenti al (primar y) hyperte nsion<b r/> DUC GONZALES 08/10 [place] [facility] [place] [facility] Outpatient Encounter [id number] 08/28 [place] [facility] [place] [facility] PRO PHONE CALL 11-20 MIN [id number] Diagnos is: ICD-10- CM E11.9 Type 2 diabete s mellitu s without complic ations< br/> Frankie BURROWS 09/07 [place] [facility] [place] [facility] Outpatient Encounter [id number] 10/12 [place] [facility] [place] [facility] Outpatient Encounter [id number] 10/12 [place] [facility] [place] [facility] QNHP OL DIG ASSMT&MGMT 5-10 [id number] Diagnos is: ICD-10- CM K21.9 Gastro- esophag eal reflux disease without esophag itis
RAQUEL MORALES 10/20 [place] [facility] [place] [facility] Outpatient Encounter [id number] 01/10 [place] [facility] [place] [facility] Outpatient Encounter [id number] 02/07 [place] [facility] [place] [facility] MTMS BY PHARM EST 15 MIN [id number] Diagnos is: ICD-10- CM I10 Essenti al (primar y) hyperte nsion<b r/> Frankie BURROWS 02/16 [facility] Procedures Combined list of: 1) Procedures from [facility] Veterans Affairs facilities going back up to thelast 18 months, not all [place] non-surgical procedures are included; 2) All procedures from the Department of Defense facilities. Procedure Procedure Type Code Date Perfomer Comments [facility] aj A isted Exercises [place] 29404 009 JACE PENN [facility] Physical Therapy Neuromuscular Re-education Physical Therapy Neuromuscular Re-education 45085 009 ALICE PEOPLES A isted Exercises [place] 43120 009 [facility] Chiropractic Manip Treatmt (CMT) [facility] Chiropractic Manip Treatmt (CMT) Spinal [facility] 02635 009 MANAV JACKSON [facility] Medical Nutrition Therapy Group (2 or More Individuals) Each 30 Minutes Medical Nutrition Therapy Group (2 or More Individuals) Each 30 Minutes 65543 009 TATYANA GRAHAM [facility] Chiropractic Manip Treatmt (CMT) Spinal [facility] Chiropractic Manip Treatmt (CMT) Spinal [facility] 20293 009 MANAV JACKSON [facility] Medical Nutrition Therapy Group (2 or More Individuals) Each 30 Minutes Medical Nutrition Therapy Group (2 or More Individuals) Each 30 Minutes 12802 009 TATYANA GRAHAM [facility] Physical Therapy Neuromuscular Re-education Physical Therapy Neuromuscular Re-education 10100 009 JACE PENN A isted Exercises For ROM Assisted Exercises For ROM 80143 009 JACE PENN Chiropractic Manip Treatmt (CMT) [facility] Chiropractic Manip Treatmt (CMT) Spinal [facility] 46725 009 MANAV JACKSON [facility] Physical Therapy Neuromuscular Re-education Physical Therapy Neuromuscular Re-education 58330 009 JACE PENN A isted Exercises For ROM Assisted Exercises For ROM 95598 009 JACE PENN Chiropractic Manip Treatmt (CMT) Spinal [facility] Chiropractic Manip Treatmt (CMT) Spinal [facility] 33301 009 MANAV JACKSON Physical Therapy Neuromuscular Re-education Physical Therapy Neuromuscular Re-education 35199 009 JACE PENN A isted Exercises For ROM Ass[place] 83078 009 JACE PENN Physical Therapy Neuromuscular Re-education Physical Therapy Neuromuscular Re-education 20698 009 JACE PENN A isted Exercises For ROM Assisted [place] 23379 009 JACE PENN Chiropractic Manip Treatmt (CMT) Spinal [facility] Chiropractic Manip Treatmt (CMT) Spinal [facility] 54941 009 MANAV JACKSON isted Exercises For ROM Assisted Exercises For ROM 71677 009 JACE PENN Physical Therapy Neuromuscular Re-education Physical Therapy Neuromuscular Re-education 11818 009 JACE PENN Chiropractic Manip Treatmt (CMT) Spinal [facility] Chiropractic Manip Treatmt (CMT) Spinal [facility] Region 87774 009 MANAV JACKSON Physical Therapy Neuromuscular Re-education Physical Therapy Neuromuscular Re-education 74009 009 JACE PENN A isted Exercises [place] 34020 009 JACE PENN Physical Therapy Neuromuscular Re-education Physical Therapy Neuromuscular Re-education 53240 009 ALTON WALLACE isted Exercises For ROM Assisted [place]ises [place] ROM 28060 009 ALTON WALLACE Physical Therapy Neuromuscular Re-education Physical Therapy Neuromuscular Re-education 67823 009 ALTON WALLACE isted Exercises For ROM Assisted [place]ercises [place] ROM 71840 009 ALTON WALLACE Chiropractic Manip Treatmt (CMT) Spinal [facility] Chiropractic Manip Treatmt (CMT) Spinal [facility] 44258 009 MANAV JACKSON Chiropractic Manip Treatmt (CMT) Spinal Three [facility] Four Region Chiropractic Manip Treatmt (CMT) Spinal [facility] Four Region 32552 009 MANAV JACKSON Physical Therapy Neuromuscular Re-education Physical Therapy Neuromuscular Re-education 15060 009 JACE PENN A isted Exercises For ROM Assisted [place] 20347 009 JACE PENN Physical Therapy Neuromuscular Re-education Physical Therapy Neuromuscular Re-education 45894 009 ALICE PEOPLES A isted Exercises For ROM Ass[place] 29843 009 ALICE PEOPLES Chiropractic Manip Treatmt (CMT) Spinal [facility] Four [facility] Chiropractic Manip Treatmt (CMT) Spinal Three To Four Region 74998 009 MANAV JACKSON Physical Therapy Neuromuscular Re-education Physical Therapy Neuromuscular Re-education 05819 009 WALESKA SOMMER isted Exercises For ROM Assisted Exercises For ROM 81702 009 WALESKA SOMMER Chiropractic Manip Treatmt (CMT) Spinal Three [facility] Four Region Chiropractic Manip Treatmt (CMT) Spinal Three To Four Region 64341 009 MANAV JACKSON Physical Therapy Neuromuscular Re-education Physical Therapy Neuromuscular Re-education 80069 009 FAMILIA NOE isted Exercises For ROM Assisted [place]ercises [place] ROM 73720 009 FAMILIA NOE Physical Therapy Neuromuscular Re-education Physical Therapy Neuromuscular Re-education 88385 009 DEBORA QUINTANILLA A isted Exercises [place] 45251 009 DEBORA QUINTANILLA Physical Therapy Service Re-Evaluation 009 KISHOR UGALDE Physical Therapy Neuromuscular Re-education Physical Therapy Neuromuscular Re-education 86369 009 TAMMIE CARTER isted Exercises For ROM Assisted [place] ROM 31877 009 TAMMIE CARTER Physical Therapy Neuromuscular Re-education Physical Therapy Neuromuscular Re-education 45495 009 TAMMIE CARTER isted Exercises For ROM Ass[place] 67156 009 TAMMIE CARTER Physical Therapy Neuromuscular Re-education Physical Therapy Neuromuscular Re-education 76740 009 TAMMIE CARTER [facility] Kallie isted Exercises For [place] 70781 009 TAMMIE CARTER Physical Therapy Neuromuscular Re-education Physical Therapy Neuromuscular Re-education 09920 009 TAMMIE CARTER A isted Exercises For ROM Assisted [place] ROM 17396 009 TAMMIE CARTER Physical Therapy Neuromuscular Re-education Physical Therapy Neuromuscular Re-education 54241 009 TAMMIE CARTER [facility] A isted Exercises For ROM Assisted Exercises For ROM 13180 009 EMMA [facility] Physical Therapy Neuromuscular Re-education Physical Therapy Neuromuscular Re-education 95016 009 TAMMIE CARTER isted Exercises For ROM Assisted [place] 77892 009 TAMMIE CARTER Physical Therapy Neuromuscular Re-education Physical Therapy Neuromuscular Re-education 71184 009 TAMMIE CARTER isted Exercises For ROM Assisted [place] 24854 009 TAMMIE CARTER Physical Therapy Neuromuscular Re-education Physical Therapy Neuromuscular Re-education 42087 009 TAMMIE CARTER isted Exercises For ROM Assisted [place] ROM 13788 009 EMMA TAMMIE [facility] [place] Physical Therapy Neuromuscular Re-education Physical Therapy Neuromuscular Re-education 13192 009 TAMMIE CARTER isted Exercises For ROM Assisted Exercises For ROM 03694 009 TAMMIE CARTER [place] Physical Therapy Neuromuscular Re-education Physical Therapy Neuromuscular Re-education 03590 009 TAMMIE CARTER [facility] A isted Exercises For ROM Assisted [place]ises [place] ROM 30517 009 TAMMIE CARTER Physical Therapy Neuromuscular Re-education Physical Therapy Neuromuscular Re-education 79931 009 TAMMIE CARTER A isted Exercises For ROM Assisted [place]ercises [place] ROM 67260 009 TAMMIE CARTER PT A e ment Kinetic Training PT Assessment Kinetic Training 28683 009 WALESKA SOMMER [facility] Physical Therapy Neuromuscular Re-education Physical Therapy Neuromuscular Re-education 13274 009 WALESKA SOMMER A isted Exercises For ROM Assisted Exercises For ROM 15491 009 WALESKA SOMMER Physical Therapy Service Re-Evaluation 008 KISHOR UGALDE Positioning cushion/pillow/wedg e, any shape or size, includes all components and acce ories 008 KISHOR UGALDE Physical Therapy Service Re-Evaluation 008 KISHOR UGALDE 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 008 TRISTAN RUTLEDGE Physical Therapy Service Evaluation 008 KISHOR UGALDE 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 008 TRISTAN RUTLEDGE Audiogram (Screening) Audiogram (Screening) 24877 008 AZALIA DOZIER [facility] Fitting Monofocal Except For Aphakia [facility] Fitting Monofocal Except For Aphakia 25800 008 NICOLAS HOLM Ophthalmological Prior Patient Start Comprehensive Care Ophthalmological Prior Patient Start Comprehensive Care 13795 008 NICOLAS HOLM Determination Of Refractive State Determination Of Refractive State 78787 008 NICOLAS HOLM Injection, bupivicaine HCl, 30 mL 008 MEET CASTELLON Injection Of Trigger Point(s) One Or Two Muscle Group(s) Injection Of Trigger Point(s) One Or Two Muscle Group(s) 59823 008 MEET CASTELLON Medical Nutrition Therapy Group (2 or More Individuals) Each 30 Minutes Medical Nutrition Therapy Group (2 or More Individuals) Each 30 Minutes 61751 008 CONSUELO CHAN Medical Nutrition Therapy Group (2 or More Individuals) Each 30 Minutes Medical Nutrition Therapy Group (2 or More Individuals) Each 30 Minutes 06286 008 CONSUELO CHAN Determination Of Refractive State Determination Of Refractive State 29242 007 NICOLAS HOLM Ophthalmological New Patient Start Comprehensive Care Ophthalmological New Patient Start Comprehensive Care 66042 007 NICOLAS HOLM [facility] Fitting Monofocal Except For Aphakia [facility] Fitting Monofocal Except For Aphakia 42738 007 NICOLAS HOLM Audiogram (Screening) Audiogram (Screening) 49083 007 KASIE SHIPMAN Visual Function Screening Visual Function Screening 07348 007 JUJU ISABEL Medical Nutrition Therapy Group (2 or More Individuals) Each 30 Minutes Medical Nutrition Therapy Group (2 or More Individuals) Each 30 Minutes 34315 007 EARL KUNZ Excision Benign Cyst / Tumor Of Facial Bone Excision Benign Cyst / Tumor Of Facial Bone 86476 007 OMAR PEREZ Pulse Oximetry Pulse Oximetry 53390 007 MANJIT GOLDSTEIN Spirometry Peak Expiratory Flow ___ % Of Baseline Spirometry Peak Expiratory Flow ___ % Of Baseline 35010 007 MANJIT GOLDSTEIN Audiogram (Screening) Audiogram (Screening) 53909 006 AARON BARROS [facility] Fitting Monofocal Except For Aphakia [facility] Fitting Monofocal Except For Aphakia 16253 006 TRISTAN MARTINEZ Ophthalmological New Patient Start Comprehensive Care Ophthalmological New Patient Start Comprehensive Care 20418 006 TRISTAN MARTINEZ Determination Of Refractive State Determination Of Refractive State 23882 006 TRISTAN MARTINEZ Ophthalmological Prior Patient Start Comprehensive Care Ophthalmological Prior Patient Start Comprehensive Care 98901 005 DEMARCO PYLE Determination Of Refractive State Determination Of Refractive State 35968 005 DEMARCO PYLE Chiropractic Manip Treatmt (CMT) Spinal Three To Four Region Chiropractic Manip Treatmt (CMT) Spinal Three To Four Region 66516 014 MANAV JACKSON [facility] Fitting Monofocal Except For Aphakia [facility] Fitting Monofocal Except For Aphakia 32051 014 CHANTELL MAHAN Determination Of Refractive State Determination Of Refractive State 32111 014 CHANTELL MAHAN Ophthalmological Prior Patient Start Comprehensive Care Ophthalmological Prior Patient Start Comprehensive Care 55941 014 CHANTELL MAHAN [facility] Chiropractic Manip Treatmt (CMT) Spinal Three To Four Region Chiropractic Manip Treatmt (CMT) Spinal Three To Four Region 77306 014 MANAV JACKSON Chiropractic Manip Treatmt (CMT) Spinal Three To Four Region Chiropractic Manip Treatmt (CMT) Spinal Three To Four Region 94767 014 MANAV JACKSON Chiropractic Manip Treatmt (CMT) Spinal Three To Four Region Chiropractic Manip Treatmt (CMT) Spinal Three To Four Region 88870 014 MANAV JACKSON Chiropractic Manip Treatmt (CMT) Spinal Three To Four Region Chiropractic Manip Treatmt (CMT) Spinal Three To Four Region 29218 014 MANAV JACKSON Corticosteroids Injection Intrabursal Corticosteroids Injection Intrabursal 014 RUSSEL LEONG [facility] Chiropractic Manip Treatmt (CMT) Spinal Three To Four Region Chiropractic Manip Treatmt (CMT) Spinal Three To Four Region 41286 014 MANAV JACKSON Tympanometry Tympanometry 03285 014 JEANINE MORENO Laryngoscopy Diagnostic Flexible Laryngoscopy Diagnostic Flexible 83312 JEANINE MORENO Colonoscopy Fiberoptic Forceps Biopsy ABHINAV COX Tympanometry With Reflex Threshold Measurements Tympanometry With Reflex Threshold Measurements 02389 CLARENCE NICE Evoked Otoacoustic Pearl ions Comprehensive Evoked Otoacoustic Emissions Comprehensive 12330 CLARENCE NICE Comprehensive Audiometry Comprehensive Audiometry 67946 CLRAENCE NICE PT A e ment Kinetic Training PT Assessment Kinetic Training 71584 DEBORA MORALES Physical Therapy Service Evaluation DEBORA MORALES Chiropractic Manip Treatmt (CMT) Spinal Three To Four Region Chiropractic Manip Treatmt (CMT) Spinal Three To Four Region 99988 013 MANAV JACKSON [facility] Chiropractic Manip Treatmt (CMT) Spinal Three To Four Region Chiropractic Manip Treatmt (CMT) Spinal Three To Four Region 37525 013 MANAV JACKSON [facility] Chiropractic Manip Treatmt (CMT) Spinal Three To Four Region Chiropractic Manip Treatmt (CMT) Spinal Three To Four Region 41544 013 RENETTAMANAV [facility] Chiropractic Manip Treatmt (CMT) Spinal Three To Four Region Chiropractic Manip Treatmt (CMT) Spinal Three To Four Region 78359 013 RENETTAMANAV [facility] Chiropractic Manip Treatmt (CMT) Spinal Three To Four Region Chiropractic Manip Treatmt (CMT) Spinal Three To Four Region 93577 013 MANAV JACKSON [facility] Chiropractic Manip Treatmt (CMT) Spinal Three To Four Region Chiropractic Manip Treatmt (CMT) Spinal Three To Four Region 48764 MANAV JACKSON Medical Nutrition Therapy Re-a e ment And Intervention Each 15 Minutes Medical Nutrition Therapy Re-assessment And Intervention Each 15 Minutes 05411 CRISS VAZQUEZ Time: 9960-5811 [facility] Psychiatric Therapy Preparation of Psychiatric Status Report Psychiatric Therapy Preparation of Psychiatric Status Report 62208 VIGNESH YA [facility] Psychotherapy Individual Approximately 75-80 Minutes VIGNESH YA [facility] Fitting Monofocal Except For Aphakia [facility] Fitting Monofocal Except For Aphakia 01520 BLAS ALONSO Ophthalmological Prior Patient Start Comprehensive Care Ophthalmological Prior Patient Start Comprehensive Care 02345 BLAS ALONSO Determination Of Refractive State Determination Of Refractive State 52350 BLAS ALONSO Psychotherapy Individual Approximately 75-80 Minutes VIGNESH YA Psychotherapy Individual Approximately 75-80 Minutes VIGNESH YA [facility] Polysomnograph W/ 4+ Add'l Sleep Enzo & Initiate CPAP/Bilev Vent Age 6+ Yr Polysomnograph W/ 4+ Add'l Sleep Enzo & Initiate CPAP/Bilev Vent Age 6+ Yr 88952 013 MAREN MENDOZA [facility] Psychiatric Diagnostic Evaluation Comprehensive Examination Psychiatric Diagnostic Evaluation Comprehensive Examination 67797 013 VIGNESH AY [facility] Medical Nutrition Therapy Initial A e ment And Intervention Each 15 Minutes Medical Nutrition Therapy Initial Assessment And Intervention Each 15 Minutes 84473 013 SHAMIKA REAGAN [facility] Special Physician Services Analysis Of Computerized Data MARCELO RAMSEY Pt has normal avg/range of BPs; no indications for medical management at this time. [facility] Medical Nutrition Therapy Group (2 or More Individuals) Each 30 Minutes Medical Nutrition Therapy Group (2 or More Individuals) Each 30 Minutes 47221 012 DARIAN CHANG [facility] Spectacles Services Fitting Monofocal Except For Aphakia [facility] Services Fitting Monofocal Except For Aphakia 30558 012 CHANTELL MAHAN [facility] Determination Of Refractive State Determination Of Refractive State 13154 012 CHANTELL MAHAN [facility] Ophthalmological Prior Patient Start Comprehensive Care Ophthalmological Prior Patient Start Comprehensive Care 04957 012 CHANTELL MAHAN [facility] Physical Therapy Service Evaluation 011 DILIA BIRD [facility] Spectacles Services Fitting Monofocal Except For Aphakia [facility] Fitting Monofocal Except For Aphakia 61459 011 CHANTELL MAHAN [facility] Determination Of Refractive State Determination Of Refractive State 69801 011 CHANTELL MAHAN [facility] Ophthalmological Prior Patient Start Comprehensive Care Ophthalmological Prior Patient Start Comprehensive Care 63507 011 CHANTELL MAHAN [facility] Non-Physician Phone Call To Patient/Provider Brief (5-10min) Non-Physician Phone Call To Patient/Provider Brief (5-10min) 79329 011 MEGAN MARROQUIN [facility] Physical Therapy: ___ Se ion Segments, 15 Minutes Each Physical Therapy: ___ Session Segments, 15 Minutes Each 92402 010 JUAN WOODSON [facility] Physical Therapy Service Re-Evaluation 010 JUAN WOODSON DoD Traction Pelvic Traction Pelvic 31651 010 NCIKRUPAL MANJEET DoD Modalities Heat Hot Packs Modalities Heat Hot Packs 08967 010 RUPAL ROMERO LP [facility] Physical Therapy: ___ Se ion Segments, 15 Minutes Each Physical Therapy: ___ Session Segments, 15 Minutes Each 43181 010 NICKJONASGISELA BURROUGHS DoD Modalities Heat Hot Packs Modalities Heat Hot Packs 40032 010 RUPAL ROMERO LP [facility] Physical Therapy: ___ Se ion Segments, 15 Minutes Each Physical Therapy: ___ Session Segments, 15 Minutes Each 57809 010 NICKJONASGISELA BURROUGHS DoD Traction Pelvic Traction Pelvic 12248 010 RUPAL ROMERO LP DoD Modalities Heat Hot Packs Modalities Heat Hot Packs 41452 010 LISA RAND DoD Traction Pelvic Traction Pelvic 38132 010 LISA RAND Physical Therapy: ___ Se ion Segments, 15 Minutes Each Physical Therapy: ___ Session Segments, 15 Minutes Each 30604 010 LISA RAND DoD Modalities Heat Hot Packs Modalities Heat Hot Packs 14742 010 RUPAL ROMERO LP DoD A isted Exercises For ROM Assisted Exercises For ROM 16752 010 RUPAL ROMERO LP DoD Traction Pelvic Traction Pelvic 30894 010 NICK RUPAL LP DoD Modalities Heat Hot Packs Modalities Heat Hot Packs 20778 010 RUPAL ROMERO LP DoD A isted Exercises For ROM Assisted [place]erc[place] 41452 010 RUPAL ROMERO LP DoD Traction Pelvic Traction Pelvic 00203 010 RUPAL ROMERO DoD Traction Pelvic Traction Pelvic 81547 010 LISA RAND Physical Therapy Neuromuscular Re-education Physical Therapy Neuromuscular Re-education 53211 010 LISA RAND Physical Therapy: ___ Se ion Segments, 15 Minutes Each Physical Therapy: ___ Session Segments, 15 Minutes Each 16725 010 LISA RAND Physical Therapy: ___ Se ion Segments, 15 Minutes Each Physical Therapy: ___ Session Segments, 15 Minutes Each 67251 010 JUAN WOODSON [facility] Physical Therapy Service Evaluation JUAN WOODSON [facility] Medical Nutrition Therapy Group (2 or More Individuals) Each 30 Minutes Medical Nutrition Therapy Group (2 or More Individuals) Each 30 Minutes 54410 010 MC BALDERRAMA [facility] Spectacles Services Fitting Monofocal Except For Aphakia [facility] Fitting Monofocal Except For Aphakia 15648 FAMILIA SEE [facility] Determination Of Refractive State Determination Of Refractive State 88984 010 FAMILIA SEE [facility] Ophthalmological New Patient Start Comprehensive Care Ophthalmological New Patient Start Comprehensive Care 72181 010 FAMILIA SEE [facility] Phys Therapy Education Self Care Training - Per 15 Minutes Phys Therapy Education Self Care Training - Per 15 Minutes 90055 010 SYDNI FLORES >8 MINUTES, <23 MINUTES, DEMONSTRATED AND TAUGH CAT AND CAMEL AND PELVIC UPLIFT TECHNIQUES FOR BACK STRENGHTENING. [facility] Chiropractic Manip Treatmt (CMT) Spinal Three To Four Region Chiropractic Manip Treatmt (CMT) Spinal Three To Four Region 54149 009 MANAV JACKSON [facility] Polysomnography With Four Or More Additional Sleep Parameters 009 SHEILA FIGUEROA [facility] Chiropractic Manip Treatmt (CMT) Spinal Three To Four Region Chiropractic Manip Treatmt (CMT) Spinal Three To Four Region 28321 009 MANAV JACKSON [facility] Medical Nutrition Therapy Group (2 or More Individuals) Each 30 Minutes Medical Nutrition Therapy Group (2 or More Individuals) Each 30 Minutes 63816 009 ADAM WEBBER [facility] Threshold Audiogram (Pure Tone) Threshold Audiogram (Pure Tone) 86737 009 RAMBO ROUSSEAU [facility] Medical Nutrition Therapy Group (2 or More Individuals) Each 30 Minutes Medical Nutrition Therapy Group (2 or More Individuals) Each 30 Minutes 87496 009 NÉSTOR HART [facility] Medical Nutrition Therapy Group (2 or More Individuals) Each 30 Minutes Medical Nutrition Therapy Group (2 or More Individuals) Each 30 Minutes 59286 009 TATYANA GRAHAM Chiropractic Manip Treatmt (CMT) Spinal Three To Four Region Chiropractic Manip Treatmt (CMT) Spinal Three To Four Region 67206 009 MANAV JACKSON [facility] Medical Nutrition Therapy Re-a e ment And Intervention Each 15 Minutes Medical Nutrition Therapy Re-assessment And Intervention Each 15 Minutes 86498 009 TATYANA GRAHAM [facility] Medical Nutrition Therapy Group (2 or More Individuals) Each 30 Minutes Medical Nutrition Therapy Group (2 or More Individuals) Each 30 Minutes 64427 009 ADAM WEBBER [facility] Health And Behav Intervention, Each Additional 15 Min Grp (2 Or More) 009 LUDY MEZA [facility] Chiropractic Manip Treatmt (CMT) Spinal Three To Four Region Chiropractic Manip Treatmt (CMT) Spinal Three To Four Region 12847 009 MANAV JACKSON Chiropractic Manip Treatmt (CMT) Spinal Three To Four Region Chiropractic Manip Treatmt (CMT) Spinal Three To Four Region 63707 009 MANAV JACKSON Chiropractic Manip Treatmt (CMT) Spinal Three To Four Region Chiropractic Manip Treatmt (CMT) Spinal Three To Four Region 33130 009 MANAV JACKSON [facility] Medical Nutrition Therapy Re-a e ment And Intervention Each 15 Minutes Medical Nutrition Therapy Re-assessment And Intervention Each 15 Minutes 20598 009 TATYANA GRAHAM [facility] Postoperative Visit, Without Charge Postoperative Visit, Without Charge 53551 009 BYRON ASHLEY [facility] Chiropractic Manip Treatmt (CMT) Spinal Three To Four Region Chiropractic Manip Treatmt (CMT) Spinal Three To Four Region 76336 009 MANAV JACKSON Medical Nutrition Therapy Group (2 or More Individuals) Each 30 Minutes Medical Nutrition Therapy Group (2 or More Individuals) Each 30 Minutes 44779 009 ADAM WEBBER [facility] Chiropractic Manip Treatmt (CMT) Spinal Three To Four Region Chiropractic Manip Treatmt (CMT) Spinal Three To Four Region 06817 009 MANAV JACKSON Chiropractic Manip Treatmt (CMT) Spinal Three To Four Region Chiropractic Manip Treatmt (CMT) Spinal Three To Four Region 15872 009 MANAV JACKSON Chiropractic Manip Treatmt (CMT) Spinal Three To Four Region Chiropractic Manip Treatmt (CMT) Spinal Three To Four Region 35516 009 MANAV JACKSON Physical Therapy Service Re-Evaluation 009 KISHOR UGALDE Chiropractic Manip Treatmt (CMT) [facility] Chirop[facility]ic Manip Treatmt (CMT) [facility] [id number] MANAV JACKSON Chiropractic Manip Treatmt (CMT) [facility] Chiropractic Manip Treatmt (CMT) [facility] [id number] MANAV JACKSON Physical Therapy Neuromuscular Re-education Physical Therapy Neuromuscular Re-education [id number] JACE PENN A isted Exercises [place] [id number] JACE PENN Chiropractic Manip Treatmt (CMT) [facility] Chiropractic Manip Treatmt (CMT) [facility] [id number] MANAV JACKSON Physical Therapy Neuromuscular Re-education Physical Therapy Neuromuscular Re-education [id number] JACE PENN FITTING OF SPECTACLES, EXCEPT FOR APHAKIA; MONOFOCAL 006 DoD THERAPEUTIC PROCEDURE, 1 OR MORE AREAS, EACH 15 MINUTES; THERAPEUTIC EXERCISES TO DEVELOP STRENGTH AND ENDURANCE, RANGE OF MOTION AND FLEXIBILITY 010 DoD APPLICATION OF A MODALITY TO 1 OR MORE AREAS; HOT OR COLD PACKS 010 DoD APPLICATION OF A MODALITY TO 1 OR MORE AREAS; HOT OR COLD PACKS 010 DoD APPLICATION OF A MODALITY TO 1 OR MORE AREAS; HOT OR COLD PACKS 010 DoD APPLICATION OF A MODALITY TO 1 OR MORE AREAS; HOT OR COLD PACKS 010 DoD APPLICATION OF A MODALITY TO 1 OR MORE AREAS; HOT OR COLD PACKS 010 DoD APPLICATION OF A MODALITY TO 1 OR MORE AREAS; TRACTION, MECHANICAL DoD THERAPEUTIC PROCEDURE, 1 OR MORE AREAS, EACH 15 MINUTES; THERAPEUTIC EXERCISES TO DEVELOP STRENGTH AND ENDURANCE, RANGE OF MOTION AND FLEXIBILITY DoD MEDICAL NUTRITION THERAPY; GROUP (2 OR MORE INDIVIDUAL(S)), EACH 30 MINUTES 010 DoD FITTING OF SPECTACLES, EXCEPT FOR APHAKIA; MONOFOCAL 010 DoD HEALTH AND BEHAVIOR INTERVENTION, EACH 15 MINUTES, [id number]; GROUP (2 OR MORE PATIENTS) 006 DoD HEPATITIS B VACCINE (HEPB), ADOLESCENT, 2 DOSE SCHEDULE, FOR INTRAMUSCULAR USE 006 DoD DETERMINATION OF REFRACTIVE STATE 005 DoD DETERMINATION OF REFRACTIVE STATE 004 DoD INJECT(S),OF DIAG/THER SUBS(S) (INCLD ANES,ANTISPASMODIC, OPIOID,STEROID,OTH ROMERO),NOT INCLD NEUROLYTIC SUB,INCLD NEEDLE/CATH PLCMNT,INCLDS CONT FOR LOCALIZATION WHEN PERFORM,EPIDUR/SUBA JENI;LUMB/SAC 004 DoD INJECT(S),OF DIAG/THER SUBS(S) (INCLD ANES,ANTISPASMODIC, OPIOID,STEROID,OTH ROMERO),NOT INCLD NEUROLYTIC SUB,INCLD NEEDLE/CATH PLCMNT,INCLDS CONT FOR LOCALIZATION WHEN PERFORM,EPIDUR/SUBA JENI;LUMB/SAC 004 DoD PRESCRIPTION DRUG, ORAL, NONCHEMOTHERAPEUTIC , NOT OTHERWISE SPECIFIED 004 DoD THERAPEUTIC PROCEDURE, 1 OR MORE AREAS, EACH 15 MINUTES; THERAPEUTIC EXERCISES TO DEVELOP STRENGTH AND ENDURANCE, RANGE OF MOTION AND FLEXIBILITY 003 DoD APPLICATION OF A MODALITY TO 1 OR MORE AREAS; HOT OR COLD PACKS 003 DoD APPLICATION OF A MODALITY TO 1 OR MORE AREAS; HOT OR COLD PACKS 003 DoD APPLICATION OF A MODALITY TO 1 OR MORE AREAS; HOT OR COLD PACKS 003 DoD APPLICATION OF A MODALITY TO 1 OR MORE AREAS; HOT OR COLD PACKS 003 DoD APPLICATION OF A MODALITY TO 1 OR MORE AREAS; HOT OR COLD PACKS DoD APPLICATION OF A MODALITY TO 1 OR MORE AREAS; HOT OR COLD PACKS DoD THERAPEUTIC PROCEDURE, 1 OR MORE AREAS, EACH 15 MINUTES; THERAPEUTIC EXERCISES TO DEVELOP STRENGTH AND ENDURANCE, RANGE OF MOTION AND FLEXIBILITY DoD NONINVASIVE EAR OR PULSE OXIMETRY FOR OXYGEN SATURATION; SINGLE DETERMINATION DoD REMOVAL OF SUTURES UNDER ANESTHESIA (OTHER THAN LOCAL), SAME SURGEON DoD EXCISION, BENIGN LESION INCLUDING MARGINS, EXCEPT SKIN TAG (UNLESS LISTED ELSEWHERE), SCALP, NECK, HANDS, FEET, GENITALIA; EXCISED DIAMETER 0.5 CM OR LESS DoD DETERMINATION OF REFRACTIVE STATE DoD THERAPEUTIC PROCEDURE, 1 OR MORE AREAS, EACH 15 MINUTES; THERAPEUTIC EXERCISES TO DEVELOP STRENGTH AND ENDURANCE, RANGE OF MOTION AND FLEXIBILITY DoD THERAPEUTIC PROCEDURE, 1 OR MORE AREAS, EACH 15 MINUTES; THERAPEUTIC EXERCISES TO DEVELOP STRENGTH AND ENDURANCE, RANGE OF MOTION AND FLEXIBILITY DoD PURE TONE AUDIOMETRY (THRESHOLD); AIR ONLY DoD VISUAL FIELD EXAMINATION, UNI OR BILATERAL, WITH MEDICAL DIAGNOSTIC EVAL; LIMITED EXAM (EG, TANGENT SCREEN, AUTOPLOT, ARC PERIMETER, OR SINGLE STIMULUS LEVEL AUTO TEST, EG OCTOPUS 3 OR 7 EQUIVALENT) DoD AMBULATORY BLOOD PRESSURE MONITORING, UTILIZING REPORT-GENERATING SOFTWARE, AUTOMATED, WORN CONTINUOUSLY FOR 24 HOURS OR LONGER; RECORDING ONLY DoD AMBULATORY BLOOD PRESSURE MONITORING, UTILIZING REPORT-GENERATING SOFTWARE, AUTOMATED, WORN CONTINUOUSLY FOR 24 HOURS OR LONGER; RECORDING ONLY DoD PURE TONE AUDIOMETRY (THRESHOLD); AIR ONLY DoD COLLECTION OF VENOUS BLOOD BY VENIPUNCTURE DoD CHIROPRACTIC MANIPULATIVE TREATMENT (CMT); SPINAL, 3-4 REGIONS DoD FITTING OF SPECTACLES, EXCEPT FOR APHAKIA; MONOFOCAL DoD CHIROPRACTIC MANIPULATIVE TREATMENT (CMT); SPINAL, 3-4 REGIONS DoD CHIROPRACTIC MANIPULATIVE TREATMENT (CMT); SPINAL, 3-4 REGIONS 014 DoD ALBUTEROL, INHALATION SOLUTION, FDA-APPROVED FINAL PRODUCT, NON-COMPOUNDED, ADMINISTERED THROUGH DME, CONCENTRATED FORM, 1 MG [facility] CHIROPRACTIC MANIPULATIVE TREATMENT (CMT); SPINAL, 3-4 REGIONS [facility] CHIROPRACTIC MANIPULATIVE TREATMENT (CMT); SPINAL, 3-4 REGIONS [facility] ARTHROCENTESIS, ASPIRATION AND/OR INJECTION, SMALL JOINT OR BURSA (EG, FINGERS, TOES); WITHOUT ULTRASOUND GUIDANCE [facility] CHIROPRACTIC MANIPULATIVE TREATMENT (CMT); SPINAL, 3-4 REGIONS [facility] LARYNGOSCOPY, FLEXIBLE; DIAGNOSTIC [facility] COLONOSCOPY, FLEXIBLE; WITH BIOPSY, SINGLE OR MULTIPLE [facility] TYMPANOMETRY AND REFLEX THRESHOLD MEASUREMENTS [facility] THERAPEUTIC ACTIVITIES, DIRECT (ONE-ON-ONE) PATIENT CONTACT (USE OF DYNAMIC ACTIVITIES TO IMPROVE FUNCTIONAL PERFORMANCE), EACH 15 MINUTES [facility] CHIROPRACTIC MANIPULATIVE TREATMENT (CMT); SPINAL, 3-4 REGIONS [facility] CHIROPRACTIC MANIPULATIVE TREATMENT (CMT); SPINAL, 3-4 REGIONS [facility] CHIROPRACTIC MANIPULATIVE TREATMENT (CMT); SPINAL, 3-4 REGIONS [facility] CHIROPRACTIC MANIPULATIVE TREATMENT ([facility]); SPINAL, 3-4 REGIONS [facility] CHIROPRACTIC MANIPULATIVE TREATMENT ([facility]); SPINAL, 3-4 REGIONS [facility] CHIROPRACTIC MANIPULATIVE TREATMENT ([facility]); SPINAL, 3-4 REGIONS [facility] MEDICAL NUTRITION THERAPY; RE-ASSESSMENT AND INTERVENTION, INDIVIDUAL, [id number] WITH THE PATIENT, EACH 15 MINUTES [facility] PREPARATION OF REPORT OF PATIENT'S PSYCHIATRIC STATUS, HISTORY, TREATMENT, OR PROGRESS (OTHER THAN FOR LEGAL OR CONSULTATIVE PURPOSES) FOR OTHER INDIVIDUALS, AGENCIES, OR INSURANCE CARRIERS [facility] PSYCHOTHERAPY, 60 MINUTES WITH PATIENT [facility] FITTING OF SPECTACLES, EXCEPT FOR APHAKIA; MONOFOCAL [facility] PSYCHOTHERAPY, 60 MINUTES WITH PATIENT [facility] PSYCHOTHERAPY, 60 MINUTES WITH PATIENT [facility] POLYSOMNOGRAPHY;AGE 6 YEARS/OLDER,SLEEP STAGING W 4/MORE ADDITIONAL PARAMETERS OF SLEEP,W INITIATION OF CONTINUOUS POSITIVE AIRWAY PRESSURE THERAPY/BILEVEL VENTILATION,ATTENDE D BY A TECHNOLOGIST [facility] PSYCHIATRIC DIAGNOSTIC EVALUATION [facility] MEDICAL NUTRITION THERAPY; INITIAL ASSESSMENT AND INTERVENTION, INDIVIDUAL, [id number] WITH THE PATIENT, EACH 15 MINUTES [facility] ANALYSIS OF CLINICAL DATA STORED IN COMPUTERS (EG, ECGS, BLOOD PRESSURES, HEMATOLOGIC DATA) [facility] FITTING OF SPECTACLES, EXCEPT FOR APHAKIA; MONOFOCAL [facility] MEDICAL NUTRITION THERAPY; GROUP (2 OR MORE INDIVIDUAL(S)), EACH 30 MINUTES [facility] PHYSICAL THERAPY EVALUATION [facility] FITTING OF SPECTACLES, EXCEPT FOR APHAKIA; MONOFOCAL [facility] CHIROPRACTIC MANIPULATIVE TREATMENT (CMT); SPINAL, 3-4 REGIONS [facility] POLYSOMNOGRAPHY; AGE 6 YEARS OR OLDER, SLEEP STAGING WITH 4 OR MORE ADDITIONAL PARAMETERS OF SLEEP, ATTENDED BY A TECHNOLOGIST [facility] CHIROPRACTIC MANIPULATIVE TREATMENT (CMT); SPINAL, 3-4 REGIONS [facility] MEDICAL NUTRITION THERAPY; GROUP (2 OR MORE INDIVIDUAL(S)), EACH 30 MINUTES [facility] PURE TONE AUDIOMETRY (THRESHOLD); AIR ONLY [facility] MEDICAL NUTRITION THERAPY; GROUP (2 OR MORE INDIVIDUAL(S)), EACH 30 MINUTES [facility] CHIROPRACTIC MANIPULATIVE TREATMENT (CMT); SPINAL, 3-4 REGIONS [facility] MEDICAL NUTRITION THERAPY; GROUP (2 OR MORE INDIVIDUAL(S)), EACH 30 MINUTES [facility] MEDICAL NUTRITION THERAPY; RE-ASSESSMENT AND INTERVENTION, INDIVIDUAL, [id number] WITH THE PATIENT, EACH 15 MINUTES [facility] HEALTH AND BEHAVIOR INTERVENTION, EACH 15 MINUTES, [id number]; GROUP (2 OR MORE PATIENTS) [facility] MEDICAL NUTRITION THERAPY; GROUP (2 OR MORE INDIVIDUAL(S)), EACH 30 MINUTES [facility] CHIROPRACTIC MANIPULATIVE TREATMENT (CMT); SPINAL, 3-4 REGIONS [facility] CHIROPRACTIC MANIPULATIVE TREATMENT (CMT); SPINAL, 3-4 REGIONS [facility] CHIROPRACTIC MANIPULATIVE TREATMENT (CMT); SPINAL, 3-4 REGIONS [facility] MEDICAL NUTRITION THERAPY; RE-ASSESSMENT AND INTERVENTION, INDIVIDUAL, [id number] WITH THE PATIENT, EACH 15 MINUTES [facility] POSTOPERATIVE FOLLOW-UP VISIT, NORMALLY INCLUDED IN THE SURGICAL PACKAGE, INDICATE THAT EVALUATION & MANAGEMENT SERVICE WAS PERFORMED DURING A POSTOPERATIVE PERIOD REASON RELATED ORIGINAL PROCEDURE [facility] CHIROPRACTIC MANIPULATIVE TREATMENT (CMT); SPINAL, 3-4 REGIONS [facility] MEDICAL NUTRITION THERAPY; GROUP (2 OR MORE INDIVIDUAL(S)), EACH 30 MINUTES [facility] CHIROPRACTIC MANIPULATIVE TREATMENT (CMT); SPINAL, 3-4 REGIONS [facility] UNLISTED SPECIAL SERVICE, PROCEDURE OR REPORT [facility] ANESTHESIA FOR INTRAORAL PROCEDURES, INCLUDING BIOPSY; NOT OTHERWISE SPECIFIED [facility] CHIROPRACTIC MANIPULATIVE TREATMENT (CMT); SPINAL, 3-4 REGIONS [facility] CHIROPRACTIC MANIPULATIVE TREATMENT (CMT); SPINAL, 3-4 REGIONS [facility] PHYSICAL THERAPY RE-EVALUATION [facility] CHIROPRACTIC MANIPULATIVE TREATMENT (CMT); SPINAL, 3-4 REGIONS [facility] CHIROPRACTIC MANIPULATIVE TREATMENT (CMT); SPINAL, 3-4 REGIONS [facility] THERAPEUTIC PROCEDURE,1 OR MORE AREAS,EACH 15 MINUTES;NEUROMUSCUL AR REEDUCATION OF MOVEMENT,BALANCE,CO ORDINATION,KINESTHE TIC SENSE,POSTURE,AND/O R PROPRIOCEPTION FOR SITTING AND/OR STANDING ACTIVITIES [facility] CHIROPRACTIC MANIPULATIVE TREATMENT (CMT); SPINAL, 3-4 REGIONS [facility] THERAPEUTIC PROCEDURE, 1 OR MORE AREAS, EACH 15 MINUTES; THERAPEUTIC EXERCISES TO DEVELOP STRENGTH AND ENDURANCE, RANGE OF MOTION AND FLEXIBILITY [facility] THERAPEUTIC PROCEDURE,1 OR MORE AREAS,EACH 15 MINUTES;NEUROMUSCUL AR REEDUCATION OF MOVEMENT,BALANCE,CO ORDINATION,KINESTHE TIC SENSE,POSTURE,AND/O R PROPRIOCEPTION FOR SITTING AND/OR STANDING ACTIVITIES [facility] CHIROPRACTIC MANIPULATIVE TREATMENT (CMT); SPINAL, 3-4 REGIONS [facility] MEDICAL NUTRITION THERAPY; GROUP (2 OR MORE INDIVIDUAL(S)), EACH 30 MINUTES [facility] CHIROPRACTIC MANIPULATIVE TREATMENT (CMT); SPINAL, 3-4 REGIONS [facility] THERAPEUTIC PROCEDURE,1 OR MORE AREAS,EACH 15 MINUTES;NEUROMUSCUL AR REEDUCATION OF MOVEMENT,BALANCE,CO ORDINATION,KINESTHE TIC SENSE,POSTURE,AND/O R PROPRIOCEPTION FOR SITTING AND/OR STANDING ACTIVITIES [facility] MEDICAL NUTRITION THERAPY; GROUP (2 OR MORE INDIVIDUAL(S)), EACH 30 MINUTES [facility] CHIROPRACTIC MANIPULATIVE TREATMENT (CMT); SPINAL, 3-4 REGIONS [facility] THERAPEUTIC PROCEDURE,1 OR MORE AREAS,EACH 15 MINUTES;NEUROMUSCUL AR REEDUCATION OF MOVEMENT,BALANCE,CO ORDINATION,KINESTHE TIC SENSE,POSTURE,AND/O R PROPRIOCEPTION FOR SITTING AND/OR STANDING ACTIVITIES [facility] CHIROPRACTIC MANIPULATIVE TREATMENT (CMT); SPINAL, 3-4 REGIONS [facility] THERAPEUTIC PROCEDURE,1 OR MORE AREAS,EACH 15 MINUTES;NEUROMUSCUL AR REEDUCATION OF MOVEMENT,BALANCE,CO ORDINATION,KINESTHE TIC SENSE,POSTURE,AND/O R PROPRIOCEPTION FOR SITTING AND/OR STANDING ACTIVITIES [facility] THERAPEUTIC PROCEDURE,1 OR MORE AREAS,EACH 15 MINUTES;NEUROMUSCUL AR REEDUCATION OF MOVEMENT,BALANCE,CO ORDINATION,KINESTHE TIC SENSE,POSTURE,AND/O R PROPRIOCEPTION FOR SITTING AND/OR STANDING ACTIVITIES [facility] CHIROPRACTIC MANIPULATIVE TREATMENT (CMT); SPINAL, 3-4 REGIONS [facility] THERAPEUTIC PROCEDURE,1 OR MORE AREAS,EACH 15 MINUTES;NEUROMUSCUL AR REEDUCATION OF MOVEMENT,BALANCE,CO ORDINATION,KINESTHE TIC SENSE,POSTURE,AND/O R PROPRIOCEPTION FOR SITTING AND/OR STANDING ACTIVITIES 009 [facility] CHIROPRACTIC MANIPULATIVE TREATMENT (CMT); SPINAL, 3-4 REGIONS 009 [facility] THERAPEUTIC PROCEDURE,1 OR MORE AREAS,EACH 15 MINUTES;NEUROMUSCUL AR REEDUCATION OF MOVEMENT,BALANCE,CO ORDINATION,KINESTHE TIC SENSE,POSTURE,AND/O R PROPRIOCEPTION FOR SITTING AND/OR STANDING ACTIVITIES 009 DoD THERAPEUTIC PROCEDURE,1 OR MORE AREAS,EACH 15 MINUTES;NEUROMUSCUL AR REEDUCATION OF MOVEMENT,BALANCE,CO ORDINATION,KINESTHE TIC SENSE,POSTURE,AND/O R PROPRIOCEPTION FOR SITTING AND/OR STANDING ACTIVITIES 009 [facility] CHIROPRACTIC MANIPULATIVE TREATMENT (CMT); SPINAL, 3-4 REGIONS 009 [facility] THERAPEUTIC PROCEDURE,1 OR MORE AREAS,EACH 15 MINUTES;NEUROMUSCUL AR REEDUCATION OF MOVEMENT,BALANCE,CO ORDINATION,KINESTHE TIC SENSE,POSTURE,AND/O R PROPRIOCEPTION FOR SITTING AND/OR STANDING ACTIVITIES 009 [facility] CHIROPRACTIC MANIPULATIVE TREATMENT (CMT); SPINAL, 3-4 REGIONS 009 [facility] THERAPEUTIC PROCEDURE, 1 OR MORE AREAS, EACH 15 MINUTES; THERAPEUTIC EXERCISES TO DEVELOP STRENGTH AND ENDURANCE, RANGE OF MOTION AND FLEXIBILITY 009 [facility] THERAPEUTIC PROCEDURE,1 OR MORE AREAS,EACH 15 MINUTES;NEUROMUSCUL AR REEDUCATION OF MOVEMENT,BALANCE,CO ORDINATION,KINESTHE TIC SENSE,POSTURE,AND/O R PROPRIOCEPTION FOR SITTING AND/OR STANDING ACTIVITIES 009 [facility] CHIROPRACTIC MANIPULATIVE TREATMENT (CMT); SPINAL, 3-4 REGIONS 009 [facility] THERAPEUTIC PROCEDURE,1 OR MORE AREAS,EACH 15 MINUTES;NEUROMUSCUL AR REEDUCATION OF MOVEMENT,BALANCE,CO ORDINATION,KINESTHE TIC SENSE,POSTURE,AND/O R PROPRIOCEPTION FOR SITTING AND/OR STANDING ACTIVITIES 009 [facility] CHIROPRACTIC MANIPULATIVE TREATMENT (CMT); SPINAL, 3-4 REGIONS 009 [facility] THERAPEUTIC PROCEDURE,1 OR MORE AREAS,EACH 15 MINUTES;NEUROMUSCUL AR REEDUCATION OF MOVEMENT,BALANCE,CO ORDINATION,KINESTHE TIC SENSE,POSTURE,AND/O R PROPRIOCEPTION FOR SITTING AND/OR STANDING ACTIVITIES 009 [facility] THERAPEUTIC PROCEDURE, 1 OR MORE AREAS, EACH 15 MINUTES; THERAPEUTIC EXERCISES TO DEVELOP STRENGTH AND ENDURANCE, RANGE OF MOTION AND FLEXIBILITY 009 [facility] PHYSICAL THERAPY RE-EVALUATION 009 [facility] THERAPEUTIC PROCEDURE, 1 OR MORE AREAS, EACH 15 MINUTES; THERAPEUTIC EXERCISES TO DEVELOP STRENGTH AND ENDURANCE, RANGE OF MOTION AND FLEXIBILITY 009 [facility] THERAPEUTIC PROCEDURE,1 OR MORE AREAS,EACH 15 MINUTES;NEUROMUSCUL AR REEDUCATION OF MOVEMENT,BALANCE,CO ORDINATION,KINESTHE TIC SENSE,POSTURE,AND/O R PROPRIOCEPTION FOR SITTING AND/OR STANDING ACTIVITIES 009 [facility] THERAPEUTIC PROCEDURE,1 OR MORE AREAS,EACH 15 MINUTES;NEUROMUSCUL AR REEDUCATION OF MOVEMENT,BALANCE,CO ORDINATION,KINESTHE TIC SENSE,POSTURE,AND/O R PROPRIOCEPTION FOR SITTING AND/OR STANDING ACTIVITIES 009 DoD THERAPEUTIC PROCEDURE,1 OR MORE AREAS,EACH 15 MINUTES;NEUROMUSCUL AR REEDUCATION OF MOVEMENT,BALANCE,CO ORDINATION,KINESTHE TIC SENSE,POSTURE,AND/O R PROPRIOCEPTION FOR SITTING AND/OR STANDING ACTIVITIES 009 DoD THERAPEUTIC PROCEDURE, 1 OR MORE AREAS, EACH 15 MINUTES; THERAPEUTIC EXERCISES TO DEVELOP STRENGTH AND ENDURANCE, RANGE OF MOTION AND FLEXIBILITY 009 [facility] THERAPEUTIC PROCEDURE,1 OR MORE AREAS,EACH 15 MINUTES;NEUROMUSCUL AR REEDUCATION OF MOVEMENT,BALANCE,CO ORDINATION,KINESTHE TIC SENSE,POSTURE,AND/O R PROPRIOCEPTION FOR SITTING AND/OR STANDING ACTIVITIES 009 [facility] THERAPEUTIC PROCEDURE,1 OR MORE AREAS,EACH 15 MINUTES;NEUROMUSCUL AR REEDUCATION OF MOVEMENT,BALANCE,CO ORDINATION,KINESTHE TIC SENSE,POSTURE,AND/O R PROPRIOCEPTION FOR SITTING AND/OR STANDING ACTIVITIES 009 DoD THERAPEUTIC PROCEDURE,1 OR MORE AREAS,EACH 15 MINUTES;NEUROMUSCUL AR REEDUCATION OF MOVEMENT,BALANCE,CO ORDINATION,KINESTHE TIC SENSE,POSTURE,AND/O R PROPRIOCEPTION FOR SITTING AND/OR STANDING ACTIVITIES 009 [facility] THERAPEUTIC PROCEDURE,1 OR MORE AREAS,EACH 15 MINUTES;NEUROMUSCUL AR REEDUCATION OF MOVEMENT,BALANCE,CO ORDINATION,KINESTHE TIC SENSE,POSTURE,AND/O R PROPRIOCEPTION FOR SITTING AND/OR STANDING ACTIVITIES 009 [facility] THERAPEUTIC PROCEDURE, 1 OR MORE AREAS, EACH 15 MINUTES; THERAPEUTIC EXERCISES TO DEVELOP STRENGTH AND ENDURANCE, RANGE OF MOTION AND FLEXIBILITY 009 [facility] THERAPEUTIC PROCEDURE,1 OR MORE AREAS,EACH 15 MINUTES;NEUROMUSCUL AR REEDUCATION OF MOVEMENT,BALANCE,CO ORDINATION,KINESTHE TIC SENSE,POSTURE,AND/O R PROPRIOCEPTION FOR SITTING AND/OR STANDING ACTIVITIES 009 [facility] THERAPEUTIC PROCEDURE,1 OR MORE AREAS,EACH 15 MINUTES;NEUROMUSCUL AR REEDUCATION OF MOVEMENT,BALANCE,CO ORDINATION,KINESTHE TIC SENSE,POSTURE,AND/O R PROPRIOCEPTION FOR SITTING AND/OR STANDING ACTIVITIES 009 DoD PHYSICAL THERAPY RE-EVALUATION 008 DoD POSITIONING CUSHION/PILLOW/WEDG E, ANY SHAPE OR SIZE, INCLUDES ALL COMPONENTS AND ACCESSORIES 008 DoD INJECT(S),OF DIAG/THER SUBS(S) (INCLD ANES,ANTISPASMODIC, OPIOID,STEROID,OTH ROMERO),NOT INCLD NEUROLYTIC SUB,INCLD NEEDLE/CATH PLCMNT,INCLDS CONT FOR LOCALIZATION WHEN PERFORM,EPIDUR/SUBA JENI;LUMB/SAC 008 [facility] PHYSICAL THERAPY EVALUATION 008 DoD INJECT(S),OF DIAG/THER SUBS(S) (INCLD ANES,ANTISPASMODIC, OPIOID,STEROID,OTH ROMERO),NOT INCLD NEUROLYTIC SUB,INCLD NEEDLE/CATH PLCMNT,INCLDS CONT FOR LOCALIZATION WHEN PERFORM,EPIDUR/SUBA JENI;LUMB/SAC 008 DoD SCREENING TEST, PURE TONE, AIR ONLY 008 DoD DETERMINATION OF REFRACTIVE STATE 008 DoD INJECTION(S); SINGLE OR MULTIPLE TRIGGER POINT(S), 1 OR 2 MUSCLE(S) 008 [facility] MEDICAL NUTRITION THERAPY; GROUP (2 OR MORE INDIVIDUAL(S)), EACH 30 MINUTES 008 Do[facility] MEDICAL NUTRITION THERAPY; GROUP (2 OR MORE INDIVIDUAL(S)), EACH 30 MINUTES 008 DoD DETERMINATION OF REFRACTIVE STATE 007 DoD SCREENING TEST, PURE TONE, AIR ONLY 007 DoD VIS FUNCT SCREEN,AUTOMAT/SEMI -AUTOMAT BILAT QUANT DETERM VISUAL ACUITY,OCULAR ALIGN,COLOR VISION,PSEUDOISOCHR OMAT PLATES,& FIELD VIS (MAY INC ALL/SOME SCRN DETERM FOR CONTRAST SENSITIV,VIS UND GLARE) 007 DoD NUTRITION CLASSES, NON-PHYSICIAN PROVIDER, PER SESSION 007 DoD EXCISION OF BENIGN TUMOR OR CYST OF MAXILLA OR ZYGOMA BY ENUCLEATION AND CURETTAGE 007 DoD BRONCHODILATION RESPONSIVENESS, [place] [address], PRE- AND POST-BRONCHODILATOR ADMINISTRATION 007 DoD NONINVASIVE EAR OR PULSE OXIMETRY FOR OXYGEN SATURATION; SINGLE DETERMINATION 007 [facility] SCREENING TEST, PURE TONE, AIR ONLY 006 [facility] Social History Combined list of available smoking, tobacco, and other social history from [facility] Defense and [facility] facilities. 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 DoD
--- OUTSIDE RECORDS SUMMARY | 2023-02-19 14:42 | XMS_ITS | Encounter Summary ---
Author Name [employer] Organization [facility] [employer] Address [address] [place] [address] Support Name Relationship Address Phone KELYTREVER LITO Next of Kin [address] [place] [address] [place] Emergency Contact [address] [place] [address] Selected Encounter This section includes the information on record at [place] for the Encounter. Date/Time Encounter Type Encounter Description Reason Provider Source Jul 27, 2022 08:00 AM OFFICE O/P EST HI 40-54 MIN PRIMARY CARE/MEDICINE ICD-10-CM E11.9 Type 2 diabetes mellitus without complications KIM FRAGA Aj Encounter Template Text not used by [place] Assessments - Encounter Diagnoses This section includes the primary and secondary diagnoses documented for the Encounter. Date/Time Primary/Secondary Diagnosis Diagnosis Name Provider Source Jul 27, 2022 07:21 PM PRIMARY Type 2 diabetes mellitus without complications KIM FRAGA [facility] Jul 27, 2022 07:21 PM SECONDARY Contact with and exposure to other hazardous substances AVSCPETER HYLTON [facility] Jul 27, 2022 07:21 PM SECONDARY Essential (primary) hypertension KIM FRAGA [facility] Jul 27, 2022 07:21 PM SECONDARY Hyperlipidemia, unspecified KIM FRAGA [facility] Jul 27, 2022 07:21 PM SECONDARY Obesity, unspecified KIM FRAGA [facility] Jul 27, 2022 07:21 PM SECONDARY Obstructive sleep apnea (adult) (pediatric) KIM FRAGA [facility] Plan of Treatment: Future Appointments (+ 6 months) and Future Tests (+/- 45 days) The Plan of Treatment section includes future care activities for the patient from [facility]. This section includes future appointments and future orders which are active, pending or scheduled. Future Appointments This section includes appointments that were scheduled to occur 6 months from the date of the Encounter, up to a maximum of 20 appointments. The data comes from all [place] treatment facilities. Appointment Date/Time Appointment Type Appointme nt Facility Name Sep 07, 2022 08:15 AM AMBULATORY - NONE [facility] Lab Results: +/- 30 days of the encounter This section includes the Chemistry and Hematology Lab Results on record with [place] for the patient. Radiology Reports and Pathology Reports are provided separately, in subsequent sections. Lab Results This section contains the Chemistry/Hematology Results that were resulted 30 days before or 30 daysafter the date of the Encounter. Date/Time Source Result Type Result - Unit Interpretation Reference Range Comment Jul 27, 2022 06:52 AM [facility] POTASSIUM Specimen Type: PLASMA No comment entered. Ordering Provider: BUTCH ALEGRE Report Released Date/Time: Jul 07, 2021 04:26 PM Reporting Lab: [facility] [id number] Performing Lab: [facility] [id number] POTASSIUM 3.6 3.5-5.1 Jul 27, 2022 06:52 AM [facility] CREATININE(INCLUDES EGFR) Specimen Type: PLASMA No comment entered. Ordering Provider: BUTCH ALEGRE Report Released Date/Time: Jul 07, 2021 04:26 PM Reporting Lab: [facility] [phone] Performing Lab: [facility] [address] CREATININE 0.5 L 0.7-1.2 .CREAT EGFR(CKD-EPI) >90 See_Comment Jul 27, 2022 06:52 AM [facility] SODIUM Specimen Type: PLASMA No comment entered. Ordering Provider: BUTCH ALEGRE Report Released Date/Time: Jul 07, 2021 04:26 PM Reporting Lab: [facility] [phone] Performing Lab: [facility] [phone] SODIUM 140 136-145 Jul 27, 2022 06:52 AM [facility] HEMOGLOBIN A1C Specimen Type: BLOOD Comment: Values obtained from A1C measurements can vary. For typical A1C assays, a reported value of 7.0 could actually be between 6.7 and 7.3 if measured by a reference method. A reported value of 9.0 could actually be between 8.7 and 9.3. Ref: http://www.ngs p.org/CAPdata. asp Ordering Provider: BUTCH ALEGRE Report Released Date/Time: Jul 07, 2021 04:26 PM Reporting Lab: [facility] [phone] Performing Lab: [facility] [address] HEMOGLOBIN A1C 5.2 4.0-6.0 Jul 27, 2022 06:52 AM [facility] CBC Specimen Type: BLOOD No comment entered. Ordering Provider: BUTCH ALEGRE Report Released Date/Time: Jul 07, 2021 04:26 PM Reporting Lab: [facility] [phone] Performing Lab: [facility] [address] WBC 7.34 4.0-11.0 RBC 5.11 4.6-6.2 HGB 14.7 13.5-17.9 HCT 42.9 41-54 MCV 84.0 80-100 MCH 28.8 27-33 MCHC 34.3 32.0-37.5 PLT 232 150-400 MPV 10.4 7.4-10.4 RDW 13.0 11.5-14.5 Jul 27, 2022 06:52 AM [facility] LIPID PANEL,NON-FASTING Specimen Type: PLASMA No comment entered. Ordering Provider: BUTCH ALEGRE Report Released Date/Time: Jul 07, 2021 04:26 PM Reporting Lab: [facility] [phone] Performing Lab: [facility] [address] CHOLESTEROL 161 See_Comment .HDL 42 See_Comment LDL CALCULATION 100 H See_Comment VLDL CALCULATION 19 See_Comment NON HDL CHOLESTEROL 119 See_Comment TRIG(NON FASTING) 96 See_Comment Vital Signs: All taken on the encounter date This section contains inpatient and outpatient Vital Signs collected on the date of the Encounter. Date/Time Temperature Pulse Blood Pressure Respiratory Rate SP02 Pain Height Weight Body Mass Index Source Jul 27, 2022 07:51 AM 98.2 F 60 /min 162/98 mm[Hg] 18 /min 96 % 4 68 in 307 lb 47 [facility] Social History: Smoking Status (Most current) and Tobacco Use (All prior to encounter date) This section includes the most current, and the historical, smoking and tobacco- related health factors from the [facility] where the Encounter took place. Current Smoking Status This section includes the most current smoking, or tobacco-related health factor, from the [place] facility where the Encounter took place. Date/Time Current Smoking Status Comment Facil ity Jul 20, 2022 09:19 AM VA-TOBACCO NEVER USED [facility] Tobacco Use History This section includes a history of the smoking, or tobacco-related health factors, that were collected on or before the date of the Encounter. The data comes from the [place] facility where the Encounter took place. Date/Time Smoking Status/Tobacco Use Comment F acility Jul 07, 2021 01:30 PM [place]-TOBACCO NEVER USED [facility] Jul 22, 2020 11:30 AM VA-TOBACCO NEVER USED [facility] May 13, 2018 10:59 AM VA-TOBACCO NEVER USED [facility] Sep 15, 2016 09:06 AM LIFETIME NON-TOBACCO USER [facility] Oct 20, 2015 08:49 AM LIFETIME NON-TOBACCO USER [facility] Jan 12, 2015 08:44 AM LIFETIME NON-TOBACCO USER [facility] Encounter Notes: All associated encounter notes This section contains the clinical notes associated to the Encounter. Date/Time Encounter Note(s) Provider Source Jul 27, 2022 08:32 AM ADMINISTRATIVE NOTE: LOCAL TITLE: AFTER VISIT SUMMARY NOTE STANDARD TITLE: ADMINISTRATIVE NOTE DICT DATE: JUL 27, 2022@08:32:02 ENTRY DATE: JUL 27, 2022@08:32:02 DICTATED BY: RUT FRAGA EXP COSIGNER: URGENCY: STATUS: COMPLETED The patient was provided with a copy of an after-visit summary at the conclusion of the visit. A copy of the after-visit summary provided to the patient is available in [facility]. SCANNED DOCUMENT SIGNATURE NOT REQUIRED Electronically Filed: 07/27/2022 by: Rut Fraga MD Primary Care Staff Physician RUT FRAGA [facility] Jul 27, 2022 08:07 AM INTERNAL MEDICINE NOTE: LOCAL TITLE: MEDICINE CLINIC NOTE STANDARD TITLE: INTERNAL MEDICINE NOTE DATE OF NOTE: JUL 27, 2022@08:07 ENTRY DATE: JUL 27, 2022@08:07:42 AUTHOR: RUT FRAGA EXP COSIGNER: URGENCY: STATUS: COMPLETED MEDICINE CLINIC NOTE Has ADDENDA ############################# ############################# ######### F2F Clinic Visit Primary Care PACT [place] 4E ############################# ############################# ######### Name: MARC EDGE Age: 46 [id number] [facility] [id number] Occupation: [employer] Service Branch: [employer] ======= Total time spent on patient care including chart/diagnostic/test review, patient interview/examination, ordering medications/tests, interpreting results,and counseling/documentation was 45 minutes. Combined: HPI, ASSESSMENT & PLAN KELY 07/27/22 08:00 F2F Visit F/U: pact cloud Parts of the note were transcribed by Dragon Naturally Speaking and may contain minor errors/typos. Please let keno writer/runner know if any major discrepancies. Reports doing well. No new major changes to health problems noted. In Mar has SBO found outside hospital after discharging from ER here a few days prior. Was having fever and had blood in urine. DId get EGD and cscope and found to have healed ulcers .Has f/u with GI. Add'l concerns see below. ///////////////////////////// ///////////////////////////// /////////// KOTEK 07/27/22 08:00 F2F Special/follow up notes: ___comanaged with local PCP Dr. Servin ([place]) ___local GI - [facility] #Diabetes prior A1c 7.0 now 5.2 #Morbid obesity Stop metformin. Start semaglutide -Follow-up with [facility] pharmacist regarding titration semaglutide and blood pressure - will mail MOVE program info - discussed but unclear interest. #Benign adrenal adenomas MRI done to follow-up 04/27/2022. see JLV #CAD prevention---recommend stopping the baby aspirin. - Start rosuvastatin instead. LDL slightly above 100. #Chronic low back pain-stable on gabapentin and as needed tramadol Education Evaluations *Was medication education provided for NEW medications or CHANGES to medications? (including medication name, dose, route, reason for use, and potential side effects). Yes. Verbal education was provided to patient/caregiver and patient/caregiver verbalized understanding. TERATOGENIC MED & CONTRACEPTION REVIEW (Optional)... = MEDICATION RECONCILIATION = List Given: An updated medication list was provided to the patient/caregiver. Review Done: The medication list shown below was verified for accuracy and it includes all pending medications/active medications/all medications or discontinued within the last 90 days/all remote medications and non-VA medications. If a given category (i.e. remote meds) is not shown, that means that a patient doesn't have a medication(s) in that category. Allergies listed below were also reviewed/updated for accuracy. Allergies/ADR from [facility] may not display in CPRS. Use JLV MRT5 - Allergies/ADRs FACILITY ALLERGY/ADR -------- No Remote Allergy/ADR Data available for this patient [facility] No Known Allergies Active and Recently Outpatient Medications (including Supplies): Issue Date Status Last Fill Active Outpatient Medications Refills Expiration 1) BUPROPION HCL 150MG 12HR SA TAB Qty: ACTIVE Issu:03-24-22 180 for 90 days Sig: TAKE ONE TABLET Refills: 3 Last:03-28-22 BY MOUTH TWICE A DAY FOR MOOD Expr:03-25-23 2) PANTOPRAZOLE NA 40MG EC TAB Qty: 90 for ACTIVE Issu:03-24-22 90 days Sig: TAKE ONE TABLET BY MOUTH Refills: 2 Last:07-04-22 EVERY DAY FOR HEARTBURN Expr:02-18-24 3) TRAMADOL HCL 50MG TAB Qty: 30 for 30 ACTIVE (S) Issu:07-27-22 days Sig: TAKE ONE TABLET BY MOUTH Refills: 2 Last:07-27-22 EVERY DAY FOR PAIN Expr:01-27-23 Issue Date Status Last Fill Pending Outpatient Medications Refills Expiration 1) ACETAMINOPHEN 500MG TAB Qty: 200 Sig: PENDING TAKE TWO TABLETS BY MOUTH TWICE A DAY Refills: 0 NEEDED 2) BUPROPION HCL 150MG 12HR SA TAB Qty: PENDING 180 Sig: TAKE ONE TABLET BY MOUTH Refills: 0 TWICE A DAY FOR MOOD 3) GABAPENTIN 300MG CAP Qty: 270 Sig: PENDING TAKE ONE CAPSULE BY MOUTH THREE TIMES Refills: 0 A DAY FOR PAIN AND NUMBNESS 4) LISINOPRIL 40MG TAB Qty: 90 Sig: TAKE PENDING ONE TABLET BY MOUTH EVERY DAY Refills: 0 5) MELOXICAM 15MG TAB Qty: 90 Sig: TAKE PENDING ONE TABLET BY MOUTH EVERY DAY Refills: 0 NEEDED *TAKE WITH FOOD*USED FOR PAIN RELIEF 6) PANTOPRAZOLE NA 40MG EC TAB Qty: 90 PENDING Sig: TAKE ONE TABLET BY MOUTH EVERY Refills: 0 DAY 7) ROSUVASTATIN CA 5MG TAB Qty: 90 Sig: PENDING TAKE ONE TABLET BY MOUTH EVERY DAY Refills: 0 8) SEMAGLUTIDE 0.25MG/0.375ML INJ PEN 3ML PENDING Qty: 1 Sig: INJECT 0.25MG UNDER THE Refills: 0 SKIN EVERY WEEK FOR 4 WEEKS, THEN INJECT 0.5MG EVERY WEEK Issue Date Status Last Fill Inactive Outpatient Medications Refills Expiration 1) BUPROPION HCL 150MG 12HR SA TAB Qty: DISCONTINUED Issu:07-07-21 117 for 60 days Sig: TAKE ONE TABLET Refills: 3 Last:07-10-21 BY MOUTH EVERY DAY FOR 3 DAYS, THEN Expr:07-08-22 TAKE ONE TABLET TWICE A DAY FOR MOOD 2) BUPROPION HCL 150MG 12HR SA TAB Qty: DISCONTINUED Issu:07-07-21 120 for 60 days Sig: TAKE ONE TABLET Refills: 0 Last:01-06-22 BY MOUTH TWICE A DAY FOR MOOD Expr:07-08-22 3) GABAPENTIN 300MG CAP Qty: 270 for 90 Issu:06-13-21 days Sig: TAKE ONE CAPSULE BY MOUTH Refills: 2 Last:12-24-21 THREE TIMES A DAY FOR PAIN AND Expr:06-14-22 NUMBNESS 4) HCTZ 25/LISINOPRIL 20MG TAB Qty: 90 for DISCONTINUED Issu:06-13-21 90 days Sig: TAKE 1 TABLET BY MOUTH Refills: 0 Last:03-24-22 EVERY DAY Expr:06-14-22 5) MELOXICAM 15MG TAB Qty: 90 for 90 days Issu:06-13-21 Sig: TAKE ONE TABLET BY MOUTH EVERY Refills: 0 Last:04-02-22 DAY NEEDED *TAKE WITH FOOD*USED FOR Expr:06-14-22 PAIN RELIEF 6) METFORMIN HCL 500MG 24HR SA TAB Qty: DISCONTINUED Issu:07-04-22 180 for 90 days Sig: TAKE TWO TABLETS Refills: 0 Last:07-05-22 BY MOUTH EVERY DAY Expr:10-02-22 7) METFORMIN HCL 500MG 24HR SA TAB Qty: DISCONTINUED Issu:07-07-21 173 for 90 days Sig: TAKE ONE TABLET Refills: 3 Last:07-10-21 BY MOUTH EVERY DAY FOR 7 DAYS, THEN Expr:07-08-22 TAKE TWO TABLETS EVERY DAY 8) OMEPRAZOLE 20MG EC CAP Qty: 90 for 90 DISCONTINUED Issu:06-13-21 days Sig: TAKE ONE CAPSULE BY MOUTH Refills: 1 Last:12-24-21 EVERY DAY ON AN EMPTY STOMACH, AT Expr:06-14-22 LEAST 30 MINUTES PRIOR TO A MEAL Start Date Active Non-VA Medications Refills Expiration 1) Non-VA ASPIRIN TAB,EC Sig: RECOMMENDED ACTIVE TO D/C AND START STATIN 07/27/22 MOUTH EVERY DAY Start Date Inactive Non-VA Medications Refills Expiration 1) Non-VA ASPIRIN 81MG EC TAB SiMG DISCONTINUED MOUTH EVERY DAY 21 Total Medications #Mood disorder stable on Wellbutrin. Reports no insomnia #Hypertension uncontrolled. We will switch from hydrochlorothiazide/lisinopri l to 40 lisinopril. Has mild edema of lower extremities. -We will have patient follow-up with [facility] pharmacist/non-VA PCP Weight loss should help as well -Rx for blood pressure cuff given #Hypokalemia in the past in the setting of SBO and acute illnessresolved after stopping hydrochlorothiazide and repletion #GERD/hiatal hernia/healed ulcers on EGD per patientstable on pantoprazole #BLAKE on CPAP # Routine Health Maintenace- see clinical reminders Vaccines - see immunization history SHx -no smoking, occ etoh Fhx- ovarian cancer, colon, Preventive screening - colonoscope 04/2022 Adv directive - per postings Stable conditions DEGENERATIVE ARTHRITIS OF THE SPINE 20% SC 2ND DEGREE CASTILLO 0% SC HIATAL HERNIA 30% SC KNEE CONDITION 0% SC LIMITED FLEXION OF THIGH 0% SC PARALYSIS OF SCIATIC NERVE 10% SC PARALYSIS OF SCIATIC NERVE 10% SC SCARS 0% SC 2ND DEGREE CASTILLO 0% SC MAJOR DEPRESSIVE DISORDER 50% SC LIMITED EXTENSION OF THIGH 10% SC LIMITED FLEXION OF KNEE 10% SC THIGH CONDITION 20% SC TINNITUS 10% SC LIMITED MOTION OF ANKLE 10% SC HYPERTENSIVE VASCULAR DISEASE 0% SC SLEEP APNEA SYNDROMES 50% SC Reviewed available labs/scans today as appropriate. SURGERIES - NONE FOUND Nursing notes reviewed. CC in nursing note/HPI. Updated Problem List as needed re past med/surg/fam/social history. RTC - routine f/u appt in 6-12 m (1yr for co-mged pts). Instructed patient to follow up sooner than discussed / per recall if any new concerns or worsening of symptoms. ///////////////////////////// ///////////////////////////// /////////// Relevant ROS: See HPI. Rest of ROS neg below Patient reports no fever/chills no chest pain/shortness of breath no blood in urine / stool no abdominal pain Med/Surg/Fam/Soc Hx: Reviewed and updated as needed in problem list ======= VS & EXAM ======= Temp: 98.2 F [36.8 C] (07/27/2022 07:51) Resp: 18 (07/27/2022 07:51) Pulse: 60 (07/27/2022 07:51) Pain: 4 (07/27/2022 07:51) Osat 96% (07/27/2022 07:51) Measurement DT BP 07/27/2022 07:51 162/98 04/01/2022 17:35 162/89 07/07/2021 13:19 137/84 Measurement DT WEIGHT LB(KG)[BMI] 07/27/2022 07:51 307(139.25)[47*] 07/07/2021 13:19 318.4(144.42)[49*] 07/22/2020 10:46 291(132.00)[44*] Appearance: awake, alert, NAD; well appearing HEENT: NC/AT, normal conj, no external abnormalities Neck: supple, no deformities Card: Reg rate, good S1, S2, no rubs/gallops Resp: good air mvmt, clear , no wheezes Abd: soft, nondistended, Psych: normal concentration, normal speech also see A/P section for add'l exam findings Labs/tests: see below. See A/P for relevant discussion. See CPRS problem list for any relevant external results PROBLEM LIST (see CPRS for any updates done during the visit) ------- Active problems - Computerized Problem List is the source for the followin. Hip pain 2. Hypertension 3. Gastroesophageal reflux disease 4. Chronic pain 5. Obstructive sleep apnea 6. Morbid obesity 7. Prediabetes Allergies: Patient has answered NKA ------- LAB/TEST DATA See CPRS problem list for any additional external results ------- WBC 7.34 (07/27/22) PLT 232 (07/27/22) HGB 14.7 BLOOD (07/27/22 06:52) 15.5 BLOOD (04/01/22 17:45) IRON____ TRANSFERRIN____ TIBC,CALCULATED____ IRON SATURATION____ Na: SODIUM 140 (07/27/22) K: POTASSIUM 3.6 (07/27/22) Cl: CHLORIDE 102 (04/01/22) CO2: CO2 30 H (04/01/22) BUN: UREA NITROGEN 13 (04/01/22) Creatinine: CREATININE 0.5 L (07/27/22) Glucose: GLUCOSE 102 H (04/01/22) CREATININE 0.5 L PLASMA (07/27/22 06:52) 0.6 L PLASMA (04/01/22 17:45) SGOT 24 (04/01/22) SGPT 40 (04/01/22) BILIRUBIN, TOTAL 1.6 H (04/01/22) No data available CHOLESTEROL 161 (07/27/22) TRIGLYCERIDE____ HDL 42 (07/27/22) LDL CALCULATION 100 H (07/27/22) SLT - Lab Tests Selected Collection DT Specimen Test Name Result Units Ref Range 07/27/2022 06:52 PLASMA LDL CALCULATION 100 H mg/dL Ref: <=99 MEASURED LDL____ No data available Collection DT Specimen Test Name Result Units Ref Range 07/07/2021 12:38 PLASMA TSH 1.08 uIU/mL 0.35 - 4.94 Collection DT Spec HGBA1C 07/27/2022 06:52 BLOOD 5.2 07/07/2021 12:38 BLOOD 7.0 H 07/22/2020 10:24 BLOOD 5.4 Patient was informed of available lab, imaging, and other study results noted and/or associated with today's visit. Completed medication reconciliation during the visit and updated medication list in CPRS. Provided patient/caregiver regarding any changes and possible side effects, interactions, contraindications and precautions. Patient/caregiver asked to contact clinic with any questions or concerns. medication list at start of visit for updated medication list, see * current medication orders * post-visit med rec * notes regarding changes Active and Recently Outpatient Medications (including Supplies): Active Outpatient Medications Status 1) BUPROPION HCL 150MG 12HR SA TAB TAKE ONE TABLET BY ACTIVE MOUTH TWICE A DAY FOR MOOD 2) METFORMIN HCL 500MG 24HR SA TAB TAKE TWO TABLETS BY ACTIVE MOUTH EVERY DAY 3) PANTOPRAZOLE NA 40MG EC TAB TAKE ONE TABLET BY MOUTH ACTIVE EVERY DAY FOR HEARTBURN Inactive Outpatient Medications Status 1) BUPROPION HCL 150MG 12HR SA TAB TAKE ONE TABLET BY DISCONTINUED MOUTH EVERY DAY FOR 3 DAYS, THEN TAKE ONE TABLET TWICE A DAY FOR MOOD 2) BUPROPION HCL 150MG 12HR SA TAB TAKE ONE TABLET BY DISCONTINUED MOUTH TWICE A DAY FOR MOOD 3) GABAPENTIN 300MG CAP TAKE ONE CAPSULE BY MOUTH THREE TIMES A DAY FOR PAIN AND NUMBNESS 4) HCTZ 25/LISINOPRIL 20MG TAB TAKE 1 TABLET BY MOUTH EVERY DAY 5) MELOXICAM 15MG TAB TAKE ONE TABLET BY MOUTH EVERY DAY NEEDED *TAKE WITH FOOD*USED FOR PAIN RELIEF 6) METFORMIN HCL 500MG 24HR SA TAB TAKE ONE TABLET BY DISCONTINUED MOUTH EVERY DAY FOR 7 DAYS, THEN TAKE TWO TABLETS EVERY DAY 7) METFORMIN HCL 500MG 24HR SA TAB TAKE TWO TABLETS BY DISCONTINUED MOUTH EVERY DAY 8) OMEPRAZOLE 20MG EC CAP TAKE ONE CAPSULE BY MOUTH DISCONTINUED EVERY DAY ON AN EMPTY STOMACH, AT LEAST 30 MINUTES PRIOR TO A MEAL 11 Total Medications Discussed plan of care with patient/caregiver and instructed to contact clinic for any questions/clarifications. Discussed the importance of seeking care BRITTNI if any changes/worsening of symptoms, or if any new/concerning symptoms. Patient/caregiver voice understanding of above and no further questions. ------ Toxic Exposure Screening Follow-Up: Exposure Concern(s): 07/27/2022 Airborne Hazards/Open Burn Pit - Toxic Exposure Concern Other Environmental Concerns - Toxic Exposure Concern jet fuels Follow-up Question(s): 07/27/2022 Benefits/Claims Questions - Toxic Exposure Concern Health/Medical Questions - Toxic Exposure Concern Registry Questions - Toxic Exposure Concern [place]/caregiver has no health or medical concerns related to their concern of environmental exposure. The following connections were provided to the /caregiver: [employer] (VBA) for Benefits/claims: [place] [employer]/Organization (VSO) [email or web address] /shankar/ Rut Fraga MD Primary Care Staff Physician Signed: 07/27/2022 19:21 07/27/2022 ADDENDUM STATUS: COMPLETED please follow up in 1 month for semaglutide titration and BP check thanks /shankar/ Rut Fraga MD Primary Care Staff Physician Signed: 07/27/2022 19:22 Receipt Acknowledged By: * AWAITING SIGNATURE * KATE BURROWS,RUT RAMOS [facility] Jul 27, 2022 07:43 AM INTERNAL MEDICINE OUTPATIENT NOTE: LOCAL TITLE: MEDICINE CLINIC NURSING NOTE STANDARD TITLE: INTERNAL MEDICINE OUTPATIENT NOTE DATE OF NOTE: JUL 27, 2022@07:43 ENTRY DATE: JUL 27, 2022@07:43:18 AUTHOR: REBECCA WILKERSON COSIGNER: URGENCY: STATUS: COMPLETED MEDICINE CLINIC NURSING NOTE Has ADDENDA TYPE OF VISIT: Appointment Check In Type of appointment: In-person appointment REASON FOR VISIT: check-up and med from here ALLERGIES: Patient has answered NKA Vital Signs: Blood Pressure: 162/98 (07/27/2022 07:51) recheck b/p 157/92 NO SX. NOTIFIED PCP Pulse: 60 (07/27/2022 07:51) Respiration: 18 (07/27/2022 07:51) Temperature: 98.2 F [36.8 C] (07/27/2022 07:51) Weight: 307 lb [139.25 kg] (07/27/2022 07:51) Height: 68 in [172.7 cm] (07/27/2022 07:51) BMI: 46.8 Pain: 4 (07/27/2022 07:51) PAIN SCREEN: Patient is having significant pain that they would like to talk to their provider about today. Old (Chronic) (began more than 6 months ago) Patient states their average pain this past week is 4 Patient states the average number on how the chronic pain affects their enjoyment of life the past week is 5 Patient states during the past week the average number on how the pain has interfered with their general activity is 5 Pain Education Patient indicates readiness to learn and verbalizes understanding of the following: Has concerns/questions, advised to discuss with provider MEDICATION Active Outpatient Medications (including Supplies): BUPROPION HCL 150MG 12HR SA TAB TAKE ONE TABLET BY MOUTH ACTIVE TWICE A DAY FOR MOOD METFORMIN HCL 500MG 24HR SA TAB TAKE TWO TABLETS BY MOUTH ACTIVE EVERY DAY PANTOPRAZOLE NA 40MG EC TAB TAKE ONE TABLET BY MOUTH EVERY ACTIVE DAY FOR HEARTBURN Over the Counter/Herbal Medications: The patient states that they take some outside medications and/or herbals. Depression Screening: Perform PHQ-2 A PHQ-2 screen was performed. The score was 0 which is a negative screen for depression. Over the past two weeks, how often have you been bothered by the following problems? 1. Little interest or pleasure in doing things Not at all 2. 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 Printed information was offered and provided if desired. Other exposures: Comment: jet fuels /caregiver was made aware of educational resources and printed information was offered and provided if desired. Health/Medical Questions All patients who report a health/medical concern will receive follow-up from a clinician. For urgent or emergent concerns, they were advised to follow local facility policy. Benefits/Claims Questions /caregiver was informed of local point of contact. Registry Questions [place]/caregiver was informed of local point of contact. Contact information for local resources: - Veterans Benefits for claims submission: Have the call or have them visit the following web address for online scheduling: [email or web address] /s/ - [place] [facility] Enrollment: [phone] ([phone]) - Find a [place] [place] (VSO): Have the call 3-086-YSKNALY or look up their VSO at: [email or web address] - [facility] Navigators: Dr. Demar Beck: [phone] Dr. Jeff Benitez: [phone] Toxic Exposure Screening Follow-Up reminder is needed. Name of person notified: dr fraga Influenza Immunization: The patient declines to receive the recommended dose of seasonal influenza vaccine. Immunization: INFLUENZA, UNSPECIFIED FORMULATION Refusal Reason: PATIENT DECISION Patient refuses all immunization(s) in the FLU group Date Documented: 07/27/22 07:56 EDUCATION: BARRIERS/SPECIAL NEEDS: No barriers identified PREFERRED STYLE OF LEARNING: No preference stated PARTICIPANT(s): Patient Home Blood Pressure Monitoring Has home Blood Pressure monitor. Verified Technique. Advised to check home blood pressure daily for two weeks and follow up with Primary Care Provider. PACT RN TL and Provider alerted to note for follow up planning. Home Blood Pressure monitor ordered. Instructed on the technique of taking and recording blood pressure using home blood pressure machine. Patient measured for BP cuff size: large Prosthetics consult sent for Blood Pressure machine. Goal BP:<130/80 Participant(s) verbalized understanding of principles and technique for taking blood pressure at home. Participant(s) demonstrated proper use of home blood pressure machine. Step 1. Relax. Take your medications 1.5-2 hours prior to checking your BP. Wait at least 30 minutes after exercising, smoking or drinking caffeine. Sit comfortably at a table with the monitor near you. Rest quietly for 5 minutes before you begin and during your BP reading. Step 2. Wrap the Cuff. Place your arm on the table, palm up. Your arm should be at the level of your heart. Wrap the cuff around your upper arm, just above the elbow. It's best done on bare skin. Step 3. Inflate the Cuff. Push the button that starts the pump. The cuff will tighten, then loosen. The numbers will change. When they stop changing, your BP reading will appear. If you get a reading that is too high or low, rest 5 minutes. Then repeat the test. Step 4. Write Down the Results. Write down your BP numbers and heart rate. Remove the cuff from your arm. Turn off the machine. Remember to bring your log book to every clinic appointment for your provider or nurse to review. Participant(s) verbalized understanding of Goal BP:<130/80, and how often to take blood pressure at home: x 14 days times per week. Participant(s) provided with clinic phone number for any questions. /du WILKERSON LPN LPN Signed: 07/27/2022 08:00 Receipt Acknowledged By: 07/27/2022 08:35 /du HUSAIN RN 07/27/2022 ADDENDUM STATUS: COMPLETED Two week reminder created to f/u with home blood pressure. /du HUSAIN RN Signed: 07/27/2022 08:35 REBECCA WILKERSON [facility]
--- OUTSIDE RECORDS SUMMARY | 2023-02-19 14:42 | XMS_ITS | Encounter Summary ---
Author Name Department of Vetera ns Affairs Organization [facility] of [facility] Address [address] [place] [address] Support Name Relationship Address Phone KELYTREVER LITO Next of Kin [address] [place] [address] [place] Emergency Contact [address] [place] [address] Selected Encounter This section includes the information on record at [place] for the Encounter. Date/Time Encounter Type Encounter Description Reason Provider Source Sep 07, 2022 08:15 AM PRO PHONE CALL 11-20 MIN TELEPHONE PRIMARY CARE ICD-10-CM E11.9 Type 2 diabetes mellitus without complications HEMAL BURROWS [facility] Encounter Template Text not used by [place] Assessments - Encounter Diagnoses This section includes the primary and secondary diagnoses documented for the Encounter. Date/Time Primary/Secondary Diagnosis Diagnosis Name Provider Source Sep 07, 2022 08:15 AM PRIMARY Type 2 diabetes mellitus without complications HEMAL BURROWS [facility] Sep 07, 2022 08:15 AM SECONDARY Essential (primary) hypertension HEMAL BURROWS [facility] Plan of Treatment: Future Appointments (+ 6 months) and Future Tests (+/- 45 days) The Plan of Treatment section includes future care activities for the patient from all [place] treatmentfacilities. This section includes future appointments and future orders which are active, pending or scheduled. Future Appointments This section includes appointments that were scheduled to occur 6 months from the date of the Encounter, up to a maximum of 20 appointments. The data comes from all [place] treatment facilities. Appointment Date/Time Appointment Type Appointme nt Facility Name Feb 16, 2023 12:00 PM AMBULATORY - NONE [facility] Social History: Smoking Status (Most current) and Tobacco Use (All prior to encounter date) This section includes the most current, and the historical, smoking and tobacco- related health factors from the [facility] where the Encounter took place. Current Smoking Status This section includes the most current smoking, or tobacco-related health factor, from the [facility] where the Encounter took place. Date/Time Current Smoking Status Comment Facil ity Jul 20, 2022 09:19 AM PR-TOBACCO NEVER USED [facility] Tobacco Use History This section includes a history of the smoking, or tobacco-related health factors, that were collected on or before the date of the Encounter. The data comes from the [place] facility where the Encounter took place. Date/Time Smoking Status/Tobacco Use Comment F acility Jul 07, 2021 01:30 PM PR-TOBACCO NEVER USED [facility] Jul 22, 2020 11:30 AM VA-TOBACCO NEVER USED [facility] May 13, 2018 10:59 AM PR-TOBACCO NEVER USED [facility] Sep 15, 2016 09:06 AM LIFETIME NON-TOBACCO USER [facility] Oct 20, 2015 08:49 AM LIFETIME NON-TOBACCO USER [facility] Jan 12, 2015 08:44 AM LIFETIME NON-TOBACCO USER [facility] Encounter Notes: All associated encounter notes This section contains the clinical notes associated to the Encounter. Date/Time Encounter Note(s) Provider Source Sep 07, 2022 08:14 AM PHARMACY NOTE: LOCAL TITLE: PHARMACOTHERAPY-CLINICAL PHARMACY NOTE STANDARD TITLE: PHARMACY NOTE DATE OF NOTE: SEP 07, 2022@08:14 ENTRY DATE: SEP 07, 2022@08:14:23 AUTHOR: KATE BURROWS EXP COSIGNER: URGENCY: STATUS: COMPLETED Visit Type: MARC Angeles is a 46 YO MALE followed by PACT CPS for medication management. SUBJECTIVE: - first dose of 0.5mg semaglutide this week, tolerating without issue - going on a cruise for 2 weeks in Oct, plans to increase activity prior to this more passively and start more intentional exercise routine upon return - notes he changed from HCTZ/lisionpril, resulted in ED visit for hypokalemia and diuretic was stopped. K has returned to normal range Patient goals: weight loss for function, hasn't weighed himself recently. Lifestyle: EtOH: socially, generally none during the week Diet: states he hasn't changed anything in particular, attributes weight and DM improvement to medication Exercise: just started a new job working from home, less active but feels he'll have more time to exercise (walking around the property) *plans to get an elliptical or stationary bike before winter *limited by knees and back ROS: (-) hypoglycemia symptoms (-) hyperglycemia symptoms (-) hypotension symptoms (-) HTN symptoms SMBG Readings: not checking at home Home BP Readings: recent data SBP DBP 144 89 148 104 159 81 148 83 146 86 158 96 167 94 146 86 164 86 Adherence to medications: no missed or extra doses reported OBJECTIVE: ALLERGIES/ADR: Patient has answered NKA MEDICATION RECONCILIATION: Active and Recently Outpatient Medications (excluding Supplies): Active Outpatient Medications Status 1) ACETAMINOPHEN 500MG TAB TAKE TWO TABLETS BY MOUTH ACTIVE TWICE A DAY NEEDED FOR PAIN 2) BUPROPION HCL 150MG 12HR SA TAB TAKE ONE TABLET BY ACTIVE MOUTH TWICE A DAY FOR MOOD 3) GABAPENTIN 300MG CAP TAKE ONE CAPSULE BY MOUTH THREE ACTIVE TIMES A DAY FOR PAIN AND NUMBNESS 4) *LISINOPRIL 40MG TAB TAKE ONE TABLET BY MOUTH EVERY ACTIVE DAY FOR BLOOD PRESSURE 5) MELOXICAM 15MG TAB TAKE ONE TABLET BY MOUTH EVERY DAY ACTIVE NEEDED *TAKE WITH FOOD*USED FOR PAIN RELIEF 6) PANTOPRAZOLE NA 40MG EC TAB TAKE ONE TABLET BY MOUTH ACTIVE (S) EVERY DAY FOR HEARTBURN 7) *ROSUVASTATIN CA 5MG TAB TAKE ONE TABLET BY MOUTH ACTIVE EVERY DAY FOR CHOLESTEROL (STARTED 07/27/22) 8) *SEMAGLUTIDE 0.25MG/0.375ML INJ PEN 3ML INJECT 0.5MG ACTIVE UNDER THE SKIN EVERY WEEK FOR DIABETES *REPLACES METFORMIN 9) *TRAMADOL HCL 50MG TAB TAKE ONE TABLET BY MOUTH EVERY ACTIVE DAY FOR PAIN Vitals: Temperature: 98.2 F [36.8 C] (07/27/2022 07:51) Blood Pressure: 162/98 (07/27/2022 07:51) Pulse: 60 (07/27/2022 07:51) Respiration: 18 (07/27/2022 07:51) Pain: 4 (07/27/2022 07:51) Height: 68 in [172.7 cm] (07/27/2022 07:51) Weight: 307 lb [139.25 kg] (07/27/2022 07:51) BMI: 46.8 LABS: Basic Metabolic Panel SODIUM 140 (07/27/22) POTASSIUM 3.6 (07/27/22) UREA NITROGEN 13 (04/01/22) GLUCOSE 102 H (04/01/22) CO2 30 H (04/01/22) CHLORIDE 102 (04/01/22) MAGNESIUM 1.8 (04/01/22) Collection DT Specimen Test Name Result Units Ref Range 07/27/2022 06:52 PLASMA CREATININE 0.5 L mg/dL 0.7 - 1.2 04/01/2022 17:45 PLASMA CREATININE 0.6 L mg/dL 0.7 - 1.2 07/07/2021 12:38 PLASMA CREATININE 0.7 mg/dL 0.7 - 1.2 07/27/2022 06:52 PLASMA .CREAT EGFR(CKD-E >90 Ref: >=60 04/01/2022 17:45 PLASMA .CREAT EGFR(CKD-E >90 Ref: >=60 07/07/2021 12:38 PLASMA .CREAT EGFR(CKD-E >90 Ref: >=60 07/22/2020 10:24 PLASMA ESTIMATED GFR(eGF >60 Ref: >=60 02/02/2020 08:56 PLASMA ESTIMATED GFR(eGF >60 Ref: >=60 CHOLESTEROL 161 (07/27/22) MEASURED LDL____ LDL CALCULATION 100 H (07/27/22) HDL 42 (07/27/22) TRIGLYCERIDE____ Collection DT Spec HGBA1C 07/27/2022 06:52 BLOOD 5.2 07/07/2021 12:38 BLOOD 7.0 H 07/22/2020 10:24 BLOOD 5.4 No data available for: ALB/CREAT RATIO,UR SGOT 24 (04/01/22) SGPT 40 (04/01/22) Collection DT Spec WBC HGB HCT PLT MCV NEUT LYMPHS 07/27/2022 06:52 BLOOD 7.34 14.7 42.9 232 84.0 04/01/2022 17:45 BLOOD 8.91 15.5 45.9 235 85.2 84.9 8.0 ASSESSMENT: #DM - Goal A1c <7% (FBG 80-130, PPG <180) per VA/DoD guidelines - A1c and/or SMBG at goal - tolerating medications without ADR or hypoglycemia - appropriate to continue current medications as prescribed #HTN - Goal <130/80mmHg per 2017 ACC/AHA guidelines - reported home blood pressures above goal - tolerating medications without ADR or hypotension - encouraged ongoing efforts to improve lifestyle factors including activity goal of 150mins/wk - reviewed appropriate BP monitoring technique - will start amlodipine and have continue to monitor BP at home PLAN: - start amlodipine 5mg once daily - continue lisinopril 40mg once daily - continue semaglutide 0.5mg SQ once weekly #Disease-Specific Med Rec: Completed today #Labs: up to date - Educated vet on indication/risks/benefits of new/changed medication. - Education provided on therapeutic nonpharmacologic management to achieve goals - [place] verbalized understanding to all plans discussed today. Questions were answered to vet's satisfaction. Time spent: 18 minutes RTC: 11/28 @0815 /es/ KATE BURROWS Clinical Pharmacist Practitioner Signed: 09/07/2022 08:48 KATE BURROWS [facility]
--- OUTSIDE RECORDS SUMMARY | 2023-02-19 14:42 | XMS_ITS | Encounter Summary ---
Author Name Department of Vetera ns Affairs Organization Department of Vetera ns Affairs Address [address] [place] [address] Support Name Relationship Address Phone KELYTREVER LITO Next of Kin [address] [place] [address] [place] Emergency Contact [address] [address] Selected Encounter This section includes the information on record at [place] for the Encounter. Date/Time Encounter Type Encounter Description Reason Pro vider Source Oct 12, 2022 01:13 PM Outpatient Encounter TELEPHONE PRIMARY CARE IHE Encounter Template Text not used by [place] Plan of Treatment: Future Appointments (+ 6 months) and Future Tests (+/- 45 days) The Plan of Treatment section includes future care activities for the patient from all [place] treatmentfacilities. This section includes future appointments and future orders which are active, pending or scheduled. Future Appointments This section includes appointments that were scheduled to occur 6 months from the date of the Encounter, up to a maximum of 20 appointments. The data comes from all [place] treatment facilities. Appointment Date/Time Appointment Type Appointme nt Facility Name Feb 16, 2023 12:00 PM AMBULATORY - NONE [facility] Social History: Smoking Status (Most current) and Tobacco Use (All prior to encounter date) This section includes the most current, and the historical, smoking and tobacco- related health factors from the [facility] facility where the Encounter took place. Current Smoking Status This section includes the most current smoking, or tobacco-related health factor, from the [facility] facility where the Encounter took place. Date/Time Current Smoking Status Comment Facil ity Jul 20, 2022 09:19 AM VA-TOBACCO NEVER USED [facility] Tobacco Use History This section includes a history of the smoking, or tobacco-related health factors, that were collected on or before the date of the Encounter. The data comes from the [place] facility where the Encounter took place. Date/Time Smoking Status/Tobacco Use Comment F acility Jul 07, 2021 01:30 PM VA-TOBACCO NEVER USED [facility] Jul 22, 2020 11:30 AM VA-TOBACCO NEVER USED [facility] May 13, 2018 10:59 AM VA-TOBACCO NEVER USED [facility] Sep 15, 2016 09:06 AM LIFETIME NON-TOBACCO USER [facility] Oct 20, 2015 08:49 AM LIFETIME NON-TOBACCO USER [facility] Jan 12, 2015 08:44 AM LIFETIME NON-TOBACCO USER [facility] Encounter Notes: All associated encounter notes This section contains the clinical notes associated to the Encounter. Date/Time Encounter Note(s) Provider Source Oct 12, 2022 01:13 PM PRIMARY CARE NONVA NOTE: LOCAL TITLE: CO-MANAGED CARE NOTE STANDARD TITLE: PRIMARY CARE NONVA NOTE DATE OF NOTE: OCT 12, 2022@13:13 ENTRY DATE: OCT 12, 2022@13:13:54 AUTHOR: MARCY WRIGHT EXP COSIGNER: URGENCY: STATUS: COMPLETED Received a request for: 1. Dexlansprazole 60mg daily.(there is not an actual prescription, just a letter with dosage, needing to no further delay care, we did not receive the rx in early september and pt's pantoprazole was dc'd) Please place a prior auth for this medication. Pt has used pantoprazole and also stated to me that he has also used omeprazole. Records scanned and available for review. Rx written by: Betty ARCE Facility: [facility] Local provider phone #[phone] Local provider fax #[phone] Please alert me if med isn't approved or additional information is requested. If med is denied let me know what alternatives would be approved so I can communicate that information back to the local provider. /shankar/ MARCY WRIGHT LPN Co-Manager Workers Compensation Signed: 10/12/2022 13:22 Receipt Acknowledged By: 10/12/2022 16:10 /shankar/ MARCY PAINTER MD [facility]
--- OUTSIDE RECORDS SUMMARY | 2023-02-19 14:42 | XMS_ITS | Encounter Summary ---
Author Name Department of Vetera ns Affairs Organization Department of Vetera [facility] Affairs Address [address] [place] [address] Support Name Relationship Address Phone KELYTREVER LITO Next of Kin [address] [place] [address] [place] Emergency Contact [address] [address] Selected Encounter This section includes the information on record at [place] for the Encounter. Date/Time Encounter Type Encounter Description Reason Pro vider Source Aug 28, 2022 01:03 PM Outpatient Encounter TELEPHONE TRIAGE IHE Encounter Template Text not used by [place] Plan of Treatment: Future Appointments (+ 6 months) and Future Tests (+/- 45 days) The Plan of Treatment section includes future care activities for the patient from all [place] treatmentfacilities. This section includes future appointments and future orders which are active, pending or scheduled. Future Appointments This section includes appointments that were scheduled to occur 6 months from the date of the Encounter, up to a maximum of 20 appointments. The data comes from all [place] treatment facilities. Appointment Date/Time Appointment Type Appointme nt Facility Name Sep 07, 2022 08:15 AM AMBULATORY - NONE [facility] Feb 16, 2023 12:00 PM AMBULATORY - NONE [facility] Social History: Smoking Status (Most current) and [...] 20, 2022 09:19 AM VA-TOBACCO NEVER USED [facility] Tobacco Use History This section includes a history of the smoking, or tobacco-related health factors, that were collected on or before the date of the Encounter. The data comes from the [place] facility where the Encounter took place. Date/Time Smoking Status/Tobacco Use Comment F acility Jul 07, 2021 01:30 PM VA-TOBACCO NEVER USED [facility] Jul 22, 2020 11:30 AM VA-TOBACCO NEVER USED [facility] May 13, 2018 10:59 AM VA-TOBACCO NEVER USED [facility] Sep 15, 2016 09:06 AM LIFETIME NON-TOBACCO USER [facility] Oct 20, 2015 08:49 AM LIFETIME NON-TOBACCO USER [facility] Jan 12, 2015 08:44 AM LIFETIME NON-TOBACCO USER [facility] Encounter Notes: All associated encounter notes This section contains the clinical notes associated to the Encounter. Date/Time Encounter Note(s) Provider Source Aug 28, 2022 01:05 PM REPORT OF CONTACT: LOCAL TITLE: PATIENT CONTACT NOTE - PHARMACY STANDARD TITLE: REPORT OF CONTACT DATE OF NOTE: AUG 28, 2022@13:05 ENTRY DATE: AUG 28, 2022@13:05:26 AUTHOR: FLOR VEGA EXP COSIGNER: URGENCY: STATUS: COMPLETED Human [employer] attempted to reach patient in regards to:? (Medication) SEMAGLUTIDE 0.25MG/0.375ML INJ PEN 3ML Medication is a Titrated Rx. Prescription has been sent to [facility] for processing. Called Patient on:? (Date) at (Time) @2:05 Spoke with Patient: ?(Yes/No)YES Left Voicemail: ?(Yes/No) NO /shankar/ FLOR VEGA V23 [facility] SCREW MACHINE REPAIRER Signed: 08/28/2022 13:08 FLOR VEGA [facility]
--- OUTSIDE RECORDS SUMMARY | 2023-02-19 14:42 | XMS_ITS | Encounter Summary ---
Author Name Department of Vetera [facility] Affairs Organization [facility] of [facility] Address [address] [place] [address] Support Name Relationship Address Phone KELYTREVER LITO Next of Kin [address] [place] [address] [place] Emergency Contact [address] [address] Selected Encounter This section includes the information on record at [place] for the Encounter. Date/Time Encounter Type Encounter Description Reason Provider Source Oct 20, 2022 07:12 AM QNHP OL DIG ASSMT&MGMT 5-10 CLINICAL PHARMACY ICD-10-CM K21.9 Gastro-esophageal reflux disease without esophagitis THOMAS MORALES Aj Encounter Template Text not used by [place] Assessments - Encounter Diagnoses This section includes the primary and secondary diagnoses documented for the Encounter. Date/Time Primary/Secondary Diagnosis Diagnosis Name Provider Source Oct 20, 2022 07:17 AM PRIMARY Gastro-esophageal reflux disease without esophagitis THOMAS MORALES [facility] Plan of Treatment: Future Appointments (+ 6 months) and Future Tests (+/- 45 days) The Plan of Treatment section includes future care activities for the patient from all [place] treatmentfacilities. This section includes future appointments and future orders which are active, pending or scheduled. Future Appointments This section includes appointments that were scheduled to occur 6 months from the date of the Encounter, up to a maximum of 20 appointments. The data comes from all [place] treatment facilities. Appointment Date/Time Appointment Type Appointme nt Facility Name Feb 16, 2023 12:00 PM AMBULATORY - NONE [facility] Social History: Smoking Status (Most current) and Tobacco Use (All prior to encounter date) This section includes the most current, and the historical, smoking and tobacco- related health factors from the [facility] where the Encounter took place. Current Smoking Status This section includes the most current smoking, or tobacco-related health factor, from the [facility] where the Encounter took place. Date/Time Current Smoking Status Comment Facil ity Jul 20, 2022 09:19 AM VA-TOBACCO NEVER USED [facility] Tobacco Use History This section includes a history of the smoking, or tobacco-related health factors, that were collected on or before the date of the Encounter. The data comes from the [facility] where the Encounter took place. Date/Time Smoking Status/Tobacco Use Comment F acility Jul 07, 2021 01:30 PM VA-TOBACCO NEVER USED [facility] Jul 22, 2020 11:30 AM VA-TOBACCO NEVER USED [facility] May 13, 2018 10:59 AM VA-TOBACCO NEVER USED [facility] Sep 15, 2016 09:06 AM LIFETIME NON-TOBACCO USER [facility] Oct 20, 2015 08:49 AM LIFETIME NON-TOBACCO USER [facility] Jan 12, 2015 08:44 AM LIFETIME NON-TOBACCO USER [facility] Encounter Notes: All associated encounter notes This section contains the clinical notes associated to the Encounter. Date/Time Encounter Note(s) Provider Source Nov 09, 2022 01:03 PM ADDENDUM: LOCAL TITLE: Addendum STANDARD TITLE: ADDENDUM DATE OF NOTE: NOV 09, 2022@13:03:40 ENTRY DATE: NOV 09, 2022@13:03:41 AUTHOR: MARCY WRIGHT COSIGNER: URGENCY: STATUS: COMPLETED Spoke with the pt regarding the above medication request. Pt has already been on pantoprazole in the past. He is wondering why he has restarted this. I did notify him that the Dexlansprazole was denied, however there are other medications that can be used other than pantoprazole. Will alert the pcp to see what else the pt can use, since pantoprazole has been used and is not working for this pt. Please advise. /shankar/ MARCY WRIGHT LPN Co-Radio Dispatcher Signed: 11/09/2022 13:08 Receipt Acknowledged By: 11/09/2022 13:47 /shankar/ AL MCINTOSH MD --- Original Document --- 10/20/22 PHARMACY PRIOR AUTHORIZATION DENIED CONSULT: The medical record has been reviewed with regard to this prior authorization drug request. Medication requested: DEXLANSOPRAZOLE 30MG EC CAP Medication indication: GERD Medical history relevant to this request: Previous H2 blockers: ranitidine, famotidine Previous PPI: omeprazole. Available [place] PPI options to be trialed prior to consideration for dexlansoprazole: PANTOPRAZOLE formulary ESOMEPRAZOLE LANSOPRAZOLE RABEPRAZOLE The request does not meet criteria - The preferred alternative therapeutic option(s) have not been exhausted Active Outpatient Medications (including Supplies): ACETAMINOPHEN 500MG TAB TAKE TWO TABLETS BY MOUTH TWICE A ACTIVE DAY NEEDED FOR PAIN AMLODIPINE BESYLATE 5MG TAB TAKE ONE TABLET BY MOUTH EVERY ACTIVE (S) DAY FOR BLOOD PRESSURE BUPROPION HCL 150MG 12HR SA TAB TAKE ONE TABLET BY MOUTH ACTIVE TWICE A DAY FOR MOOD GABAPENTIN 300MG CAP TAKE ONE CAPSULE BY MOUTH THREE TIMES ACTIVE A DAY FOR PAIN AND NUMBNESS LISINOPRIL 40MG TAB TAKE ONE TABLET BY MOUTH EVERY DAY FOR ACTIVE BLOOD PRESSURE MELOXICAM 15MG TAB TAKE ONE TABLET BY MOUTH EVERY DAY ACTIVE NEEDED *TAKE WITH FOOD*USED FOR PAIN RELIEF ROSUVASTATIN CA 5MG TAB TAKE ONE TABLET BY MOUTH EVERY DAY ACTIVE FOR CHOLESTEROL (STARTED 07/27/22) SEMAGLUTIDE 0.25MG/0.375ML INJ PEN 3ML INJECT 0.5MG UNDER ACTIVE THE SKIN EVERY WEEK FOR DIABETES *REPLACES METFORMIN TRAMADOL HCL 50MG TAB TAKE ONE TABLET BY MOUTH EVERY DAY ACTIVE FOR PAIN Non-VA NON VA MED NOT LISTED MISCELLANEOUS MOUTH ACTIVE /es/ RAQUEL MORALES Pharm.D. Signed: 10/20/2022 07:17 Receipt Acknowledged By: 10/20/2022 09:08 /es/ AL MCINTOSH MD 10/26/2022 ADDENDUM STATUS: COMPLETED Called and left voicemail to return call to discuss new medication. Awaiting return call. /es/ DUC HUSAIN RN Signed: 10/26/2022 08:52 10/31/2022 ADDENDUM STATUS: COMPLETED was returning the missed call. He states that he is on a family trip and phone switchboard receptionist is spotty. Please try and give him a call at [phone]. [place]! /shankar/ CYNDI MEADOWS 23 [facility] MSA Signed: 10/31/2022 12:13 Receipt Acknowledged By: 10/31/2022 12:54 /du HUSAIN RN 10/31/2022 ADDENDUM STATUS: COMPLETED Called and updated on new medication. stated he is in [place] but will begin when he returns home. /shankar/ DUC HUSAIN RN Signed: 10/31/2022 12:57 MARCY WRIGHT [facility] Oct 31, 2022 12:12 PM ADDENDUM: LOCAL TITLE: Addendum STANDARD TITLE: ADDENDUM DATE OF NOTE: OCT 31, 2022@12:12:32 ENTRY DATE: OCT 31, 2022@12:12:34 AUTHOR: CYNDI MALONE COSIGNER: URGENCY: STATUS: COMPLETED [place] was returning the missed call. He states that he is on a family trip and phone switchboard receptionist is spotty. Please try and give him a call at [phone]. [place]! /shankar/ CYNDI MEADOWS 23 [facility] Signed: 10/31/2022 12:13 Receipt Acknowledged By: 10/31/2022 12:54 /du HUSAIN RN --- Original Document --- 10/20/22 PHARMACY PRIOR AUTHORIZATION DENIED CONSULT: The medical record has been reviewed with regard to this prior authorization drug request. Medication requested: DEXLANSOPRAZOLE 30MG EC CAP Medication indication: GERD Medical history relevant to this request: Previous H2 blockers: ranitidine, famotidine Previous PPI: omeprazole. Available VA PPI options to be trialed prior to consideration for dexlansoprazole: PANTOPRAZOLE formulary ESOMEPRAZOLE LANSOPRAZOLE RABEPRAZOLE The request does not meet criteria - The preferred alternative therapeutic option(s) have not been exhausted Active Outpatient Medications (including Supplies): ACETAMINOPHEN 500MG TAB TAKE TWO TABLETS BY MOUTH TWICE A ACTIVE DAY NEEDED FOR PAIN AMLODIPINE BESYLATE 5MG TAB TAKE ONE TABLET BY MOUTH EVERY ACTIVE (S) DAY FOR BLOOD PRESSURE BUPROPION HCL 150MG 12HR SA TAB TAKE ONE TABLET BY MOUTH ACTIVE TWICE A DAY FOR MOOD GABAPENTIN 300MG CAP TAKE ONE CAPSULE BY MOUTH THREE TIMES ACTIVE A DAY FOR PAIN AND NUMBNESS LISINOPRIL 40MG TAB TAKE ONE TABLET BY MOUTH EVERY DAY FOR ACTIVE BLOOD PRESSURE MELOXICAM 15MG TAB TAKE ONE TABLET BY MOUTH EVERY DAY ACTIVE NEEDED *TAKE WITH FOOD*USED FOR PAIN RELIEF ROSUVASTATIN CA 5MG TAB TAKE ONE TABLET BY MOUTH EVERY DAY ACTIVE FOR CHOLESTEROL (STARTED 07/27/22) SEMAGLUTIDE 0.25MG/0.375ML INJ PEN 3ML INJECT 0.5MG UNDER ACTIVE THE SKIN EVERY WEEK FOR DIABETES *REPLACES METFORMIN TRAMADOL HCL 50MG TAB TAKE ONE TABLET BY MOUTH EVERY DAY ACTIVE FOR PAIN Non-VA NON VA MED NOT LISTED MISCELLANEOUS MOUTH ACTIVE /shankar/ RAQUEL MORALES Pharm.D. Signed: 10/20/2022 07:17 Receipt Acknowledged By: 10/20/2022 09:08 /es/ AL MCINTOSH MD 10/26/2022 ADDENDUM STATUS: COMPLETED Called and left voicemail to return call to discuss new medication. Awaiting return call. /shankar/ DUC HUSAIN RN Signed: 10/26/2022 08:52 10/31/2022 ADDENDUM STATUS: COMPLETED Called and updated on new medication. [place] stated he is in [place] but will begin when he returns home. /shankar/ DUC HUSAIN RN Signed: 10/31/2022 12:57 CYNDI MALONE [facility] Oct 20, 2022 07:12 AM PHARMACY CONSULT: LOCAL TITLE: PHARMACY PRIOR AUTHORIZATION DENIED CONSULT STANDARD TITLE: PHARMACY CONSULT DATE OF NOTE: OCT 20, 2022@07:12 ENTRY DATE: OCT 20, 2022@07:12:57 AUTHOR: RAQUEL MORALES EXP COSIGNER: URGENCY: STATUS: COMPLETED PHARMACY PRIOR AUTHORIZATION DENIED CONSULT Has ADDENDA The medical record has been reviewed with regard to this prior authorization drug request. Medication requested: DEXLANSOPRAZOLE 30MG EC CAP Medication indication: GERD Medical history relevant to this request: Previous H2 blockers: ranitidine, famotidine Previous PPI: omeprazole. Available [place] PPI options to be trialed prior to consideration for dexlansoprazole: PANTOPRAZOLE formulary ESOMEPRAZOLE LANSOPRAZOLE RABEPRAZOLE The request does not meet criteria - The preferred alternative therapeutic option(s) have not been exhausted Active Outpatient Medications (including Supplies): ACETAMINOPHEN 500MG TAB TAKE TWO TABLETS BY MOUTH TWICE A ACTIVE DAY NEEDED FOR PAIN AMLODIPINE BESYLATE 5MG TAB TAKE ONE TABLET BY MOUTH EVERY ACTIVE (S) DAY FOR BLOOD PRESSURE BUPROPION HCL 150MG 12HR SA TAB TAKE ONE TABLET BY MOUTH ACTIVE TWICE A DAY FOR MOOD GABAPENTIN 300MG CAP TAKE ONE CAPSULE BY MOUTH THREE TIMES ACTIVE A DAY FOR PAIN AND NUMBNESS LISINOPRIL 40MG TAB TAKE ONE TABLET BY MOUTH EVERY DAY FOR ACTIVE BLOOD PRESSURE MELOXICAM 15MG TAB TAKE ONE TABLET BY MOUTH EVERY DAY ACTIVE NEEDED *TAKE WITH FOOD*USED FOR PAIN RELIEF ROSUVASTATIN CA 5MG TAB TAKE ONE TABLET BY MOUTH EVERY DAY ACTIVE FOR CHOLESTEROL (STARTED 07/27/22) SEMAGLUTIDE 0.25MG/0.375ML INJ PEN 3ML INJECT 0.5MG UNDER ACTIVE THE SKIN EVERY WEEK FOR DIABETES *REPLACES METFORMIN TRAMADOL HCL 50MG TAB TAKE ONE TABLET BY MOUTH EVERY DAY ACTIVE FOR PAIN Non-VA NON VA MED NOT LISTED MISCELLANEOUS MOUTH ACTIVE /es/ RAQUEL MORALES Pharm.D. Signed: 10/20/2022 07:17 Receipt Acknowledged By: 10/20/2022 09:08 /es/ AL MCINTOSH MD 10/26/2022 ADDENDUM STATUS: COMPLETED Called and left voicemail to return call to discuss new medication. Awaiting return call. /es/ DUC HUSAIN RN Signed: 10/26/2022 08:52 10/31/2022 ADDENDUM STATUS: COMPLETED [place] was returning the missed call. He states that he is on a family trip and phone switchboard receptionist is spotty. Please try and give him a call at [phone]. [place]! /es/ CYNDI MEADOWS 23 [facility] MSA Signed: 10/31/2022 12:13 Receipt Acknowledged By: 10/31/2022 12:54 /es/ DUC HUSAIN RN 10/31/2022 ADDENDUM STATUS: COMPLETED Called and updated on new medication. [place] stated he is in [place] but will begin when he returns home. /es/ DUC HUSAIN RN Signed: 10/31/2022 12:57 11/09/2022 ADDENDUM STATUS: COMPLETED Spoke with the pt regarding the above medication request. Pt has already been on pantoprazole in the past. He is wondering why he has restarted this. I did notify him that the Dexlansprazole was denied, however there are other medications that can be used other than pantoprazole. Will alert the pcp to see what else the pt can use, since pantoprazole has been used and is not working for this pt. Please advise. /es/ MARCY WRIGHT LPN Co-Radio Dispatcher Signed: 11/09/2022 13:08 Receipt Acknowledged By: 11/09/2022 13:47 /es/ RAQUEL ANAYA MD [facility]
--- OUTSIDE RECORDS SUMMARY | 2023-02-19 14:42 | XMS_ITS | Encounter Summary ---
Author Name Department of Vetera ns Affairs Organization Department of Veter[facility] Affairs Address [address] [place] [address] Support Name Relationship Address Phone KELYTREVER LITO Next of Kin [address] [place] [address] [place] Emergency Contact [address] [address] Selected Encounter This section includes the information on record at [place] for the Encounter. Date/Time Encounter Type Encounter Description Reason Provider Source Aug 10, 2022 09:58 AM Outpatient Encounter TELEPHONE PRIMARY CARE ICD-10-CM I10 Essential (primary) hypertension Shirley HUSAIN [facility] Encounter Template Text not used by [place] Assessments - Encounter Diagnoses This section includes the primary and secondary diagnoses documented for the Encounter. Date/Time Primary/Secondary Diagnosis Diagnosis Name Provider Source Aug 10, 2022 09:58 AM PRIMARY Essential (primary) hypertension Shirley HUSAIN [facility] Plan of Treatment: Future Appointments (+ 6 months) and Future Tests (+/- 45 days) The Plan of Treatment section includes future care activities for the patient from all [place] treatmentfacilities. This section includes future appointments and [...] 07, 2022 08:15 AM AMBULATORY - NONE [facility] Lab Results: +/- 30 days of [...] Range Comment Jul 27, 2022 06:52 AM [facility] POTASSIUM Specimen Type: PLASMA No comment entered. Ordering Provider: BUTCH ALEGRE Report Released Date/Time: Jul 07, 2021 04:26 PM Reporting Lab: [facility] [id number] Performing Lab: [facility] [address] POTASSIUM 3.6 3.5-5.1 Jul 27, 2022 06:52 AM [facility] SODIUM Specimen Type: PLASMA No comment entered. Ordering Provider: BUTCH ALEGRE Report Released Date/Time: Jul 07, 2021 04:26 PM Reporting Lab: [facility] [id number] Performing Lab: [facility] [id number] SODIUM 140 136-145 Jul 27, 2022 06:52 AM [facility] CREATININE(INCLUDES EGFR) Specimen Type: PLASMA No comment entered. Ordering Provider: BUTCH ALEGRE Report Released Date/Time: Jul 07, 2021 04:26 PM Reporting Lab: [facility] [id number] Performing Lab: [facility] [id number] CREATININE 0.5 L 0.7-1.2 .CREAT EGFR(CKD-EPI) >90 See_Comment Jul 27, 2022 06:52 AM [facility] HEMOGLOBIN A1C Specimen Type: BLOOD Comment: Values [...] Jul 07, 2021 04:26 PM Reporting Lab: [facility] [id number] Performing Lab: [facility] [address] HEMOGLOBIN A1C 5.2 4.0-6.0 Jul 27, 2022 06:52 AM [facility] CBC Specimen Type: BLOOD No comment entered. Ordering Provider: BUTCH ALEGRE Report Released Date/Time: Jul 07, 2021 04:26 PM Reporting Lab: [facility] [address] Performing Lab: [facility] [address] WBC 7.34 4.0-11.0 RBC 5.11 4.6-6.2 HGB 14.7 13.5-17.9 HCT 42.9 41-54 MCV 84.0 80-100 MCH 28.8 27-33 MCHC 34.3 32.0-37.5 PLT 232 150-400 MPV 10.4 7.4-10.4 RDW 13.0 11.5-14.5 Jul 27, 2022 06:52 AM [facility] LIPID PANEL,NON-FASTING Specimen Type: PLASMA No comment entered. Ordering Provider: BUTCH ALEGRE Report Released Date/Time: Jul 07, 2021 04:26 PM Reporting Lab: [facility] [address] Performing Lab: [facility] [address] CHOLESTEROL 161 See_Comment .HDL 42 See_Comment LDL CALCULATION 100 H See_Comment VLDL CALCULATION 19 See_Comment NON HDL CHOLESTEROL 119 See_Comment TRIG(NON FASTING) 96 See_Comment Social History: Smoking Status (Most current) and Tobacco Use (All prior to encounter date) This section includes the most current, and the historical, smoking and tobacco- related health factors from the [place] facility where the Encounter took place. Current Smoking Status This section includes the most current smoking, or tobacco-related health factor, from the [place] facility where the Encounter took place. Date/Time Current Smoking Status Comment Chace sesay Jul 20, 2022 09:19 AM VA-TOBACCO NEVER USED [facility] Tobacco Use History This section includes a history of the smoking, or tobacco-related health factors, that were collected on or before the date of the Encounter. The data comes from the [place] facility where the Encounter took place. Date/Time Smoking Status/Tobacco Use Comment Ligia oleary Jul 07, 2021 01:30 PM VA-TOBACCO NEVER USED [facility] Jul 22, 2020 11:30 AM VA-TOBACCO NEVER USED [facility] May 13, 2018 10:59 AM VA-TOBACCO NEVER USED [facility] Sep 15, 2016 09:06 AM LIFETIME NON-TOBACCO USER [facility] Oct 20, 2015 08:49 AM LIFETIME NON-TOBACCO USER [facility] Jan 12, 2015 08:44 AM LIFETIME NON-TOBACCO USER [facility] Encounter Notes: All associated encounter notes This section contains the clinical notes associated to the Encounter. Date/Time Encounter Note(s) Provider Source Aug 10, 2022 09:58 AM REPORT OF CONTACT: LOCAL TITLE: PATIENT CONTACT NOTE STANDARD TITLE: REPORT OF CONTACT DATE OF NOTE: AUG 10, 2022@09:58 ENTRY DATE: AUG 10, 2022@09:58:23 AUTHOR: DUC HUSAIN EXP COSIGNER: URGENCY: STATUS: COMPLETED PATIENT CONTACT NOTE Has ADDENDA Patient contact Name of : KELYMARC KAMINSKI Name/Relationship of Contact if other than [place]: Date & Time of Contact: Aug@09:58 Type of Contact: Telephone Reason for Contact: Blood pressure follow up. The patient has been checking his blood pressure daily. His readings are as below. Date: Pressure: Heart rate: 07/30 147/88 61 07/31 155/92 62 08/01 154/84 72 08/02 154/90 71 08/03 148/86 69 08/04 149/91 65 / 143/85 63 7/ 153/96 64 / 153/89 73 / 164/86 71 / 146/86 73 08/10 167/94 79 /du HUSAIN RN Signed: 08/10/2022 10:00 Receipt Acknowledged By: 08/11/2022 08:26 /shankar/ ONEYDA DOLL APRN NURSE PRACTITIONER 08/11/2022 ADDENDUM STATUS: COMPLETED Pt has pharmacist appointment 08/25 for and BP meds and semaglutide titration PACT RN please make pt aware they will discuss BP at that time. /du DOLL APRN NURSE PRACTITIONER Signed: 08/11/2022 08:28 Receipt Acknowledged By: 08/11/2022 09:09 /du HUSAIN RN 08/11/2022 ADDENDUM STATUS: COMPLETED Called patient and updated them on provider feedback. Informed patient that his blood pressure will be discussed at his next pharmacy appointment. Patient had no further questions. /du HUSAIN RN Signed: 08/11/2022 09:10 DUC HUSAIN [facility]
--- OUTSIDE RECORDS SUMMARY | 2023-02-19 14:42 | XMS_ITS | Encounter Summary ---
Author Name Department of Vetera ns Affairs Organization Department of Vetera ns Affairs Address [address] [place] [address] Support Name Relationship Address Phone KELYTREVER LITO Next of Kin [address] [address] [place] Emergency Contact [address] [address] Selected Encounter This section includes the information on record at [place] for the Encounter. Date/Time Encounter Type Encounter Description Reason Pro vider Source Feb 07, 2023 01:43 PM Outpatient Encounter TELEPHONE PRIMARY CARE IHE Encounter Template Text not used by [place] Plan of Treatment: Future Appointments (+ 6 months) and Future Tests (+/- 45 days) The Plan of Treatment section includes future care activities for the patient from all [place] treatmentfacilities. This section includes future appointments and future orders which are active, pending or scheduled. Future Appointments This section includes appointments that were scheduled to occur 6 months from the date of the Encounter, up to a maximum of 20 appointments. The data comes from all [place] treatment facilities. Appointment Date/Time Appointment Type Appointme nt Facility Name Feb 16, 2023 12:00 PM AMBULATORY - NONE [facility] Social History: Smoking Status (Most [...] 20, 2022 09:19 AM VA-TOBACCO NEVER USED [facility] Tobacco Use History This section includes a history of the smoking, or tobacco-related health factors, that were collected on or before the date of the Encounter. The data comes from the [place] facility where the Encounter took place. Date/Time Smoking Status/Tobacco Use Comment F acility Jul 07, 2021 01:30 PM VA-TOBACCO NEVER USED [facility] Jul 22, 2020 11:30 AM VA-TOBACCO NEVER USED [facility] May 13, 2018 10:59 AM VA-TOBACCO NEVER USED [facility] Sep 15, 2016 09:06 AM LIFETIME NON-TOBACCO USER [facility] Oct 20, 2015 08:49 AM LIFETIME NON-TOBACCO USER [facility] Jan 12, 2015 08:44 AM LIFETIME NON-TOBACCO USER [facility] Encounter Notes: All associated encounter notes This section contains the clinical notes associated to the Encounter. Date/Time Encounter Note(s) Provider Source Feb 07, 2023 01:43 PM REPORT OF CONTACT: LOCAL TITLE: PATIENT CONTACT NOTE STANDARD TITLE: REPORT OF CONTACT DATE OF NOTE: FEB 07, 2023@13:43 ENTRY DATE: FEB 07, 2023@13:43:23 AUTHOR: NICOLAS DUPREE EXP COSIGNER: URGENCY: STATUS: COMPLETED Patient contact Name of : MARC EDGE Name/Relationship of Contact if other than [place]: Date & Time of Contact: Nov@09:20 Type of Contact: Other [facility] Request Reason for Contact: [employer] entered a [facility] request to: reschedule from my original appointment scheduled on Nov Disposition: Message to provider; please contact for rescheduling. Thank you. /shankar/ NICOLAS DUPREE ENTERTAINMENT LAWYER Signed: 02/07/2023 13:45 Receipt Acknowledged By: 02/07/2023 16:00 /shankar/ KATE BURROWS Clinical Pharmacist Practitioner NICOLAS DUPREE [facility]
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
--- OUTSIDE RECORDS SUMMARY | 2023-02-19 14:42 | XMS_ITS | Encounter Summary ---
Author Name Department of Vetera ns Affairs Organization Department of Vetera ns Affairs Address [address] [place] [address] Support Name Relationship Address Phone KELYTREVER LITO Next of Kin [address] [address] [place] Emergency Contact [address] [address] Selected Encounter This section includes the information on record at [place] for the Encounter. Date/Time Encounter Type Encounter Description Reason Pro vider Source Oct 12, 2022 12:36 PM Outpatient Encounter TELEPHONE PRIMARY CARE [facility] Encounter Template Text not used by [place] Plan of Treatment: Future Appointments (+ 6 months) and Future Tests (+/- 45 days) The Plan of Treatment section includes future care activities for the patient from all [place] treatmentfacilities. This section includes future appointments and future orders which are active, pending or scheduled. Future Appointments This section includes appointments that were scheduled to occur 6 months from the date of the Encounter, up to a maximum of 20 appointments. The data comes from all [place] treatment facilities. Appointment Date/Time Appointment Type Appointme nt Facility Name Feb 16, 2023 12:00 PM AMBULATORY - NONE [facility] Social History: Smoking Status (Most current) and [...] 20, 2022 09:19 AM VA-TOBACCO NEVER USED [facility] Tobacco Use History This section includes a history of the smoking, or tobacco-related health factors, that were collected on or before the date of the Encounter. The data comes from the [place] facility where the Encounter took place. Date/Time Smoking Status/Tobacco Use Comment F acility Jul 07, 2021 01:30 PM VA-TOBACCO NEVER USED [facility] Jul 22, 2020 11:30 AM VA-TOBACCO NEVER USED [facility] May 13, 2018 10:59 AM VA-TOBACCO NEVER USED [facility] Sep 15, 2016 09:06 AM LIFETIME NON-TOBACCO USER [facility] Oct 20, 2015 08:49 AM LIFETIME NON-TOBACCO USER [facility] Jan 12, 2015 08:44 AM LIFETIME NON-TOBACCO USER [facility] Encounter Notes: All associated encounter notes This section contains the clinical notes associated to the Encounter. Date/Time Encounter Note(s) Provider Source Oct 12, 2022 12:36 PM REPORT OF CONTACT: LOCAL TITLE: PATIENT CONTACT NOTE STANDARD TITLE: REPORT OF CONTACT DATE OF NOTE: OCT 12, 2022@12:36 ENTRY DATE: OCT 12, 2022@12:36:39 AUTHOR: USMAN CARRANZA COSIGNER: URGENCY: STATUS: COMPLETED PATIENT CONTACT NOTE Has ADDENDA Voicemail received. Please return the call. Name/Relationship of contact if other than : self Date/Time of contact: 10/12/22 8:50am Reason for contact: no reason for call was left Return call number: [phone] /du Carranza LPN Co-Inspector Mechanical Signed: 10/12/2022 12:37 Receipt Acknowledged By: 10/12/2022 13:28 /du WRIGHT LPN Co-Inspector Mechanical 10/12/2022 ADDENDUM STATUS: COMPLETED Spoke with the pt and notified him that we only received a letter from [facility] and not an actual prescription. Notified him that I would see if his pcp would place the prior auth with only this, since something happened early September and we did not received the information and his pantoprazole was discontinued. He will contact [facility] and ask them to send a prescription, incase the pcp is in need of this. /shankar/ MARCY WRIGHT LPN Co-Inspector Mechanical Signed: 10/12/2022 13:27 USMAN CARRANZA [facility]
--- OUTSIDE RECORDS SUMMARY | 2023-02-19 14:43 | XMS_ITS | Encounter Summary ---
Author Name Department of Vetera ns Affairs Organization Department of Vetera [facility] Affairs Address [address] [place] [address] Support Name Relationship Address Phone KELYTREVER LITO Next of Kin [address] [place] [address] [place] Emergency Contact [address] [address] Selected Encounter This section includes the information on record at [place] for the Encounter. Date/Time Encounter Type Encounter Description Reason Provider Source Feb 16, 2023 12:00 PM MTMS BY PHARM EST 15 MIN TELEPHONE PRIMARY CARE ICD-10-CM I10 Essential (primary) hypertension HEMAL BURROWS [facility] Encounter Template Text not used by [place] Assessments - Encounter Diagnoses This section includes the primary and secondary diagnoses documented for the Encounter. Date/Time Primary/Secondary Diagnosis Diagnosis Name Provider Source Feb 16, 2023 12:00 PM PRIMARY Essential (primary) hypertension HEMAL BURROWS [facility] Feb 16, 2023 12:00 PM SECONDARY Type 2 diabetes mellitus without complications HEMAL BURROWS [facility] Social History: Smoking Status (Most current) and Tobacco Use (All prior to encounter date) This section includes the most current, and the historical, smoking and tobacco- related health factors from the [place] facility where the Encounter took place. Current Smoking Status This section includes the most current smoking, or tobacco-related health factor, from the [place] facility where the Encounter took place. Date/Time Current Smoking Status Comment Facil ity Jul 20, 2022 09:19 AM VA-TOBACCO NEVER USED [facility] Tobacco Use History This section includes a history of the smoking, or tobacco-related health factors, that were collected on or before the date of the Encounter. The data comes from the [place] facility where the Encounter took place. Date/Time Smoking Status/Tobacco Use Comment F acility Jul 07, 2021 01:30 PM VA-TOBACCO NEVER USED [facility] Jul 22, 2020 11:30 AM VA-TOBACCO NEVER USED [facility] May 13, 2018 10:59 AM VA-TOBACCO NEVER USED [facility] Sep 15, 2016 09:06 AM LIFETIME NON-TOBACCO USER [facility] Oct 20, 2015 08:49 AM LIFETIME NON-TOBACCO USER [facility] Jan 12, 2015 08:44 AM LIFETIME NON-TOBACCO USER [facility] Encounter Notes: All associated encounter notes This section contains the clinical notes associated to the Encounter. Date/Time Encounter Note(s) Provider Source Feb 16, 2023 11:55 AM PHARMACY NOTE: LOCAL TITLE: PHARMACOTHERAPY-CLINICAL PHARMACY NOTE STANDARD TITLE: PHARMACY NOTE DATE OF NOTE: FEB 16, 2023@11:55 ENTRY DATE: FEB 16, 2023@11:55:06 AUTHOR: KATE BURROWS EXP COSIGNER: URGENCY: STATUS: COMPLETED Visit Type: MARC Angeles is a 47 YO MALE followed by [facility] for medication management for hypertension and diabetes. 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 had exploratory surgery and no clear answer. 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 Non-VA GI provider ok'd to continue Has continued to lose weight w/ semaglutide to 282 lbs. Lifestyle: EtOH: socially, generally none during the week Diet: states he hasn't changed anything in particular, attributes weight and DM improvement to medication Exercise: working from home, happy with his activity level and avoiding excessive snacking. walking about the same, around the property *limited by knees and back ROS: (-) hypoglycemia symptoms (-) hyperglycemia symptoms (-) hypotension symptoms (-) HTN symptoms SMBG Readings: not checking at home Home BP Readings: Date BP (mmHg) ------- --------- 02/12/23 129/62 02/14/23 145/106 in significant pain while checking 02/15/23 132/86 yesterday 02/16/23 135/90 today Adherence to medications: no missed or extra doses OBJECTIVE: ALLERGIES/ADR: Patient has answered NKA - previously hospitalized for hypokalemia on hydrochlorothiazide MEDICATION RECONCILIATION: Active and Recently Outpatient Medications (excluding Supplies): Active Outpatient Medications Status 1) ACETAMINOPHEN 500MG TAB TAKE TWO TABLETS BY MOUTH ACTIVE TWICE A DAY NEEDED FOR PAIN 2) AMLODIPINE BESYLATE 5MG TAB TAKE ONE TABLET BY MOUTH ACTIVE EVERY DAY FOR BLOOD PRESSURE 3) BUPROPION HCL 150MG 12HR SA TAB TAKE ONE TABLET BY ACTIVE MOUTH TWICE A DAY FOR MOOD 4) GABAPENTIN 300MG CAP TAKE ONE CAPSULE BY MOUTH THREE ACTIVE TIMES A DAY FOR PAIN AND NUMBNESS 5) LISINOPRIL 40MG TAB TAKE ONE TABLET BY MOUTH EVERY ACTIVE DAY FOR BLOOD PRESSURE 6) MELOXICAM 15MG TAB TAKE ONE TABLET BY MOUTH EVERY DAY ACTIVE NEEDED *TAKE WITH FOOD*USED FOR PAIN RELIEF 7) RABEPRAZOLE NA 20MG EC TAB TAKE ONE TABLET BY MOUTH ACTIVE EVERY DAY FOR STOMACH ACID 8) ROSUVASTATIN CA 5MG TAB TAKE ONE TABLET BY MOUTH ACTIVE EVERY DAY FOR CHOLESTEROL (STARTED 07/27/22) 9) SEMAGLUTIDE 0.25MG/0.375ML INJ PEN 3ML INJECT 0.5MG ACTIVE UNDER THE SKIN EVERY WEEK FOR DIABETES *REPLACES METFORMIN Inactive Outpatient Medications Status 1) TRAMADOL HCL 50MG TAB TAKE ONE TABLET BY MOUTH EVERY DAY FOR PAIN Active Non-VA Medications Status 1) Non-VA NON VA MED NOT LISTED MISCELLANEOUS MOUTH ACTIVE 11 Total Medications Vitals: Temperature: 98.2 F [36.8 C] (07/27/2022 [...] 12:38 PLASMA .CREAT EGFR(CKD-E >90 Ref: >=60 CHOLESTEROL 161 (07/27/22) MEASURED LDL____ LDL CALCULATION 100 H (07/27/22) HDL 42 (07/27/22) TRIGLYCERIDE____ Collection DT Spec HGBA1C *A1c at non-VA provider 01/10/23 5.1% 07/27/2022 06:52 BLOOD 5.2 07/07/2021 12:38 BLOOD 7.0 H 07/22/2020 10:24 BLOOD 5.4 No data available for: ALB/CREAT RATIO,UR Liver Panel: Alk Phos ALK PHOSPHATASE 60 (04/01/22) ALT: SGPT 40 (04/01/22) AST: SGOT 24 (04/01/22) T Bili BILIRUBIN, TOTAL 1.6 H (04/01/22) TSH ____ Collection DT Spec WBC HGB HCT PLT [...] ACC/AHA guidelines - reported home blood pressures near goal on average - tolerating current medications without ADR or hypotension - appropriate to continue current medications and continue to monitor, encouraged 's plan to increase exercise PLAN: - no change #Disease-Specific Med Rec: Completed today #Labs: up to date (including non-VA labs) - Educated vet on indication/risks/benefits of new/changed medication. - Education provided on therapeutic nonpharmacologic management to achieve goals - Vet advised of recent labs. - verbalized understanding to all plans discussed today. Questions were answered to vet's satisfaction. Time spent: 13 minutes RTC: none with CPP indicated /shankar/ KATE BURROWS Clinical Pharmacist Practitioner Signed: 02/16/2023 12:10 KATE BURROWS [facility]
--- OUTSIDE RECORDS SUMMARY | 2023-02-19 14:43 | XMS_ITS | Continuity of Care Document ---
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 Name Role Phone Link Gomez ZHANG Unavailable Unavailable Allergies, Adverse Reactions, Alerts Substance Reaction Status Criticality No Known Allergies Active No Inform ation Medications Medication Instructions Dosage Effective Dates (start - stop) Status Comments Ozempic 0.25 mg or 0.5 mg (2 mg/3 mL) subcutaneous pen injector inject (0.5MG) by subcutaneous route every week on the same day of each week 0.5 MG - Active bupropion HCl XL 150 mg 24 hr tablet, extended release take 1 Tablet by oral route 2 times every day 150 MG - Active gabapentin 300 mg capsule take 1 capsule by ORAL route 3 times every day 300 MG - Active meloxicam 15 mg tablet take 1 tablet by oral route every day 15 MG - Active rabeprazole 20 mg tablet,delayed release take 1 tablet by oral route every day 20 MG - Active amlodipine 5 mg tablet take 1 tablet by oral route every day 5 MG - Active lisinopril 40 mg tablet take 1 tablet by oral route every day 40 MG - Active rosuvastatin 5 mg tablet take 1 tablet by ORAL route every day 5 MG - Active Procedures Procedure Date Established Level 4 Offic/outpt E&m Estab Mod-hi 2 23 Ugi Endo; W/bx 1/mx Level Iv-surg Path Gross/micro Advance Directives Directive Yes / No Effective Date File Name No Information Encounters Encounter Description Practice Location Reason(s) For Visit Diagnoses Date Provider Providers Copied on Encounter [facility], [address] [address], [place], [place], [id number], [place] tel:[phone] [facility] No Information 4 Keith Dyer. [address] [place] [address], [id number], [place]. tel:[phone] Established Level 4 [facility], [address] [address], [place], [place], [id number], [place] tel:[phone] [facility] GI Symptoms or Concerns (chief complaint) Recurrent intestinal obstruction 4 Keith Dyer. [address] [place] [address], [id number], [place]. tel:[phone] Referring Provider: Claudia Dickinson MD, [address] [place], [address]. tel:[phone] [facility], [address] [address], [place], [place], [id number], [place] tel:[phone] [facility] GI Symptoms or Concerns (chief complaint) No Information 4 Keith Dyer. [address] [place] [address], [id number], [place]. tel:[phone] [facility], [address] [address], [place], [id number], [place] tel:[phone] No Information 4 No Information Referring Provider: Claudia Dickinson MD, [address] [place], [address]. tel:[phone] Offic/outpt E&m Estab Mod-hi 2 [facility], [address] [address], [place], [id number], [place] tel:[phone] [facility] GI Symptoms or Concerns (chief complaint) Gastroesophageal reflux disease with esophagitis without hemorrhageAbnorm al CT scan, small bowel 3 Edstrflaquita Hernández. [address], [id number], . tel:[phone] Referring Provider: Referral Self, USE FOR SELF REFERRALS. [facility], [address] [address], [place], [place], [id number], tel:[phone] [facility] GI Symptoms or Concerns (chief complaint) Chronic GERDGastric distentionGastri c erythemaChronic GERDGastro-esoph ageal reflux disease without esophagitis 3 Diamond Patterson. [address] [facility] [address], [place], [place], [id number], [place]. tel:[phone] Referring Provider: Aung Grant, [address] , [place], [address]. tel:[phone] [facility], [address] [address], [place], [place], [id number], [place] tel:[phone] No Information 3 No Information Referring Provider: Aung Grant, [address] , [place], [address]. tel:[phone] Family History Family Member Type Diagnosis Age At Onset Father Problem (finding) Colon polyps Mother Problem (finding) Cancer, ovarian Father Problem (finding) Alcoholism Immunizations Vaccine Date Status Comments Afluria Qd administered Note: [facility] bi-directional interface ; Source: Other Registry Pneumovax administered Note: [facility] bi-d irectional interface ; Source: Other Registry tetanus toxoid, reduced diphtheria toxoid, and acellular pertussis vaccine, adsorbed administered Note: [facility] b i-directional interface ; Source: Other Registry SARS-COV-2 (COVID-19) vaccin e, mRNA, spike protein, LNP, preservative free, 100 mcg/0.5mL dose or 50 mcg/0.25mL dose administered Note: [facility] bi -directional interface ; Source: Other Registry Dayouria Qd administered Note: [facility] bi-directional interface ; Source: Other Registry Sully Qd administered Note: [facility] bi-directional interface ; Source: Other Registry Influenza, injectable, Madin [place] Canine Kidney, preservative free, quadrivalent administered Note: [facility] bi- directional interface ; Source: Other Registry Payers Payer name Insurance type Covered alliance party ID [place] yang(minh Sarabia [id number] Social History Type Description Quantity Date Captured Comments Sex Male Smoking Status No Information Chief Complaint And Reason For Visit No Information Reason For Referral Reason For Referral No Information Plan Of Treatment Date Type Action Status Referral Ordered: MRI Enterography With Contrast Per Radiology Appointment date/timeframe: First Available ordered Referral Ordered: follow-up visit 2 Months Appointment date/timeframe: 2 Months ordered History Of Present Illness Encounter Date Complaint History Of Prese nt Illness GI Symptoms or Concerns Avery matteo chaparroents today for follow-up of a bowel obstruction. He was hospitalized in March of 2022 with a bowel obstruction. He did well until December, when he had a second bowel obstruction. In January he had a third bowel obstruction. At that time he underwent an exploratory laparotomy, but no etiology for the bowel obstruction was found. He was discharged in late January. He states that 2 days ago he had some abdominal pain and distention, and felt he was getting another bowel obstruction but it passed on its own. Otherwise between these episodes he has felt normal. He denies any previous history of GI tract issues. He denies nausea, vomiting, hematemesis, diarrhea, constipation, or blood in his stool. He did start on Ozempic in August, although his 1st episode in March began before starting this medication. He has a niece with Crohn's disease.He underwent a colonoscopy at [facility] after his March hospitalization. In July he underwent an upper GI endoscopy which showed LA grade a esophagitis and some scarring suggestive of old ulcer disease. He was seen in our clinic in August and an MR enterography was ordered. I do not have any records of these results. He believes that this test was performed, but he does not remember where or what the result was. GI Symptoms or Concerns GI Symptoms or Concerns This is a pleasant 46-year-old male with a history of hypertension, type 2 diabetes, and obesity presenting to the clinic today for a followup after a recent upper endoscopy and concerns for uncontrolled gastroesophageal reflux disease.The patient reports that he has a long-standing history of gastroesophageal reflux disease that typically involves symptoms of acid reflux, in the remote past heartburn, and coughing in association without eating. He notes that over the last several months, his reflux has been worse. He currently takes pantoprazole 40 mg a day. He knows that he has been on this particular PPI since about April of this year. In the past, he had been taking ranitidine, but after that came off the market this was stopped, and he was transitioned to omeprazole. He felt omeprazole was not working, which prompted the transition to pantoprazole. In the remote past, he has been on Nexium and is unsure why he was taken off of that. He does not recall his response. GI Symptoms or Concerns Functional Status Date Functional Assessmen t No Information Instructions Date Instruction Additional Infor roger Gastroesophageal Reflux Disease Related to Gastroesophageal reflux disease with esophagitis without hemorrhage Gastroesophageal Reflux Disease Related to Chronic GERD Gastroesophageal Reflux Disease Related to Chronic GERD Gastritis Related to Chron ic GERD Assessments Type Assessment Date No Information Patient Care Teams Name Effective Dates (start - stop) Status Members No Information
--- OUTSIDE RECORDS SUMMARY | 2023-02-19 14:43 | XMS_ITS | Encounter Summary ---
Author Name [facility] Organization [facility] Address [address] [place] [address] Support Name Relationship Address Phone KELYTREVER LITO Next of Kin [address] [address] [place] Emergency Contact [address] [address] Selected Encounter This section includes the information on record at [place] for the Encounter. Date/Time Encounter Type Encounter Description Reason Pro vider Source Jan 10, 2023 12:00 AM Outpatient Encounter EVENT (HISTORICAL) [facility] Encounter Template Text not used by [place] Plan of Treatment: Future Appointments (+ 6 [...] 16, 2023 12:00 PM AMBULATORY - NONE [facility] Immunizations: All administered on the encounter date This section contains immunizations associated to the Encounter. Immunization Series Date Issued Reaction Comments INFLUENZA, INJECTABLE, QUADR IVALENT, PRESERVATIVE FREE Jan 10, 2023 Social History: Smoking Status (Most current) and [...] 20, 2022 09:19 AM VA-TOBACCO NEVER USED [facility] Tobacco Use History This section includes a history of the smoking, or tobacco-related health factors, that were collected on or before the date of the Encounter. The data comes from the [place] facility where the Encounter took place. Date/Time Smoking Status/Tobacco Use Comment F acility Jul 07, 2021 01:30 PM VA-TOBACCO NEVER USED [facility] Jul 22, 2020 11:30 AM VA-TOBACCO NEVER USED [facility] May 13, 2018 10:59 AM VA-TOBACCO NEVER USED [facility] Sep 15, 2016 09:06 AM LIFETIME NON-TOBACCO USER [facility] Oct 20, 2015 08:49 AM LIFETIME NON-TOBACCO USER [facility] Jan 12, 2015 08:44 AM LIFETIME NON-TOBACCO USER [facility]
--- OUTSIDE RECORDS SUMMARY | 2023-02-19 14:43 | XMS_ITS | Clinical Summary ---
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 Sup 2410. M/W E. 1 unit 0 01/20/2016 Active lisinopril-hydrochlor othiazide, 20-25 mg, (PRINZIDE, ZESTORETIC) 20-25 mg per tablet Take 1 tablet by mouth once daily. 0 01/20/2016 Active meloxicam 15 mg tablet Take 1 tablet by mouth once daily. 0 01/20/2016 Active traMADol (ULTRAM) 50 mg tablet Take 1 tablet by mouth every 6 hours if needed for Pain. 0 01/20/2016 Active gabapentin (NEURONTIN) 300 mg capsule Take 1 Capsule (300 mg) by mouth 3 times daily. 0 03/09/2021 Active famotidine (PEPCID) 20 mg tablet Take 1 Tablet (20 mg) by mouth 2 times daily. 0 03/09/2021 Active efinaconazole (Jublia) 10 % topical solutionIndications:D ermatophytosis of nail Apply topically to affected area(s) once daily. 8 mL 0 03/09/2021 Active ciclopirox solution (Penlac) 8 % solutionIndications:D ermatophytosis of nail Apply topically to affected area(s) at bedtime. Remove build up once weekly. 6.6 mL 2 03/29/2021 Active Active Problems Problem Noted Date Diagnosed Date S/P left knee arthroscopic p artial lateral menisectomy, 35%, dated 03/16/[address] Winn 03/31/2016 Tear of lateral meniscus of left knee, current 0 02/16/2016 Chondromalacia of left knee 02/16/2016 Family History Medical History Relation Name Comments Cancer Maternal Grandfather Cancer Mother Diabetes Paternal Grandfather Heart Disease Paternal Grandfather Cancer Paternal Grandmother Relation Name Status Comments Maternal Grandfather Mother Paternal Grandfather Paternal Grandmother Social History Tobacco Use Types Packs/Day Years Used Date Smoking Tobacco: Never Smokeless Tobacco: Never Alcohol Use Standard Drinks/Week Comments Yes 3 (1 standard drink = 0.6 oz pur e alcohol) Sex and Gender Information Value Date Recorded Sex Assigned at Not on file Gender Identity Not on file Sexual Orientation Not on file Obstetrics History Last Filed Vital Signs Vital Sign Reading Time Taken Comments Blood Pressure 128/78 03/16/2016 1:10 PM CUSHION MAT [employer]ER Pulse 97 04/21/2021 2:30 PM CDT Temperature 36 ??C (96.8 ??F) 03/16/2016 1:10 PM [employer] Respiratory Rate 16 03/16/2016 1:10 PM [employer]ER Oxygen Saturation 97% 04/21/2021 2:30 PM CDT Inhaled Oxygen Concentration - - Weight 139.1 kg (306 lb 9.6 oz) 04/21/2021 2:30 PM CDT Height 172.7 cm (5' 8) 03/16/2016 7:07 AM CUSH[employer] MAT [employer]KER Body Mass Index 46.62 03/16/2016 7:07 AM C[employer]ION [employer]ER Plan of Treatment Health Maintenance Due Date Last Done Comments Tdap 09/28/1986 Depression screening for age 12+ 1987 HIV for age 15-65 09/28/1990 BMI (ht and wt on same day) for age 18+ 09/28/1993 Hepatitis C screening for ag e 18-79 09/28/1993 Tetanus booster 1995 Colonoscopy through age 75 09/28/2020 Lipids for age 45-75 09/28/2020 COVID-19 vaccine series ( season) 2022 03/12/2020 Influenza for age 9-49 10/06/2022 Pneumococcal series for age 6-64 Aged Out No longer eligible based on patient's age to complete this topic Advance Directives Latest Code Status on File Code Status Date Activated Date Inactivated Comments Full Code 03/16/2016 9:13 AM 03/16/2016 3:40 PM Code Status History Code Status Date Activated Date Inactivated Comments Full Code 03/16/2016 6:12 AM 03/16/2016 9:13 AM Care Teams Metal Weather Stripper Relationship Specialty Start Date End Date Jacob Zhang MD PCP - General Family Practice 03/09/21
--- NOTE | 2023-02-19 15:00 | CRLHL7_ITS ---
For Patients: As a result of the Century Cures Act, medical imaging exams and procedure reports are released immediately into your electronic medical record. You may view this report before your referring provider. If you have questions, please contact your health care provider. INDICATION: Intestinal obstruction. TECHNIQUE: CT abdomen and pelvis acquired with 143 mL Isovue 370 IV contrast and oral contrast, enterography protocol. COMPARISON: 01/30/[address] FINDINGS: Lower chest: Unremarkable. Liver: Stable small left hepatic lobe cyst. Gallbladder and bile ducts: Unremarkable. No stones or inflammation. No biliary dilatation. Pancreas: Unremarkable. No mass or inflammation. Spleen: Unremarkable. Normal in size. No masses. Adrenal glands: Stable nodular enlargement of both adrenal glands. Kidneys: Multiple parapelvic cysts. No solid masses, stones, or hydronephrosis. GI tract: Previously seen small bowel dilation has resolved. No evidence for small bowel obstruction or stricture. Appendix. Vasculature: Unremarkable. Mesenteric arteries are patent. Lymph nodes: No lymphadenopathy. Omentum/Peritoneum/Abdominal Wall: New postsurgical changes in the anterior abdominal wall. No free air or significant free fluid. Pelvis: Unremarkable. Bones: Unremarkable for age. IMPRESSION: Previously seen small bowel obstruction/stricture has resolved. Please note that all CT scans at this facility use dose modulation, iterative reconstruction, and/or weight-based dosing when appropriate to reduce radiation dose to as low as reasonably achievable. Dictated by Anthony Sheets MD @ 02/20/2023 9:38:14 AM (Electronically Signed)
== END 2023-02-19 14:31 | disposition home or self-care (01) ==
PROVIDERS: PCP Family Medicine; Visit Provider Surgery
DX: K56.609 Unspecified intestinal obstruction, unspecified as to partial versus complete obstruction (principal)
CPT/HCPCS: 74177; Q9967

== ENCOUNTER 2023-10-18 11:17 | Outpatient (CLI) | payer OTHER, SELFPAY | END 2023-10-18 11:18 | disposition home or self-care (01) | PROVIDERS: PCP Family Medicine; Visit Provider Family Medicine | DX: E78.5 Hyperlipidemia, unspecified (principal); I10 Essential (primary) hypertension | CPT/HCPCS: 80048; 80061; 84460 ==

== ENCOUNTER 2024-10-27 09:59 | Outpatient (CLI) | payer OTHER, SELFPAY | END 2024-10-27 10:00 | disposition home or self-care (01) | PROVIDERS: PCP Family Medicine; Visit Provider Family Medicine | DX: E78.2 Mixed hyperlipidemia (principal); I10 Essential (primary) hypertension; R53.83 Other fatigue | CPT/HCPCS: 80048; 80061; 84443; 84460; 85025 ==